=== PATIENT | male | born 1975 | race Caucasian/White ===

== ENCOUNTER → 2018-08-14 07:45 | Outpatient (CLI) | payer BC, SELFPAY ==
[2018-08-07 08:28] VITALS: BMI 28.5
--- NOTE | 2018-08-14 07:47 | CT_ITS ---
STUDY: CT ABDOMEN WITH CONTRAST REASON FOR EXAM: Male, 43 years old. Left abdominal wall mass. Constipation. 2 months. RADIATION DOSAGE (If Supplied By Facility): CTDIvol = ( 19.64 ) mGy, DLP = ( 1308.66 ) mGycm TECHNIQUE: Transaxial images were obtained post I.V. administration of 100 ml of Isovue 300 contrast, and with oral contrast. Sagittal and coronal images were reconstructed. Individualized dose optimization techniques were used for this CT. COMPARISON: None. FINDINGS: The visualized lung bases are unremarkable. The visualized portions of the heart are within normal limits. There is diffuse fatty infiltration liver without focal mass. Minimal focal fatty sparing is seen in the gallbladder fossa. Normal gallbladder and extrahepatic biliary system. Normal spleen. Normal pancreas. Normal bilateral adrenal glands. Normal right kidney. Normal visualized right ureter. There is a triangular 5 mm calcification upper pole calyx of an otherwise normal left kidney. There is no hydronephrosis. Normal visualized left ureter. Normal visualized stomach. Normal visualized small intestine. Feces is seen throughout the nondistended visualized colon. The appendix is visualized and appears normal. Normal abdominal aorta. . Normal inferior vena cava. Normal retroperitoneum. Normal abdominal wall. There is no visualized mass. Normal osseous structures. CT/Abdomen WITH IV Contrast IMPRESSION: 1. No visualized abdominal wall mass. 2. Findings compatible with constipation. 3. Nonobstructing left renal calculus. 4. Fatty infiltration of the liver. 5. Electronically Signed: Campbell Albright DO at 16:58 EST Tel [phone], Service support ,
== END ==
PROVIDERS: Family Provider Family Medicine; PCP Family Medicine; Referring Provider Surgery; Visit Provider Surgery
DX: R19.00 Intra-abdominal and pelvic swelling, mass and lump, unspecified site (principal)
CPT/HCPCS: 74160; Q9967

== ENCOUNTER 2018-08-19 05:23 | Day surgery (SDC) | payer BC, SELFPAY ==
[2018-08-07 08:28] VITALS: BMI 28.5
[2018-08-19] VITALS (11 sets, daily range): BP systolic 109–155; BP diastolic 80–112; PULSE 57–68; RESP 16; TEMP 36.3–36.7; O2SAT 90–100; BMI 28.1
--- NOTE | 2018-08-19 06:30 | EGD_PTH ---
PATIENT: MARISSA ANGUIANO LOC: EN U#:[id number] AGE/SX: 43/M ROOM: RE08/19/[address]: Dr. Alex Anderson MD : 1975 BED: DIS: 08/19/2018 SPEC #: [id number] RECD: 08/19/18 07:50 STATUS: NORAH SUE #: [id number] MARISELA: 08/19/18 06:[address]: Alex Anderson DEPT: SURGICAL PATHOLOGY RECD BY: Terry Cruz ENTERED: 08/19/18 08:46 SP TYPE: EGD BIOPSY OT DR: Dr. Jeffrey Anderson III, MD Tissues: A - Gastric mucous membrane B - Esophageal mucous membrane Procedures: Surgery Specimen Level IV HEADER OPERATION: Colonoscopy, EGD (MOD) PRE-OP DIAGNOSIS: LUQ pain TISSUE SUBMITTED: A - Antral biopsy for histo and H. pylori, B - Distal esophageal biopsy MICROSCOPIC DIAGNOSIS A. Antral biopsy: Mild gastritis. See microscopic description and comment. B. Distal esophageal biopsy: Fragments of squamous epithelium with chronic inflammation and changes consistent with gastroesophageal reflux disease. See comment. SJ:rg 08/20/18 COMMENT A. The results of immunohistochemistry for Helicobacter pylori will be reported separately ([id number]). B. Increased number of eosinophils are also noted (up to 20 per high power field) suggestive of eosinophilic esophagitis. Correlation with clinical, endoscopic findings and appropriate follow up are necessary. MICROSCOPIC DESCRIPTION Slides are reviewed. A. The specimen shows fragments of gastric mucosa with chronic inflammatory cell infiltrates in the lamina propria consisting of lymphocytes and plasma cells, consistent with mild chronic gastritis. GROSS DESCRIPTION A - Received in fixative is one container labeled with the patient's name and designated antral biopsy. The specimen consists of multiple irregular fragments of light fay soft tissue that in aggregate measure 0.6 x 0.2 x 0.1 cm. The specimen is totally submitted in one cassette. B - Received in fixative is one container labeled with the patient's name and designated distal esophageal biopsy. The specimen consists of multiple irregular fragments of light fay soft tissue that in aggregate measure 0.6 x 0.5 x 0.1 cm. The specimen is totally submitted in one cassette. / DEB:romeo 08/19/18 TC:4 CPT: 80937 x2
--- NOTE | 2018-08-19 06:30 | IMM_PTH ---
PATIENT: MARISSA ANGUIANO LOC: EN U#:[id number] AGE/SX: 43/M ROOM: RE08/19/[address]: Dr. Alex Anderson MD : 1975 BED: DIS: 08/19/2018 SPEC #: [id number] RECD: 08/19/18 10:17 STATUS: NORAH SUE #: [id number] MARISELA: 08/19/18 06:[address]: Alex Anderson DEPT: IMMUNOHISTOCHEMISTRY RECD BY: Marbella Abdul ENTERED: 08/19/18 10:17 SP TYPE: IMMUNO OTHR DR: Dr. Jeffrey Anderson III, MD Tissues: A - Stomach, NOS Procedures: H Pylori (initial) PHYSICIAN & INSTITUTION [place] [address] SPECIMEN INFORMATION: Tissue Source: A - Antral biopsy Clinical Info: LUQ pain Specimen Number: [id number] CPT code: 33064 METHODOLOGY: Deparaffinized sections of prefer/formalin-fixed tissue or PAP/DQ stained slides are incubated with monoclonal/polyclonal antibodies/oligonucleotide probes. Localization is made via biotin free immunoperoxidase method. Appropriate controls are performed and reacted as expected. Results on target cell population are indicated in the following table: RESULTS: ANTIBODY / CLONE RESULT Block A H Pylori (polyclonal) negative These tests were developed and their performance characteristics determined by [facility]. They may not have been cleared or approved by the [place].S. Food and Drug Administration. The FDA has determined that such clearance or approval is not necessary. INTERPRETATION: A. Antral biopsy: Negative for Helicobacter pylori organisms. SJ:romeo 08/20/18
--- NOTE | 2018-08-19 07:01 | OP.ENDO_ITS ---
Patient Name: Mathieu Malone Procedure Date: 08/19/2018 6:17 AM Date of : 1975 Age: 43 Procedure: Upper GI endoscopy Indications: Abdominal pain in the left upper quadrant Providers: Alex Anderson MD Referring MD: Jeffrey Anderson Iii Medicines: Midazolam 4 mg IV, Meperidine 100 mg IV Complications: No immediate complications. Procedure: Pre-Anesthesia Assessment: - Prior to the procedure, a History and Physical was performed, and patient medications and allergies were reviewed. The patient's tolerance of previous anesthesia was also reviewed. The risks and benefits of the procedure and the sedation options and risks were discussed with the patient. All questions were answered, and informed consent was obtained. Prior Anticoagulants: The patient has taken no previous anticoagulant or antiplatelet agents. ASA Grade Assessment: II - A patient with mild systemic disease. After reviewing the risks and benefits, the patient was deemed in satisfactory condition to undergo the procedure. After obtaining informed consent, the endoscope was passed under direct vision. Throughout the procedure, the patient's blood pressure, pulse, and oxygen saturations were monitored continuously. The gastroscope was introduced through the mouth, and advanced to the second part of duodenum. The upper GI endoscopy was accomplished without difficulty. The patient tolerated the procedure well. Moderate Sedation: Moderate (conscious) sedation was personally administered by the endoscopist. The following parameters were monitored: oxygen saturation, heart rate, blood pressure, and response to care. Total physician intraservice time was 15 minutes. Scope In: 6:34:30 AM Scope Out: 6:39:02 AM Total Procedure Duration Time 0 hours 4 minutes 32 seconds Findings: A small hiatal hernia was present. Esophagitis with no bleeding was found 41 cm from the incisors. Biopsies were taken with a cold forceps for histology. The Z-line was regular and was found 41 cm from the incisors. Diffuse mildly erythematous mucosa without bleeding was found in the gastric antrum. Biopsies were taken with a cold forceps for histology. The examined duodenum was normal. Impression: - Small hiatal hernia. - Reflux esophagitis. Very minimal changes Biopsied. - Z-line regular, 41 cm from the incisors. - Erythematous mucosa in the antrum. Biopsied. - Normal examined duodenum. Recommendation: - Resume previous diet. - Continue present medications. - Use Prilosec (omeprazole) 20 mg PO daily. - Continue present medications. - Telephone my office for pathology results in 1 week. Findings of small hiatal hernia and minimal esophagitis and minimal antral erythema do not well correlate with patient's symptoms Procedure Code(s): --- Professional --- 52538, Esophagogastroduodenoscopy, flexible, transoral; with biopsy, single or multiple 96457, 59, Moderate sedation services provided by the same physician or other qualified health managed care director performing the diagnostic or therapeutic service that the sedation supports, requiring the presence of an independent trained observer to assist in the monitoring of the patient's level of consciousness and physiological status; initial 15 minutes of intraservice time, patient age 5 years or older Diagnosis Code(s): --- Professional --- K44.9, Diaphragmatic hernia without obstruction or gangrene K21.0, Gastro-esophageal reflux disease with esophagitis K31.89, Other diseases of stomach and duodenum R10.12, Left upper quadrant pain CPT copyright 2017 [employer]. All rights reserved. The codes documented in this report are preliminary and upon radiography technician review may be revised to meet current compliance requirements. Alex Anderson MD 08/19/2018 7:01:04 AM This report has been signed electronically. Number of Addenda: 0 Note Initiated On: 08/19/2018 6:17 AM
--- NOTE | 2018-08-19 07:04 | OP.ENDO_ITS ---
Patient Name: Mathieu Malone Procedure Date: 08/19/2018 6:40 AM Date of : 1975 Age: 43 Procedure: Colonoscopy Indications: Abdominal pain in the left upper quadrant Providers: Alex Anderson MD Referring MD: Jeffrey Anderson Iii Medicines: Midazolam 1 mg IV, Meperidine 50 mg IV Patient Profile: Last Colonoscopy: none. The patient's first colonoscopy is today. Complications: No immediate complications. Procedure: Pre-Anesthesia Assessment: - Prior to the procedure, a History and Physical was performed, and patient medications and allergies were reviewed. The patient's tolerance of previous anesthesia was also reviewed. The risks and benefits of the procedure and the sedation options and risks were discussed with the patient. All questions were answered, and informed consent was obtained. Prior Anticoagulants: The patient has taken no previous anticoagulant or antiplatelet agents. ASA Grade Assessment: II - A patient with mild systemic disease. After reviewing the risks and benefits, the patient was deemed in satisfactory condition to undergo the procedure. After I obtained informed consent, the scope was passed under direct vision. Throughout the procedure, the patient's blood pressure, pulse, and oxygen saturations were monitored continuously. The colonoscope was introduced through the anus and advanced to the cecum, identified by appendiceal orifice and ileocecal valve. The colonoscopy was performed without difficulty. The patient tolerated the procedure well. The quality of the bowel preparation was good. The ileocecal valve and the appendiceal orifice were photographed. Moderate Sedation: Moderate (conscious) sedation was personally administered by the endoscopist. The following parameters were monitored: oxygen saturation, heart rate, blood pressure, and response to care. Total physician intraservice time was 15 minutes. Scope In: 6:42:40 AM Scope Withdrawal Time 0 hours 6 minutes 7 seconds Scope Out: 6:52:26 AM Total Procedure Duration Time 0 hours 9 minutes 46 seconds Findings: The perianal and digital rectal examinations were normal. The colon (entire examined portion) appeared normal. Impression: - The entire examined colon is normal. - No specimens collected. Recommendation: - Discharge patient to home. - Resume previous diet. - Continue present medications. - Repeat colonoscopy in 10 years for screening purposes. Procedure Code(s): --- Professional --- 91298, Colonoscopy, flexible; diagnostic, including collection of specimen(s) by brushing or washing, when performed (separate procedure) 31064, 59, Moderate sedation services provided by the same physician or other qualified health animal care service worker performing the diagnostic or therapeutic service that the sedation supports, requiring the presence of an independent trained observer to assist in the monitoring of the patient's level of consciousness and physiological status; initial 15 minutes of intraservice time, patient age 5 years or older Diagnosis Code(s): --- Professional --- R10.12, Left upper quadrant pain CPT copyright 2017 [employer]. All rights reserved. The codes documented in this report are preliminary and upon jewel hole gauger review may be revised to meet current compliance requirements. Alex Anderson MD 08/19/2018 7:03:51 AM This report has been signed electronically. Number of Addenda: 0 Note Initiated On: 08/19/2018 6:40 AM
--- OUTSIDE RECORDS SUMMARY | 2018-10-05 01:51 | XMS RPT_ITS ---
:1975 Author Organization OH[facility] Care Team Providers Name Role Phone Alex Anderson Attending Unavailable CebuJeffrey johnson III Primary Care Unavailable Cebul Jeffrey KRUEGER Referring Unavailable Alex Anderson Attending Unavailable Alex Anderson Referring Unavailable Alex Anderson Attending Unavailable Jeffrey Anderson III Referring Unavailable Alex Anderson Attending Unavailable Alex Anderson Referring Unavailable Cebul Jeffrey KRUEGER Primary Care Unavailable MIC CANTUILA A Referring Unavailable ARMOGIDA, KELSIE A Referring Unavailable ARMOGIDA, KELSIE A Referring Unavailable ARMOGIDA, KELSIE A Referring Unavailable ARMOGIDA, KELSIE A Referring Unavailable ARMOGIDA, KELSIE A Referring Unavailable ARMOGIDA, KELSIE A Referring Unavailable ARMOGIDA, KELSIE A Referring Unavailable ARMOGIDA, KELSIE A Referring Unavailable ARMOGIDA, KELSIE A Referring Unavailable ARMOGIDA, KELSIE A Referring Unavailable ARMOGIDA, KELSIE A Referring Unavailable ARMOGIDA, KELSIE A Referring Unavailable CEBUL III, JEFFREY A Referring Unavailable CEBUL III, JEFFREY A Referring Unavailable ARMOGIDA, KELSIE A Referring Unavailable ARMOGIDA, KELSIE A Attending Unavailable ARMOGIDA, KELSIE A Referring Unavailable ARMOGIDA, KELSIE A Referring Unavailable ARMOGIDA, KELSIE A Referring Unavailable ARMOGIDA, KELSIE A Referring Unavailable ARMOGIDA, KELSIE A Referring Unavailable ARMOGIDA, KELSIE A Referring Unavailable CEBUL III, JEFFREY A Referring Unavailable ARMOGIDA, KELSIE A Attending Unavailable ARMOGIDA, KELSIE A Referring Unavailable ANABELL ROLDAN ([employer]ING [employer]TAIN) Attending Unavailable CEBUL III, JEFFREY A Attending Unavailable CEBUL III, JEFFREY A Attending Unavailable PROBLEMS PROBLEMS DATE TYPE CONDITION / CODE ATTENDING STATUS SOURCE 09/22/2018 Unknown R10.12 - Left upper Cebul, Alex Active [facility] quadrant pain / Community R10.12(ICD-10) Hospital Repository 09/22/2018 Unknown K21.0 - Cebul, Alex Active [facility] reflux disease with Hospital esophagitis / Repository K21.0(ICD-10) 09/22/2018 Unknown K31.89 - Other Cebul, Alex Active [facility] diseases of stomach Community and duodenum / Hospital K31.89(ICD-10) Repository 09/22/2018 Unknown K44.9 - Cebul, Alex Active [facility] hernia without Hospital obstruction or Repository gangrene / K44.9(ICD-10) 08/14/2018 Unknown R19.00 - Cebul, Alex Active [facility] pelvic swelling, Hospital mass and lump, Repository unspecified site / R19.00(ICD-10) 08/07/2018 Unknown K92.1 - Melena / Cebul, Alex Active [facility] K92.1(ICD-10) [facility] Hospital Repository 10/07/2017 Active Unknown / NA Active [facility] UNK(Unknown) [facility] Repository PROCEDURES PROCEDURES No Procedure Records FoundRESULTS RESULTS PROGRESS Observed: 09/24/2018 Status: COMPLETED Source: [place] 10:20 AM [facility] REPOSITORY HNO ID: [id number] Author: Kelsie Viveros Service: (none) Author Type: Physician Type: Progress Notes Filed: 09/24/2018 12:58 PM Note Text: Marissa Malone is a 42 year old male with a history of allergic rhinoconjunctivitis (cats, dogs, dust mites, trees, grasses, weeds, ragweed) who presents for a follow-up visit after having EGD completed by Dr Alex Anderson. Last visit was 06/04/18. EGD and colonoscopy were completed on August 19, 2018 for a sensation of left upper quadrant fullness. On EGD, a small hiatal hernia and distal esophagitis were noted. Patient also had diffuse mildly erythematous mucosa of the gastric antrum. On biopsy of the distal esophagus, increased number of eosinophils up to 20 per high power field was noted. Biopsies were not completed of the proximal or mid esophagus. Antral biopsy showed mild gastritis. H. pylori negative. Colonoscopy was normal. After having the studies completed, Prilosec 20 mg daily for 2 months was recommended, however, patient has not started this medication yet. Patient denies a history dysphagia, odynophagia and food impaction. Denies significant GERD symptoms prior to having the procedure completed. Since having the procedures completed, patient notes intermittent epigastric discomfort described as sharp pain which improves after drinking water. Bradycardia was incidentally noted at today's visit with a pulse of 45-50. Typically patients pulse runs between 56 and 63. Patient notes intermittent sharp discomfort of the lower sternum/epigastric region which patient attributes to GERD. . Denies chest heaviness/chest pressure, left jaw or left arm pain, diaphoresis and nausea. No history of coronary artery disease. Patient notes intermittent sneezing. Otherwise nasal symptoms have been well-controlled since his last visit. He began subcutaneous allergy immunotherapy on May 06, 2017 and reached the maintenance dose on April 07, 2018. He has noted some improvement in his nasal and ocular symptoms since starting immunotherapy. He has been tolerating immunotherapy without systemic reaction. There are no cats or dogs in the home. (His dog 2017.) Dust mite precautions have not been instituted in the home- new pillows but no encasings. (From initial visit on April 15, 2017: This is a self-referral for an allergy and immunology evaluation. Marissa Malone is a 41 year old male with a history of allergic rhinoconjunctivitis who [facility]. Last visit was in 2008. He complains of nasal congestion, rhinorrhea, sneezing and itchy and watery eyes. Symptoms are perennial with exacerbation in the spring and summer. Cat exposure is a trigger of his symptoms. Currently takes Claritin D with fair relief of symptoms. Previously on Flonase with improvement. He is interested in starting subcutaneous allergy immunotherapy. Approximately 20 years ago, he was on subcutaneous immunotherapy for about 8 months with mild improvement in his symptoms. Denies systemic reactions to immunotherapy. In June,, he was treated with prednisone and an albuterol for bronchitis. Denies any other issues with cough, wheezing, chest tightness or shortness of breath. REVIEW OF SYSTEMS: Negative for fevers, chills, night sweats and unintentional weight loss. Negative for skin rash and skin lesions All other review of systems negative except for those listed above. PAST MEDICAL HISTORY Diagnosis Date - Allergic rhinitis due to other allergen MEDICATIONS: loratadine (CLARITIN) 10 mg tablet Take 10 mg by mouth once daily. EPINEPHrine (AUVI-Q) 0.3 mg/0.3 mL auto-injector Inject 0.3 mL intramuscularly as needed. For allergic reaction.Seek emergent medical care immediately after use.Disp:1 2-packw/job foreman omeprazole (PRILOSEC) 20 mg capsule Take 1 capsule by mouth once daily. sertraline (ZOLOFT) 50 mg tablet Take 1 tablet by mouth once daily. fluticasone (FLONASE) 50 mcg/actuation nasal spray Use 2 Sprays in each nostril once daily. EPINEPHrine (EPIPEN) 0.3 mg/0.3 mL auto-injector Inject 0.3 mL intramuscularly as needed (for allergic reaction.Seek emergent medical care immediately after use.Disp:one 2-pack w/job foreman). olopatadine (PATANOL) 0.1 % ophthalmic solution Use 1 Drop in both eyes twice daily as needed. ALLERGIES: Allergies As of Date: 09/24/2018 Allergen Noted Reaction ENVIRONMENTAL ALLERGIES [OTHER] 03/23/2009 Other: See Comments Fully Assessed 09/24/2018 PAST SURGICAL HISTORY Procedure Laterality Date - COLONOSCOP W/ OR W/[facility] W/BX [facility] PAST SURGICAL HISTORY OF 2017 removed benign lesion on scalp, deepa - REM LESION FACE,EAR,EYE 1.1-2 CM Right 06/05/16 Exc. right lower lip mucocele - REMOVAL ADENOIDS,PRIMARY,<12 Y/O 1981 Adenoidectomy - REMOVAL OF TONSILS,<12 Y/O 1981 Tonsillectomy FAMILY HISTORY: Allergic rhinitis:no. Asthma: yes: son when younger, but grew out of it. Eczema: no. Cystic fibrosis: no. Immunodeficiency: no. SOCIAL HISTORY: Marital status: Children: 2 biological and step son Occupation: [email or web address] Smoking: quit smoking 6 months ago. Smoked a couple cigarettes off and on for 5 years. ENVIRONMENTAL HISTORY: Lives in a house Age of home: 89 years Heating: gas [employer] fireplace in the home: yes but never used Air conditioning: Central air Basement: Dry basement, runs de-humidifier Deon: [id number] carpeting Dust mite controls: Dust mite controls are not in place. Pets in the home: 1 dogs Outdoor animals: There are no outdoor animals Tobacco smoke: No exposure in the home. Physical Exam: GENERAL APPEARANCE:Well appearing, alert, in no acute distress, well-hydrated, well nourished. HEENT: NCAT. EYES: conjunctiva and sclera normal. EARS: External ears normal. Canals clear. TM's normal. NOSE/SINUS:mild edema of the nasal mucosa with scant clear secretions bilaterally THROAT: no erythema NECK:neck supple, no adenopathy HEART:bradycardic, regular rhythmwith normal S1 and S2 ,no murmurs, no gallops, no rubs LUNGS: clear to auscultation bilaterally, no wheezes, rales or rhonchi ABDOMEN:soft, nontender, nondistended, without organomegaly or palpable masses EXTREMITIES:Extremities normal, No deformities, No skin discoloration and No edema SKIN: Skin color, texture, turgor normal. No rashes or lesions. ALLERGY SKIN TESTS on April 15, 2017:Positive to cats, dogs, dust mites, trees, grasses, weeds, ragweed on prick testing. ASSESSMENT/PLAN: 1.) Increased eosinophils noted on biopsy of distal esophagus. Based on patient's clinical history and test results, I suspect the increased eosinophils are secondary to GERD rather than eosinophilic esophagitis. Recommended that he take omeprazole 20 mg once daily for 2 months as previously recommended by Dr. Alex Anderson. Follow- up in allergy in 3 months. Depending on clinical course, allergy skin tests to highly allergenic foods may be considered at a future visit. 2.) Bradycardia. Discussed with patient's primary care physician, Dr. Jeffrey Anderson. Since patient is asymptomatic, Dr. Anderson recommended follow- up as scheduled on October 06. EKG will be completed at that time. Patient instructed to seek emergent medical care if he develops symptoms such as chest pain, nausea, diaphoresis etc. 3.) Allergic Rhinoconjunctivitis Aggressive environmental controls Dust mite precautions should be instituted in the home. Recommend regular use of fluticasone nasal spray 2 sprays each nostril once daily from early November through the first avila in the fall/early winter.. Continue Claritin 10 mg once daily as needed Patient will continue subcutaneous allergy immunotherapy as tolerated. He was reminded that beta blockers and esteban inhibitors are relative contraindications to subcutaneous allergy immunotherapy and was instructed to contact our office immediately if he is prescribed a beta jayy or ESTEBAN inhibitor in the future. 4.) Discussed medication dosage, usage, side effects, and goals of treatment in detail. 5.) Follow-up in 3 months - patient will return sooner should new symptoms or problems arise. Kelsie Cantu MD PROGRESS Observed: 09/24/2018 Status: COMPLETED Source: [place] 10:10 AM [facility] REPOSITORY HNO ID: [id number] Author: Ketty Thomas RN Service: (none) Author Type: (none) Type: Progress Notes Filed: 09/24/2018 12:58 PM Note Text: Pt identified by name and birthdate. Allergy injections given subcutaneously. September 24, 2018 10:10 AM Patient took antihistamine. Patient states took claritin at 7 today Immunotherapy Order written on: 05/06/[address] Kelsie Cantu [phone] Patient did not have a large late local reaction to previous injection. Size of reaction If patient has asthma, symptoms controlled: N/A Patient did not report a recent illness. Patient did not report a new blood pressure medications or asthma medication. Patient has their Epi pen with them, Yes Vial A Content: MOLDS Patient did not have a large late local reaction to previous injection. Size of reaction Concentration: 1:1 Dose: 0.5 ml SQ Arm: left upper arm (proximal) Reaction after 30 minutes: None Vial B Content: TREES, GRASSES, WEEDS, RAGWEED Patient did not have a large late local reaction to previous injection. Size of reaction Concentration: 1:1 Dose: 0.5 ml SQ Arm: right upper arm (proximal) Reaction after 30 minutes: None Vial C Content: DUST MITES, ANIMAL DANDER Patient did not have a large late local reaction to previous injection. Size of reaction Concentration: 1:1 Dose: 0.5 ml SQ Arm: left upper arm (distal) Reaction after 30 minutes: None Previously instructed about signs and symptoms of local and systemic reactions. Appointment line and nurses station number given as well as injection times at administering location. Ketty Thomas RN CNOV Observed: 09/24/2018 Status: COMPLETED Source: [place] 9:00 AM [facility] REPOSITORY Office Visit (ALLMED) MARISSA MALONE ([id number]) 1975 M Date Time Provider Department 09/24/18 9:00 AM KELSIE VIVEROS During your visit today, we recorded the following information about you: Pulse Blood pressure Weight 50/minute 132/89 94.8 kg Ketty Thomas RN 09/24/2018 9:25 AM Signed Patient here for IT shots and to discuss EGD results. No concerns at this time. Kelsie Viveros MD 09/24/2018 9:49 AM Signed Take omeprazole (prilosec) 20 mg once a day for 2 months. Take 30-60 minutes prior to eating breakfast. Ketty Thomas RN 09/24/2018 12:58 PM Signed Pt identified by name and birthdate. Allergy injections given subcutaneously. September 24, 2018 10:10 AM Patient took antihistamine. Patient states took claritin at 7 today Immunotherapy Order written on: 05/06/[address] Kelsie Cantu [phone] Patient did not have a large late local reaction to previous injection. Size of reaction If patient has asthma, symptoms controlled: N/A Patient did not report a recent illness. Patient did not report a new blood pressure medications or asthma medication. Patient has their Epi pen with them, Yes Vial A Content: MOLDS Patient did not have a large late local reaction to previous injection. Size of reaction Concentration: 1:1 Dose: 0.5 ml SQ Arm: left upper arm (proximal) Reaction after 30 minutes: None Vial B Content: TREES, GRASSES, WEEDS, RAGWEED Patient did not have a large late local reaction to previous injection. Size of reaction Concentration: 1:1 Dose: 0.5 ml SQ Arm: right upper arm (proximal) Reaction after 30 minutes: None Vial C Content: DUST MITES, ANIMAL DANDER Patient did not have a large late local reaction to previous injection. Size of reaction Concentration: 1:1 Dose: 0.5 ml SQ Arm: left upper arm (distal) Reaction after 30 minutes: None Previously instructed about signs and symptoms of local and systemic reactions. Appointment line and nurses station number given as well as injection times at administering location. Ktety Viveros MD 09/24/2018 12:58 PM Signed Marissa Malone is a 42 year old male with a history of allergic rhinoconjunctivitis (cats, dogs, dust mites, trees, grasses, weeds, ragweed) who presents for a follow-up visit after having EGD completed by Dr Alex Anderson. Last visit was 06/04/18. EGD and colonoscopy were completed on August 19, 2018 for a sensation of left upper quadrant fullness. On EGD, a small hiatal hernia and distal esophagitis were noted. Patient also had diffuse mildly erythematous mucosa of the gastric antrum. On biopsy of the distal esophagus, increased number of eosinophils up to 20 per high power field was noted. Biopsies were not completed of the proximal or mid esophagus. Antral biopsy showed mild gastritis. H. pylori negative. Colonoscopy was normal. After having the studies completed, Prilosec 20 mg daily for 2 months was recommended, however, patient has not started this medication yet. Patient denies a history dysphagia, odynophagia and food impaction. Denies significant GERD symptoms prior to having the procedure completed. Since having the procedures completed, patient notes intermittent epigastric discomfort described as sharp pain which improves after drinking water. Bradycardia was incidentally noted at today's visit with a pulse of 45-50. Typically patients pulse runs between 56 and 63. Patient notes intermittent sharp discomfort of the lower sternum/epigastric region which patient attributes to GERD. . Denies chest heaviness/chest pressure, left jaw or left arm pain, diaphoresis and nausea. No history of coronary artery disease. Patient notes intermittent sneezing. Otherwise nasal symptoms have been well-controlled since his last visit. He began subcutaneous allergy immunotherapy on May 06, 2017 and reached the maintenance dose on April 07, 2018. He has noted some improvement in his nasal and ocular symptoms since starting immunotherapy. He has been tolerating immunotherapy without systemic reaction. There are no cats or dogs in the home. (His dog 2017.) Dust mite precautions have not been instituted in the home- new pillows but no encasings. (From initial visit on April 15, 2017: This is a self-referral for an allergy and immunology evaluation. Marissa Malone is a 41 year old male with a history of allergic rhinoconjunctivitis who [facility] Last visit was in 2008. He complains of nasal congestion, rhinorrhea, sneezing and itchy and watery eyes. Symptoms are perennial with exacerbation in the spring and summer. Cat exposure is a trigger of his symptoms. Currently takes Claritin D with fair relief of symptoms. Previously on Flonase with improvement. He is interested in starting subcutaneous allergy immunotherapy. Approximately 20 years ago, he was on subcutaneous immunotherapy for about 8 months with mild improvement in his symptoms. Denies systemic reactions to immunotherapy. In June,, he was treated with prednisone and an albuterol for bronchitis. Denies any other issues with cough, wheezing, chest tightness or shortness of breath. REVIEW OF SYSTEMS: Negative for fevers, chills, night sweats and unintentional weight loss. Negative for skin rash and skin lesions All other review of systems negative except for those listed above. PAST MEDICAL HISTORY Diagnosis Date - Allergic rhinitis due to other allergen MEDICATIONS: loratadine (CLARITIN) 10 mg tablet Take 10 mg by mouth once daily. EPINEPHrine (AUVI-Q) 0.3 mg/0.3 mL auto-injector Inject 0.3 mL intramuscularly as needed. For allergic reaction.Seek emergent medical care immediately after use.Disp:1 2-packw/job foreman omeprazole (PRILOSEC) 20 mg capsule Take 1 capsule by mouth once daily. sertraline (ZOLOFT) 50 mg tablet Take 1 tablet by mouth once daily. fluticasone (FLONASE) 50 mcg/actuation nasal spray Use 2 Sprays in each nostril once daily. EPINEPHrine (EPIPEN) 0.3 mg/0.3 mL auto-injector Inject 0.3 mL intramuscularly as needed (for allergic reaction.Seek emergent medical care immediately after use.Disp:one 2-pack w/job foreman). olopatadine (PATANOL) 0.1 % ophthalmic solution Use 1 Drop in both eyes twice daily as needed. ALLERGIES: Allergies As of Date: 09/24/2018 Allergen Noted Reaction ENVIRONMENTAL ALLERGIES [OTHER] 03/23/2009 Other: See Comments Fully Assessed 09/24/2018 PAST SURGICAL HISTORY Procedure Laterality Date - COLONOSCOP W/ OR W/O [facility] SPEC 08/19/2018 [facility] - EGD W/O [facility] SPECIM[facility] W/BX 08/19/2018 [facility] - PAST SURGICAL HISTORY OF 2016 removed benign lesion on scalp, deepa - REM LESION FACE,EAR,EYE 1.1-2 CM Right 06/05/16 Exc. right lower lip mucocele - REMOVAL ADENOIDS,PRIMARY,<12 Y/O 1981 Adenoidectomy - REMOVAL OF TONSILS,<12 Y/O 1981 Tonsillectomy FAMILY HISTORY: Allergic rhinitis:no. Asthma: yes: son when younger, but grew out of it. Eczema: no. Cystic fibrosis: no. Immunodeficiency: no. SOCIAL HISTORY: Marital status: Children: 2 biological and step son Occupation: [email or web address] Smoking: quit smoking 6 months ago. Smoked a couple cigarettes off and on for 5 years. ENVIRONMENTAL HISTORY: Lives in a house Age of home: 89 years Heating: gas Woodburning fireplace in the home: yes but never used Air conditioning: Central air Basement: Dry basement, runs de-humidifier Deon: [id number]-krgo carpeting Dust mite controls: Dust mite controls are not in place. Pets in the home: 1 dogs Outdoor animals: There are no outdoor animals Tobacco smoke: No exposure in the home. Physical Exam: GENERAL APPEARANCE:Well appearing, alert, in no acute distress, well-hydrated, well nourished. HEENT: NCAT. EYES: conjunctiva and sclera normal. EARS: External ears normal. Canals clear. TM's normal. NOSE/SINUS:mild edema of the nasal mucosa with scant clear secretions bilaterally THROAT: no erythema NECK:neck supple, no adenopathy HEART:bradycardic, regular rhythmwith normal S1 and S2 ,no murmurs, no gallops, no rubs LUNGS: clear to auscultation bilaterally, no wheezes, rales or rhonchi ABDOMEN:soft, nontender, nondistended, without organomegaly or palpable masses EXTREMITIES:Extremities normal, No deformities, No skin discoloration and No edema SKIN: Skin color, texture, turgor normal. No rashes or lesions. ALLERGY SKIN TESTS on April 15, 2017:Positive to cats, dogs, dust mites, trees, grasses, weeds, ragweed on prick testing. ASSESSMENT/PLAN: 1.) Increased eosinophils noted on biopsy of distal esophagus. Based on patient's clinical history and test results, I suspect the increased eosinophils are secondary to GERD rather than eosinophilic esophagitis. Recommended that he take omeprazole 20 mg once daily for 2 months as previously recommended by Dr. Alex Anderson. Follow-up in allergy in 3 months. Depending on clinical course, allergy skin tests to highly allergenic foods may be considered at a future visit. 2.) Bradycardia. Discussed with patient's primary care physician, Dr. Jeffrey Anderson. Since patient is asymptomatic, Dr. Anderson recommended follow- up as scheduled on October 06. EKG will be completed at that time. Patient instructed to seek emergent medical care if he develops symptoms such as chest pain, nausea, diaphoresis etc. 3.) Allergic Rhinoconjunctivitis Aggressive environmental controls Dust mite precautions should be instituted in the home. Recommend regular use of fluticasone nasal spray 2 sprays each nostril once daily from early November through the first avila in the fall/early winter.. Continue Claritin 10 mg once daily as needed Patient will continue subcutaneous allergy immunotherapy as tolerated. He was reminded that beta blockers and esteban inhibitors are relative contraindications to subcutaneous allergy immunotherapy and was instructed to contact our office immediately if he is prescribed a beta jayy or ESTEBAN inhibitor in the future. 4.) Discussed medication dosage, usage, side effects, and goals of treatment in detail. 5.) Follow-up in 3 months - patient will return sooner should new symptoms or problems arise. 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 [J30.89] Allergic rhinitis due to animal hair and dander [J30.81] Allergic rhinitis due to dust mite [J30.89] Seasonal allergic rhinitis due to pollen [J30.1] Bradycardia [R00.1] Order(s):omeprazole (PRILOSEC) 20 mg capsuleTake 1 capsule by mouth once daily.Disp: 30 capsuleRfl: 1 Prescriptions as of 09/24/2018 Sig: LORATADINE 10 MG TABLET Take 10 mg by mouth once kristi* EPINEPHRINE 0.3 MG/0.3 ML INJ* Inject 0.3 mL intramuscularly* OMEPRAZOLE 20 MG CAPSULE,TY* Take 1 capsule by mouth once * SERTRALINE 50 MG TABLET Take 1 tablet by mouth once d* Patient not taking: Reported on 09/24/2018 FLUTICASONE 50 MCG/ACTUATION * Use 2 Sprays in each nostril * Patient not taking: Reported on 07/21/2018 EPINEPHRINE 0.3 MG/0.3 ML INJ* Inject 0.3 mL intramuscularly* Patient not taking: Reported on 07/21/2018 OLOPATADINE 0.1 % EYE DROPS Use 1 Drop in both eyes twice* Patient not taking: Reported on 07/21/2018 Problem List As Of Date 09/24/2018 Noted Resolved ALLERGIC RHINITIS NEC [J30.89] 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 Take 30-60 minutes prior to eating breakfast. Visit Notes: >> Ketty Thomas RN Sandrine Sep 24, 2018 9:22 AM Status: Signed Patient here for IT shots and to discuss EGD results. No concerns at this time. Prescriptions ordered this encounter Disp Refills Start End OMEPRAZOLE 20 MG CAPSULE,DELAYED REL* 30 c* 1 09/24/2018 Route: ORAL Sig: Take 1 capsule by mouth once daily. Disposition: Return in about 3 months (around 12/23/2018). Follow-up and Disposition History Recorded Encounter Status:Closed by KELSIE VIVEROS MD on 09/24/18 [facility] Observed: 09/24/2018 Status: COMPLETED Source: [place] 12:00 AM [facility] REPOSITORY Letter Text Marissa Malone Kelsie Viveros MD Allergy and Immunology [facility] Office [facility]/[address], [address] [place] [address] September 24, 2018 Dr. Jeffrey Anderson III [facility] [place] [address] Re: Marissa Malone Date of : [address] Jeffrey Anderson III, I had the pleasure of seeing Marissa Malone for a follow-up visit in Allergy and Immunology on 09/24/2018. A copy of my clinic note summarizing his visit is enclosed. Thank you for allowing my participation in the care of your patient. Please feel free to call if any questions or concerns arise regarding his care. Sincerely, Jenni Blandon RN CNPN Observed: 08/27/2018 Status: COMPLETED Source: [place] 12:00 AM [facility] REPOSITORY Telephone (ALLMED) MARISSA MALONE ([id number]) 1975 M Date Time Provider Department 08/27/18 KELSIE VIVEROS During your visit today, we recorded the following information about you: Kelsie Viveros MD 08/27/2018 6:36 PM Signed Received path results of recent EGD completed by Dr. Anderson. Biopsy of distal esophagus noted up to 20 eos per hpf. Prilosec 20 mg daily for 2 months was recommended. The increased eos may be due to acid reflux or eosinophilic esophagitis. Please ask patient to schedule a follow-up visit to discuss sxs that let up to the completion of the EGD. Keep records on file to review at the office visit. MD Jenni Basilio RN 09/03/2018 11:59 AM Signed Left message to call office. Jenni Blandon RN 09/10/2018 11:00 AM Signed Left detailed message on cell to call and schedule f/u. Jenni Blandon RN 09/10/2018 11:01 AM Signed Results in file. Allergies As of Date: 08/27/2018 Noted Allergy Reaction Environmental allergies [Other] 03/23/2009 14 - Other: See Comments Comments: Cats, dogs, dust mites, trees, grasses, weeds, ragweed as verified by skin testing Date Reviewed: 08/25/2018 Reviewed by: Ketty Thomas RN - Fully Assessed Reason for Visit: EGD f/u [Other] Prescriptions as of 08/27/2018 Sig: SERTRALINE 50 MG TABLET Take 1 tablet by mouth once d* LORATADINE 10 MG TABLET Take 10 mg by mouth once kristi* EPINEPHRINE 0.3 MG/0.3 ML INJ* Inject 0.3 mL intramuscularly* FLUTICASONE 50 MCG/ACTUATION * Use 2 Sprays in each nostril * Patient not taking: Reported on 07/21/2018 EPINEPHRINE 0.3 MG/0.3 ML INJ* Inject 0.3 mL intramuscularly* Patient not taking: Reported on 07/21/2018 OLOPATADINE 0.1 % EYE DROPS Use 1 Drop in both eyes twice* Patient not taking: Reported on 07/21/2018 Problem List As Of Date 08/27/2018 Noted Resolved ALLERGIC RHINITIS NEC [J30.89] Mucocele of lower lip [K13.79] INVALID FOR*08/04/2018 Seasonal allergic rhinitis due to pollen [J30.1]INVALID FOR* Allergic rhinitis due to animal hair and dander*INVALID FOR* Allergic rhinitis due to dust mite [J30.89] INVALID FOR* Chronic allergic rhinitis due to fungal spores *INVALID FOR*04/15/2017 Acute atopic conjunctivitis of both eyes [H10.1*INVALID FOR*08/04/2018 Chronic allergic rhinitis due to fungal spores *INVALID FOR* Elevated blood pressure reading without diagnos*INVALID FOR* Encounter Status:Closed by JENNI BLANDON RN on 09/10/18 [facility] Observed: 08/25/2018 Status: COMPLETED Source: [place] 12:19 PM [facility] REPOSITORY O ID: [id number] Author: Ketty Thomas RN Service: (none) Author Type: (none) Type: Progress Notes Filed: 08/25/2018 12:21 PM Note Text: Pt identified by name and birthdate. Allergy injections given subcutaneously. August 25, 2018 12:19 PM Patient took antihistamine. Patient states took claritin at 7 today.. Immunotherapy Order written on: 05/06/[address] Kelsie Cantu [phone] Patient did not have a large late local reaction to previous injection. Size of reaction If patient has asthma, symptoms controlled: N/A Patient did not report a recent illness. Patient did not report a new blood pressure medications or asthma medication. Patient has their Epi pen with them, Yes Vial A Content: MOLDS Patient did not have a large late local reaction to previous injection. Size of reaction Concentration: 1:1 Dose: 0.5 ml SQ Arm: right upper arm (proximal) Reaction after 30 minutes: None Vial B Content: TREES, GRASSES, WEEDS, RAGWEED Patient did not have a large late local reaction to previous injection. Size of reaction Concentration: 1:1 Dose: 0.5 ml SQ Arm: left upper arm (proximal) Reaction after 30 minutes: pea size induration Vial C Content: DUST MITES, ANIMAL DANDER Patient did not have a large late local reaction to previous injection. Size of reaction Concentration: 1:1 Dose: 0.5 ml SQ Arm: right upper arm (distal) Reaction after 30 minutes: 10 cent size induration Previously instructed about signs and symptoms of local and systemic reactions. Appointment line and nurses station number given as well as injection times at administering location. Ketty Thomas RN CNNURSE Observed: 08/25/2018 Status: COMPLETED Source: [place] 9:00 AM [facility] REPOSITORY Nurse Visit (PILARMED) MARISSA MALONE ([id number]) 1975 M Date Time Provider Department 08/25/18 9:00 AM NURSE [facility] During your visit today, we recorded the following information about you: Ketty Thomas RN 08/25/2018 12:21 PM Signed Pt identified by name and birthdate. Allergy injections given subcutaneously. August 25, 2018 12:19 PM Patient took antihistamine. Patient states took claritin at 7 today.. Immunotherapy Order written on: 05/06/[address] Kelsie Cantu [phone] Patient did not have a large late local reaction to previous injection. Size of reaction If patient has asthma, symptoms controlled: N/A Patient did not report a recent illness. Patient did not report a new blood pressure medications or asthma medication. Patient has their Epi pen with them, Yes Vial A Content: MOLDS Patient did not have a large late local reaction to previous injection. Size of reaction Concentration: 1:1 Dose: 0.5 ml SQ Arm: right upper arm (proximal) Reaction after 30 minutes: None Vial B Content: TREES, GRASSES, WEEDS, RAGWEED Patient did not have a large late local reaction to previous injection. Size of reaction Concentration: 1:1 Dose: 0.5 ml SQ Arm: left upper arm (proximal) Reaction after 30 minutes: pea size induration Vial C Content: DUST MITES, ANIMAL DANDER Patient did not have a large late local reaction to previous injection. Size of reaction Concentration: 1:1 Dose: 0.5 ml SQ Arm: right upper arm (distal) Reaction after 30 minutes: 10 cent size induration Previously instructed about signs and symptoms of local and systemic reactions. Appointment line and nurses station number given as well as injection times at administering location. Ketty Thomas RN Referring Provider: KELSIE CANTU [[id number]] Allergies As of Date: 08/25/2018 Noted Allergy Reaction Environmental allergies [Other] 03/23/2009 14 - Other: See Comments Comments: Cats, dogs, dust mites, trees, grasses, weeds, ragweed as verified by skin testing Date Reviewed: 08/25/2018 Reviewed by: Ketty Thomas RN - Fully Assessed Reason for Visit: Imm/Inj [58] Allergy Injection [7699] Reason For Visit History Recorded Primary Visit Diagnosis:Non-seasonal allergic rhinitis due to pollen [J30.1] Prescriptions as of 08/25/2018 Sig: EPINEPHRINE 0.3 MG/0.3 ML INJ* Inject 0.3 mL intramuscularly* EPINEPHRINE 0.3 MG/0.3 ML INJ* Inject 0.3 mL intramuscularly* Patient not taking: Reported on 07/21/2018 FLUTICASONE 50 MCG/ACTUATION * Use 2 Sprays in each nostril * Patient not taking: Reported on 07/21/2018 LORATADINE 10 MG TABLET Take 10 mg by mouth once kristi* OLOPATADINE 0.1 % EYE DROPS Use 1 Drop in both eyes twice* Patient not taking: Reported on 07/21/2018 SERTRALINE 50 MG TABLET Take 1 tablet by mouth once d* Problem List As Of Date 08/25/2018 Noted Resolved ALLERGIC RHINITIS NEC [J30.89] Mucocele of lower lip [K13.79] INVALID FOR*08/04/2018 Seasonal allergic rhinitis due to pollen [J30.1]INVALID FOR* Allergic rhinitis due to animal hair and dander*INVALID FOR* Allergic rhinitis due to dust mite [J30.89] INVALID FOR* Chronic allergic rhinitis due to fungal spores *INVALID FOR*04/15/2017 Acute atopic conjunctivitis of both eyes [H10.1*INVALID FOR*08/04/2018 Chronic allergic rhinitis due to fungal spores *INVALID FOR* Elevated blood pressure reading without diagnos*INVALID FOR* Encounter Status:Closed by KETTY THOMAS RN on 08/25/18 [facility] Observed: 08/25/2018 Status: COMPLETED Source: [place] 12:00 AM [facility] RE[facility]IT[facility] Letter Text Marissa Malone Kelsie Cantu MD Allergy and Immunology [facility] [id number] [place] [address]/ [address] [address] August 25, 2018 Re: Marissa Malone Date of : 1975 To whom it may concern, Marissa Malone has a significant allergy to cats. Cats should be kept strictly out of the home. Thank you for your attention to this matter. Sincerely, Kelsie Cantu MD PROGRESS Observed: 08/24/2018 Status: COMPLETED Source: [place] 11:13 AM [facility] RE[facility]IT[facility] HNO ID: [id number] Author: Anabell Perla (Mushtaq) Jamar Service: (none) Author Type: Nurse Practitioner Type: Progress Notes Filed: 08/24/2018 1:03 PM Note Text: Chief Complaint Patient presents with: work release: needs forms faxed back to employer stating pt can do his job while taking Zoloft HPI Marissa Malone is a 43 year old male who presents here today for Above Complaints. 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 Patient called to verify with employer if it would be OK to continue taking Zoloft with his job. Patient scheduled to return to work tomorrow after being off for one month, (disciplinary action). Received forms that require a statement from prescribing provider regarding medication, signs and sx and condition for which it is being prescribed, stability and control of the condition and if any work restrictions. Patient does have a follow up apt with PCP 09/16/18. Reports he has been compliant with the medication, taking his dose each morning. Denies any side effects. States he feels significantly better regarding the anxiety, less emotional, denies any panic attacks. Denies any suicidal or homicidal thoughts. He is looking forward to returning to work. He is not doing counseling. Past medical history, appointments, medications, allergies reviewed. Previous Medical History PAST MEDICAL HISTORY Diagnosis Date - Allergic rhinitis due to other allergen Previous Surgical History PAST SURGICAL HISTORY Procedure Laterality Date [facility] COLONOSCOP W/ OR [facility] W/BX [facility] - PAST SURGICAL HISTORY OF 2017 removed benign lesion on scalp, deepa - REM LESION FACE,EAR,EYE 1.1-2 CM Right 06/05/16 Exc. right lower lip mucocele - REMOVAL ADENOIDS,PRIMARY,<12 Y/O 1981 Adenoidectomy - REMOVAL OF TONSILS,<12 Y/O 1981 Tonsillectomy Family History FAMILY HISTORY Problem Relation Age of Onset - Thyroid Mother - Headache Father Migraines - Allergies Father - Headache Sister Migraines - Diabetes Maternal Grandmother - Emphysema Maternal Grandmother - Emphysema Maternal Grandfather - Heart Maternal Grandfather pacemaker; stents - Diabetes Paternal Grandmother - Cancer Paternal Grandmother - Diabetes Paternal Grandfather - Heart Paternal Grandfather [place] - Asthma Son - other (Psoriasis [Other]) Paternal Grandmother - other (polycythemia vera [Other]) Father Patient Allergies ALLERGIES Allergen Reactions - Environmental Aller* Other: See Comments Cats, dogs, dust mites, trees, grasses, weeds, ragweed as verified by skin testing Current Medications Current Outpatient Prescriptions on File Prior to Visit: EPINEPHrine (AUVI-Q) 0.3 mg/0.3 mL auto-injector Inject 0.3 mL intramuscularly as needed. 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 sertraline (ZOLOFT) 50 mg tablet Take 1 tablet by mouth once daily. EPINEPHrine (EPIPEN) 0.3 mg/0.3 mL auto-injector Inject 0.3 mL intramuscularly as needed (for allergic reaction.Seek emergent medical care immediately after use.Disp:one 2-pack w/job foreman). (Patient not taking: Reported on 07/21/2018 ) fluticasone (FLONASE) 50 mcg/actuation nasal spray Use 2 Sprays in each nostril once daily. (Patient not taking: Reported on 07/21/2018 ) olopatadine (PATANOL) 0.1 % ophthalmic solution Use 1 Drop in both eyes twice daily as needed. (Patient not taking: Reported on 07/21/2018 ) No current facility-administered medications on file prior to visit. Social History Social History Marital status: Spouse name: Years of education: Number of children: Social History Main Topics Smoking status: Former Smoker Packs/day: 0.00 Years: 10. Quit date: 01/06/2009 Smokeless tobacco: Never Used Comment: smoked off and on for 10 years, average of 3 cigarettes per day Alcohol use: Yes Comment: occasionally Drug use: No EXAM: BP 112/88 (BP Site: Right Arm, BP Position: Sitting, BP Cuff Size: Large Adult) Pulse (!) 56 Temp 36.5 ?C (97.7 ?F) (Tympanic) Resp 18 Wt 96.2 kg (212 lb) BMI 28.75 kg/m? General Appearance: Well appearing, alert, in no acute distress, well-hydrated, well nourished.. Eyes: Anicteric sclera. Pupils are equally round and reactive to light. Extraocular movements are intact. . Neck: Supple, no adenopathy; thyroid symmetric, normal size, Lungs: lungs clear to auscultation. No wheezing, rhonchi, rales. Heart: RRR without murmur, gallop, or rubs. No ectopy. Neurologic: Gait normal. Sensation grossly intact., Negative findings: speech normal, mental status intact, cranial nerves 2-12 intact, no abnormal movement or tremor. Appearance: well dressed well groomed, relaxed posture, cooperative and pleasant Behavior: good eye contact and relaxed Speech: fluent and coherent Mood: happy Affect: appropriate Perceptions: none Thought process: goal directed Thought Content: normal Intelligence level: normal Insight: good Judgment: good Health Maintenance List DTAP,TDAP,TD(5 - Tdap) due on 04/29/2006 LIPID SCREEN due on 06/08/2019 INFLUENZA Completed ASSESSMENT/PLAN: 1. Anxiety - ICD9: 300.00, ICD10: F41.9 -Improved -Continue with current dose of Zoloft -Follow up as planned, will send letter to [place] [employer] ([phone]) Anabell Roldan MSN MAIL FORWARDING SYSTEM MARKUP CLERK.CODING SPEC CNOV Observed: 08/24/2018 Status: COMPLETED Source: [place] 10:40 AM [facility] REPOSITORY Office Visit (FAMPWS) MARISSA MALONE ([id number]) 1975 M Date Time Provider Department 08/24/18 10:40 AM ANABELL ROLDAN (SHRIMPING BOAT CAPTAIN) FAMPWS During your visit today, we recorded the following information about you: Temperature Pulse Respiration Blood pressure 97.7 degrees 56/minute 18/minute 112/88 Weight 96.2 kg Anabell Roldan MSN MAIL FORWARDING SYSTEM MARKUP CLERK.CODING SPEC 08/24/2018 1:03 PM Signed Chief Complaint Patient presents with: work release: needs forms faxed back to employer stating pt can do his job while taking Zoloft HPI Marissa Malone is a 43 year old male who presents here today for Above Complaints. 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 Patient called to verify with employer if it would be OK to continue taking Zoloft with his job. Patient scheduled to return to work tomorrow after being off for one month, (disciplinary action). Received forms that require a statement from prescribing provider regarding medication, signs and sx and condition for which it is being prescribed, stability and control of the condition and if any work restrictions. Patient does have a follow up apt with PCP 09/16/18. Reports he has been compliant with the medication, taking his dose each morning. Denies any side effects. States he feels significantly better regarding the anxiety, less emotional, denies any panic attacks. Denies any suicidal or homicidal thoughts. He is looking forward to returning to work. He is not doing counseling. Past medical history, appointments, medications, allergies reviewed. Previous Medical History PAST MEDICAL HISTORY Diagnosis Date - Allergic rhinitis due to other allergen Previous Surgical History PAST SURGICAL HISTORY Procedure Laterality Date - [facility] W/BX [facility] - PAST SURGICAL HISTORY OF 2017 removed benign lesion on scalp, deepa - REM LESION FACE,EAR,EYE 1.1-2 CM Right 06/05/16 Exc. right lower lip mucocele - REMOVAL ADENOIDS,PRIMARY,<12 Y/O 1981 Adenoidectomy - REMOVAL OF TONSILS,<12 Y/O 1981 Tonsillectomy Family History FAMILY HISTORY Problem Relation Age of Onset - Thyroid Mother - Headache Father Migraines - Allergies Father - Headache Sister Migraines - Diabetes Maternal Grandmother - Emphysema Maternal Grandmother - Emphysema Maternal Grandfather - Heart Maternal Grandfather pacemaker; stents - Diabetes Paternal Grandmother - Cancer Paternal Grandmother - Diabetes Paternal Grandfather - Heart Paternal Grandfather [place] - Asthma Son - other (Psoriasis [Other]) Paternal Grandmother - other (polycythemia vera [Other]) Father Patient Allergies ALLERGIES Allergen Reactions - Environmental Aller* Other: See Comments Cats, dogs, dust mites, trees, grasses, weeds, ragweed as verified by skin testing Current Medications Current Outpatient Prescriptions on File Prior to Visit: EPINEPHrine (AUVI-Q) 0.3 mg/0.3 mL auto-injector Inject 0.3 mL intramuscularly as needed. 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 sertraline (ZOLOFT) 50 mg tablet Take 1 tablet by mouth once daily. EPINEPHrine (EPIPEN) 0.3 mg/0.3 mL auto-injector Inject 0.3 mL intramuscularly as needed (for allergic reaction.Seek emergent medical care immediately after use.Disp:one 2-pack w/job foreman). (Patient not taking: Reported on 07/21/2018 ) fluticasone (FLONASE) 50 mcg/actuation nasal spray Use 2 Sprays in each nostril once daily. (Patient not taking: Reported on 07/21/2018 ) olopatadine (PATANOL) 0.1 % ophthalmic solution Use 1 Drop in both eyes twice daily as needed. (Patient not taking: Reported on 07/21/2018 ) No current facility-administered medications on file prior to visit. Social History Social History Marital status: Spouse name: Years of education: Number of children: Social History Main Topics Smoking status: Former Smoker Packs/day: 0.00 Years: 10.00 Quit date: 01/06/2009 Smokeless tobacco: Never Used Comment: smoked off and on for 10 years, average of 3 cigarettes per day Alcohol use: Yes Comment: occasionally Drug use: No EXAM: BP 112/88 (BP Site: Right Arm, BP Position: Sitting, BP Cuff Size: Large Adult) Pulse (!) 56 Temp 36.5 ?C (97.7 ?F) (Tympanic) Resp 18 Wt 96.2 kg (212 lb) BMI 28.75 kg/m? General Appearance: Well appearing, alert, in no acute distress, well-hydrated, well nourished.. Eyes: Anicteric sclera. Pupils are equally round and reactive to light. Extraocular movements are intact. . Neck: Supple, no adenopathy; thyroid symmetric, normal size, Lungs: lungs clear to auscultation. No wheezing, rhonchi, rales. Heart: RRR without murmur, gallop, or rubs. No ectopy. Neurologic: Gait normal. Sensation grossly intact., Negative findings: speech normal, mental status intact, cranial nerves 2-12 intact, no abnormal movement or tremor. Appearance: well dressed well groomed, relaxed posture, cooperative and pleasant Behavior: good eye contact and relaxed Speech: fluent and coherent Mood: happy Affect: appropriate Perceptions: none Thought process: goal directed Thought Content: normal Intelligence level: normal Insight: good Judgment: good Health Maintenance List DTAP,TDAP,TD(5 - Tdap) due on 04/29/2006 LIPID SCREEN due on 06/08/2019 INFLUENZA Completed ASSESSMENT/PLAN: 1. Anxiety - ICD9: 300.00, ICD10: F41.9 -Improved -Continue with current dose of Zoloft -Follow up as planned, will send letter to [place] [employer] ([phone]) Anabell Roldan, MSN MAIL FORWARDING SYSTEM MARKUP CLERK.CODING SPEC Referring Provider: SELF [[id number]] Allergies As of Date: 08/24/2018 Noted Allergy Reaction Environmental allergies [Other] 03/23/2009 14 - Other: See Comments Comments: Cats, dogs, dust mites, trees, grasses, weeds, ragweed as verified by skin testing Date Reviewed: 08/04/2018 Reviewed by: Yasmine Sharp - Fully Assessed Reason for Visit: work release [Other] Cmt: needs forms faxed back to employer stating pt can do his job while taking Zoloft Primary Visit Diagnosis:Anxiety [F41.9] Prescriptions as of 08/24/2018 Sig: EPINEPHRINE 0.3 MG/0.3 ML INJ* Inject 0.3 mL intramuscularly* LORATADINE 10 MG TABLET Take 10 mg by mouth once kristi* SERTRALINE 50 MG TABLET Take 1 tablet by mouth once d* EPINEPHRINE 0.3 MG/0.3 ML INJ* Inject 0.3 mL intramuscularly* Patient not taking: Reported on 07/21/2018 FLUTICASONE 50 MCG/ACTUATION * Use 2 Sprays in each nostril * Patient not taking: Reported on 07/21/2018 OLOPATADINE 0.1 % EYE DROPS Use 1 Drop in both eyes twice* Patient not taking: Reported on 07/21/2018 Problem List As Of Date 08/24/2018 Noted Resolved ALLERGIC RHINITIS NEC [J30.89] Mucocele of lower lip [K13.79] INVALID FOR*08/04/2018 Seasonal allergic rhinitis due to pollen [J30.1]INVALID FOR* Allergic rhinitis due to animal hair and dander*INVALID FOR* Allergic rhinitis due to dust mite [J30.89] INVALID FOR* Chronic allergic rhinitis due to fungal spores *INVALID FOR*04/15/2017 Acute atopic conjunctivitis of both eyes [H10.1*INVALID FOR*08/04/2018 Chronic allergic rhinitis due to fungal spores *INVALID FOR* Elevated blood pressure reading without diagnos*INVALID FOR* Letter Text [facility] [address], [place] [address] Marissa Malone [address] [id number] Clinic #: [id number] 08/24/2018 To Whom it may concern, This letter is in regards to Mr. Marissa Malone. He was seen by me earlier today in the absence of his Primary Care Physician. Mr. Malone was seen by his PCP on 08/04/18 and prescribed Zoloft 50 mg for Generalized Anxiety Disorder. He has been compliant with taking his medication daily. He is having no side effects from the medication and reports improvement with his anxiety. His demeanor today in the office revealed a calm, relaxed posture, good eye contact, smiling, fluent and coherent speech and rational and goal directed thought processes. It is my opinion that his anxiety is controlled and stable, without side effects of from the prescribed medication and no work accommodations or restrictions warranted. Sincerely, Anabell Roldan, MSN MAIL FORWARDING SYSTEM MARKUP CLERK.CODING SPEC Encounter Status:Closed by ANABELL ROLDAN CNP on 08/24/18 OPERATIVE REPORT - Observed: 08/19/2018 Status: F Source: [place] [facility] 7:04 AM [facility] [place] [facility] Medical Records Department [address] [place] [address] Operative Report - Endoscopy MR#: [id number] Acct: [id number] Name: MARISSA MALONE Rep #: [id number] : 1975 43 From: Alex Anderson MD PCP: Jeffrey Anderson III, MD Status: REG [place] Patient Name: Marissa Malone Procedure Date: 08/19/2018 6:40 AM Date of : 1975 Age: 43 Procedure: Colonoscopy Indications: Abdominal pain in the left upper quadrant Providers: Alex Anderson MD Referring MD: Jeffrey Anderson Iii Medicines: Midazolam 1 mg IV, Meperidine 50 mg IV Patient Profile: Last Colonoscopy: none. The patient's first colonoscopy is today. Complications: No immediate complications. Procedure: Pre-Anesthesia Assessment: - Prior to the procedure, a History and Physical was performed, and patient medications and allergies were reviewed. The patient's tolerance of previous anesthesia was also reviewed. The risks and benefits of the procedure and the sedation options and risks were discussed with the patient. All questions were answered, and informed consent was obtained. Prior Anticoagulants: The patient has taken no previous anticoagulant or antiplatelet agents. ASA Grade Assessment: II - A patient with mild systemic disease. After reviewing the risks and benefits, the patient was deemed in satisfactory condition to undergo the procedure. After I obtained informed consent, the scope was passed under direct vision. Throughout the procedure, the patient's blood pressure, pulse, and oxygen saturations were monitored continuously. The colonoscope was introduced through the anus and advanced to the cecum, identified by appendiceal orifice and ileocecal valve. The colonoscopy was performed without difficulty. The patient tolerated the procedure well. The quality of the bowel preparation was good. The ileocecal valve and the appendiceal orifice were photographed. Moderate Sedation: Moderate (conscious) sedation was personally administered by the endoscopist. The following parameters were monitored: oxygen saturation, heart rate, blood pressure, and response to care. Total physician intraservice time was 15 minutes. Scope In: 6:42:40 AM Scope Withdrawal Time 0 hours 6 minutes 7 seconds Scope Out: 6:52:26 AM Total Procedure Duration Time 0 hours 9 minutes 46 seconds Findings: The perianal and digital rectal examinations were normal. The colon (entire examined portion) appeared normal. Impression: - The entire examined colon is normal. - No specimens collected. Recommendation: - Discharge patient to home. - Resume previous diet. - Continue present medications. - Repeat colonoscopy in 10 years for screening purposes. Procedure Code(s): --- Professional --- 31354, Colonoscopy, flexible; diagnostic, including collection of specimen(s) by brushing or washing, when performed (separate procedure) 55502, 59, Moderate sedation services provided by the same physician or other qualified health critical care registered nurse performing the diagnostic or therapeutic service that the sedation supports, requiring the presence of an independent trained observer to assist in the monitoring of the patient's level of consciousness and physiological status; initial 15 minutes of intraservice time, patient age 5 years or older Diagnosis Code(s): --- Professional --- R10.12, Left upper quadrant pain CPT copyright 2017 [employer]. All rights reserved. The codes documented in this report are preliminary and upon principal quality engineer review may be revised to meet current compliance requirements. Alex Anderson MD 08/19/2018 7:03:51 AM This report has been signed electronically. Number of Addenda: 0 Note Initiated On: 08/19/2018 6:40 AM 08/19/18 0703 Date Alex Anderson MD Cosign Signature: Date (if indicated) CC: Jeffrey Anderson III, MD; Alex Anderson MD Date Dictated: 08/19/18 0640 Date Transcribed: Director Translational: STAR Signed OPERATIVE REPORT - Observed: 08/19/2018 Status: F Source: [place] [facility] 7:01 AM [facility] [place] [facility] Medical Records Department [address] [place] [address] Operative Report - Endoscopy MR#: [id number] Acct: [id number] Name: MARISSA MALONE Rep #: [id number] : 1975 43 From: Alex Anderson MD PCP: Jeffrey Anderson III, MD Status: REG [place] Patient Name: Marissa Malone Procedure Date: 08/19/2018 6:17 AM Date of : 1975 Age: 43 Procedure: Upper GI endoscopy Indications: Abdominal pain in the left upper quadrant Providers: Alex Anderson MD Referring MD: Jeffrey Anderson Iii Medicines: Midazolam 4 mg IV, Meperidine 100 mg IV Complications: No immediate complications. Procedure: Pre-Anesthesia Assessment: - Prior to the procedure, a History and Physical was performed, and patient medications and allergies were reviewed. The patient's tolerance of previous anesthesia was also reviewed. The risks and benefits of the procedure and the sedation options and risks were discussed with the patient. All questions were answered, and informed consent was obtained. Prior Anticoagulants: The patient has taken no previous anticoagulant or antiplatelet agents. ASA Grade Assessment: II - A patient with mild systemic disease. After reviewing the risks and benefits, the patient was deemed in satisfactory condition to undergo the procedure. After obtaining informed consent, the endoscope was passed under direct vision. Throughout the procedure, the patient's blood pressure, pulse, and oxygen saturations were monitored continuously. The gastroscope was introduced through the mouth, and advanced to the second part of duodenum. The upper GI endoscopy was accomplished without difficulty. The patient tolerated the procedure well. Moderate Sedation: Moderate (conscious) sedation was personally administered by the endoscopist. The following parameters were monitored: oxygen saturation, heart rate, blood pressure, and response to care. Total physician intraservice time was 15 minutes. Scope In: 6:34:30 AM Scope Out: 6:39:02 AM Total Procedure Duration Time 0 hours 4 minutes 32 seconds Findings: A small hiatal hernia was present. Esophagitis with no bleeding was found 41 cm from the incisors. Biopsies were taken with a cold forceps for histology. The Z-line was regular and was found 41 cm from the incisors. Diffuse mildly erythematous mucosa without bleeding was found in the gastric antrum. Biopsies were taken with a cold forceps for histology. The examined duodenum was normal. Impression: - Small hiatal hernia. - Reflux esophagitis. Very minimal changes Biopsied. - Z-line regular, 41 cm from the incisors. - Erythematous mucosa in the antrum. Biopsied. - Normal examined duodenum. Recommendation: - Resume previous diet. - Continue present medications. - Use Prilosec (omeprazole) 20 mg PO daily. - Continue present medications. - Telephone my office for pathology results in 1 week. Findings of small hiatal hernia and minimal esophagitis and minimal antral erythema do not well correlate with patient's symptoms Procedure Code(s): --- Professional --- 99319, Esophagogastroduodenoscopy, flexible, transoral; with biopsy, single or multiple 25939, 59, Moderate sedation services provided by the same physician or other qualified health critical care registered nurse performing the diagnostic or therapeutic service that the sedation supports, requiring the presence of an independent trained observer to assist in the monitoring of the patient's level of consciousness and physiological status; initial 15 minutes of intraservice time, patient age 5 years or older Diagnosis Code(s): --- Professional --- K44.9, Diaphragmatic hernia without obstruction or gangrene K21.0, Gastro-esophageal reflux disease with esophagitis K31.89, Other diseases of stomach and duodenum R10.12, Left upper quadrant pain CPT copyright 2017 [employer]. All rights reserved. The codes documented in this report are preliminary and upon principal quality engineer review may be revised to meet current compliance requirements. Alex Anderson MD 08/19/2018 7:01:04 AM This report has been signed electronically. Number of Addenda: 0 Note Initiated On: 08/19/2018 6:17 AM 08/19/18 0701 Date Alex Anderson MD Cosigner Signature: Date (if indicated) CC: Jeffrey Anderson III, MD; Alex Anderson MD Date Dictated: 08/19/18616 Date Transcribed: Director Translational: STAR Signed EGD (PICK SITE) Observed: 08/19/2018 Status: F Source: [place] 6:30 AM [facility] [place] Patient: MARISSA MALONE : 1975 (43/M) Acct Num: [id number] Phys: Monica ROMEO,Alex Unit Num: [id number] Loc: EN Specimen: [id number] Received: 08/19/18 - 0750 Spec Type: EGD BIOPSY TISSUES 1 TISSUES: A. Gastric mucous membrane B. Esophageal mucous membrane COMMENT A. The results of immunohistochemistry for Helicobacter pylori will be reported separately ([id number]). B. Increased number of eosinophils are also noted (up to 20 per high power field) suggestive of eosinophilic esophagitis. Correlation with clinical, endoscopic findings and appropriate follow up are necessary. GROSS DESCRIPTION A - Received in fixative is one container labeled with the patient's name and designated antral biopsy. The specimen consists of multiple irregular fragments of light fay soft tissue that in aggregate measure 0.6 x 0.2 x 0.1 cm. The specimen is totally submitted in one cassette. B - Received in fixative is one container labeled with the patient's name and designated distal esophageal biopsy. The specimen consists of multiple irregular fragments of light fay soft tissue that in aggregate measure 0.6 x 0.5 x 0.1 cm. The specimen is totally submitted in one cassette. / SJ:romeo 08/19/18 TC:4 CPT: 32886 x2 HEADER OPERATION: Colonoscopy, EGD (MOD) PRE-OP DIAGNOSIS: LUQ pain TISSUE SUBMITTED: A - Antral biopsy for histo and H. pylori, B - Distal esophageal biopsy MICROSCOPIC DESCRIPTION Slides are reviewed. A. The specimen shows fragments of gastric mucosa with chronic inflammatory cell infiltrates in the lamina propria consisting of lymphocytes and plasma cells, consistent with mild chronic gastritis. MICROSCOPIC DIAGNOSIS A. Antral biopsy: Mild gastritis. See microscopic description and comment. B. Distal esophageal biopsy: Fragments of squamous epithelium with chronic inflammation and changes consistent with gastroesophageal reflux disease. See comment. SJ:romeo 08/20/18 Signed Manuel Barr 08/20/18 <signature on file> Performed By: #### PEGD #### [facility] [address] [place] [address]. [place], [place], [id number] IMMUNOHISTOCHEMISTRY Observed: 08/19/2018 Status: F Source: [place] 6:30 AM [facility] [place] [facility] Patient: MARISSA MALONE : 1975 (43/M) Acct Num: [id number] Phys: Monica ROMEO,Alex Unit Num: [id number] Loc: EN Specimen: [id number] Received: 08/19/18 - 1016 Spec Type: IMMUNO TISSUES 1 TISSUES: A. Stomach, NOS SPECIMEN INFORMATION: Tissue Source: A - Antral biopsy Clinical Info: LUQ pain Specimen Number: [id number] CPT code: 42358 METHODOLOGY: Deparaffinized sections of prefer/formalin-fixed tissue or PAP/DQ stained slides are incubated with monoclonal/polyclonal antibodies/oligonucleotide probes. Localization is made via biotin free immunoperoxidase method. Appropriate controls are performed and reacted as expected. Results on target cell population are indicated in the following table: RESULTS: ANTIBODY / CLONE RESULT Block A H Pylori (polyclonal) negative These tests were developed and their performance characteristics determined by [facility]. They may not have been cleared or approved by the U.S. Food and Drug Administration. The FDA has determined that such clearance or approval is not necessary. INTERPRETATION: A. Antral biopsy: Negative for Helicobacter pylori organisms. SJ:romeo 08/20/18 PHYSICIAN AND INSTITUTION [address] [address] Signed Manuel Barr 08/20/18 <signature on file> Performed By: #### PIMM #### [facility] [address] [place], [address] ABDOMEN WITH IV Observed: 08/14/2018 Status: F Source: [place] [facility] 7:47 AM [facility] [place] [facility] Imaging Services [address] [place] [address] Abdomen WITH IV Contrast MR#: [id number] Acct: [id number] Name: MARISSA MALONE Rep #: [id number] : 1975 M 43 From: Campbell Natalee PCP: Jeffrey Anderson III, MD Status: REG CLI Study: Abdomen WITH IV Contrast Date of Exam: 08/14/18 Exam# [id number] Ordering Dr: Alex Anderson MD STUDY: CT ABDOMEN WITH CONTRAST REASON FOR EXAM: Male, 43 years old. Left abdominal wall mass. Constipation. 2 months. RADIATION DOSAGE (If Supplied By Facility): CTDIvol = ( 19.64 ) mGy, DLP = ( 1308.66 ) mGycm TECHNIQUE: Transaxial images were obtained post I.V. administration of 100 ml of Isovue 300 contrast, and with oral contrast. Sagittal and coronal images were reconstructed. Individualized dose optimization techniques were used for this CT. COMPARISON: None. FINDINGS: The visualized lung bases are unremarkable. The visualized portions of the heart are within normal limits. There is diffuse fatty infiltration liver without focal mass. Minimal focal fatty sparing is seen in the gallbladder fossa. Normal gallbladder and extrahepatic biliary system. Normal spleen. Normal pancreas. Normal bilateral adrenal glands. Normal right kidney. Normal visualized right ureter. There is a triangular 5 mm calcification upper pole calyx of an otherwise normal left kidney. There is no hydronephrosis. Normal visualized left ureter. Normal visualized stomach. Normal visualized small intestine. Feces is seen throughout the nondistended visualized colon. The appendix is visualized and appears normal. Normal abdominal aorta. . Normal inferior vena cava. Normal retroperitoneum. Normal abdominal wall. There is no visualized mass. Normal osseous structures. CT/Abdomen WITH IV Contrast IMPRESSION: 1. No visualized abdominal wall mass. 2. Findings compatible with constipation. 3. Nonobstructing left renal calculus. 4. Fatty infiltration of the liver. 5. Electronically Signed: Campbell CidonDO at 16:58 EST Tel [phone], Service support , CC: Jeffrey Anderson III, MD; Alex Anderson MD Director Translational: Signed SURGERY VISIT REPORT Observed: 08/07/2018 Status: F Source: [place] 8:51 AM [facility] [place] [facility] [address] [place] [address] [address] [place] [address] OFFICE VISIT Date of Service: 08/07/18 MR#: [id number] Acct: [id number] Name: MARISSA MALONE Rep #: [id number] : 1975 Provider: Alex Anderson MD Age/Sex: 43/M Location: [facility] Status: Signed Intake Vital Signs08/07/18 Height 6 ft 08/07/18 Weight: 210 lb Intake Visit Reasons: Lipoma Torso (stomach) Care Center Manager Required: No Is patient in pain?: No (tenderness on left side) Allergies No Known Allergies Allergy (Verified 08/07/18 08:29) Medications loratadine 10 mg tablet 10 mg PO DAILY 08/07/18 [History Confirmed 08/07/18] sertraline 50 mg tablet 50 mg PO DAILY 08/07/18 [History Confirmed 08/07/18] PFSH Medical History Black tarry stools (Acute) Abdominal pain (Acute) Anxiety (Acute) Surgical History Hx of tonsillectomy (Acute) History of excision of lesion (Acute) Family History Father Leukemia Cancer skin cancer Mother Thyroid disorder Social History Smoking Status: Never smoker second hand exposure: No alcohol intake: current alcohol intake frequency: a few times a month Alcohol type: beer substance use type: does not use caffeine: Yes frequency: does not exercise seatbelt use: always HPI HPI HPI: MARISSA MALONE, is a 43 M who presents to the office today for surgical consultation regarding left upper quadrant pain with a suspected lipoma. The patient was referred by his primary care physician Dr. Jeffrey Anderson III and a written copy of my surgical consult recommendations will return to him. The patient states that for 2 months he has had a dull achy pain in the left upper abdomen. He can detect a focal area of tenderness but he cannot detect a focal mass. He has not had any incisions in that area. On evaluating his review of systems he suggested that approximately once per month he has evidence of some dark tarry stools. He does not have any history of peptic ulcer disease. He has not previously had an upper and lower endoscopy. There is no family history of colon polyps or colon cancer. He has not had any unexpected weight loss. He does not have any food intolerance. He does not take any anticoagulants. He denies any improvement or deterioration of the pain with eating. He states actually that the discomfort is worse in the morning and then throughout the day improves. He does not correlate the achy pain to increase physical activity. ROS General General: No weight change, appetite, fatigue, colon cancer, breast cancer or weakness HEENT HEENT: No difficulty swallowing, eye injury, eye surgery, swollen glands or hoarseness Endo Endocrine: No thyroid disease, diabetes mellitus, thyroid cancer, Hair loss, heat intolerance or cold intolerance Skin Skin: No rash or changing moles Musc Musculoskeletal: No back problems, arthritis, rheumatoid arthritis, gout or joint pain Cardio Cardiovascular: No murmur, pacemaker, heart disease, atrial fibrillation, high blood pressure, heart attack, heart stent, palpitations, shortness of breat with exertion or chest pain Psych Psychiatric: Yes anxiety; no depression or hearing voices Resp Respiratory: No shortness of breath, No sleep apnea, No cough, No COPD, No asthma, No emphysema, No wheezing Gastro Gastrointestinal: Yes abdominal pain, Yes black,tarry stools, No nausea or vomiting, No diarrhea, No constipation, No blood in stool, No acid reflux, No hemorrhoids, No ulcers, No gallbladder problem Choco Hematologic: No blood thinners, No blood disorders, No bleeding, No anemia, No blood clots Neuro Neurologic: No system reviewed and no additional complaints, except as docu, No as per HPI, No abnormal walking, No abnormal hearing, No abnormal movements, No abnormal speech, No behavioral changes, No burning sensations, No confusion, No seizure-like activity, No unsteadiness, No dizziness, No localized weakness, No frequent falls, No headache(s), No lack of coordination, No loss of vision, No memory loss, No numbness, No other visual disturbances, No radiating pain, No restless legs, No sensory deficit, No fainting, No tingling, No tremor(s), No weakness, No other Exam Const General: cooperative, healthy appearing, comfortable Nutritional Appearance: overweight Orientation: alert, awake, oriented x3 HENMT Head: normal to inspection Eyes General: appearance normal, both eyes and all related structures Resp Effort AND Inspection: normal respiratory effort Auscultation: clear to auscultation bilaterally Cardio Rate: regular rate Rhythm: regular rhythm Heart Sounds: no murmurs GI Palpation: soft, no hepatosplenomegaly Auscultation: normal bowel sounds Other: The patient points midway from the xiphoid to the umbilicus approximately mid rectus. There is a focal area that he can stack tenderness. He suggested slightly deeper. Patient is examined both upright and supine. I cannot detect a focal mass. I cannot detect a ventral defect. There is no rebound or guarding. Extrem General: no clubbing, cyanosis or edema Assessment AND Plan Problems 1. Left upper quadrant pain R10.12 Plan On today's clinical examination I am not detecting a lipoma or focal mass in the left upper abdominal area. He has a focal area of tenderness is mid rectus sheath which would suggest a less likelihood of ventral herniation. It is curious that he offers a history of dark stools. The etiology to his 2-month history of chronic aching pain is not determined I am recommending to him that we obtain an abdominal CT scan. This will help with definition of the abdominal wall. I am recommending stool for Hemoccult based upon his history of dark tarry stool Pending the results of the CT scan if they are completely normal then would consider offering the patient a esophagogastroduodenoscopy pending his symptoms at that time. He has had an opportunity to ask and have questions answered. At this time I do not have an etiology to the patient's 2-month history of pain. I appreciate the opportunity of assisting with his surgical care and will continue to try to pursue a diagnosis. CC: EVANS Ji M.D., F.A.C.S. Orders Orders: Coding Level of Care Code Exp prob focused,strt fwd Diagnoses Left upper quadrant pain R10.12 Abdominal location: left upper quadrant 08/07/18 0851 <Electronically signed by Alex Anderson MD> Date Alex Anderson MD Cosigner Signature: Date (if applicable) CC: Jeffrey Anderson III, MD PROGRESS Observed: 08/04/2018 Status: COMPLETED Source: [place] 8:27 AM [facility] REPOSITORY [facility] ID: [id number] Author: Jeffrey Anderson III Service: (none) Author Type: Physician Type: Progress Notes Filed: 08/04/2018 11:55 AM Note Text: SUBJECTIVE: This is a 43 year old male that is here today for smoldering anxiety for mos that has worsened causing tremors, decreased concentration, racing thoughts that now is affecting work. Relaxing breathing helps to regain control of the anxiety. 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 No depression. is concerned 2. previous high bp readings. Not much exercise PAST MEDICAL HISTORY Diagnosis Date - Allergic rhinitis due to other allergen Current Outpatient Prescriptions on File Prior to Visit: loratadine (CLARITIN) 10 mg tablet Take 10 mg by mouth once daily. EPINEPHrine (AUVI-Q) 0.3 mg/0.3 mL auto-injector Inject 0.3 mL intramuscularly as needed. For allergic reaction.Seek emergent medical care immediately after use.Disp:1 2-packw/job foreman fluticasone (FLONASE) 50 mcg/actuation nasal spray Use 2 Sprays in each nostril once daily. (Patient not taking: Reported on 07/21/2018 ) EPINEPHrine (EPIPEN) 0.3 mg/0.3 mL auto-injector Inject 0.3 mL intramuscularly as needed (for allergic reaction.Seek emergent medical care immediately after use.Disp:one 2-pack w/job foreman). (Patient not taking: Reported on 07/21/2018 ) olopatadine (PATANOL) 0.1 % ophthalmic solution Use 1 Drop in both eyes twice daily as needed. (Patient not taking: Reported on 07/21/2018 ) No current facility-administered medications on file prior to visit. FAMILY HISTORY Problem Relation Age of Onset - Thyroid Mother - Headache Father Migraines - Allergies Father - Headache Sister Migraines - Diabetes Maternal Grandmother - Emphysema Maternal Grandmother - Emphysema Maternal Grandfather - Heart Maternal Grandfather pacemaker; stents - Diabetes Paternal Grandmother - Cancer Paternal Grandmother - Diabetes Paternal Grandfather - Heart Paternal Grandfather [place] - Asthma Son - other (Psoriasis [Other]) Paternal Grandmother - other (polycythemia vera [Other]) Father Social History Substance Use Topics - Smoking status: Former Smoker Years: 10.00 Quit date: 01/06/2009 - Smokeless tobacco: Never Used Comment: smoked off and on for 10 years, average of 3 cigarettes per day - Alcohol use Yes Comment: occasionally BP 125/83 (BP Site: Left Arm, BP Position: Sitting, BP Cuff Size: Regular Adult) Pulse (!) 57 Resp 16 Wt 97.1 kg (214 lb) BMI 29.02 kg/m? . OBJECTIVE: APPEARANCE Well appearing, alert, in no acute distress, well-hydrated, well nourished. and Appearance: well dressed well groomed, cooperative and pleasant Behavior: good eye contact Speech: fluent and coherent Mood: euthymic Affect: appropriate Perceptions: none Thought process: goal directed Thought Content: normal Intelligence level: normal Insight: good Judgment: good ASSESSMENT: anxiety with panic attacks no dx of hypertension PLAN: zoloft 50 mg daily--discussed possible side effects improve self relaxation skills return to office 1 mo. or earlier as needed EVANS Kaye MDOV Observed: 08/04/2018 Status: COMPLETED Source: [place] 8:20 AM [facility] REPOSITORY Office Visit ([facility] MARISSA MALONE ([id number]) 1975 M Date Time Provider Department 08/04/18 8:20 AM JEFFREY ANDERSON III During your visit today, we recorded the following information about you: Pulse Respiration Blood pressure Weight 57/minute 16/minute 125/83 97.1 kg Jeffrey Anderson III MD 08/04/2018 11:55 AM Signed SUBJECTIVE: This is a 43 year old male that is here today for smoldering anxiety for mos that has worsened causing tremors, decreased concentration, racing thoughts that now is affecting work. Relaxing breathing helps to regain control of the anxiety. 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 No depression. is concerned 2. previous high bp readings. Not much exercise PAST MEDICAL HISTORY Diagnosis Date - Allergic rhinitis due to other allergen Current Outpatient Prescriptions on File Prior to Visit: loratadine (CLARITIN) 10 mg tablet Take 10 mg by mouth once daily. EPINEPHrine (AUVI-Q) 0.3 mg/0.3 mL auto-injector Inject 0.3 mL intramuscularly as needed. For allergic reaction.Seek emergent medical care immediately after use.Disp:1 2-packw/job foreman fluticasone (FLONASE) 50 mcg/actuation nasal spray Use 2 Sprays in each nostril once daily. (Patient not taking: Reported on 07/21/2018 ) EPINEPHrine (EPIPEN) 0.3 mg/0.3 mL auto-injector Inject 0.3 mL intramuscularly as needed (for allergic reaction.Seek emergent medical care immediately after use.Disp:one 2-pack w/job foreman). (Patient not taking: Reported on 07/21/2018 ) olopatadine (PATANOL) 0.1 % ophthalmic solution Use 1 Drop in both eyes twice daily as needed. (Patient not taking: Reported on 07/21/2018 ) No current facility-administered medications on file prior to visit. FAMILY HISTORY Problem Relation Age of Onset - Thyroid Mother - Headache Father Migraines - Allergies Father - Headache Sister Migraines - Diabetes Maternal Grandmother - Emphysema Maternal Grandmother - Emphysema Maternal Grandfather - Heart Maternal Grandfather pacemaker; stents - Diabetes Paternal Grandmother - Cancer Paternal Grandmother - Diabetes Paternal Grandfather - Heart Paternal Grandfather [place] - Asthma Son - other (Psoriasis [Other]) Paternal Grandmother - other (polycythemia vera [Other]) Father Social History Substance Use Topics - Smoking status: Former Smoker Years: 10.00 Quit date: 01/06/2009 - Smokeless tobacco: Never Used Comment: smoked off and on for 10 years, average of 3 cigarettes per day - Alcohol use Yes Comment: occasionally BP 125/83 (BP Site: Left Arm, BP Position: Sitting, BP Cuff Size: Regular Adult) Pulse (!) 57 Resp 16 Wt 97.1 kg (214 lb) BMI 29.02 kg/m? . OBJECTIVE: APPEARANCE Well appearing, alert, in no acute distress, well- hydrated, well nourished. and Appearance: well dressed well groomed, cooperative and pleasant Behavior: good eye contact Speech: fluent and coherent Mood: euthymic Affect: appropriate Perceptions: none Thought process: goal directed Thought Content: normal Intelligence level: normal Insight: good Judgment: good ASSESSMENT: anxiety with panic attacks no dx of hypertension PLAN: zoloft 50 mg daily--discussed possible side effects improve self relaxation skills return to office 1 mo. or earlier as needed EVANS Kaye MD, III MD 08/04/2018 8:46 AM Signed PLAN: zoloft 50 mg daily improve self relaxation skills return to office 1 mo. or earlier as needed Jeffrey Anderson III MD Referring Provider: SELF [[id number]] Allergies As of Date: 08/04/2018 Noted Allergy Reaction Environmental allergies [Other] 03/23/2009 14 - Other: See Comments Comments: Cats, dogs, dust mites, trees, grasses, weeds, ragweed as verified by skin testing Date Reviewed: 08/04/2018 Reviewed by: Yasmine Sharp - Fully Assessed Reason for Visit: Anxiety [9] Primary Visit Diagnosis:Generalized anxiety disorder with panic attacks [F41.1, F41.0] Order(s):sertraline (ZOLOFT) 50 mg tabletTake 1 tablet by mouth once daily.Disp: 30 tabletRfl: 11 Prescriptions as of 08/04/2018 Sig: LORATADINE 10 MG TABLET Take 10 mg by mouth once kristi* EPINEPHRINE 0.3 MG/0.3 ML INJ* Inject 0.3 mL intramuscularly* SERTRALINE 50 MG TABLET Take 1 tablet by mouth once d* FLUTICASONE 50 MCG/ACTUATION * Use 2 Sprays in each nostril * Patient not taking: Reported on 07/21/2018 EPINEPHRINE 0.3 MG/0.3 ML INJ* Inject 0.3 mL intramuscularly* Patient not taking: Reported on 07/21/2018 OLOPATADINE 0.1 % EYE DROPS Use 1 Drop in both eyes twice* Patient not taking: Reported on 07/21/2018 Problem List As Of Date 08/04/2018 Noted Resolved ALLERGIC RHINITIS NEC [J30.89] Mucocele of lower lip [K13.79] INVALID FOR*08/04/2018 Seasonal allergic rhinitis due to pollen [J30.1]INVALID FOR* Allergic rhinitis due to animal hair and dander*INVALID FOR* Allergic rhinitis due to dust mite [J30.89] INVALID FOR* Chronic allergic rhinitis due to fungal spores *INVALID FOR*04/15/2017 Acute atopic conjunctivitis of both eyes [H10.1*INVALID FOR*08/04/2018 Chronic allergic rhinitis due to fungal spores *INVALID FOR* Elevated blood pressure reading without diagnos*INVALID FOR* Other instructions from your clinician: PLAN: zoloft 50 mg daily improve self relaxation skills return to office 1 mo. or earlier as needed Jeffrey Anderson III MD Prescriptions ordered this encounter Disp Refills Start End SERTRALINE 50 MG TABLET 30 t* 11 08/04/2018 Route: ORAL Sig: Take 1 tablet by mouth once daily. Encounter Status:Closed by JEFFREY ANDERSON III, MD on 08/04/18 PROGRESS Observed: 07/28/2018 Status: COMPLETED Source: [place] 1:00 PM [facility] REPOSITORY HNO ID: [id number] Author: Ketty Thomas RN Service: (none) Author Type: (none) Type: Progress Notes Filed: 07/28/2018 1:09 PM Note Text: Pt identified by name and birthdate. Allergy injections given subcutaneously. July 28, 2018 1:00 PM Patient took antihistamine. Patient states took claritin at 7 today.. Immunotherapy Order written on: 05/06/[address] Kelsie Cantu [phone] Patient did not have a large late local reaction to previous injection. Size of reaction If patient has asthma, symptoms controlled: N/A Patient did not report a recent illness. Patient did not report a new blood pressure medications or asthma medication. Patient has their Epi pen with them, Yes Vial A Content: MOLDS Patient did not have a large late local reaction to previous injection. Size of reaction Concentration: 1:1 Dose: 0.5 ml SQ Arm: left upper arm (proximal) Reaction after 30 minutes: None Vial B Content: TREES, GRASSES, WEEDS, RAGWEED Patient did not have a large late local reaction to previous injection. Size of reaction Concentration: 1:1 Dose: 0.5 ml SQ Arm: left upper arm (distal) Reaction after 30 minutes: pea size induration Vial C Content: DUST MITES, ANIMAL DANDER Patient did not have a large late local reaction to previous injection. Size of reaction Concentration: 1:1 Dose: 0.5 ml SQ Arm: right upper arm (proximal) Reaction after 30 minutes: pea size induration Previously instructed about signs and symptoms of local and systemic reactions. Appointment line and nurses station number given as well as injection times at administering location. Ketty Thomas RN CNNURSE Observed: 07/28/2018 Status: COMPLETED Source: [place] 1:00 PM [facility] REPOSITORY Nurse Visit ([facility]) MARISSA MALONE ([id number]) 1975 M Date Time Provider Department 07/28/18 1:00 PM NURSE [facility] During your visit today, we recorded the following information about you: Ketty Thomas RN 07/28/2018 1:09 PM Signed Pt identified by name and birthdate. Allergy injections given subcutaneously. July 28, 2018 1:00 PM Patient took antihistamine. Patient states took claritin at 7 today.. Immunotherapy Order written on: 05/06/[address] Kelsie Cantu [phone] Patient did not have a large late local reaction to previous injection. Size of reaction If patient has asthma, symptoms controlled: N/A Patient did not report a recent illness. Patient did not report a new blood pressure medications or asthma medication. Patient has their Epi pen with them, Yes Vial A Content: MOLDS Patient did not have a large late local reaction to previous injection. Size of reaction Concentration: 1:1 Dose: 0.5 ml SQ Arm: left upper arm (proximal) Reaction after 30 minutes: None Vial B Content: TREES, GRASSES, WEEDS, RAGWEED Patient did not have a large late local reaction to previous injection. Size of reaction Concentration: 1:1 Dose: 0.5 ml SQ Arm: left upper arm (distal) Reaction after 30 minutes: pea size induration Vial C Content: DUST MITES, ANIMAL DANDER Patient did not have a large late local reaction to previous injection. Size of reaction Concentration: 1:1 Dose: 0.5 ml SQ Arm: right upper arm (proximal) Reaction after 30 minutes: pea size induration Previously instructed about signs and symptoms of local and systemic reactions. Appointment line and nurses station number given as well as injection times at administering location. Ketty Thomas RN Referring Provider: KELSIE CANTU [[id number]] Allergies As of Date: 07/28/2018 Noted Allergy Reaction Environmental allergies [Other] 03/23/2009 14 - Other: See Comments Comments: Cats, dogs, dust mites, trees, grasses, weeds, ragweed as verified by skin testing Date Reviewed: 07/28/2018 Reviewed by: Ketty Thomas RN - Fully Assessed Reason for Visit: Imm/Inj [58] Allergy Injection [3959] Reason For Visit History Recorded Primary Visit Diagnosis:Seasonal allergic rhinitis due to pollen [J30.1] Prescriptions as of 07/28/2018 Sig: LORATADINE 10 MG TABLET Take 10 mg by mouth once kristi* EPINEPHRINE 0.3 MG/0.3 ML INJ* Inject 0.3 mL intramuscularly* FLUTICASONE 50 MCG/ACTUATION * Use 2 Sprays in each nostril * Patient not taking: Reported on 07/21/2018 EPINEPHRINE 0.3 MG/0.3 ML INJ* Inject 0.3 mL intramuscularly* Patient not taking: Reported on 07/21/2018 OLOPATADINE 0.1 % EYE DROPS Use 1 Drop in both eyes twice* Patient not taking: Reported on 07/21/2018 Problem List As Of Date 07/28/2018 Noted Resolved ALLERGIC RHINITIS NEC [J30.89] Mucocele of lower lip [K13.79] INVALID FOR* Seasonal allergic rhinitis due to pollen [J30.1]INVALID FOR* Allergic rhinitis due to animal hair and dander*INVALID FOR* Allergic rhinitis due to dust mite [J30.89] INVALID FOR* Chronic allergic rhinitis due to fungal spores *INVALID FOR*04/15/2017 Acute atopic conjunctivitis of both eyes [H10.1*INVALID FOR* Chronic allergic rhinitis due to fungal spores *INVALID FOR* Elevated blood pressure reading without diagnos*INVALID FOR* Encounter Status:Closed by KETTY THOMAS RN on 07/28/18 PROGRESS Observed: 07/21/2018 Status: COMPLETED Source: [place] 4:24 PM [facility] REPOSITORY O ID: [id number] Author: Jeffrey Anderson III Service: (none) Author Type: Physician Type: Progress Notes Filed: 07/21/2018 6:47 PM Note Text: SUBJECTIVE: This is a 43 year old male that is here today for 1 mo hx of episodic fleeting L mid abd pains at the site of a mass L mid abd first noted ~1-2 mos ago. . Also has had stabbing pain R mid abd. at times. No trauma. Some irregular BM, but no rectal bleeding. Eats a lot of fast food as he works on the [employer]. No change in urination or hematuria He is very worried about this being cancer. 2. hypertension PAST MEDICAL HISTORY Diagnosis Date - Allergic rhinitis due to other allergen Current Outpatient Prescriptions on File Prior to Visit: loratadine (CLARITIN) 10 mg tablet Take 10 mg by mouth once daily. EPINEPHrine (AUVI-Q) 0.3 mg/0.3 mL auto-injector Inject 0.3 mL intramuscularly as needed. For allergic reaction.Seek emergent medical care immediately after use.Disp:1 2-packw/job foreman fluticasone (FLONASE) 50 mcg/actuation nasal spray Use 2 Sprays in each nostril once daily. (Patient not taking: Reported on 07/21/2018 ) EPINEPHrine (EPIPEN) 0.3 mg/0.3 mL auto-injector Inject 0.3 mL intramuscularly as needed (for allergic reaction.Seek emergent medical care immediately after use.Disp:one 2-pack w/job foreman). (Patient not taking: Reported on 07/21/2018 ) olopatadine (PATANOL) 0.1 % ophthalmic solution Use 1 Drop in both eyes twice daily as needed. (Patient not taking: Reported on 07/21/2018 ) No current facility-administered medications on file prior to visit. FAMILY HISTORY Problem Relation Age of Onset - Thyroid Mother - Headache Father Migraines - Allergies Father - Headache Sister Migraines - Diabetes Maternal Grandmother - Emphysema Maternal Grandmother - Emphysema Maternal Grandfather - Heart Maternal Grandfather pacemaker; stents - Diabetes Paternal Grandmother - Cancer Paternal Grandmother - Diabetes Paternal Grandfather - Heart Paternal Grandfather [place] - Asthma Son - other (Psoriasis [Other]) Paternal Grandmother - other (polycythemia vera [Other]) Father Social History Substance Use Topics - Smoking status: Former Smoker Years: 10.00 Quit date: 01/06/2009 - Smokeless tobacco: Never Used Comment: smoked off and on for 10 years, average of 3 cigarettes per day - Alcohol use Yes Comment: occasionally BP 125/91 Pulse (!) 53 Resp 18 Wt 97.1 kg (214 lb) BMI 29.02 kg/m? . OBJECTIVE: APPEARANCE Well appearing, alert, in no acute distress, well-hydrated, well nourished. and Overweight NECK Supple, no adenopathy; thyroid symmetric, normal size, no bruits HEART RRR with normal S1 and S2, no murmurs, no gallops, no JVD appreciated LUNG clear to auscultation ABDOMEN soft, non-tender, non-distended, without organomegaly , soft, rubbery, movable mass left midabdomen at the site of his concern, no tenderness to palpation ASSESSMENT: lipoma L mid abd. high BP w/o dx of hypertension overweight PLAN: healthy weight losing diet and regular exercise--150 min/wk eat less sugar, bread, potato, pasta, rice, corn, corn syrup, saturated fats refer to surgery for discussion regarding excision of mass left abdomen follow bp EVANS Kaye MD, III MD CNOV Observed: 07/21/2018 Status: COMPLETED Source: [place] 4:00 PM [facility] REPOSIT[facility] Office Visit ([facility]) ANNMARIEMARISSA ([id number]) 1975 M Date Time Provider Department 07/21/18 4:00 PM JEFFREY ANDERSON III During your visit today, we recorded the following information about you: Pulse Respiration Blood pressure Weight 53/minute 18/minute 125/91 97.1 kg Jeffrey Anderson III MD 07/21/2018 6:47 PM Signed SUBJECTIVE: This is a 43 year old male that is here today for 1 mo hx of episodic fleeting L mid abd pains at the site of a mass L mid abd first noted ~1-2 mos ago. . Also has had stabbing pain R mid abd. at times. No trauma. Some irregular BM, but no rectal bleeding. Eats a lot of fast food as he works on the [employer]. No change in urination or hematuria He is very worried about this being cancer. 2. hypertension PAST MEDICAL HISTORY Diagnosis Date - Allergic rhinitis due to other allergen Current Outpatient Prescriptions on File Prior to Visit: loratadine (CLARITIN) 10 mg tablet Take 10 mg by mouth once daily. EPINEPHrine (AUVI-Q) 0.3 mg/0.3 mL auto-injector Inject 0.3 mL intramuscularly as needed. For allergic reaction.Seek emergent medical care immediately after use.Disp:1 2-packw/job foreman fluticasone (FLONASE) 50 mcg/actuation nasal spray Use 2 Sprays in each nostril once daily. (Patient not taking: Reported on 07/21/2018 ) EPINEPHrine (EPIPEN) 0.3 mg/0.3 mL auto-injector Inject 0.3 mL intramuscularly as needed (for allergic reaction.Seek emergent medical care immediately after use.Disp:one 2-pack w/job foreman). (Patient not taking: Reported on 07/21/2018 ) olopatadine (PATANOL) 0.1 % ophthalmic solution Use 1 Drop in both eyes twice daily as needed. (Patient not taking: Reported on 07/21/2018 ) No current facility-administered medications on file prior to visit. FAMILY HISTORY Problem Relation Age of Onset - Thyroid Mother - Headache Father Migraines - Allergies Father - Headache Sister Migraines - Diabetes Maternal Grandmother - Emphysema Maternal Grandmother - Emphysema Maternal Grandfather - Heart Maternal Grandfather pacemaker; stents - Diabetes Paternal Grandmother - Cancer Paternal Grandmother - Diabetes Paternal Grandfather - Heart Paternal Grandfather [place] - Asthma Son - other (Psoriasis [Other]) Paternal Grandmother - other (polycythemia vera [Other]) Father Social History Substance Use Topics - Smoking status: Former Smoker Years: 10.00 Quit date: 01/06/2009 - Smokeless tobacco: Never Used Comment: smoked off and on for 10 years, average of 3 cigarettes per day - Alcohol use Yes Comment: occasionally BP 125/91 Pulse (!) 53 Resp 18 Wt 97.1 kg (214 lb) BMI 29.02 kg/m? . OBJECTIVE: APPEARANCE Well appearing, alert, in no acute distress, well- hydrated, well nourished. and Overweight NECK Supple, no adenopathy; thyroid symmetric, normal size, no bruits HEART RRR with normal S1 and S2, no murmurs, no gallops, no JVD appreciated LUNG clear to auscultation ABDOMEN soft, non-tender, non-distended, without organomegaly , soft, rubbery, movable mass left midabdomen at the site of his concern, no tenderness to palpation ASSESSMENT: lipoma L mid abd. high BP w/o dx of hypertension overweight PLAN: healthy weight losing diet and regular exercise--150 min/wk eat less sugar, bread, potato, pasta, rice, corn, corn syrup, saturated fats refer to surgery for discussion regarding excision of mass left abdomen follow bp EVANS Kaye MD, III MD Frank A Cebul, III MD 07/21/2018 4:39 PM Signed PLAN: healthy weight losing diet and regular exercise--150 min/wk eat less sugar, bread, potato, pasta, rice, corn, corn syrup, saturated fats refer to surgery for discussion regarding excision of mass left abdomen Jeffrey Anderson III MD Referring Provider: SELF [[id number]] Allergies As of Date: 07/21/2018 Noted Allergy Reaction Environmental allergies [Other] 03/23/2009 14 - Other: See Comments Comments: Cats, dogs, dust mites, trees, grasses, weeds, ragweed as verified by skin testing Date Reviewed: 07/21/2018 Reviewed by: Najma ([facility]) MELANIA Rodrigues - Fully Assessed Reason for Visit: LLQ abdominal pain [Other] Cmt: x1 month Primary Visit Diagnosis: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] Other Visit Diagnosis:Elevated blood pressure reading without diagnosis of hypertension [R03.0] Order(s):CONSULT TO GENERAL SURGERY [7311] Order #: [id number]: 1 Prescriptions as of 07/21/2018 Sig: LORATADINE 10 MG TABLET Take 10 mg by mouth once kristi* EPINEPHRINE 0.3 MG/0.3 ML INJ* Inject 0.3 mL intramuscularly* FLUTICASONE 50 MCG/ACTUATION * Use 2 Sprays in each nostril * Patient not taking: Reported on 07/21/2018 EPINEPHRINE 0.3 MG/0.3 ML INJ* Inject 0.3 mL intramuscularly* Patient not taking: Reported on 07/21/2018 OLOPATADINE 0.1 % EYE DROPS Use 1 Drop in both eyes twice* Patient not taking: Reported on 07/21/2018 Problem List As Of Date 07/21/2018 Noted Resolved ALLERGIC RHINITIS NEC [J30.89] Mucocele of lower lip [K13.79] INVALID FOR* Seasonal allergic rhinitis due to pollen [J30.1]INVALID FOR* Allergic rhinitis due to animal hair and dander*INVALID FOR* Allergic rhinitis due to dust mite [J30.89] INVALID FOR* Chronic allergic rhinitis due to fungal spores *INVALID FOR*04/15/2017 Acute atopic conjunctivitis of both eyes [H10.1*INVALID FOR* Chronic allergic rhinitis due to fungal spores *INVALID FOR* Elevated blood pressure reading without diagnos*INVALID FOR* Other instructions from your clinician: PLAN: healthy weight losing diet and regular exercise--150 min/wk eat less sugar, bread, potato, pasta, rice, corn, corn syrup, saturated fats refer to surgery for discussion regarding excision of mass left abdomen Jeffrey Anderson III MD Encounter Status:Closed by JEFFREY ANDERSON III, MD on 07/21/18 PROGRESS Observed: 07/21/2018 Status: COMPLETED Source: [place] 10:45 AM [facility] O ID: [id number] Author: Ketty Thomas RN Service: (none) Author Type: (none) Type: Progress Notes Filed: 07/21/2018 10:50 AM Note Text: Pt identified by name and birthdate. Allergy injections given subcutaneously. July 21, 2018 10:45 AM Patient took antihistamine. Patient states took claritin at 7 today.. Immunotherapy Order written on: 05/06/[address] Kelsie Cantu [phone] Patient did not have a large late local reaction to previous injection. Size of reaction If patient has asthma, symptoms controlled: N/A Patient did not report a recent illness. Patient did not report a new blood pressure medications or asthma medication. Patient has their Epi pen with them, Yes Vial A Content: MOLDS Patient did not have a large late local reaction to previous injection. Size of reaction Concentration: 1:1 Dose: 0.45 ml SQ Arm: left upper arm (proximal) Reaction after 30 minutes: None Vial B Content: TREES, GRASSES, WEEDS, RAGWEED Patient did not have a large late local reaction to previous injection. Size of reaction Concentration: 1:1 Dose: 0.45 ml SQ Arm: right upper arm (proximal) Reaction after 30 minutes: None Vial C Content: DUST MITES, ANIMAL DANDER Patient did not have a large late local reaction to previous injection. Size of reaction Concentration: 1:1 Dose: 0.45 ml SQ Arm: left upper arm (distal) Reaction after 30 minutes: pea size induration Previously instructed about signs and symptoms of local and systemic reactions. Appointment line and nurses station number given as well as injection times at administering location. Ketty Thomas RN CNNURSE Observed: 07/21/2018 Status: COMPLETED Source: [place] 9:00 AM [facility] REPOS[facility] Nurse Visit ([facility]) MARISSA MALONE ([id number]) 1975 M Date Time Provider Department 07/21/18 9:00 AM NURSE [facility] During your visit today, we recorded the following information about you: Ketty Thomas RN 07/21/2018 10:50 AM Signed Pt identified by name and birthdate. Allergy injections given subcutaneously. July 21, 2018 10:45 AM Patient took antihistamine. Patient states took claritin at 7 today.. Immunotherapy Order written on: 05/06/[address] Kelsie Cantu [phone] Patient did not have a large late local reaction to previous injection. Size of reaction If patient has asthma, symptoms controlled: N/A Patient did not report a recent illness. Patient did not report a new blood pressure medications or asthma medication. Patient has their Epi pen with them, Yes Vial A Content: MOLDS Patient did not have a large late local reaction to previous injection. Size of reaction Concentration: 1:1 Dose: 0.45 ml SQ Arm: left upper arm (proximal) Reaction after 30 minutes: None Vial B Content: TREES, GRASSES, WEEDS, RAGWEED Patient did not have a large late local reaction to previous injection. Size of reaction Concentration: 1:1 Dose: 0.45 ml SQ Arm: right upper arm (proximal) Reaction after 30 minutes: None Vial C Content: DUST MITES, ANIMAL DANDER Patient did not have a large late local reaction to previous injection. Size of reaction Concentration: 1:1 Dose: 0.45 ml SQ Arm: left upper arm (distal) Reaction after 30 minutes: pea size induration Previously instructed about signs and symptoms of local and systemic reactions. Appointment line and nurses station number given as well as injection times at administering location. Ketty Thomas RN Referring Provider: SELF [[id number]] Allergies As of Date: 07/21/2018 Noted Allergy Reaction Environmental allergies [Other] 03/23/2009 14 - Other: See Comments Comments: Cats, dogs, dust mites, trees, grasses, weeds, ragweed as verified by skin testing Date Reviewed: 07/21/2018 Reviewed by: Ketty Thomas RN - Fully Assessed Reason for Visit: Imm/Inj [58] Allergy Injection [1369] Reason For Visit History Recorded Primary Visit Diagnosis:Seasonal allergic rhinitis due to pollen [J30.1] Prescriptions as of 07/21/2018 Sig: LORATADINE 10 MG TABLET Take 10 mg by mouth once kristi* EPINEPHRINE 0.3 MG/0.3 ML INJ* Inject 0.3 mL intramuscularly* FLUTICASONE 50 MCG/ACTUATION * Use 2 Sprays in each nostril * EPINEPHRINE 0.3 MG/0.3 ML INJ* Inject 0.3 mL intramuscularly* OLOPATADINE 0.1 % EYE DROPS Use 1 Drop in both eyes twice* Problem List As Of Date 07/21/2018 Noted Resolved ALLERGIC RHINITIS NEC [J30.89] Mucocele of lower lip [K13.79] INVALID FOR* Seasonal allergic rhinitis due to pollen [J30.1]INVALID FOR* Allergic rhinitis due to animal hair and dander*INVALID FOR* Allergic rhinitis due to dust mite [J30.89] INVALID FOR* Chronic allergic rhinitis due to fungal spores *INVALID FOR*04/15/2017 Acute atopic conjunctivitis of both eyes [H10.1*INVALID FOR* Chronic allergic rhinitis due to fungal spores *INVALID FOR* Encounter Status:Closed by KETTY THOMAS RN on 07/21/18 ARCELIAN Observed: 07/15/2018 Status: COMPLETED Source: [place] 12:00 AM [facility] REPOSITORY Telephone ([facility]) MARISSA MALONE ([id number]) 1975 M Date Time Provider Department 07/15/18 JEFFREY ANDERSON III During your visit today, we recorded the following information about you: Anabell Qureshi, RN, RN 07/15/2018 12:16 PM Signed Pt calls in asking for referral to gastro. States he has been having LLQ pain on and off x 1 month. States eating and drinking as usual. Denies N/V/D. States BM has been irregular. Pt prefers to stay within [facility]. Pt unable to come to appt until next week. Please advise. Order pended. Jeffrey Anderson III MD 07/15/2018 12:32 PM Signed He should have appt to see me first regarding this issue. He has not seen me since 2009 EVANS Kaye MD, Cma 07/15/2018 4:08 PM Signed TC to patient. No answer. LM on for return call back to a triage nurse. Please see PCP's note below. Mady Plaza LPN 07/16/2018 11:02 AM Signed Left a detailed message with information listed below asking the patient to call and schedule apt with Dr. Anderson or [employer] to discuss issues going on. Екатерина Qureshi, RN, RN 2018 12:04 PM Signed Pt returns call, scheduled appt with PCP tomorrow Allergies As of Date: 07/15/2018 Noted Allergy Reaction Environmental allergies [Other] 03/23/2009 14 - Other: See Comments Comments: Cats, dogs, dust mites, trees, grasses, weeds, ragweed as verified by skin testing Date Reviewed: 07/14/2018 Reviewed by: Jenni Blandon RN - Fully Assessed Reason for Visit: Referral Request [124] Abdominal Pain [1] Reason For Visit History Recorded Primary Visit Diagnosis:LLQ pain [R10.32] Prescriptions as of 07/15/2018 Sig: LORATADINE 10 MG TABLET Take 10 mg by mouth once kristi* EPINEPHRINE 0.3 MG/0.3 ML INJ* Inject 0.3 mL intramuscularly* FLUTICASONE 50 MCG/ACTUATION * Use 2 Sprays in each nostril * EPINEPHRINE 0.3 MG/0.3 ML INJ* Inject 0.3 mL intramuscularly* OLOPATADINE 0.1 % EYE DROPS Use 1 Drop in both eyes twice* Problem List As Of Date 07/15/2018 Noted Resolved ALLERGIC RHINITIS NEC [J30.89] Mucocele of lower lip [K13.79] INVALID FOR* Seasonal allergic rhinitis due to pollen [J30.1]INVALID FOR* Allergic rhinitis due to animal hair and dander*INVALID FOR* Allergic rhinitis due to dust mite [J30.89] INVALID FOR* Chronic allergic rhinitis due to fungal spores *INVALID FOR*04/15/2017 Acute atopic conjunctivitis of both eyes [H10.1*INVALID FOR* Chronic allergic rhinitis due to fungal spores *INVALID FOR* Encounter Status:Closed by ЕКАТЕРИНА PLAZA LPN on 07/16/18 CNNURSE Observed: 07/14/2018 Status: COMPLETED Source: [place] 1:00 PM [facility] Nurse Visit ([facility]) MARISSA MALONE ([id number]) 1975 M Date Time Provider Department 07/14/18 1:00 PM NURSE STACIA ROMEO [facility]O During your visit today, we recorded the following information about you: Jenni Blandon RN 07/14/2018 12:05 PM Signed Pt identified by name and birthdate. Allergy injections given subcutaneously. July 14, 2018 11:42 AM Patient took antihistamine. Patient states took Claritin at 0700 today.. Immunotherapy Order written on: 05-06-[address] Kelsie Cantu. Patient did not have a large late local reaction to previous injection. Size of reaction n/a If patient has asthma, symptoms controlled: N/A Patient did not report a recent illness. Patient did not report a new blood pressure medications or asthma medication. Patient has their Epi pen with them, Yes Vial A Content: MOLD Patient did not have a large late local reaction to previous injection. Size of reaction n/a Concentration: 1:1 Dose: 0.4 ml SQ Arm: right upper arm (distal) Reaction after 30 minutes: None Vial B Content: TREES, GRASSES, WEEDS, RAGWEED Patient did not have a large late local reaction to previous injection. Size of reaction n/a Concentration: 1:1 Dose: 0.5 ml SQ Arm: right upper arm (distal) Reaction after 30 minutes: 10 cent size induration Vial C Content: DUST MITES, ANIMAL DANDER Patient did not have a large late local reaction to previous injection. Size of reaction n/a Concentration: 1:1 Dose: 0.4 ml SQ Arm: left upper arm (proximal) Reaction after 30 minutes: None Previously instructed about signs and symptoms of local and systemic reactions. Appointment line and nurses station number given as well as injection times at administering location. Jenni Blandon RN Referring Provider: SELF [200] Allergies As of Date: 07/14/2018 Noted Allergy Reaction Environmental allergies [Other] 03/23/2009 14 - Other: See Comments Comments: Cats, dogs, dust mites, trees, grasses, weeds, ragweed as verified by skin testing Date Reviewed: 07/14/2018 Reviewed by: Jenni Blandon RN - Fully Assessed Reason for Visit: Immunotherapy [409] Allergy Injection [1369] Reason For Visit History Recorded Primary Visit Diagnosis:Seasonal allergic rhinitis due to other allergic trigger [J30.89] Prescriptions as of 07/14/2018 Sig: LORATADINE 10 MG TABLET Take 10 mg by mouth once kristi* EPINEPHRINE 0.3 MG/0.3 ML INJ* Inject 0.3 mL intramuscularly* FLUTICASONE 50 MCG/ACTUATION * Use 2 Sprays in each nostril * EPINEPHRINE 0.3 MG/0.3 ML INJ* Inject 0.3 mL intramuscularly* OLOPATADINE 0.1 % EYE DROPS Use 1 Drop in both eyes twice* Problem List As Of Date 07/14/2018 Noted Resolved ALLERGIC RHINITIS NEC [J30.89] Mucocele of lower lip [K13.79] INVALID FOR* Seasonal allergic rhinitis due to pollen [J30.1]INVALID FOR* Allergic rhinitis due to animal hair and dander*INVALID FOR* Allergic rhinitis due to dust mite [J30.89] INVALID FOR* Chronic allergic rhinitis due to fungal spores *INVALID FOR*04/15/2017 Acute atopic conjunctivitis of both eyes [H10.1*INVALID FOR* Chronic allergic rhinitis due to fungal spores *INVALID FOR* Encounter Status:Closed by JENNI BLANDON RN on 07/14/18 PROGRESS Observed: 07/14/2018 Status: COMPLETED Source: [place] 11:42 AM [facility] RE[facility]IT[facility] ID: [id number] Author: Jenni Blandon RN Service: (none) Author Type: (none) Type: Progress Notes Filed: 07/14/2018 12:05 PM Note Text: Pt identified by name and birthdate. Allergy injections given subcutaneously. July 14, 2018 11:42 AM Patient took antihistamine. Patient states took Claritin at 0700 today.. Immunotherapy Order written on: 05-06-[address] Kelsie Cantu. Patient did not have a large late local reaction to previous injection. Size of reaction n/a If patient has asthma, symptoms controlled: N/A Patient did not report a recent illness. Patient did not report a new blood pressure medications or asthma medication. Patient has their Epi pen with them, Yes Vial A Content: MOLD Patient did not have a large late local reaction to previous injection. Size of reaction n/a Concentration: 1:1 Dose: 0.4 ml SQ Arm: right upper arm (distal) Reaction after 30 minutes: None Vial B Content: TREES, GRASSES, WEEDS, RAGWEED Patient did not have a large late local reaction to previous injection. Size of reaction n/a Concentration: 1:1 Dose: 0.5 ml SQ Arm: right upper arm (distal) Reaction after 30 minutes: 10 cent size induration Vial C Content: DUST MITES, ANIMAL DANDER Patient did not have a large late local reaction to previous injection. Size of reaction n/a Concentration: 1:1 Dose: 0.4 ml SQ Arm: left upper arm (proximal) Reaction after 30 minutes: None Previously instructed about signs and symptoms of local and systemic reactions. Appointment line and nurses station number given as well as injection times at administering location. Jenni Blandon RN PROGRESS Observed: 07/07/2018 Status: COMPLETED Source: [place] 11:06 AM [facility] ID: [id number] Author: Ketty Thomas RN Service: (none) Author Type: (none) Type: Progress Notes Filed: 07/07/2018 11:20 AM Note Text: Pt identified by name and birthdate. Allergy injections given subcutaneously. July 07, 2018 11:06 AM Patient took antihistamine. Patient states took claritin at 7 today.. Immunotherapy Order written on: 05/06/[address] Kelsie Cantu [phone] Patient did not have a large late local reaction to previous injection. Size of reaction If patient has asthma, symptoms controlled: N/A Patient did not report a recent illness. Patient did not report a new blood pressure medications or asthma medication. Patient has their Epi pen with them, No- waited in office 45 minutes Vial A Content: MOLDS Patient did not have a large late local reaction to previous injection. Size of reaction Concentration: 1:1 Dose: 0.35 ml SQ Arm: left upper arm (proximal) Reaction after 30 minutes: pea size induration Vial B Content: TREES, GRASSES, WEEDS, RAGWEED Patient did not have a large late local reaction to previous injection. Size of reaction Concentration: 1:1 Dose: 0.35 ml SQ Arm: left upper arm (distal) Reaction after 30 minutes: 10 cent size induration Vial C Content: DUST MITES, ANIMAL DANDER Patient did not have a large late local reaction to previous injection. Size of reaction Concentration: 1:1 Dose: 0.35 ml SQ Arm: right upper arm (proximal) Reaction after 30 minutes: None Previously instructed about signs and symptoms of local and systemic reactions. Appointment line and nurses station number given as well as injection times at administering location. Ketty Thomas RN CNNURSE Observed: 07/07/2018 Status: COMPLETED Source: [place] 9:00 AM [facility] Nurse Visit (ALL[facility]) MARISSA MALONE ([id number]) 1975 M Date Time Provider Department 07/07/18 9:00 AM NURSE STACIA ROMEO ALVARO During your visit today, we recorded the following information about you: Ketty Thomas RN 07/07/2018 11:20 AM Signed Pt identified by name and birthdate. Allergy injections given subcutaneously. July 07, 2018 11:06 AM Patient took antihistamine. Patient states took claritin at 7 today.. Immunotherapy Order written on: 05/06/[address] Kelsie Cantu [phone] Patient did not have a large late local reaction to previous injection. Size of reaction If patient has asthma, symptoms controlled: N/A Patient did not report a recent illness. Patient did not report a new blood pressure medications or asthma medication. Patient has their Epi pen with them, No- waited in office 45 minutes Vial A Content: MOLDS Patient did not have a large late local reaction to previous injection. Size of reaction Concentration: 1:1 Dose: 0.35 ml SQ Arm: left upper arm (proximal) Reaction after 30 minutes: pea size induration Vial B Content: TREES, GRASSES, WEEDS, RAGWEED Patient did not have a large late local reaction to previous injection. Size of reaction Concentration: 1:1 Dose: 0.35 ml SQ Arm: left upper arm (distal) Reaction after 30 minutes: 10 cent size induration Vial C Content: DUST MITES, ANIMAL DANDER Patient did not have a large late local reaction to previous injection. Size of reaction Concentration: 1:1 Dose: 0.35 ml SQ Arm: right upper arm (proximal) Reaction after 30 minutes: None Previously instructed about signs and symptoms of local and systemic reactions. Appointment line and nurses station number given as well as injection times at administering location. Ketty Thomas RN Referring Provider: SELF [200] Allergies As of Date: 07/07/2018 Noted Allergy Reaction Environmental allergies [Other] 03/23/2009 14 - Other: See Comments Comments: Cats, dogs, dust mites, trees, grasses, weeds, ragweed as verified by skin testing Date Reviewed: 07/07/2018 Reviewed by: Ketty Thomas RN - Fully Assessed Reason for Visit: Imm/Inj [58] Allergy Injection [1369] Reason For Visit History Recorded Primary Visit Diagnosis:Seasonal allergic rhinitis due to pollen [J30.1] Prescriptions as of 07/07/2018 Sig: LORATADINE 10 MG TABLET Take 10 mg by mouth once kristi* EPINEPHRINE 0.3 MG/0.3 ML INJ* Inject 0.3 mL intramuscularly* FLUTICASONE 50 MCG/ACTUATION * Use 2 Sprays in each nostril * EPINEPHRINE 0.3 MG/0.3 ML INJ* Inject 0.3 mL intramuscularly* OLOPATADINE 0.1 % EYE DROPS Use 1 Drop in both eyes twice* Problem List As Of Date 07/07/2018 Noted Resolved ALLERGIC RHINITIS NEC [J30.89] Mucocele of lower lip [K13.79] INVALID FOR* Seasonal allergic rhinitis due to pollen [J30.1]INVALID FOR* Allergic rhinitis due to animal hair and dander*INVALID FOR* Allergic rhinitis due to dust mite [J30.89] INVALID FOR* Chronic allergic rhinitis due to fungal spores *INVALID FOR*04/15/2017 Acute atopic conjunctivitis of both eyes [H10.1*INVALID FOR* Chronic allergic rhinitis due to fungal spores *INVALID FOR* Encounter Status:Closed by KETTY THOMAS RN on 07/07/18 CNNURSE Observed: 07/02/2018 Status: COMPLETED Source: [place] 9:40 AM [facility] Nurse Visit (ALLMED) MARISSA MALONE ([id number]) 1975 M Date Time Provider Department 07/02/18 9:40 AM NURSE STACIA ROMEO ALVARO During your visit today, we recorded the following information about you: Jenni Blandon RN 07/02/2018 10:06 AM Signed Pt identified by name and birthdate. Allergy injections given subcutaneously. July 02, 2018 9:22 AM Patient took antihistamine. Patient states took claritin at 7 today.. Immunotherapy Order written on: 05/06/[address] Kelsie Cantu [phone] Patient did not have a large late local reaction to previous injection. Size of reaction If patient has asthma, symptoms controlled: N/A Patient did not report a recent illness. Patient did not report a new blood pressure medications or asthma medication. Patient has their Epi pen with them, No- waited in office 45 minutes post injection Vial A Content: MOLDS Patient did not have a large late local reaction to previous injection. Size of reaction Concentration: 1:1 Dose: 0.3 ml SQ Arm: right upper arm (proximal) Reaction after 30 minutes: None Vial B Content: TREES, GRASSES, WEEDS, RAGWEED Patient did not have a large late local reaction to previous injection. Size of reaction Concentration: 1:1 Dose: 0.3 ml SQ Arm: right upper arm (distal) Reaction after 30 minutes: None Vial C Content: DUST MITES, ANIMAL DANDER Patient did not have a large late local reaction to previous injection. Size of reaction Concentration: 1:1 Dose: 0.3 ml SQ Arm: left upper arm (proximal) Reaction after 30 minutes: None Previously instructed about signs and symptoms of local and systemic reactions. Appointment line and nurses station number given as well as injection times at administering location. Ketty Thomas RN Referring Provider: SELF [200] Allergies As of Date: 07/02/2018 Noted Allergy Reaction Environmental allergies [Other] 03/23/2009 14 - Other: See Comments Comments: Cats, dogs, dust mites, trees, grasses, weeds, ragweed as verified by skin testing Date Reviewed: 07/02/2018 Reviewed by: Ketty Thomas RN - Fully Assessed Reason for Visit: Imm/Inj [58] Allergy Injection [1369] Reason For Visit History Recorded Primary Visit Diagnosis:Seasonal allergic rhinitis due to pollen [J30.1] Prescriptions as of 07/02/2018 Sig: LORATADINE 10 MG TABLET Take 10 mg by mouth once kristi* EPINEPHRINE 0.3 MG/0.3 ML INJ* Inject 0.3 mL intramuscularly* FLUTICASONE 50 MCG/ACTUATION * Use 2 Sprays in each nostril * EPINEPHRINE 0.3 MG/0.3 ML INJ* Inject 0.3 mL intramuscularly* OLOPATADINE 0.1 % EYE DROPS Use 1 Drop in both eyes twice* Problem List As Of Date 07/02/2018 Noted Resolved ALLERGIC RHINITIS NEC [J30.89] Mucocele of lower lip [K13.79] INVALID FOR* Seasonal allergic rhinitis due to pollen [J30.1]INVALID FOR* Allergic rhinitis due to animal hair and dander*INVALID FOR* Allergic rhinitis due to dust mite [J30.89] INVALID FOR* Chronic allergic rhinitis due to fungal spores *INVALID FOR*04/15/2017 Acute atopic conjunctivitis of both eyes [H10.1*INVALID FOR* Chronic allergic rhinitis due to fungal spores *INVALID FOR* Encounter Status:Closed by JENNI BLANDON RN on 07/02/18 PROGRESS Observed: 07/02/2018 Status: COMPLETED Source: [place] 9:22 AM [facility] RE[facility] ID: [id number] Author: Jenni Blandon RN Service: (none) Author Type: (none) Type: Progress Notes Filed: 07/02/2018 10:06 AM Note Text: Pt identified by name and birthdate. Allergy injections given subcutaneously. July 02, 2018 9:22 AM Patient took antihistamine. Patient states took claritin at 7 today.. Immunotherapy Order written on: 05/06/[address] Kelsie Cantu [phone] Patient did not have a large late local reaction to previous injection. Size of reaction If patient has asthma, symptoms controlled: N/A Patient did not report a recent illness. Patient did not report a new blood pressure medications or asthma medication. Patient has their Epi pen with them, No- waited in office 45 minutes post injection Vial A Content: MOLDS Patient did not have a large late local reaction to previous injection. Size of reaction Concentration: 1:1 Dose: 0.3 ml SQ Arm: right upper arm (proximal) Reaction after 30 minutes: None Vial B Content: TREES, GRASSES, WEEDS, RAGWEED Patient did not have a large late local reaction to previous injection. Size of reaction Concentration: 1:1 Dose: 0.3 ml SQ Arm: right upper arm (distal) Reaction after 30 minutes: None Vial C Content: DUST MITES, ANIMAL DANDER Patient did not have a large late local reaction to previous injection. Size of reaction Concentration: 1:1 Dose: 0.3 ml SQ Arm: left upper arm (proximal) Reaction after 30 minutes: None Previously instructed about signs and symptoms of local and systemic reactions. Appointment line and nurses station number given as well as injection times at administering location. Ketty Thomas RN PROGRESS Observed: 06/30/2018 Status: COMPLETED Source: [place] 9:17 AM [facility] O ID: [id number] Author: Ketty Thomas RN Service: (none) Author Type: (none) Type: Progress Notes Filed: 06/30/2018 9:24 AM Note Text: Pt identified by name and birthdate. Allergy injections given subcutaneously. June 30, 2018 9:17 AM Patient took antihistamine. Patient states took claritin at 7 today.. Immunotherapy Order written on: 05/06/[address] Kelsie Cantu [phone] Patient did not have a large late local reaction to previous injection. Size of reaction If patient has asthma, symptoms controlled: N/A Patient did not report a recent illness. Patient did not report a new blood pressure medications or asthma medication. Patient has their Epi pen with them, Yes Vial A Content: MOLDS Patient did not have a large late local reaction to previous injection. Size of reaction Concentration: 1:1 Dose: 0.25 ml SQ Arm: left upper arm (proximal) Reaction after 30 minutes: None Vial B Content: TREES, GRASSES, WEEDS, RAGWEED Patient did not have a large late local reaction to previous injection. Size of reaction Concentration: 1:1 Dose: 0.25 ml SQ Arm: left upper arm (distal) Reaction after 30 minutes: pea size induration Vial C Content: DUST MITES, ANIMAL DANDER Patient did not have a large late local reaction to previous injection. Size of reaction Concentration: 1:1 Dose: 0.25 ml SQ Arm: right upper arm (proximal) Reaction after 30 minutes: None Previously instructed about signs and symptoms of local and systemic reactions. Appointment line and nurses station number given as well as injection times at administering location. Ketty Thomas RN CNNURSE Observed: 06/30/2018 Status: COMPLETED Source: [place] 8:50 AM [facility] Nurse Visit (ALLMED) MARISSA MALONE ([id number]) 1975 M Date Time Provider Department 06/30/18 8:50 AM NURSE STACIA [facility] During your visit today, we recorded the following information about you: Ketty Thomas RN 06/30/2018 9:24 AM Signed Pt identified by name and birthdate. Allergy injections given subcutaneously. June 30, 2018 9:17 AM Patient took antihistamine. Patient states took claritin at 7 today.. Immunotherapy Order written on: 05/06/[address] Kelsie Cantu [phone] Patient did not have a large late local reaction to previous injection. Size of reaction If patient has asthma, symptoms controlled: N/A Patient did not report a recent illness. Patient did not report a new blood pressure medications or asthma medication. Patient has their Epi pen with them, Yes Vial A Content: MOLDS Patient did not have a large late local reaction to previous injection. Size of reaction Concentration: 1:1 Dose: 0.25 ml SQ Arm: left upper arm (proximal) Reaction after 30 minutes: None Vial B Content: TREES, GRASSES, WEEDS, RAGWEED Patient did not have a large late local reaction to previous injection. Size of reaction Concentration: 1:1 Dose: 0.25 ml SQ Arm: left upper arm (distal) Reaction after 30 minutes: pea size induration Vial C Content: DUST MITES, ANIMAL DANDER Patient did not have a large late local reaction to previous injection. Size of reaction Concentration: 1:1 Dose: 0.25 ml SQ Arm: right upper arm (proximal) Reaction after 30 minutes: None Previously instructed about signs and symptoms of local and systemic reactions. Appointment line and nurses station number given as well as injection times at administering location. Ketty Thomas RN Referring Provider: SELF [200] Allergies As of Date: 06/30/2018 Noted Allergy Reaction Environmental allergies [Other] 03/23/2009 14 - Other: See Comments Comments: Cats, dogs, dust mites, trees, grasses, weeds, ragweed as verified by skin testing Date Reviewed: 06/30/2018 Reviewed by: Ketty Thomas RN - Fully Assessed Reason for Visit: Imm/Inj [58] Allergy Injection [1369] Reason For Visit History Recorded Primary Visit Diagnosis:Seasonal allergic rhinitis due to pollen [J30.1] Prescriptions as of 06/30/2018 Sig: LORATADINE 10 MG TABLET Take 10 mg by mouth once kristi* EPINEPHRINE 0.3 MG/0.3 ML INJ* Inject 0.3 mL intramuscularly* FLUTICASONE 50 MCG/ACTUATION * Use 2 Sprays in each nostril * EPINEPHRINE 0.3 MG/0.3 ML INJ* Inject 0.3 mL intramuscularly* OLOPATADINE 0.1 % EYE DROPS Use 1 Drop in both eyes twice* Problem List As Of Date 06/30/2018 Noted Resolved ALLERGIC RHINITIS NEC [J30.89] Mucocele of lower lip [K13.79] INVALID FOR* Seasonal allergic rhinitis due to pollen [J30.1]INVALID FOR* Allergic rhinitis due to animal hair and dander*INVALID FOR* Allergic rhinitis due to dust mite [J30.89] INVALID FOR* Chronic allergic rhinitis due to fungal spores *INVALID FOR*04/15/2017 Acute atopic conjunctivitis of both eyes [H10.1*INVALID FOR* Chronic allergic rhinitis due to fungal spores *INVALID FOR* Encounter Status:Closed by KETTY THOMAS RN on 06/30/18 PROGRESS Observed: 06/04/2018 Status: COMPLETED Source: [place] 6:03 PM [facility] RE[facility]IT[facility] O ID: [id number] Author: Kelsie Cantu Service: (none) Author Type: Physician Type: Progress Notes Filed: 06/05/2018 2:26 PM Note Text: Marissa Malone is a 42 year old male with a history of allergic rhinoconjunctivitis (cats, dogs, dust mites, trees, grasses, weeds, ragweed) who presents for annual follow-up. Last visit was April 15, 2017. He began subcutaneous allergy immunotherapy on May 06, 2017 and reached the maintenance dose on April 07, 2018. He has noted some improvement in his nasal and ocular symptoms since starting immunotherapy. He has been tolerating immunotherapy without systemic reaction. Recently he has noted nasal congestion, sneezing and sinus pressure. Also with postnasal drip. He is not using fluticasone nasal spray or Patanol. He takes Claritin 10 mg. There are no cats or dogs in the home. (His dog last week.) Dust mite precautions have not been instituted in the home. (From initial visit on April 15, 2017: This is a self-referral for an allergy and immunology evaluation. Marissa Malone is a 41 year old male with a history of allergic rhinoconjunctivitis who presents to [facility]. Last visit was in 2008. He complains of nasal congestion, rhinorrhea, sneezing and itchy and watery eyes. Symptoms are perennial with exacerbation in the spring and summer. Cat exposure is a trigger of his symptoms. Currently takes Claritin D with fair relief of symptoms. Previously on Flonase with improvement. He is interested in starting subcutaneous allergy immunotherapy. Approximately 20 years ago, he was on subcutaneous immunotherapy for about 8 months with mild improvement in his symptoms. Denies systemic reactions to immunotherapy. In June,, he was treated with prednisone and an albuterol for bronchitis. Denies any other issues with cough, wheezing, chest tightness or shortness of breath. REVIEW OF SYSTEMS: Negative for fevers, chills, night sweats and unintentional weight loss. Negative for skin rash and skin lesions All other review of systems negative except for those listed above. PAST MEDICAL HISTORY Diagnosis Date - Allergic rhinitis due to other allergen MEDICATIONS: loratadine (CLARITIN) 10 mg tablet Take 10 mg by mouth once daily. fluticasone (FLONASE) 50 mcg/actuation nasal spray Use 2 Sprays in each nostril once daily. olopatadine (PATANOL) 0.1 % ophthalmic solution Use 1 Drop in both eyes twice daily as needed. EPINEPHrine (AUVI-Q) 0.3 mg/0.3 mL auto-injector Inject 0.3 mL intramuscularly as needed. For allergic reaction.Seek emergent medical care immediately after use.Disp:1 2-packw/job foreman EPINEPHrine (EPIPEN) 0.3 mg/0.3 mL auto-injector Inject 0.3 mL intramuscularly as needed (for allergic reaction.Seek emergent medical care immediately after use.Disp:one 2-pack w/job foreman). ALLERGIES: Allergies As of Date: 06/04/2018 Allergen Noted Reaction ENVIRONMENTAL ALLERGIES [OTHER] 03/23/2009 Other: See Comments Fully Assessed 06/04/2018 PAST SURGICAL HISTORY Procedure Laterality Date - PAST SURGICAL HISTORY OF 2017 removed benign lesion on scalp, deepa - REM LESION FACE,EAR,EYE 1.1-2 CM Right 06/05/16 Exc. right lower lip mucocele - REMOVAL ADENOIDS,PRIMARY,<12 Y/O 1981 Adenoidectomy - REMOVAL OF TONSILS,<12 Y/O 1981 Tonsillectomy FAMILY HISTORY: Allergic rhinitis:no. Asthma: yes: son when younger, but grew out of it. Eczema: no. Cystic fibrosis: no. Immunodeficiency: no. SOCIAL HISTORY: Marital status: Children: 2 biological and step son Occupation: [email or web address] Smoking: quit smoking 6 months ago. Smoked a couple cigarettes off and on for 5 years. ENVIRONMENTAL HISTORY: Lives in a house Age of home: 89 years Heating: gas Woodburning fireplace in the home: yes but never used Air conditioning: Central air Basement: Dry basement, runs de-humidifier Deon: [id number]-[id number] carpeting Dust mite controls: Dust mite controls are not in place. Pets in the home: 1 dogs Outdoor animals: There are no outdoor animals Tobacco smoke: No exposure in the home. Physical Exam: GENERAL APPEARANCE:Well appearing, alert, in no acute distress, well-hydrated, well nourished. HEENT: NCAT. EYES: conjunctiva and sclera normal. EARS: External ears normal. Canals clear. TM's normal. NOSE/SINUS:mild edema of the nasal mucosa with scant clear secretions bilaterally THROAT: no erythema NECK:neck supple, no adenopathy HEART:RRR with normal S1 and S2 ,no murmurs, no gallops, no rubs LUNGS: clear to auscultation bilaterally, no wheezes, rales or rhonchi ABDOMEN:soft, nontender, nondistended, without organomegaly or palpable masses EXTREMITIES:Extremities normal, No deformities, No skin discoloration and No edema SKIN: Skin color, texture, turgor normal. No rashes or lesions. ALLERGY SKIN TESTS on April 15, 2017:Positive to cats, dogs, dust mites, trees, grasses, weeds, ragweed on prick testing. ASSESSMENT/PLAN: 1.) Allergic Rhinoconjunctivitis Aggressive environmental controls Dust mite precautions should be instituted in the home. Recommend that he resume regular use of fluticasone nasal spray 2 sprays each nostril once daily until the first avila in the fall/early winter.. Continue Claritin 10 mg once daily as needed Patient will continue subcutaneous allergy immunotherapy as tolerated. He was reminded that beta blockers and esteban inhibitors are relative contraindications to subcutaneous allergy immunotherapy and was instructed to contact our office immediately if he is prescribed a beta jayy or ESTEBAN inhibitor in the future. 2.) Discussed medication dosage, usage, side effects, and goals of treatment in detail. 3.) Follow-up in 1 yr - patient will return sooner should new symptoms or problems arise. Kelsie Cantu MD PROGRESS Observed: 06/04/2018 Status: COMPLETED Source: [place] 1:47 PM [facility] REPOSITORY [facility] ID: [id number] Author: Ketty Thomas RN Service: (none) Author Type: (none) Type: Progress Notes Filed: 06/05/2018 2:26 PM Note Text: Pt identified by name and birthdate. Allergy injections given subcutaneously. June 04, 2018 1:48 PM Patient took antihistamine. Patient states took claritin at 7 today.. Immunotherapy Order written on: 05/06/[address] Kelsie Cantu [phone] Patient did not have a large late local reaction to previous injection. Size of reaction If patient has asthma, symptoms controlled: N/A Patient did not report a recent illness. Patient did not report a new blood pressure medications or asthma medication. Patient has their Epi pen with them, No Vial A Content: MOLDS Patient did not have a large late local reaction to previous injection. Size of reaction Concentration: 1:1 Dose: 0.35 ml SQ Arm: left upper arm (proximal) Reaction after 30 minutes: None Vial B Content: TREES, GRASSES, WEEDS, RAGWEED Patient did not have a large late local reaction to previous injection. Size of reaction Concentration: 1:1 Dose: 0.35 ml SQ Arm: left upper arm (distal) Reaction after 30 minutes: 10 cent size induration Vial C Content: DUST MITES, ANIMAL DANDER Patient did not have a large late local reaction to previous injection. Size of reaction Concentration: 1:1 Dose: 0.35 ml SQ Arm: right upper arm (proximal) Reaction after 30 minutes: None Previously instructed about signs and symptoms of local and systemic reactions. Appointment line and nurses station number given as well as injection times at administering location. Ketty Thomas RN CNOV Observed: 06/04/2018 Status: COMPLETED Source: [place] 1:30 PM [facility] REPOSITORY Office Visit (ALLMED) MARISSA MALONE ([id number]) 1975 M Date Time Provider Department 06/04/18 1:30 PM KELSIE CANTU During your visit today, we recorded the following information about you: Pulse Blood pressure Weight 62/minute 134/85 96.6 kg Ketty Thomas RN 06/04/2018 1:35 PM Signed Pateint here for annual follow up. Reports tolerating immunotherapy. Reports sinus headache over the weekend and increased post nasal drip but not using flonase. Ketty Thomas RN 06/05/2018 2:26 PM Signed Pt identified by name and birthdate. Allergy injections given subcutaneously. June 04, 2018 1:48 PM Patient took antihistamine. Patient states took claritin at 7 today.. Immunotherapy Order written on: 05/06/[address] Kelsie Cantu [phone] Patient did not have a large late local reaction to previous injection. Size of reaction If patient has asthma, symptoms controlled: N/A Patient did not report a recent illness. Patient did not report a new blood pressure medications or asthma medication. Patient has their Epi pen with them, No Vial A Content: MOLDS Patient did not have a large late local reaction to previous injection. Size of reaction Concentration: 1:1 Dose: 0.35 ml SQ Arm: left upper arm (proximal) Reaction after 30 minutes: None Vial B Content: TREES, GRASSES, WEEDS, RAGWEED Patient did not have a large late local reaction to previous injection. Size of reaction Concentration: 1:1 Dose: 0.35 ml SQ Arm: left upper arm (distal) Reaction after 30 minutes: 10 cent size induration Vial C Content: DUST MITES, ANIMAL DANDER Patient did not have a large late local reaction to previous injection. Size of reaction Concentration: 1:1 Dose: 0.35 ml SQ Arm: right upper arm (proximal) Reaction after 30 minutes: None Previously instructed about signs and symptoms of local and systemic reactions. Appointment line and nurses station number given as well as injection times at administering location. Ketty Cantu MD 06/05/2018 2:26 PM Signed Marissa Malone is a 42 year old male with a history of allergic rhinoconjunctivitis (cats, dogs, dust mites, trees, grasses, weeds, ragweed) who presents for annual follow-up. Last visit was April 15, 2017. He began subcutaneous allergy immunotherapy on May 06, 2017 and reached the maintenance dose on April 07, 2018. He has noted some improvement in his nasal and ocular symptoms since starting immunotherapy. He has been tolerating immunotherapy without systemic reaction. Recently he has noted nasal congestion, sneezing and sinus pressure. Also with postnasal drip. He is not using fluticasone nasal spray or Patanol. He takes Claritin 10 mg. There are no cats or dogs in the home. (His dog last week.) Dust mite precautions have not been instituted in the home. (From initial visit on April 15, 2017: This is a self-referral for an allergy and immunology evaluation. Marissa Malone is a 41 year old male with a history of allergic rhinoconjunctivitis who presents to reestablish care. Last visit was in 2008. He complains of nasal congestion, rhinorrhea, sneezing and itchy and watery eyes. Symptoms are perennial with exacerbation in the spring and summer. Cat exposure is a trigger of his symptoms. Currently takes Claritin D with fair relief of symptoms. Previously on Flonase with improvement. He is interested in starting subcutaneous allergy immunotherapy. Approximately 20 years ago, he was on subcutaneous immunotherapy for about 8 months with mild improvement in his symptoms. Denies systemic reactions to immunotherapy. In June,, he was treated with prednisone and an albuterol for bronchitis. Denies any other issues with cough, wheezing, chest tightness or shortness of breath. REVIEW OF SYSTEMS: Negative for fevers, chills, night sweats and unintentional weight loss. Negative for skin rash and skin lesions All other review of systems negative except for those listed above. PAST MEDICAL HISTORY Diagnosis Date - Allergic rhinitis due to other allergen MEDICATIONS: loratadine (CLARITIN) 10 mg tablet Take 10 mg by mouth once daily. fluticasone (FLONASE) 50 mcg/actuation nasal spray Use 2 Sprays in each nostril once daily. olopatadine (PATANOL) 0.1 % ophthalmic solution Use 1 Drop in both eyes twice daily as needed. EPINEPHrine (AUVI-Q) 0.3 mg/0.3 mL auto-injector Inject 0.3 mL intramuscularly as needed. For allergic reaction.Seek emergent medical care immediately after use.Disp:1 2-packw/job foreman EPINEPHrine (EPIPEN) 0.3 mg/0.3 mL auto-injector Inject 0.3 mL intramuscularly as needed (for allergic reaction.Seek emergent medical care immediately after use.Disp:one 2-pack w/job foreman). ALLERGIES: Allergies As of Date: 06/04/2018 Allergen Noted Reaction ENVIRONMENTAL ALLERGIES [OTHER] 03/23/2009 Other: See Comments Fully Assessed 06/04/2018 PAST SURGICAL HISTORY Procedure Laterality Date - PAST SURGICAL HISTORY OF 2017 removed benign lesion on scalp, deepa - REM LESION FACE,EAR,EYE 1.1-2 CM Right 06/05/16 Exc. right lower lip mucocele - REMOVAL ADENOIDS,PRIMARY,<12 Y/O 1981 Adenoidectomy - REMOVAL OF TONSILS,<12 Y/O 1981 Tonsillectomy FAMILY HISTORY: Allergic rhinitis:no. Asthma: yes: son when younger, but grew out of it. Eczema: no. Cystic fibrosis: no. Immunodeficiency: no. SOCIAL HISTORY: Marital status: Children: 2 biological and step son Occupation: [email or web address] Smoking: quit smoking 6 months ago. Smoked a couple cigarettes off and on for 5 years. ENVIRONMENTAL HISTORY: Lives in a house Age of home: 89 years Heating: gas Woodburning fireplace in the home: yes but never used Air conditioning: Central air Basement: Dry basement, runs de-humidifier Deon: [id number] carpeting Dust mite controls: Dust mite controls are not in place. Pets in the home: 1 dogs Outdoor animals: There are no outdoor animals Tobacco smoke: No exposure in the home. Physical Exam: GENERAL APPEARANCE:Well appearing, alert, in no acute distress, well-hydrated, well nourished. HEENT: NCAT. EYES: conjunctiva and sclera normal. EARS: External ears normal. Canals clear. TM's normal. NOSE/SINUS:mild edema of the nasal mucosa with scant clear secretions bilaterally THROAT: no erythema NECK:neck supple, no adenopathy HEART:RRR with normal S1 and S2 ,no murmurs, no gallops, no rubs LUNGS: clear to auscultation bilaterally, no wheezes, rales or rhonchi ABDOMEN:soft, nontender, nondistended, without organomegaly or palpable masses EXTREMITIES:Extremities normal, No deformities, No skin discoloration and No edema SKIN: Skin color, texture, turgor normal. No rashes or lesions. ALLERGY SKIN TESTS on April 15, 2017:Positive to cats, dogs, dust mites, trees, grasses, weeds, ragweed on prick testing. ASSESSMENT/PLAN: 1.) Allergic Rhinoconjunctivitis Aggressive environmental controls Dust mite precautions should be instituted in the home. Recommend that he resume regular use of fluticasone nasal spray 2 sprays each nostril once daily until the first avila in the fall/early winter.. Continue Claritin 10 mg once daily as needed Patient will continue subcutaneous allergy immunotherapy as tolerated. He was reminded that beta blockers and esteban inhibitors are relative contraindications to subcutaneous allergy immunotherapy and was instructed to contact our office immediately if he is prescribed a beta jayy or ESTEBAN inhibitor in the future. 2.) Discussed medication dosage, usage, side effects, and goals of treatment in detail. 3.) Follow-up in 1 yr - patient will return sooner should new symptoms or problems arise. Kelsie Cantu MD Referring Provider: SELF [[id number]] Allergies As of Date: 06/04/2018 Noted Allergy Reaction Environmental allergies [Other] 03/23/2009 14 - Other: See Comments Comments: Cats, dogs, dust mites, trees, grasses, weeds, ragweed as verified by skin testing Date Reviewed: 06/04/2018 Reviewed by: Kelsie Cantu - Fully Assessed Reason for Visit: Imm/Inj [58] Allergy Injection [1369] Reason For Visit History Recorded Primary Visit Diagnosis:Seasonal allergic rhinitis due to pollen [J30.1] Other Visit Diagnoses:Allergic rhinitis due to animal hair and dander [J30.81] Allergic rhinitis due to dust mite [J30.89] Order(s):EPINEPHrine (AUVI-Q) 0.3 mg/0.3 mL auto-injectorInject 0.3 mL intramuscularly as needed. For allergic reaction.Seek emergent medical care immediately after use.Disp:1 2-packw/trainerDisp: 1 EachRfl: 1 fluticasone (FLONASE) 50 mcg/actuation nasal sprayUse 2 Sprays in each nostril once daily.Disp: 1 BottleRfl: 11 Prescriptions as of 06/04/2018 Sig: LORATADINE 10 MG TABLET Take 10 mg by mouth once kristi* FLUTICASONE 50 MCG/ACTUATION * Use 2 Sprays in each nostril * OLOPATADINE 0.1 % EYE DROPS Use 1 Drop in both eyes twice* EPINEPHRINE 0.3 MG/0.3 ML INJ* Inject 0.3 mL intramuscularly* EPINEPHRINE 0.3 MG/0.3 ML INJ* Inject 0.3 mL intramuscularly* Problem List As Of Date 06/04/2018 Noted Resolved ALLERGIC RHINITIS NEC [J30.89] Mucocele of lower lip [K13.79] INVALID FOR* Seasonal allergic rhinitis due to pollen [J30.1]INVALID FOR* Allergic rhinitis due to animal hair and dander*INVALID FOR* Allergic rhinitis due to dust mite [J30.89] INVALID FOR* Chronic allergic rhinitis due to fungal spores *INVALID FOR*04/15/2017 Acute atopic conjunctivitis of both eyes [H10.1*INVALID FOR* Chronic allergic rhinitis due to fungal spores *INVALID FOR* Visit Notes: >> Ketty Deluca Jun 04, 2018 1:28 PM Status: Signed Pateint here for annual follow up. Reports tolerating immunotherapy. Reports sinus headache over the weekend and increased post nasal drip but not using flonase. Prescriptions ordered this encounter Disp Refills Start End EPINEPHRINE 0.3 MG/0.3 ML INJECTION,* 1 Ea* 1 06/04/2018 Route: INTRAMUSCULA Sig: Inject 0.3 mL intramuscularly as needed. For allergic reaction.Seek emergent medical care immediately after use.Disp:1 2-packw/job foreman FLUTICASONE 50 MCG/ACTUATION NASAL S* 1 Rey* 11 06/04/2018 Route: EACH NOSTRIL Sig: Use 2 Sprays in each nostril once daily. Medications Discontinued During This Encounter LORATADINE/PSEUDOEPHEDRINE (CLARITIN* 06/04/2018 Class: Historical Med Route: ORAL Sig: Take by mouth as needed. Disc: Discontinued by Patient fluticasone (FLONASE) 50 mcg/actuati* 1 Rey* 11 04/15/2017 06/04/2018 Route: EACH NOSTRIL Sig: Use 2 Sprays in each nostril once daily. Disc: Reason for discontinue is not on file. Disposition: Return in about 1 year (around 06/04/2019). Follow-up and Disposition History Recorded Encounter Status:Closed by KELSIE CANTU MD on 06/05/18 PROGRESS Observed: 05/07/2018 Status: COMPLETED Source: [place] 8:57 AM [facility] REPOSITORY [facility] ID: [id number] Author: Jenni Blandon RN Service: (none) Author Type: (none) Type: Progress Notes Filed: 05/07/2018 8:58 AM Note Text: Charged for 36 doses, 3 maintenance vials. CNNURSE Observed: 05/07/2018 Status: COMPLETED Source: [place] 8:55 AM [facility] REPOSITORY Nurse Visit (ALLMED) MARISSA MALONE ([id number]) 1975 M Date Time Provider Department 05/07/18 8:55 AM NURSE STACIA OUSMANE ARREDONDO During your visit today, we recorded the following information about you: Jenni Blandon RN 05/07/2018 8:58 AM Signed Charged for 36 doses, 3 maintenance vials. Allergies As of Date: 05/07/2018 Noted Allergy Reaction Environmental allergies [Other] 03/23/2009 14 - Other: See Comments Comments: Cats, dogs, dust mites, trees, grasses, weeds, ragweed as verified by skin testing Date Reviewed: 05/05/2018 Reviewed by: Jenni Blandon RN - Fully Assessed Reason for Visit: Allergy vial charge [Other] Primary Visit Diagnosis:Seasonal allergic rhinitis due to other allergic trigger [J30.89] Other Visit Diagnoses:Allergic rhinitis due to animal hair and dander [J30.81] Seasonal allergic rhinitis due to pollen [J30.1] Prescriptions as of 05/07/2018 Sig: EPINEPHRINE 0.3 MG/0.3 ML INJ* Inject 0.3 mL intramuscularly* CLARITIN-D 24 HOUR ORAL Take by mouth as needed. OLOPATADINE 0.1 % EYE DROPS Use 1 Drop in both eyes twice* FLUTICASONE 50 MCG/ACTUATION * Use 2 Sprays in each nostril * Problem List As Of Date 05/07/2018 Noted Resolved ALLERGIC RHINITIS NEC [J30.89] Mucocele of lower lip [K13.79] INVALID FOR* Chronic seasonal allergic rhinitis due to polle*INVALID FOR* Chronic allergic rhinitis due to animal hair an*INVALID FOR* Allergic rhinitis due to dust mite [J30.89] INVALID FOR* Chronic allergic rhinitis due to fungal spores *INVALID FOR*04/15/2017 Acute atopic conjunctivitis of both eyes [H10.1*INVALID FOR* Chronic allergic rhinitis due to fungal spores *INVALID FOR* Encounter Status:Closed by JENNI BLANDON RN on 05/07/18 CNCO Observed: 05/06/2018 Status: COMPLETED Source: [place] 12:00 AM [facility] REPOSITORY Letter Text NAME: Marissa Malone (home) : 1975 May 06, 2018 Kelsie Cantu MD Attending: Kelsie Cantu MD This order sheet is for allergen immunotherapy extract in 1:1 concentration at the maintenance dose 3 vials labeled as Vial C: DUST MITES, ANIMAL DANDER comprised of 0.7 ml Dust mite D.p. (10,000 AU/ml) 2.1 ml Dust mite D.f. (10,000 AU/ml) 2.4 ml cat (10,000 BAU/ml) to be diluted with 1.8 ml of Saline + HSA(Human Serum Albumin) ? The vial (s) contains extract in 1:1 concentration. Begin with 0.35ml. subcutaneously, then increase to 0.4, 0.45, and 0.5 ml. Injections can be given every 1-2 weeks. When 0.5 is achieved, please maintain this dose of 0.5 mL once every 2-4 weeks. When the vial is complete, return this sheet by fax or mail and discard the vial(s). A new extract and immunotherapy record will be sent. Send to [facility] [address] [place] [address], [address] [place] [address] Cantu or fax to . Additional instructions are included for method of administration and management of local and systemic reactions. Please call the physician or the allergy nurse if you have any questions at or toll-free at , [phone]. Observe patient for reaction for at least 30 minutes after injection. Local or generalized reactions to the allergy shot may occur at any time in the course of immunotherapy. The shots are to be given at a facility capable of treating anaphylaxis. Adjustments for Local Reactions For local swelling less than 1 cm. (pea size induration), continue schedule. For local swelling 1-2 cm (dime to nickel size induration), continue schedule. For local swelling 2.5 cm (quarter size induration), repeat previous dose. For local swelling greater than 2.5 cm (silver dollar size induration ), drop down to previous dose. May apply Hydrocortisone 2.5% cream or cold compress to any size local reaction after 30 minutes. Dose Adjustments for Missed Injections During Weekly Build- Up Phase Days after last administered injection Dose to give Up to 14 days Continue as Scheduled 15 to 21 days Repeat Previous Dose 22 to 28 days Reduce dose by 25% 29 to 35 days Reduce dose by 50% If reduced dose is tolerated, resume dosing schedule from lower dose. For delay in immunotherapy of greater than 35 days, dose adjustment must be made by ordering physician. For patients in maintenance phase and receiving injections at 2 week intervals or longer, see orders below for ?Dose Adjustments During Maintenance Phase?. Dose Adjustments During Maintenance Phase Reduce by one dose for each dosing interval missed then resume dosing schedule from lower reduced dose. For delay of maintenance injections greater than one missed dosing interval, the dose adjustment must be made by the ordering physician. CNCO Observed: 05/06/2018 Status: COMPLETED Source: [place] 12:00 AM [facility] REPOSITORY Letter Text NAME: Marissa Malone (home) : 1975 May 06, 2018 Kelsie Cantu MD Attending: Kelsie Cantu MD This order sheet is for allergen immunotherapy extract in 1:1 concentration at the maintenance dose 3 vials labeled as Vial A: MOLDS comprised of 0.7 ml alternaria (1:20) 0.3 ml aspergillus fum. (1:10) 0.3 ml helminthosporium (1:20) to be diluted with 5.7 ml of Saline + HSA(Human Serum Albumin) The vial (s) contains extract in 1:1 concentration. Begin with 0.35ml. subcutaneously, then increase to 0.4, 0.45, and 0.5 ml. Injections can be given every 1-2 weeks. When 0.5 is achieved, please maintain this dose of 0.5 mL once every 2-4 weeks. When the vial is complete, return this sheet by fax or mail and discard the vial(s). A new extract and immunotherapy record will be sent. Send to [facility] [address] [place] [address], [address] [place] [address] Cantu or fax to . Additional instructions are included for method of administration and management of local and systemic reactions. Please call the physician or the allergy nurse if you have any questions at or toll-free at , [phone]. Observe patient for reaction for at least 30 minutes after injection. Local or generalized reactions to the allergy shot may occur at any time in the course of immunotherapy. The shots are to be given at a facility capable of treating anaphylaxis. Adjustments for Local Reactions For local swelling less than 1 cm. (pea size induration), continue schedule. For local swelling 1-2 cm (dime to nickel size induration), continue schedule. For local swelling 2.5 cm (quarter size induration), repeat previous dose. For local swelling greater than 2.5 cm (silver dollar size induration ), drop down to previous dose. May apply Hydrocortisone 2.5% cream or cold compress to any size local reaction after 30 minutes. Dose Adjustments for Missed Injections During Weekly Build- Up Phase Days after last administered injection Dose to give Up to 14 days Continue as Scheduled 15 to 21 days Repeat Previous Dose 22 to 28 days Reduce dose by 25% 29 to 35 days Reduce dose by 50% If reduced dose is tolerated, resume dosing schedule from lower dose. For delay in immunotherapy of greater than 35 days, dose adjustment must be made by ordering physician. For patients in maintenance phase and receiving injections at 2 week intervals or longer, see orders below for ?Dose Adjustments During Maintenance Phase?. Dose Adjustments During Maintenance Phase Reduce by one dose for each dosing interval missed then resume dosing schedule from lower reduced dose. For delay of maintenance injections greater than one missed dosing interval, the dose adjustment must be made by the ordering physician. CNCO Observed: 05/06/2018 Status: COMPLETED Source: [place] 12:00 AM [facility] REPOSITORY Letter Text NAME: Marissa Malone (home) : 1975 May 06, 2018 Kelsie Cantu MD Attending: Kelsie Cantu MD This order sheet is for allergen immunotherapy extract in 1:1 concentration at the maintenance dose 3 vials labeled as Vial B: TREES, GRASSES, WEEDS, RAGWEED comprised of 0.3 ml Birch (1:20) 0.3 ml Smoot (1:20) 0.6 ml Grass mix (100,000 BAU/ml) (oral, orchard,[place]) 0.5 ml Special grass mix (100,000 BAU/ml) (rye grass, meadow fescue) 0.2 ml Bermuda (10,000 BAU/ml) 0.2 ml Tl (1:20) 1.7 ml Special weed mix #2 (1:20)(plantain,marshelder,sorrel,cocklebur,lambs quarters,pigweed) 0.7 ml Ragweed mix (giant and short) (1:20) to be diluted with 2.5 ml of Saline + HSA(Human Serum Albumin) The vial (s) contains extract in 1:1 concentration. Begin with 0.35ml. subcutaneously, then increase to 0.4, 0.45, and 0.5 ml. Injections can be given every 1-2 weeks. When 0.5 is achieved, please maintain this dose of 0.5 mL once every 2-4 weeks. When the vial is complete, return this sheet by fax or mail and discard the vial(s). A new extract and immunotherapy record will be sent. Send to [facility] [address] [place] [address], [address] [place] [address] Cantu or fax to . Additional instructions are included for method of administration and management of local and systemic reactions. Please call the physician or the allergy nurse if you have any questions at or toll-free at , [phone]. Observe patient for reaction for at least 30 minutes after injection. Local or generalized reactions to the allergy shot may occur at any time in the course of immunotherapy. The shots are to be given at a facility capable of treating anaphylaxis. Adjustments for Local Reactions For local swelling less than 1 cm. (pea size induration), continue schedule. For local swelling 1-2 cm (dime to nickel size induration), continue schedule. For local swelling 2.5 cm (quarter size induration), repeat previous dose. For local swelling greater than 2.5 cm (silver dollar size induration ), drop down to previous dose. May apply Hydrocortisone 2.5% cream or cold compress to any size local reaction after 30 minutes. Dose Adjustments for Missed Injections During Weekly Build- Up Phase Days after last administered injection Dose to give Up to 14 days Continue as Scheduled 15 to 21 days Repeat Previous Dose 22 to 28 days Reduce dose by 25% 29 to 35 days Reduce dose by 50% If reduced dose is tolerated, resume dosing schedule from lower dose. For delay in immunotherapy of greater than 35 days, dose adjustment must be made by ordering physician. For patients in maintenance phase and receiving injections at 2 week intervals or longer, see orders below for ?Dose Adjustments During Maintenance Phase?. Dose Adjustments During Maintenance Phase Reduce by one dose for each dosing interval missed then resume dosing schedule from lower reduced dose. For delay of maintenance injections greater than one missed dosing interval, the dose adjustment must be made by the ordering physician. CNNURSE Observed: 05/05/2018 Status: COMPLETED Source: [place] 10:00 AM [facility] REPOSITORY Nurse Visit (ALLMED) MARISSA MALONE ([id number]) 1975 M Date Time Provider Department 05/05/18 10:00 AM NURSE STACIA ARREDONDO During your visit today, we recorded the following information about you: Jenni Blandon RN 05/05/2018 9:38 AM Signed Pt identified by name and birthdate. Allergy injections given subcutaneously. May 05, 2018 9:10 AM Patient took antihistamine. Patient states took Claritin at 0800 today.. Immunotherapy Order written on: 01-06-[address] Kelsie Cantu. Patient did not have a large late local reaction to previous injection. Size of reaction n/a If patient has asthma, symptoms controlled: N/A Patient did not report a recent illness. Patient did not report a new blood pressure medications or asthma medication. Patient has their Epi pen with them, Yes Vial A Content: MOLDS Patient did not have a large late local reaction to previous injection. Size of reaction n/a Concentration: 1:1 Dose: 0.5 ml SQ Arm: right upper arm (proximal) Reaction after 30 minutes: None Vial B Content: TREES, GRASSES, WEEDS, RAGWEED Patient did not have a large late local reaction to previous injection. Size of reaction n/a Concentration: 1:1 Dose: 0.5 ml SQ Arm: right upper arm (distal) Reaction after 30 minutes: pea size induration Vial C Content: DUST MITES, ANIMAL DANDER Patient did not have a large late local reaction to previous injection. Size of reaction n/a Concentration: 1:1 Dose: 0.5 ml SQ Arm: left upper arm (proximal) Reaction after 30 minutes: pea size induration Previously instructed about signs and symptoms of local and systemic reactions. Appointment line and nurses station number given as well as injection times at administering location. Jenni Blandon RN Referring Provider: SELF [[id number]] Allergies As of Date: 05/05/2018 Noted Allergy Reaction Environmental allergies [Other] 03/23/2009 14 - Other: See Comments Comments: Cats, dogs, dust mites, trees, grasses, weeds, ragweed as verified by skin testing Date Reviewed: 05/05/2018 Reviewed by: Jenni Blandon RN - Fully Assessed Reason for Visit: Immunotherapy [409] Allergy Injection [1369] Reason For Visit History Recorded Primary Visit Diagnosis:Seasonal allergic rhinitis due to other allergic trigger [J30.89] Prescriptions as of 05/05/2018 Sig: EPINEPHRINE 0.3 MG/0.3 ML INJ* Inject 0.3 mL intramuscularly* CLARITIN-D 24 HOUR ORAL Take by mouth as needed. 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 Allergy injections given subcutaneously. May 05, 2018 9:10 AM Patient took antihistamine. Patient states took Claritin at 0800 today.. Immunotherapy Order written on: 01-06-[address] Kelsie Cantu. Patient did not have a large late local reaction to previous injection. Size of reaction n/a If patient has asthma, symptoms controlled: N/A Patient did not report a recent illness. Patient did not report a new blood pressure medications or asthma medication. Patient has their Epi pen with them, Yes Vial A Content: MOLDS Patient did not have a large late local reaction to previous injection. Size of reaction n/a Concentration: 1:1 Dose: 0.5 ml SQ Arm: right upper arm (proximal) Reaction after 30 minutes: None Vial B Content: TREES, GRASSES, WEEDS, RAGWEED Patient did not have a large late local reaction to previous injection. Size of reaction n/a Concentration: 1:1 Dose: 0.5 ml SQ Arm: right upper arm (distal) Reaction after 30 minutes: pea size induration Vial C Content: DUST MITES, ANIMAL DANDER Patient did not have a large late local reaction to previous injection. Size of reaction n/a Concentration: 1:1 Dose: 0.5 ml SQ Arm: left upper arm (proximal) Reaction after 30 minutes: pea size induration Previously instructed about signs and symptoms of local and systemic reactions. Appointment line and nurses station number given as well as injection times at administering location. Jenni Blandon RN [facility] Observed: 04/07/2018 Status: COMPLETED Source: [place] 10:20 AM [facility] REPOSIT[facility] Nurse Visit (ALVARO) MARISSA MALONE ([id number]) 1975 M Date Time Provider Department 04/07/18 10:20 AM NURSE STACIA ARREDONDO During your visit today, we recorded the following information about you: Ketty Thomas RN 04/07/2018 10:20 AM Signed If patient has asthma, symptoms controlled: N/A Patient did not report a recent illness. Patient did not report a new blood pressure medications or asthma medication. Patient has their Epi pen with them, Yes Vial Content: DUST MITES, ANIMAL DANDER Immunotherapy Order written on: 01/20/[address] Kelsie Cantu [phone] Concentration: 1:1 Dose: 0.5 ml SQ Arm: right upper arm (proximal) Reaction after 30 minutes: pea size induration Patient instructed regarding immunotherapy. Also discussed signs and symptoms of local and systemic reactions. Patient instructed to wait 30 minutes after all allergy injections. Patient to make follow up appointment with ordering physician at 3 months, 6 months and yearly thereafter. Appointment line and nurses station number given as well as shot times at administrating location Ketty Thomas RN Referring Provider: KELSIE CANTU [[id number]] Allergies As of Date: 04/07/2018 Noted Allergy Reaction Environmental allergies [Other] 03/23/2009 14 - Other: See Comments Comments: Cats, dogs, dust mites, trees, grasses, weeds, ragweed as verified by skin testing Date Reviewed: 04/07/2018 Reviewed by: Ketty Thomas RN - Fully Assessed Reason for Visit: Imm/Inj [58] Allergy Injection [2109] Reason For Visit History Recorded Primary Visit Diagnosis:Allergic rhinitis due to animal hair and dander [J30.81] Prescriptions as of 04/07/2018 Sig: CLARITIN-D 24 HOUR ORAL Take by mouth as needed. 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 Patient did not report a new blood pressure medications or asthma medication. Patient has their Epi pen with them, Yes Vial Content: DUST MITES, ANIMAL DANDER Immunotherapy Order written on: 01/20/[address] Kelsie Cantu [id number] Concentration: 1:1 Dose: 0.5 ml SQ Arm: right upper arm (proximal) Reaction after 30 minutes: pea size induration Patient instructed regarding immunotherapy. Also discussed signs and symptoms of local and systemic reactions. Patient instructed to wait 30 minutes after all allergy injections. Patient to make follow up appointment with ordering physician at 3 months, 6 months and yearly thereafter. Appointment line and nurses station number given as well as shot times at administrating location Ketty Thomas RN CNNURSE Observed: 04/02/2018 Status: COMPLETED Source: [place] 10:00 AM [facility] REPOSITORY Nurse Visit (ALLMED) MARISSA MALONE ([id number]) 1975 M Date Time Provider Department 04/02/18 10:00 AM NURSE STACIA ROMEO [facility] During your visit today, we recorded the following information about you: Jenni Blandon RN 04/02/2018 9:30 AM Signed If patient has asthma, symptoms controlled: N/A Patient did not report a recent illness. Patient did not report a new blood pressure medications or asthma medication. Patient has their Epi pen with them, Yes Vial Content: DUST MITES, ANIMAL DANDER (Vial C) Immunotherapy Order written on: 01-20-[address] Kelsie Cantu. Concentration: 1:11 Dose: 0.45 ml SQ Arm: left upper arm (proximal) Reaction after 30 minutes: pea size induration Patient instructed regarding immunotherapy. Also discussed signs and symptoms of local and systemic reactions. Patient instructed to wait 30 minutes after all allergy injections. Patient to make follow up appointment with ordering physician at 3 months, 6 months and yearly thereafter. Appointment line and nurses station number given as well as shot times at administrating location Jenni Blandon RN Referring Provider: KELSIE CANTU [[id number]] Allergies As of Date: 04/02/2018 Noted Allergy Reaction Environmental allergies [Other] 03/23/2009 14 - Other: See Comments Comments: Cats, dogs, dust mites, trees, grasses, weeds, ragweed as verified by skin testing Date Reviewed: 04/02/2018 Reviewed by: Jenni Blandon RN - Fully Assessed Reason for Visit: Immunotherapy [409] Allergy Injection [1369] Reason For Visit History Recorded Primary Visit Diagnosis:Seasonal allergic rhinitis due to other allergic trigger [J30.89] Prescriptions as of 04/02/2018 Sig: CLARITIN-D 24 HOUR ORAL Take by mouth as needed. 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 Patient did not report a new blood pressure medications or asthma medication. Patient has their Epi pen with them, Yes Vial Content: DUST MITES, ANIMAL DANDER (Vial C) Immunotherapy Order written on: 01-20-[address] Kelsie Cantu. Concentration: 1:11 Dose: 0.45 ml SQ Arm: left upper arm (proximal) Reaction after 30 minutes: pea size induration Patient instructed regarding immunotherapy. Also discussed signs and symptoms of local and systemic reactions. Patient instructed to wait 30 minutes after all allergy injections. Patient to make follow up appointment with ordering physician at 3 months, 6 months and yearly thereafter. Appointment line and nurses station number given as well as shot times at administrating location Jenni Blandon RN PROGRESS Observed: 03/31/2018 Status: COMPLETED Source: [place] 10:13 AM [facility] REPOSITORY O ID: [id number] Author: Jenni Blandon RN Service: (none) Author Type: (none) Type: Progress Notes Filed: 03/31/2018 10:43 AM Note Text: Pt identified by name and birthdate. Allergy injections given subcutaneously. March 31, 2018 10:13 AM Patient took antihistamine. Patient states took claritin at 8 today.. Immunotherapy Order written on: 01/06/[address] Kelsie Cantu [phone] Patient did not have a large late local reaction to previous injection. Size of reaction If patient has asthma, symptoms controlled: N/A Patient did not report a recent illness. Patient did not report a new blood pressure medications or asthma medication. Patient has their Epi pen with them, Yes Vial A Content: MOLDS Patient did not have a large late local reaction to previous injection. Size of reaction Concentration: 1:1 Dose: 0.5 ml SQ Arm: left upper arm (proximal) Reaction after 30 minutes: None Vial B Content: TREES, GRASSES, WEEDS, RAGWEED Patient did not have a large late local reaction to previous injection. Size of reaction Concentration: 1:1 Dose: 0.5 ml SQ Arm: left upper arm (distal) Reaction after 30 minutes: None Vial C Content: DUST MITES, ANIMAL DANDER Patient did not have a large late local reaction to previous injection. Size of reaction Concentration: 1:1 Dose: 0.4 ml SQ Arm: right upper arm (proximal) Reaction after 30 minutes: None Previously instructed about signs and symptoms of local and systemic reactions. Appointment line and nurses station number given as well as injection times at administering location. Ketty Thomas RN CNNURSE Observed: 03/31/2018 Status: COMPLETED Source: [place] 10:00 AM [facility] REPOSITORY Nurse Visit (ALLMED) MARISSA MALONE ([id number]) 1975 M Date Time Provider Department 03/31/18 10:00 AM NURSE STACIA ARREDONDO During your visit today, we recorded the following information about you: Jenni Blandon RN 03/31/2018 10:43 AM Signed Pt identified by name and birthdate. Allergy injections given subcutaneously. March 31, 2018 10:13 AM Patient took antihistamine. Patient states took claritin at 8 today.. Immunotherapy Order written on: 01/06/[address] Kelsie Cantu [phone] Patient did not have a large late local reaction to previous injection. Size of reaction If patient has asthma, symptoms controlled: N/A Patient did not report a recent illness. Patient did not report a new blood pressure medications or asthma medication. Patient has their Epi pen with them, Yes Vial A Content: MOLDS Patient did not have a large late local reaction to previous injection. Size of reaction Concentration: 1:1 Dose: 0.5 ml SQ Arm: left upper arm (proximal) Reaction after 30 minutes: None Vial B Content: TREES, GRASSES, WEEDS, RAGWEED Patient did not have a large late local reaction to previous injection. Size of reaction Concentration: 1:1 Dose: 0.5 ml SQ Arm: left upper arm (distal) Reaction after 30 minutes: None Vial C Content: DUST MITES, ANIMAL DANDER Patient did not have a large late local reaction to previous injection. Size of reaction Concentration: 1:1 Dose: 0.4 ml SQ Arm: right upper arm (proximal) Reaction after 30 minutes: None Previously instructed about signs and symptoms of local and systemic reactions. Appointment line and nurses station number given as well as injection times at administering location. Ketty Thoams RN Referring Provider: KELSIE CANTU [[id number]] Allergies As of Date: 03/31/2018 Noted Allergy Reaction Environmental allergies [Other] 03/23/2009 14 - Other: See Comments Comments: Cats, dogs, dust mites, trees, grasses, weeds, ragweed as verified by skin testing Date Reviewed: 03/31/2018 Reviewed by: Ketty Thomas RN - Fully Assessed Reason for Visit: Imm/Inj [58] Allergy Injection [1369] Reason For Visit History Recorded Primary Visit Diagnosis:Seasonal allergic rhinitis due to pollen [J30.1] Prescriptions as of 03/31/2018 Sig: CLARITIN-D 24 HOUR ORAL Take by mouth as needed. 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 Allergy injections given subcutaneously. March 26, 2018 2:05 PM Patient took antihistamine. Patient states took claritin at 8 today.. Immunotherapy Order written on: 01/06/[address] Kelsie Cantu [phone] Patient did not have a large late local reaction to previous injection. Size of reaction If patient has asthma, symptoms controlled: N/A Patient did not report a recent illness. Patient did not report a new blood pressure medications or asthma medication. Patient has their Epi pen with them, Yes Vial A Content: MOLDS Patient did not have a large late local reaction to previous injection. Size of reaction Concentration: 1:1 Dose: 0.45 ml SQ Arm: right upper arm (proximal) Reaction after 30 minutes: pea size induration Vial B Content: TREES, GRASSES, WEEDS, RAGWEED Patient did not have a large late local reaction to previous injection. Size of reaction Concentration: 1:1 Dose: 0.45 ml SQ Arm: right upper arm (distal) Reaction after 30 minutes: pea size induration Vial C Content: DUST MITES, ANIMAL DANDER Patient did not have a large late local reaction to previous injection. Size of reaction Concentration: 1:1 Dose: 0.35 ml SQ Arm: left upper arm (proximal) Reaction after 30 minutes: pea size induration Previously instructed about signs and symptoms of local and systemic reactions. Appointment line and nurses station number given as well as injection times at administering location. Ketty Thomas RN CNNURSE Observed: 03/26/2018 Status: COMPLETED Source: [place] 10:10 AM [facility] REPOS[facility] Nurse Visit (PILARMED) MARISSA MALONE ([id number]) 1975 M Date Time Provider Department 03/26/18 10:10 AM NURSE STACIA [facility] During your visit today, we recorded the following information about you: Ketty Thomas RN 03/26/2018 3:07 PM Signed Pt identified by name and birthdate. Allergy injections given subcutaneously. March 26, 2018 2:05 PM Patient took antihistamine. Patient states took claritin at 8 today.. Immunotherapy Order written on: 01/06/[address] Kelsie Cantu [phone] Patient did not have a large late local reaction to previous injection. Size of reaction If patient has asthma, symptoms controlled: N/A Patient did not report a recent illness. Patient did not report a new blood pressure medications or asthma medication. Patient has their Epi pen with them, Yes Vial A Content: MOLDS Patient did not have a large late local reaction to previous injection. Size of reaction Concentration: 1:1 Dose: 0.45 ml SQ Arm: right upper arm (proximal) Reaction after 30 minutes: pea size induration Vial B Content: TREES, GRASSES, WEEDS, RAGWEED Patient did not have a large late local reaction to previous injection. Size of reaction Concentration: 1:1 Dose: 0.45 ml SQ Arm: right upper arm (distal) Reaction after 30 minutes: pea size induration Vial C Content: DUST MITES, ANIMAL DANDER Patient did not have a large late local reaction to previous injection. Size of reaction Concentration: 1:1 Dose: 0.35 ml SQ Arm: left upper arm (proximal) Reaction after 30 minutes: pea size induration Previously instructed about signs and symptoms of local and systemic reactions. Appointment line and nurses station number given as well as injection times at administering location. Ketty Thomas RN Referring Provider: KELSIE CANTU [[id number]] Allergies As of Date: 03/26/2018 Noted Allergy Reaction Environmental allergies [Other] 03/23/2009 14 - Other: See Comments Comments: Cats, dogs, dust mites, trees, grasses, weeds, ragweed as verified by skin testing Date Reviewed: 03/26/2018 Reviewed by: Ketty Thomas RN - Fully Assessed Reason for Visit: Imm/Inj [58] Allergy Injection [1369] Reason For Visit History Recorded Primary Visit Diagnosis:Seasonal allergic rhinitis due to pollen [J30.1] Prescriptions as of 03/26/2018 Sig: CLARITIN-D 24 HOUR ORAL Take by mouth as needed. 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 Allergy injections given subcutaneously. March 24, 2018 10:11 AM Patient took antihistamine. Patient states took claritin at 8 today.. Immunotherapy Order written on: 01/06/[address] Kelsie Cantu [phone] Patient did not have a large late local reaction to previous injection. Size of reaction If patient has asthma, symptoms controlled: N/A Patient did not report a recent illness. Patient did not report a new blood pressure medications or asthma medication. Patient has their Epi pen with them, Yes Vial A Content: MOLDS Patient did not have a large late local reaction to previous injection. Size of reaction Concentration: 1:1 Dose: 0.4 ml SQ Arm: left upper arm (proximal) Reaction after 30 minutes: None Vial B Content: TREES, GRASSES, WEEDS, RAGWEED Patient did not have a large late local reaction to previous injection. Size of reaction Concentration: 1:1 Dose: 0.4 ml SQ Arm: left upper arm (distal) Reaction after 30 minutes: None Vial C Content: DUST MITES, ANIMAL DANDER Patient did not have a large late local reaction to previous injection. Size of reaction Concentration: 1:1 Dose: 0.3 ml SQ Arm: right upper arm (proximal) Reaction after 30 minutes: None Previously instructed about signs and symptoms of local and systemic reactions. Appointment line and nurses station number given as well as injection times at administering location. Ketty Thomas RN CNNURSE Observed: 03/24/2018 Status: COMPLETED Source: [place] 10:10 AM [facility] Nurse Visit (ALLMED) MARISSA MALONE ([id number]) 1975 M Date Time Provider Department 03/24/18 10:10 AM NURSE STACIA ARREDONDO During your visit today, we recorded the following information about you: Jenni Blandon RN 03/24/2018 10:28 AM Signed Pt identified by name and birthdate. Allergy injections given subcutaneously. March 24, 2018 10:11 AM Patient took antihistamine. Patient states took claritin at 8 today.. Immunotherapy Order written on: 01/06/[address] Kelsie Cantu [phone] Patient did not have a large late local reaction to previous injection. Size of reaction If patient has asthma, symptoms controlled: N/A Patient did not report a recent illness. Patient did not report a new blood pressure medications or asthma medication. Patient has their Epi pen with them, Yes Vial A Content: MOLDS Patient did not have a large late local reaction to previous injection. Size of reaction Concentration: 1:1 Dose: 0.4 ml SQ Arm: left upper arm (proximal) Reaction after 30 minutes: None Vial B Content: TREES, GRASSES, WEEDS, RAGWEED Patient did not have a large late local reaction to previous injection. Size of reaction Concentration: 1:1 Dose: 0.4 ml SQ Arm: left upper arm (distal) Reaction after 30 minutes: None Vial C Content: DUST MITES, ANIMAL DANDER Patient did not have a large late local reaction to previous injection. Size of reaction Concentration: 1:1 Dose: 0.3 ml SQ Arm: right upper arm (proximal) Reaction after 30 minutes: None Previously instructed about signs and symptoms of local and systemic reactions. Appointment line and nurses station number given as well as injection times at administering location. Ketty Thomas RN Referring Provider: KELSIE CANTU [[id number]] Allergies As of Date: 03/24/2018 Noted Allergy Reaction Environmental allergies [Other] 03/23/2009 14 - Other: See Comments Comments: Cats, dogs, dust mites, trees, grasses, weeds, ragweed as verified by skin testing Date Reviewed: 03/24/2018 Reviewed by: Ketty Thomas RN - Fully Assessed Reason for Visit: Imm/Inj [58] Allergy Injection [1369] Reason For Visit History Recorded Primary Visit Diagnosis:Seasonal allergic rhinitis due to pollen [J30.1] Prescriptions as of 03/24/2018 Sig: CLARITIN-D 24 HOUR ORAL Take by mouth as needed. 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 Allergy injections given subcutaneously. March 19, 2018 10:30 AM Patient took antihistamine. Patient states took claritin at 8 today.. Immunotherapy Order written on: 01/06/[address] Kelsie Cantu [phone] Patient did not have a large late local reaction to previous injection. Size of reaction If patient has asthma, symptoms controlled: N/A Patient did not report a recent illness. Patient did not report a new blood pressure medications or asthma medication. Patient has their Epi pen with them, Yes Vial A Content: MOLDS Patient did not have a large late local reaction to previous injection. Size of reaction Concentration: 1:1 Dose: 0.35 ml SQ Arm: right upper arm (proximal) Reaction after 30 minutes: None Vial B Content: TREES, GRASSES, WEEDS, RAGWEED Patient did not have a large late local reaction to previous injection. Size of reaction Concentration: 1:1 Dose: 0.35 ml SQ Arm: right upper arm (distal) Reaction after 30 minutes: None Vial C Content: DUST MITES, ANIMAL DANDER Patient did not have a large late local reaction to previous injection. Size of reaction Concentration: 1:1 Dose: 0.25 ml SQ Arm: left upper arm (proximal) Reaction after 30 minutes: None Previously instructed about signs and symptoms of local and systemic reactions. Appointment line and nurses station number given as well as injection times at administering location. Ketty Thomas RN CNNURSE Observed: 03/19/2018 Status: COMPLETED Source: [place] 10:00 AM [facility] Nurse Visit (ALLMED) MARISSA MALONE ([id number]) 1975 M Date Time Provider Department 03/19/18 10:00 AM NURSE STACIA [facility] During your visit today, we recorded the following information about you: Ketty Thomas RN 03/19/2018 10:32 AM Signed Pt identified by name and birthdate. Allergy injections given subcutaneously. March 19, 2018 10:30 AM Patient took antihistamine. Patient states took claritin at 8 today.. Immunotherapy Order written on: 01/06/[address] Kelsie Cantu [phone] Patient did not have a large late local reaction to previous injection. Size of reaction If patient has asthma, symptoms controlled: N/A Patient did not report a recent illness. Patient did not report a new blood pressure medications or asthma medication. Patient has their Epi pen with them, Yes Vial A Content: MOLDS Patient did not have a large late local reaction to previous injection. Size of reaction Concentration: 1:1 Dose: 0.35 ml SQ Arm: right upper arm (proximal) Reaction after 30 minutes: None Vial B Content: TREES, GRASSES, WEEDS, RAGWEED Patient did not have a large late local reaction to previous injection. Size of reaction Concentration: 1:1 Dose: 0.35 ml SQ Arm: right upper arm (distal) Reaction after 30 minutes: None Vial C Content: DUST MITES, ANIMAL DANDER Patient did not have a large late local reaction to previous injection. Size of reaction Concentration: 1:1 Dose: 0.25 ml SQ Arm: left upper arm (proximal) Reaction after 30 minutes: None Previously instructed about signs and symptoms of local and systemic reactions. Appointment line and nurses station number given as well as injection times at administering location. Ketty Thomas RN Referring Provider: KELSIE CANTU [[id number]] Allergies As of Date: 03/19/2018 Noted Allergy Reaction Environmental allergies [Other] 03/23/2009 14 - Other: See Comments Comments: Cats, dogs, dust mites, trees, grasses, weeds, ragweed as verified by skin testing Date Reviewed: 03/19/2018 Reviewed by: Ketty Thomas RN - Fully Assessed Reason for Visit: Imm/Inj [58] Allergy Injection [1369] Reason For Visit History Recorded Primary Visit Diagnosis:Seasonal allergic rhinitis due to pollen [J30.1] Prescriptions as of 03/19/2018 Sig: CLARITIN-D 24 HOUR ORAL Take by mouth as needed. 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 Allergy injections given subcutaneously. March 17, 2018 10:58 AM Patient took antihistamine. Patient states took Claritin at 0800 today.. Immunotherapy Order written on: 01-20-[address] Kelsie Cantu. Patient did not have a large late local reaction to previous injection. Size of reaction n/a If patient has asthma, symptoms controlled: N/A Patient did not report a recent illness. Patient did not report a new blood pressure medications or asthma medication. Patient has their Epi pen with them, No-45 minute in office wait. Vial A Content: MOLDS Patient did not have a large late local reaction to previous injection. Size of reaction n/a Concentration: 1:1 Dose: 0.3 ml SQ Arm: left upper arm (proximal) Reaction after 30 minutes: None Vial B Content: TREES, GRASSES, WEEDS, RAGWEED Patient did not have a large late local reaction to previous injection. Size of reaction n/a Concentration: 1:1 Dose: 0.3 ml SQ Arm: left upper arm (distal) Reaction after 30 minutes: 10 cent size induration Vial C Content: DUST MITES, ANIMAL DANDER Patient did not have a large late local reaction to previous injection. Size of reaction n/a Concentration: 1:1 Dose: 0.2 ml SQ Arm: right upper arm (proximal) Reaction after 30 minutes: 10 cent size induration Previously instructed about signs and symptoms of local and systemic reactions. Appointment line and nurses station number given as well as injection times at administering location. Jenni Blandon RN CNNURSE Observed: 03/17/2018 Status: COMPLETED Source: [place] 10:00 AM [facility] Nurse Visit (ALLMED) MARISSA MALONE ([id number]) 1975 M Date Time Provider Department 03/17/18 10:00 AM NURSE STACIA ARREDONDO During your visit today, we recorded the following information about you: Jenni Blandon RN 03/17/2018 11:50 AM Signed Pt identified by name and birthdate. Allergy injections given subcutaneously. March 17, 2018 10:58 AM Patient took antihistamine. Patient states took Claritin at 0800 today.. Immunotherapy Order written on: 01-20-[address] Kelsie Cantu. Patient did not have a large late local reaction to previous injection. Size of reaction n/a If patient has asthma, symptoms controlled: N/A Patient did not report a recent illness. Patient did not report a new blood pressure medications or asthma medication. Patient has their Epi pen with them, No-45 minute in office wait. Vial A Content: MOLDS Patient did not have a large late local reaction to previous injection. Size of reaction n/a Concentration: 1:1 Dose: 0.3 ml SQ Arm: left upper arm (proximal) Reaction after 30 minutes: None Vial B Content: TREES, GRASSES, WEEDS, RAGWEED Patient did not have a large late local reaction to previous injection. Size of reaction n/a Concentration: 1:1 Dose: 0.3 ml SQ Arm: left upper arm (distal) Reaction after 30 minutes: 10 cent size induration Vial C Content: DUST MITES, ANIMAL DANDER Patient did not have a large late local reaction to previous injection. Size of reaction n/a Concentration: 1:1 Dose: 0.2 ml SQ Arm: right upper arm (proximal) Reaction after 30 minutes: 10 cent size induration Previously instructed about signs and symptoms of local and systemic reactions. Appointment line and nurses station number given as well as injection times at administering location. Jenni Blandon RN Referring Provider: KELSIE CANTU [[id number]] Allergies As of Date: 03/17/2018 Noted Allergy Reaction Environmental allergies [Other] 03/23/2009 14 - Other: See Comments Comments: Cats, dogs, dust mites, trees, grasses, weeds, ragweed as verified by skin testing Date Reviewed: 03/17/2018 Reviewed by: Jenni Blandon RN - Fully Assessed Reason for Visit: Immunotherapy [409] Allergy Injection [1369] Reason For Visit History Recorded Primary Visit Diagnosis:Seasonal allergic rhinitis due to other allergic trigger [J30.89] Prescriptions as of 03/17/2018 Sig: CLARITIN-D 24 HOUR ORAL Take by mouth as needed. 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 Allergy injections given subcutaneously. March 12, 2018 3:27 PM Patient took antihistamine. Patient states took Claritin at 0800 today.. Immunotherapy Order written on: 01-06-[address] Kelsie Cantu. Patient did not have a large late local reaction to previous injection. Size of reaction n/a If patient has asthma, symptoms controlled: N/A Patient did not report a recent illness. Patient did not report a new blood pressure medications or asthma medication. Patient has their Epi pen with them, Yes Vial A Content: MOLDS Patient did not have a large late local reaction to previous injection. Size of reaction n/a Concentration: 1:1 Dose: 0.25 ml SQ Arm: right upper arm (proximal) Reaction after 30 minutes: None Vial B Content: TREES, GRASSES, WEEDS, RAGWEED Patient did not have a large late local reaction to previous injection. Size of reaction n/a Concentration: 1:1 Dose: 0.25 ml SQ Arm: right upper arm (distal) Reaction after 30 minutes: 10 cent size induration Vial C Content: DUST MITES, ANIMAL DANDER Patient did not have a large late local reaction to previous injection. Size of reaction n/a Concentration: 1:1 Dose: 0.15 ml SQ Arm: left upper arm (proximal) Reaction after 30 minutes: pea size induration Previously instructed about signs and symptoms of local and systemic reactions. Appointment line and nurses station number given as well as injection times at administering location. Jenni Blandon RN CNNURSE Observed: 03/12/2018 Status: COMPLETED Source: [place] 10:00 AM [facility] Nurse Visit ([facility]) MARISSA MALONE ([id number]) 1975 M Date Time Provider Department 03/12/18 10:00 AM NURSE STACIA [facility] During your visit today, we recorded the following information about you: Jenni Blandon RN 03/12/2018 3:47 PM Signed Pt identified by name and birthdate. Allergy injections given subcutaneously. March 12, 2018 3:27 PM Patient took antihistamine. Patient states took Claritin at 0800 today.. Immunotherapy Order written on: 01-06-[address] Kelsie Cantu. Patient did not have a large late local reaction to previous injection. Size of reaction n/a If patient has asthma, symptoms controlled: N/A Patient did not report a recent illness. Patient did not report a new blood pressure medications or asthma medication. Patient has their Epi pen with them, Yes Vial A Content: MOLDS Patient did not have a large late local reaction to previous injection. Size of reaction n/a Concentration: 1:1 Dose: 0.25 ml SQ Arm: right upper arm (proximal) Reaction after 30 minutes: None Vial B Content: TREES, GRASSES, WEEDS, RAGWEED Patient did not have a large late local reaction to previous injection. Size of reaction n/a Concentration: 1:1 Dose: 0.25 ml SQ Arm: right upper arm (distal) Reaction after 30 minutes: 10 cent size induration Vial C Content: DUST MITES, ANIMAL DANDER Patient did not have a large late local reaction to previous injection. Size of reaction n/a Concentration: 1:1 Dose: 0.15 ml SQ Arm: left upper arm (proximal) Reaction after 30 minutes: pea size induration Previously instructed about signs and symptoms of local and systemic reactions. Appointment line and nurses station number given as well as injection times at administering location. Jenni Blandon RN Referring Provider: KELSIE CANTU [[id number]] Allergies As of Date: 03/12/2018 Noted Allergy Reaction Environmental allergies [Other] 03/23/2009 14 - Other: See Comments Comments: Cats, dogs, dust mites, trees, grasses, weeds, ragweed as verified by skin testing Date Reviewed: 03/10/2018 Reviewed by: Jenni Blandon RN - Fully Assessed Reason for Visit: Immunotherapy [409] Allergy Injection [1369] Reason For Visit History Recorded Primary Visit Diagnosis:Seasonal allergic rhinitis due to other allergic trigger [J30.89] Prescriptions as of 03/12/2018 Sig: CLARITIN-D 24 HOUR ORAL Take by mouth as needed. OLOPATADINE 0.1 % EYE DROPS Use 1 Drop in both eyes twice* FLUTICASONE 50 MCG/ACTUATION * Use 2 Sprays in each nostril * EPINEPHRINE 0.3 MG/0.3 ML INJ* Inject 0.3 mL intramuscularly* Problem List As Of Date 03/12/2018 Noted Resolved ALLERGIC RHINITIS NEC [J30.89] Mucocele of lower lip [K13.79] INVALID FOR* Chronic seasonal allergic rhinitis due to polle*INVALID FOR* Chronic allergic rhinitis due to animal hair an*INVALID FOR* Allergic rhinitis due to dust mite [J30.89] INVALID FOR* Chronic allergic rhinitis due to fungal spores *INVALID FOR*04/15/2017 Acute atopic conjunctivitis of both eyes [H10.1*INVALID FOR* Chronic allergic rhinitis due to fungal spores *INVALID FOR* Encounter Status:Closed by JENNI BLANDON RN on 03/12/18 PROGRESS Observed: 03/10/2018 Status: COMPLETED Source: [place] 11:51 AM [facility] ID: [id number] Author: Jenni Blandon RN Service: (none) Author Type: (none) Type: Progress Notes Filed: 03/10/2018 11:53 AM Note Text: Pt identified by name and birthdate. Allergy injections given subcutaneously. March 10, 2018 11:51 AM Patient took antihistamine. Patient states took Claritin at 1055 today.. Immunotherapy Order written on: 01-20-[address] Kelsie Cantu. Patient did not have a large late local reaction to previous injection. Size of reaction n/a If patient has asthma, symptoms controlled: N/A Patient did not report a recent illness. Patient did not report a new blood pressure medications or asthma medication. Patient has their Epi pen with them, Yes Vial A Content: MOLDS Patient did not have a large late local reaction to previous injection. Size of reaction n/a Concentration: 1:1 Dose: 0.2 ml SQ Arm: left upper arm (proximal) Reaction after 30 minutes: None Vial B Content: TREES, GRASSES, WEEDS, RAGWEED Patient did not have a large late local reaction to previous injection. Size of reaction n/a Concentration: 1:1 Dose: 0.2 ml SQ Arm: left upper arm (distal) Reaction after 30 minutes: None Vial C Content: DUST MITES, ANIMAL DANDER Patient did not have a large late local reaction to previous injection. Size of reaction n/a Concentration: 1:1 Dose: 0.1 ml SQ Arm: right upper arm (proximal) Reaction after 30 minutes: None Previously instructed about signs and symptoms of local and systemic reactions. Appointment line and nurses station number given as well as injection times at administering location. Jenni Blandon RN CNNURSE Observed: 03/10/2018 Status: COMPLETED Source: [place] 10:10 AM [facility] Nurse Visit (ALLMED) EUGA,MARISSA D ([id number]) 1975 M Date Time Provider Department 03/10/18 10:10 AM NURSE STACIA ARREDONDO During your visit today, we recorded the following information about you: Jenni Blandon RN 03/10/2018 11:53 AM Signed Pt identified by name and birthdate. Allergy injections given subcutaneously. March 10, 2018 11:51 AM Patient took antihistamine. Patient states took Claritin at 1055 today.. Immunotherapy Order written on: 01-20-[address] Kelsie Cantu. Patient did not have a large late local reaction to previous injection. Size of reaction n/a If patient has asthma, symptoms controlled: N/A Patient did not report a recent illness. Patient did not report a new blood pressure medications or asthma medication. Patient has their Epi pen with them, Yes Vial A Content: MOLDS Patient did not have a large late local reaction to previous injection. Size of reaction n/a Concentration: 1:1 Dose: 0.2 ml SQ Arm: left upper arm (proximal) Reaction after 30 minutes: None Vial B Content: TREES, GRASSES, WEEDS, RAGWEED Patient did not have a large late local reaction to previous injection. Size of reaction n/a Concentration: 1:1 Dose: 0.2 ml SQ Arm: left upper arm (distal) Reaction after 30 minutes: None Vial C Content: DUST MITES, ANIMAL DANDER Patient did not have a large late local reaction to previous injection. Size of reaction n/a Concentration: 1:1 Dose: 0.1 ml SQ Arm: right upper arm (proximal) Reaction after 30 minutes: None Previously instructed about signs and symptoms of local and systemic reactions. Appointment line and nurses station number given as well as injection times at administering location. Jenni Blandon RN Referring Provider: KELSIE CANTU [[id number]] Allergies As of Date: 03/10/2018 Noted Allergy Reaction Environmental allergies [Other] 03/23/2009 14 - Other: See Comments Comments: Cats, dogs, dust mites, trees, grasses, weeds, ragweed as verified by skin testing Date Reviewed: 03/10/2018 Reviewed by: Jenni Blandon RN - Fully Assessed Reason for Visit: Immunotherapy [409] Allergy Injection [1369] Reason For Visit History Recorded Primary Visit Diagnosis:Seasonal allergic rhinitis due to other allergic trigger [J30.89] Prescriptions as of 03/10/2018 Sig: CLARITIN-D 24 HOUR ORAL Take by mouth as needed. OLOPATADINE 0.1 % EYE DROPS Use 1 Drop in both eyes twice* FLUTICASONE 50 MCG/ACTUATION * Use 2 Sprays in each nostril * EPINEPHRINE 0.3 MG/0.3 ML INJ* Inject 0.3 mL intramuscularly* Problem List As Of Date 03/10/2018 Noted Resolved ALLERGIC RHINITIS NEC [J30.89] Mucocele of lower lip [K13.79] INVALID FOR* Chronic seasonal allergic rhinitis due to polle*INVALID FOR* Chronic allergic rhinitis due to animal hair an*INVALID FOR* Allergic rhinitis due to dust mite [J30.89] INVALID FOR* Chronic allergic rhinitis due to fungal spores *INVALID FOR*04/15/2017 Acute atopic conjunctivitis of both eyes [H10.1*INVALID FOR* Chronic allergic rhinitis due to fungal spores *INVALID FOR* Encounter Status:Closed by JENNI BLANDON RN on 03/10/18 PROGRESS Observed: 03/03/2018 Status: COMPLETED Source: [place] 2:39 PM [facility] ID: [id number] Author: Jenni Blandon RN Service: (none) Author Type: (none) Type: Progress Notes Filed: 03/03/2018 3:07 PM Note Text: Pt identified by name and birthdate. Allergy injections given subcutaneously. March 03, 2018 2:39 PM Patient took antihistamine. Patient states took Claritin at 1430 today.. Immunotherapy Order written on: 01-06-[address] Kelsie Cantu. Patient did not have a large late local reaction to previous injection. Size of reaction n/a If patient has asthma, symptoms controlled: N/A Patient did not report a recent illness. Patient did not report a new blood pressure medications or asthma medication. Patient has their Epi pen with them, Yes Vial A Content: MOLDS Patient did not have a large late local reaction to previous injection. Size of reaction n/a Concentration: 1:1 Dose: 0.15 ml SQ Arm: right upper arm (proximal) Reaction after 30 minutes: pea size induration Vial B Content: TREES, GRASSES, WEEDS, RAGWEED Patient did not have a large late local reaction to previous injection. Size of reaction n/a Concentration: 1:1 Dose: 0.15 ml SQ Arm: right upper arm (distal) Reaction after 30 minutes: pea size induration Vial C Content: DUST MITES, ANIMAL DANDER Patient did not have a large late local reaction to previous injection. Size of reaction n/a Concentration: 1:1 Dose: 0.07 ml SQ Arm: left upper arm (proximal) Reaction after 30 minutes: None Previously instructed about signs and symptoms of local and systemic reactions. Appointment line and nurses station number given as well as injection times at administering location. Jenni Blandon RN CNNURSE Observed: 03/03/2018 Status: COMPLETED Source: [place] 2:00 PM [facility] REPOSITORY Nurse Visit ([facility]) MARISSA MALONE ([id number]) 1975 M Date Time Provider Department 03/03/18 2:00 PM NURSE STACIA [facility] During your visit today, we recorded the following information about you: Jenni Blandon RN 03/03/2018 3:07 PM Signed Pt identified by name and birthdate. Allergy injections given subcutaneously. March 03, 2018 2:39 PM Patient took antihistamine. Patient states took Claritin at 1430 today.. Immunotherapy Order written on: 01-06-[address] Kelsie Cantu. Patient did not have a large late local reaction to previous injection. Size of reaction n/a If patient has asthma, symptoms controlled: N/A Patient did not report a recent illness. Patient did not report a new blood pressure medications or asthma medication. Patient has their Epi pen with them, Yes Vial A Content: MOLDS Patient did not have a large late local reaction to previous injection. Size of reaction n/a Concentration: 1:1 Dose: 0.15 ml SQ Arm: right upper arm (proximal) Reaction after 30 minutes: pea size induration Vial B Content: TREES, GRASSES, WEEDS, RAGWEED Patient did not have a large late local reaction to previous injection. Size of reaction n/a Concentration: 1:1 Dose: 0.15 ml SQ Arm: right upper arm (distal) Reaction after 30 minutes: pea size induration Vial C Content: DUST MITES, ANIMAL DANDER Patient did not have a large late local reaction to previous injection. Size of reaction n/a Concentration: 1:1 Dose: 0.07 ml SQ Arm: left upper arm (proximal) Reaction after 30 minutes: None Previously instructed about signs and symptoms of local and systemic reactions. Appointment line and nurses station number given as well as injection times at administering location. Jenni Blandon RN Referring Provider: KELSIE CANTU [[id number]] Allergies As of Date: 03/03/2018 Noted Allergy Reaction Environmental allergies [Other] 03/23/2009 14 - Other: See Comments Comments: Cats, dogs, dust mites, trees, grasses, weeds, ragweed as verified by skin testing Date Reviewed: 03/03/2018 Reviewed by: Jenni Blandon RN - Fully Assessed Reason for Visit: Immunotherapy [409] Allergy Injection [1369] Reason For Visit History Recorded Primary Visit Diagnosis:Seasonal allergic rhinitis due to other allergic trigger [J30.89] Prescriptions as of 03/03/2018 Sig: CLARITIN-D 24 HOUR ORAL Take by mouth as needed. 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 Allergy injections given subcutaneously. February 03, 2018 10:52 AM Patient took antihistamine. Patient states took Claritin at 0800 today.. Immunotherapy Order written on: 01-06-18/01-20-[address] Kelsie Cantu. Patient did not have a large late local reaction to previous injection. Size of reaction n/a If patient has asthma, symptoms controlled: N/A Patient did not report a recent illness. Patient did not report a new blood pressure medications or asthma medication. Patient has their Epi pen with them, Yes Vial A Content: MOLDS Patient did not have a large late local reaction to previous injection. Size of reaction n/a Concentration: 1:1 Dose: 0.15 ml SQ Arm: left upper arm (proximal) Reaction after 30 minutes: None Vial B Content: TREES, GRASSES, WEEDS, RAGWEED Patient did not have a large late local reaction to previous injection. Size of reaction n/a Concentration: 1:1 Dose: 0.15 ml SQ Arm: left upper arm (distal) Reaction after 30 minutes: None Vial C Content: DUST MITES, ANIMAL DANDER Patient did not have a large late local reaction to previous injection. Size of reaction n/a Concentration: 1:1 Dose: 0.07 ml SQ Arm: right upper arm (proximal) Reaction after 30 minutes: pea size induration Previously instructed about signs and symptoms of local and systemic reactions. Appointment line and nurses station number given as well as injection times at administering location. Jenni Blandon RN CNNURSE Observed: 02/03/2018 Status: COMPLETED Source: [place] 10:00 AM [facility] REPOS[facility] Nurse Visit ([facility]) MARISSA MALONE ([id number]) 1975 M Date Time Provider Department 02/03/18 10:00 AM NURSE STACIA [facility] During your visit today, we recorded the following information about you: Jenni Blandon RN 02/03/2018 11:16 AM Signed Pt identified by name and birthdate. Allergy injections given subcutaneously. February 03, 2018 10:52 AM Patient took antihistamine. Patient states took Claritin at 0800 today.. Immunotherapy Order written on: 01-06-18/01-20-[address] Kelsie Cantu. Patient did not have a large late local reaction to previous injection. Size of reaction n/a If patient has asthma, symptoms controlled: N/A Patient did not report a recent illness. Patient did not report a new blood pressure medications or asthma medication. Patient has their Epi pen with them, Yes Vial A Content: MOLDS Patient did not have a large late local reaction to previous injection. Size of reaction n/a Concentration: 1:1 Dose: 0.15 ml SQ Arm: left upper arm (proximal) Reaction after 30 minutes: None Vial B Content: TREES, GRASSES, WEEDS, RAGWEED Patient did not have a large late local reaction to previous injection. Size of reaction n/a Concentration: 1:1 Dose: 0.15 ml SQ Arm: left upper arm (distal) Reaction after 30 minutes: None Vial C Content: DUST MITES, ANIMAL DANDER Patient did not have a large late local reaction to previous injection. Size of reaction n/a Concentration: 1:1 Dose: 0.07 ml SQ Arm: right upper arm (proximal) Reaction after 30 minutes: pea size induration Previously instructed about signs and symptoms of local and systemic reactions. Appointment line and nurses station number given as well as injection times at administering location. Jenni Blandon RN Referring Provider: JEFFREY ANDERSON III [[id number]] Allergies As of Date: 02/03/2018 Noted Allergy Reaction Environmental allergies [Other] 03/23/2009 14 - Other: See Comments Comments: Cats, dogs, dust mites, trees, grasses, weeds, ragweed as verified by skin testing Date Reviewed: 02/03/2018 Reviewed by: Jenni Blandon RN - Fully Assessed Reason for Visit: Immunotherapy [409] Allergy Injection [1369] Reason For Visit History Recorded Primary Visit Diagnosis:Seasonal allergic rhinitis due to other allergic trigger [J30.89] Prescriptions as of 02/03/2018 Sig: CLARITIN-D 24 HOUR ORAL Take by mouth as needed. 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 Allergy injections given subcutaneously. January 29, 2018 2:34 PM Patient took antihistamine. Patient states took Claritin at 0800 today.. Immunotherapy Order written on: 01-20-[address] Kelsie Cantu. Patient did not have a large late local reaction to previous injection. Size of reaction n/a If patient has asthma, symptoms controlled: N/A Patient did not report a recent illness. Patient did not report a new blood pressure medications or asthma medication. Patient has their Epi pen with them, Yes Vial A Content: MOLDS Patient did not have a large late local reaction to previous injection. Size of reaction n/a Concentration: 1:1 Dose: 0.1 ml SQ Arm: right upper arm (proximal) Reaction after 30 minutes: None Vial B Content: TREES, GRASSES, WEEDS, RAGWEED Patient did not have a large late local reaction to previous injection. Size of reaction n/a Concentration: 1:1 Dose: 0.1 ml SQ Arm: right upper arm (distal) Reaction after 30 minutes: None Vial C Content: DUST MITES, ANIMAL DANDER Patient did not have a large late local reaction to previous injection. Size of reaction n/a Concentration: 1:1 Dose: 0.05 ml SQ Arm: left upper arm (proximal) Reaction after 30 minutes: None Previously instructed about signs and symptoms of local and systemic reactions. Appointment line and nurses station number given as well as injection times at administering location. Jenni Blandon RN CNNURSE Observed: 01/29/2018 Status: COMPLETED Source: [place] 10:00 AM [facility] RE[facility] Nurse Visit ([facility]) MARISSA MALONE ([id number]) 1975 M Date Time Provider Department 01/29/18 10:00 AM NURSE STACIA [facility] During your visit today, we recorded the following information about you: Ketty Thomas RN 01/29/2018 2:52 PM Signed Pt identified by name and birthdate. Allergy injections given subcutaneously. January 29, 2018 2:34 PM Patient took antihistamine. Patient states took Claritin at 0800 today.. Immunotherapy Order written on: 01-20-[address] Kelsie Cantu. Patient did not have a large late local reaction to previous injection. Size of reaction n/a If patient has asthma, symptoms controlled: N/A Patient did not report a recent illness. Patient did not report a new blood pressure medications or asthma medication. Patient has their Epi pen with them, Yes Vial A Content: MOLDS Patient did not have a large late local reaction to previous injection. Size of reaction n/a Concentration: 1:1 Dose: 0.1 ml SQ Arm: right upper arm (proximal) Reaction after 30 minutes: None Vial B Content: TREES, GRASSES, WEEDS, RAGWEED Patient did not have a large late local reaction to previous injection. Size of reaction n/a Concentration: 1:1 Dose: 0.1 ml SQ Arm: right upper arm (distal) Reaction after 30 minutes: None Vial C Content: DUST MITES, ANIMAL DANDER Patient did not have a large late local reaction to previous injection. Size of reaction n/a Concentration: 1:1 Dose: 0.05 ml SQ Arm: left upper arm (proximal) Reaction after 30 minutes: None Previously instructed about signs and symptoms of local and systemic reactions. Appointment line and nurses station number given as well as injection times at administering location. Jenni Blandon RN Referring Provider: JEFFREY ANDERSON III [[id number]] Allergies As of Date: 01/29/2018 Noted Allergy Reaction Environmental allergies [Other] 03/23/2009 14 - Other: See Comments Comments: Cats, dogs, dust mites, trees, grasses, weeds, ragweed as verified by skin testing Date Reviewed: 01/29/2018 Reviewed by: Jenni Blandon RN - Fully Assessed Reason for Visit: Immunotherapy [409] Allergy Injection [1369] Reason For Visit History Recorded Primary Visit Diagnosis:Seasonal allergic rhinitis due to other allergic trigger [J30.89] Prescriptions as of 01/29/2018 Sig: CLARITIN-D 24 HOUR ORAL Take by mouth as needed. 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 Allergy injections given subcutaneously. January 20, 2018 10:14 AM Patient took antihistamine. Patient states took claritin at 8 today.. Immunotherapy Order written on: 01/06/[address] Kelsie Cantu [phone] Patient did not have a large late local reaction to previous injection. Size of reaction If patient has asthma, symptoms controlled: N/A Patient did not report a recent illness. Patient did not report a new blood pressure medications or asthma medication. Patient has their Epi pen with them, Yes Vial A Content: MOLDS Patient did not have a large late local reaction to previous injection. Size of reaction Concentration: 1:1 Dose: 0.07 ml SQ Arm: left upper arm (proximal) Reaction after 30 minutes: None Vial B Content: TREES, GRASSES, WEEDS, RAGWEED Patient did not have a large late local reaction to previous injection. Size of reaction Concentration: 1:1 Dose: 0.07 ml SQ Arm: left upper arm (distal) Reaction after 30 minutes: None Vial C Content: DUST MITES, ANIMAL DANDER Patient did not have a large late local reaction to previous injection. Size of reaction Concentration: 1:10 Dose: 0.5 ml SQ Arm: right upper arm (proximal) Reaction after 30 minutes: None Previously instructed about signs and symptoms of local and systemic reactions. Appointment line and nurses station number given as well as injection times at administering location. Ketty Thomas RN CNNURSE Observed: 01/20/2018 Status: COMPLETED Source: [place] 9:50 AM [facility] REPOS[facility] Nurse Visit ([facility]) MARISSA MALONE ([id number]) 1975 M Date Time Provider Department 01/20/18 9:50 AM NURSE STACIA [facility] During your visit today, we recorded the following information about you: Ketty Thomas RN 01/20/2018 10:42 AM Signed Pt identified by name and birthdate. Allergy injections given subcutaneously. January 20, 2018 10:14 AM Patient took antihistamine. Patient states took claritin at 8 today.. Immunotherapy Order written on: 01/06/[address] Kelsie Cantu [phone] Patient did not have a large late local reaction to previous injection. Size of reaction If patient has asthma, symptoms controlled: N/A Patient did not report a recent illness. Patient did not report a new blood pressure medications or asthma medication. Patient has their Epi pen with them, Yes Vial A Content: MOLDS Patient did not have a large late local reaction to previous injection. Size of reaction Concentration: 1:1 Dose: 0.07 ml SQ Arm: left upper arm (proximal) Reaction after 30 minutes: None Vial B Content: TREES, GRASSES, WEEDS, RAGWEED Patient did not have a large late local reaction to previous injection. Size of reaction Concentration: 1:1 Dose: 0.07 ml SQ Arm: left upper arm (distal) Reaction after 30 minutes: None Vial C Content: DUST MITES, ANIMAL DANDER Patient did not have a large late local reaction to previous injection. Size of reaction Concentration: 1:10 Dose: 0.5 ml SQ Arm: right upper arm (proximal) Reaction after 30 minutes: None Previously instructed about signs and symptoms of local and systemic reactions. Appointment line and nurses station number given as well as injection times at administering location. Ketty Thomas RN Referring Provider: JEFFREY ANDERSON III [[id number]] Allergies As of Date: 01/20/2018 Noted Allergy Reaction Environmental allergies [Other] 03/23/2009 14 - Other: See Comments Comments: Cats, dogs, dust mites, trees, grasses, weeds, ragweed as verified by skin testing Date Reviewed: 01/20/2018 Reviewed by: Ketty Thomas RN - Fully Assessed Reason for Visit: Imm/Inj [58] Allergy Injection [1209] Reason For Visit History Recorded Primary Visit Diagnosis:Seasonal allergic rhinitis due to pollen [J30.1] Prescriptions as of 01/20/2018 Sig: CLARITIN-D 24 HOUR ORAL Take by mouth as needed. OLOPATADINE 0.1 % EYE DROPS Use 1 Drop in both eyes twice* FLUTICASONE 50 MCG/ACTUATION * Use 2 Sprays in each nostril * EPINEPHRINE 0.3 MG/0.3 ML INJ* Inject 0.3 mL intramuscularly* Problem List As Of Date 01/20/2018 Noted Resolved ALLERGIC RHINITIS NEC [J30.89] Mucocele of lower lip [K13.79] INVALID FOR* Chronic seasonal allergic rhinitis due to polle*INVALID FOR* Chronic allergic rhinitis due to animal hair an*INVALID FOR* Allergic rhinitis due to dust mite [J30.89] INVALID FOR* Chronic allergic rhinitis due to fungal spores *INVALID FOR*04/15/2017 Acute atopic conjunctivitis of both eyes [H10.1*INVALID FOR* Chronic allergic rhinitis due to fungal spores *INVALID FOR* Encounter Status:Closed by KETTY THOMAS RN on 01/20/18 CNCO Observed: 01/20/2018 Status: COMPLETED Source: [place] 12:00 AM [facility] Letter Text NAME: Marissa Malone (home) : 1975 January 20, 2018 Kelsie Cantu MD Attending: Kelsie Cantu M.D. This order sheet is for allergen immunotherapy extract at the 1:1 concentration in the build-up phase. 3 vials labeled as Vial C: DUST MITES, ANIMAL DANDER comprised of 0.7 ml Dust mite D.p. (10,000 AU/ml) 2.1 ml Dust mite D.f. (10,000 AU/ml) 2.4 ml cat (10,000 BAU/ml) to be diluted with 1.8 ml of Saline + HSA(Human Serum Albumin) The vial(s) contain(s) extract in the 1:1 concentration. Begin with 0.05ml. subcutaneously, then increase to 0.07, 0.1, 0.15, 0.2, 0.25, 0.3, 0.35, 0.4, 0.45, and 0.5 ml. Injections can be given once or twice a week. When 0.5 mL is achieved, continue to administer 0.5 mL every 1-4 weeks. When the vial is low, depleted, or please return this sheet by fax or mail and discard the vial(s). A new extract and immunotherapy record will be sent. Send to [facility] Office [address] [address] Attention Kelsie Cantu M.D. or fax to [phone]. Additional instructions are included for method of administration and management of local and systemic reactions. Please call the physician or the allergy nurse if you have any questions at or toll-free at , [phone]. Observe patient for reaction for at least 30 minutes after injection. Local or generalized reactions to the allergy shot may occur at any time in the course of immunotherapy. The shots are to be given at a facility capable of treating anaphylaxis. Adjustments for Local Reactions For local swelling less than 1 cm. (pea size induration), continue schedule. For local swelling 1-2 cm (dime to nickel size induration), continue schedule. For local swelling 2.5 cm (quarter size induration), repeat previous dose. For local swelling greater than 2.5 cm (silver dollar size induration ), drop down to previous dose. May apply Hydrocortisone 2.5% cream or cold compress to any size local reaction after 30 minutes. Dose Adjustments for Missed Injections During Weekly Build- Up Phase Days after last administered injection Dose to give Up to 14 days Continue as Scheduled 15 to 21 days Repeat Previous Dose 22 to 28 days Reduce dose by 25% 29 to 35 days Reduce dose by 50% If reduced dose is tolerated, resume dosing schedule from lower dose. For delay in immunotherapy of greater than 35 days, dose adjustment must be made by ordering physician. For patients in maintenance phase and receiving injections at 2 week intervals or longer, see orders below for ?Dose Adjustments During Maintenance Phase?. Dose Adjustments During Maintenance Phase Reduce by one dose for each dosing interval missed then resume dosing schedule from lower reduced dose. For delay of maintenance injections greater than one missed dosing interval, the dose adjustment must be made by the ordering physician. CNNURSE Observed: 01/15/2018 Status: COMPLETED Source: [place] 9:50 AM [facility] RE[facility] Nurse Visit ([facility]) EUGA,MARISSA D ([id number]) 1975 M Date Time Provider Department 01/15/18 9:50 AM NURSE STACIA ARREDONDO During your visit today, we recorded the following information about you: Jenni Blandon RN 01/15/2018 10:11 AM Signed Pt identified by name and birthdate. Allergy injections given subcutaneously. January 15, 2018 9:39 AM Patient took antihistamine. Patient states took Claritin at 0800 today.. Immunotherapy Order written on: Vial A and B- 10-07-17; Vial C-01-06-[address] Kelsie Cantu. Patient did not have a large late local reaction to previous injection. Size of reaction n/a If patient has asthma, symptoms controlled: N/A Patient did not report a recent illness. Patient did not report a new blood pressure medications or asthma medication. Patient has their Epi pen with them, Yes Vial A Content: MOLDS Patient did not have a large late local reaction to previous injection. Size of reaction n/a Concentration: 1:1 Dose: 0.05 ml SQ Arm: right upper arm (proximal) Reaction after 30 minutes: None Vial B Content: TREES, GRASSES, WEEDS, RAGWEED Patient did not have a large late local reaction to previous injection. Size of reaction n/a Concentration: 1:1 Dose: 0.05 ml SQ Arm: right upper arm (distal) Reaction after 30 minutes: None Vial C Content: DUST MITES, ANIMAL DANDER Patient did not have a large late local reaction to previous injection. Size of reaction n/a Concentration: 1:10 Dose: 0.45 ml SQ Arm: left upper arm (proximal) Reaction after 30 minutes: pea size induration Previously instructed about signs and symptoms of local and systemic reactions. Appointment line and nurses station number given as well as injection times at administering location. Jenni Blandon RN Referring Provider: SELF [[id number]] Allergies As of Date: 01/15/2018 Noted Allergy Reaction Environmental allergies [Other] 03/23/2009 14 - Other: See Comments Comments: Cats, dogs, dust mites, trees, grasses, weeds, ragweed as verified by skin testing Date Reviewed: 01/15/2018 Reviewed by: Jenni Blandon RN - Fully Assessed Reason for Visit: Immunotherapy [409] Allergy Injection [1369] Reason For Visit History Recorded Primary Visit Diagnosis:Seasonal allergic rhinitis due to other allergic trigger [J30.89] Prescriptions as of 01/15/2018 Sig: CLARITIN-D 24 HOUR ORAL Take by mouth as needed. OLOPATADINE 0.1 % EYE DROPS Use 1 Drop in both eyes twice* FLUTICASONE 50 MCG/ACTUATION * Use 2 Sprays in each nostril * EPINEPHRINE 0.3 MG/0.3 ML INJ* Inject 0.3 mL intramuscularly* Problem List As Of Date 01/15/2018 Noted Resolved ALLERGIC RHINITIS NEC [J30.89] Mucocele of lower lip [K13.79] INVALID FOR* Chronic seasonal allergic rhinitis due to polle*INVALID FOR* Chronic allergic rhinitis due to animal hair an*INVALID FOR* Allergic rhinitis due to dust mite [J30.89] INVALID FOR* Chronic allergic rhinitis due to fungal spores *INVALID FOR*04/15/2017 Acute atopic conjunctivitis of both eyes [H10.1*INVALID FOR* Chronic allergic rhinitis due to fungal spores *INVALID FOR* Encounter Status:Closed by JENNI BLANDON RN on 01/15/18 PROGRESS Observed: 01/15/2018 Status: COMPLETED Source: [place] 9:39 AM [facility] REPOSITORY [facility] ID: [id number] Author: Jenni Blandon RN Service: (none) Author Type: (none) Type: Progress Notes Filed: 01/15/2018 10:11 AM Note Text: Pt identified by name and birthdate. Allergy injections given subcutaneously. January 15, 2018 9:39 AM Patient took antihistamine. Patient states took Claritin at 0800 today.. Immunotherapy Order written on: Vial A and B- 10-07-17; Vial C-01-06-[address] Kelsie Cantu. Patient did not have a large late local reaction to previous injection. Size of reaction n/a If patient has asthma, symptoms controlled: N/A Patient did not report a recent illness. Patient did not report a new blood pressure medications or asthma medication. Patient has their Epi pen with them, Yes Vial A Content: MOLDS Patient did not have a large late local reaction to previous injection. Size of reaction n/a Concentration: 1:1 Dose: 0.05 ml SQ Arm: right upper arm (proximal) Reaction after 30 minutes: None Vial B Content: TREES, GRASSES, WEEDS, RAGWEED Patient did not have a large late local reaction to previous injection. Size of reaction n/a Concentration: 1:1 Dose: 0.05 ml SQ Arm: right upper arm (distal) Reaction after 30 minutes: None Vial C Content: DUST MITES, ANIMAL DANDER Patient did not have a large late local reaction to previous injection. Size of reaction n/a Concentration: 1:10 Dose: 0.45 ml SQ Arm: left upper arm (proximal) Reaction after 30 minutes: pea size induration Previously instructed about signs and symptoms of local and systemic reactions. Appointment line and nurses station number given as well as injection times at administering location. Jenni Blandon RN CNNURSE Observed: 01/06/2018 Status: COMPLETED Source: [place] 10:00 AM [facility] Nurse Visit ([facility]VAR[facility]) MARISSA MALONE ([id number]) 1975 M Date Time Provider Department 01/06/18 10:00 AM NURSE STACIA ROMEO [place] During your visit today, we recorded the following information about you: Jenni Blandon RN 01/06/2018 10:02 AM Signed Pt identified by name and birthdate. Allergy injections given subcutaneously. January 06, 2018 9:50 AM Patient took antihistamine. Patient states took Claritin at 0800 today.. Immunotherapy Order written on: 10-07-[address] Kelsie Cantu. Patient did not have a large late local reaction to previous injection. Size of reaction n/a If patient has asthma, symptoms controlled: N/A Patient did not report a recent illness. Patient did not report a new blood pressure medications or asthma medication. Patient has their Epi pen with them, Yes Vial A Content: MOLDS Patient did not have a large late local reaction to previous injection. Size of reaction n/a Concentration: 1:10 Dose: 0.5 ml SQ Arm: left upper arm (proximal) Reaction after 30 minutes: None Vial B Content: TREES, GRASSES, WEEDS, RAGWEED Patient did not have a large late local reaction to previous injection. Size of reaction n/a Concentration: 1:10 Dose: 0.5 ml SQ Arm: left upper arm (distal) Reaction after 30 minutes: pea size induration Vial C Content: DUST MITES, ANIMAL DANDER Patient did not have a large late local reaction to previous injection. Size of reaction n/a Concentration: 1:10 Dose: 0.4 ml SQ Arm: right upper arm (proximal) Reaction after 30 minutes: pea size induration Previously instructed about signs and symptoms of local and systemic reactions. Appointment line and nurses station number given as well as injection times at administering location. Jenni Blandon RN Referring Provider: SELF [[id number]] Allergies As of Date: 01/06/2018 Noted Allergy Reaction Environmental allergies [Other] 03/23/2009 14 - Other: See Comments Comments: Cats, dogs, dust mites, trees, grasses, weeds, ragweed as verified by skin testing Date Reviewed: 01/06/2018 Reviewed by: Jenni Blandon RN - Fully Assessed Reason for Visit: Immunotherapy [409] Allergy Injection [1369] Reason For Visit History Recorded Primary Visit Diagnosis:Seasonal allergic rhinitis due to other allergic trigger [J30.89] Prescriptions as of 01/06/2018 Sig: CLARITIN-D 24 HOUR ORAL Take by mouth as needed. 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 Allergy injections given subcutaneously. January 06, 2018 9:50 AM Patient took antihistamine. Patient states took Claritin at 0800 today.. Immunotherapy Order written on: 10-07-[address] Kelsie Cantu. Patient did not have a large late local reaction to previous injection. Size of reaction n/a If patient has asthma, symptoms controlled: N/A Patient did not report a recent illness. Patient did not report a new blood pressure medications or asthma medication. Patient has their Epi pen with them, Yes Vial A Content: MOLDS Patient did not have a large late local reaction to previous injection. Size of reaction n/a Concentration: 1:10 Dose: 0.5 ml SQ Arm: left upper arm (proximal) Reaction after 30 minutes: None Vial B Content: TREES, GRASSES, WEEDS, RAGWEED Patient did not have a large late local reaction to previous injection. Size of reaction n/a Concentration: 1:10 Dose: 0.5 ml SQ Arm: left upper arm (distal) Reaction after 30 minutes: pea size induration Vial C Content: DUST MITES, ANIMAL DANDER Patient did not have a large late local reaction to previous injection. Size of reaction n/a Concentration: 1:10 Dose: 0.4 ml SQ Arm: right upper arm (proximal) Reaction after 30 minutes: pea size induration Previously instructed about signs and symptoms of local and systemic reactions. Appointment line and nurses station number given as well as injection times at administering location. Jenni Blandon RN CNCO Observed: 01/06/2018 Status: COMPLETED Source: [place] 12:00 AM [facility] REPOSITORY Letter Text NAME: Marissa Malone (home) : 1975 January 06, 2018 Kelsie Cantu MD Attending: Kelsie Cantu M.D. This order sheet is for allergen immunotherapy extract at the 1:1 concentration in the build-up phase. 3 vials labeled as Vial B: TREES, GRASSES, WEEDS, RAGWEED comprised of 0.3 ml Birch (1:20) 0.3 ml Smoot (1:20) 0.6 ml Grass mix (100,000 BAU/ml) (oral, orchard,[place]) 0.5 ml Special grass mix (100,000 BAU/ml) (rye grass, meadow fescue) 0.2 ml Bermuda (10,000 BAU/ml) 0.2 ml Tl (1:20) 1.7 ml Special weed mix #2 (1:20)(plantain,marshelder,sorrel,cocklebur,lambs quarters,pigweed) 0.7 ml Ragweed mix (giant and short) (1:20) to be diluted with 2.5 ml of Saline + HSA(Human Serum Albumin) The vial(s) contain(s) extract in the 1:1 concentration. Begin with 0.05ml. subcutaneously, then increase to 0.07, 0.1, 0.15, 0.2, 0.25, 0.3, 0.35, 0.4, 0.45, and 0.5 ml. Injections can be given once or twice a week. When 0.5 mL is achieved, continue to administer 0.5 mL every 2-4 weeks. When the vial is low, depleted, or please return this sheet by fax or mail and discard the vial(s). A new extract and immunotherapy record will be sent. Send to [facility] [place] [address] Attention Kelsie Cantu M.D. or fax to [phone]. Additional instructions are included for method of administration and management of local and systemic reactions. Please call the physician or the allergy nurse if you have any questions at or toll-free at , [phone]. Observe patient for reaction for at least 30 minutes after injection. Local or generalized reactions to the allergy shot may occur at any time in the course of immunotherapy. The shots are to be given at a facility capable of treating anaphylaxis. Adjustments for Local Reactions For local swelling less than 1 cm. (pea size induration), continue schedule. For local swelling 1-2 cm (dime to nickel size induration), continue schedule. For local swelling 2.5 cm (quarter size induration), repeat previous dose. For local swelling greater than 2.5 cm (silver dollar size induration ), drop down to previous dose. May apply Hydrocortisone 2.5% cream or cold compress to any size local reaction after 30 minutes. Dose Adjustments for Missed Injections During Weekly Build- Up Phase Days after last administered injection Dose to give Up to 14 days Continue as Scheduled 15 to 21 days Repeat Previous Dose 22 to 28 days Reduce dose by 25% 29 to 35 days Reduce dose by 50% If reduced dose is tolerated, resume dosing schedule from lower dose. For delay in immunotherapy of greater than 35 days, dose adjustment must be made by ordering physician. For patients in maintenance phase and receiving injections at 2 week intervals or longer, see orders below for ?Dose Adjustments During Maintenance Phase?. Dose Adjustments During Maintenance Phase Reduce by one dose for each dosing interval missed then resume dosing schedule from lower reduced dose. For delay of maintenance injections greater than one missed dosing interval, the dose adjustment must be made by the ordering physician. CNCO Observed: 01/06/2018 Status: COMPLETED Source: [place] 12:00 AM [facility] REPOSIT[facility] Letter Text NAME: Marissa Malone (home) : 1975 January 06, 2018 Kelsie Cantu MD Attending: Kelsie Cantu M.D. This order sheet is for allergen immunotherapy extract at the 1:1 concentration in the build-up phase. 3 vials labeled as Vial A: MOLDS comprised of 0.7 ml alternaria (1:20) 0.3 ml aspergillus fum. (1:10) 0.3 ml helminthosporium (1:20) to be diluted with 5.7 ml of Saline + HSA(Human Serum Albumin) The vial(s) contain(s) extract in the 1:1 concentration. Begin with 0.05ml. subcutaneously, then increase to 0.07, 0.1, 0.15, 0.2, 0.25, 0.3, 0.35, 0.4, 0.45, and 0.5 ml. Injections can be given once or twice a week. When 0.5 mL is achieved, continue to administer 0.5 mL every 2-4 weeks. When the vial is low, depleted, or please return this sheet by fax or mail and discard the vial(s). A new extract and immunotherapy record will be sent. Send to [facility] [address] [place] [address] Attention Kelsie Cantu M.D. or fax to [phone]. Additional instructions are included for method of administration and management of local and systemic reactions. Please call the physician or the allergy nurse if you have any questions at or toll-free at , [phone]. Observe patient for reaction for at least 30 minutes after injection. Local or generalized reactions to the allergy shot may occur at any time in the course of immunotherapy. The shots are to be given at a facility capable of treating anaphylaxis. Adjustments for Local Reactions For local swelling less than 1 cm. (pea size induration), continue schedule. For local swelling 1-2 cm (dime to nickel size induration), continue schedule. For local swelling 2.5 cm (quarter size induration), repeat previous dose. For local swelling greater than 2.5 cm (silver dollar size induration ), drop down to previous dose. May apply Hydrocortisone 2.5% cream or cold compress to any size local reaction after 30 minutes. Dose Adjustments for Missed Injections During Weekly Build- Up Phase Days after last administered injection Dose to give Up to 14 days Continue as Scheduled 15 to 21 days Repeat Previous Dose 22 to 28 days Reduce dose by 25% 29 to 35 days Reduce dose by 50% If reduced dose is tolerated, resume dosing schedule from lower dose. For delay in immunotherapy of greater than 35 days, dose adjustment must be made by ordering physician. For patients in maintenance phase and receiving injections at 2 week intervals or longer, see orders below for ?Dose Adjustments During Maintenance Phase?. Dose Adjustments During Maintenance Phase Reduce by one dose for each dosing interval missed then resume dosing schedule from lower reduced dose. For delay of maintenance injections greater than one missed dosing interval, the dose adjustment must be made by the ordering physician. PROGRESS Observed: 12/25/2017 Status: COMPLETED Source: [place] 10:17 AM [facility] REPOSIT[facility] O ID: [id number] Author: Jenni Blandon RN Service: (none) Author Type: (none) Type: Progress Notes Filed: 12/25/2017 10:22 AM Note Text: Pt identified by name and birthdate. Allergy injections given subcutaneously. December 25, 2017 10:14 AM Patient took antihistamine. Patient states took Claritin at 0800 today.. Immunotherapy Order written on: 10-07-[address] Kelsie Cantu. Patient did not have a large late local reaction to previous injection. Size of reaction n/a If patient has asthma, symptoms controlled: N/A Patient did not report a recent illness. Patient did not report a new blood pressure medications or asthma medication. Patient has their Epi pen with them, Yes Vial A Content: MOLDS Patient did not have a large late local reaction to previous injection. Size of reaction n/a Concentration: 1:10 Dose: 0.45 ml SQ Arm: right upper arm (proximal) Reaction after 30 minutes: None Vial B Content: TREES, GRASSES, WEEDS, RAGWEED Patient did not have a large late local reaction to previous injection. Size of reaction n/a Concentration: 1:10 Dose: 0.45 ml SQ Arm: right upper arm (distal) Reaction after 30 minutes: None Vial C Content: DUST MITES, ANIMAL DANDER Patient did not have a large late local reaction to previous injection. Size of reaction n/a Concentration: 1:10 Dose: 0.35 ml SQ Arm: left upper arm (proximal) Reaction after 30 minutes: None Previously instructed about signs and symptoms of local and systemic reactions. Appointment line and nurses station number given as well as injection times at administering location. Jenni Blandon RN CNNURSE Observed: 12/25/2017 Status: COMPLETED Source: [place] 10:00 AM [facility] REPOSITORY Nurse Visit (PILARMED) MARISSA MALONE ([id number]) 1975 M Date Time Provider Department 12/25/17 10:00 AM NURSE STACIA [facility] During your visit today, we recorded the following information about you: Jenni Blandon RN 12/25/2017 10:22 AM Signed Pt identified by name and birthdate. Allergy injections given subcutaneously. December 25, 2017 10:14 AM Patient took antihistamine. Patient states took Claritin at 0800 today.. Immunotherapy Order written on: 10-07-[address] Kelsie Cantu. Patient did not have a large late local reaction to previous injection. Size of reaction n/a If patient has asthma, symptoms controlled: N/A Patient did not report a recent illness. Patient did not report a new blood pressure medications or asthma medication. Patient has their Epi pen with them, Yes Vial A Content: MOLDS Patient did not have a large late local reaction to previous injection. Size of reaction n/a Concentration: 1:10 Dose: 0.45 ml SQ Arm: right upper arm (proximal) Reaction after 30 minutes: None Vial B Content: TREES, GRASSES, WEEDS, RAGWEED Patient did not have a large late local reaction to previous injection. Size of reaction n/a Concentration: 1:10 Dose: 0.45 ml SQ Arm: right upper arm (distal) Reaction after 30 minutes: None Vial C Content: DUST MITES, ANIMAL DANDER Patient did not have a large late local reaction to previous injection. Size of reaction n/a Concentration: 1:10 Dose: 0.35 ml SQ Arm: left upper arm (proximal) Reaction after 30 minutes: None Previously instructed about signs and symptoms of local and systemic reactions. Appointment line and nurses station number given as well as injection times at administering location. Jenni Blandon RN Referring Provider: KELSIE CANTU [[id number]] Allergies As of Date: 12/25/2017 Noted Allergy Reaction Environmental allergies [Other] 03/23/2009 14 - Other: See Comments Comments: Cats, dogs, dust mites, trees, grasses, weeds, ragweed as verified by skin testing Date Reviewed: 12/25/2017 Reviewed by: Jenni Blandon RN - Fully Assessed Reason for Visit: Immunotherapy [409] Allergy Injection [1369] Reason For Visit History Recorded Primary Visit Diagnosis:Seasonal allergic rhinitis due to pollen [J30.1] Other Visit Diagnosis:Seasonal allergic rhinitis due to other allergic trigger [J30.89] Prescriptions as of 12/25/2017 Sig: CLARITIN-D 24 HOUR ORAL Take by mouth as needed. OLOPATADINE 0.1 % EYE DROPS Use 1 Drop in both eyes twice* FLUTICASONE 50 MCG/ACTUATION * Use 2 Sprays in each nostril * EPINEPHRINE 0.3 MG/0.3 ML INJ* Inject 0.3 mL intramuscularly* Problem List As Of Date 12/25/2017 Noted Resolved ALLERGIC RHINITIS NEC [J30.89] Mucocele of lower lip [K13.79] INVALID FOR* Chronic seasonal allergic rhinitis due to polle*INVALID FOR* Chronic allergic rhinitis due to animal hair an*INVALID FOR* Allergic rhinitis due to dust mite [J30.89] INVALID FOR* Chronic allergic rhinitis due to fungal spores *INVALID FOR*04/15/2017 Acute atopic conjunctivitis of both eyes [H10.1*INVALID FOR* 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 Allergy injections given subcutaneously. December 16, 2017 10:07 AM Patient took antihistamine. Patient states took Claritin at 0800 today.. Immunotherapy Order written on: 10-07-[address] Kelsie Cantu. Patient did not have a large late local reaction to previous injection. Size of reaction n/a If patient has asthma, symptoms controlled: N/A Patient did not report a recent illness. Patient did not report a new blood pressure medications or asthma medication. Patient has their Epi pen with them, Yes Vial A Content: MOLDS Patient did not have a large late local reaction to previous injection. Size of reaction n/a Concentration: 1:10 Dose: 0.4 ml SQ Arm: left upper arm (proximal) Reaction after 30 minutes: None Vial B Content: TREES, GRASSES, WEEDS, RAGWEED Patient did not have a large late local reaction to previous injection. Size of reaction n/a Concentration: 1:10 Dose: 0.4 ml SQ Arm: left upper arm (distal) Reaction after 30 minutes: pea size induration Vial C Content: DUST MITES, ANIMAL DANDER Patient did not have a large late local reaction to previous injection. Size of reaction n/a Concentration: 1:10 Dose: 0.25 ml SQ Arm: right upper arm (proximal) Reaction after 30 minutes: None Previously instructed about signs and symptoms of local and systemic reactions. Appointment line and nurses station number given as well as injection times at administering location. Jenni Blandon RN Referring Provider: KELSIE CANTU [[id number]] Allergies As of Date: 12/16/2017 Noted Allergy Reaction Environmental allergies [Other] 03/23/2009 14 - Other: See Comments Comments: Cats, dogs, dust mites, trees, grasses, weeds, ragweed as verified by skin testing Date Reviewed: 12/16/2017 Reviewed by: Jenni Blandon RN - Fully Assessed Reason for Visit: Immunotherapy [409] Allergy Injection [1369] Reason For Visit History Recorded Primary Visit Diagnosis:Seasonal allergic rhinitis due to other allergic trigger [J30.89] Prescriptions as of 12/16/2017 Sig: CLARITIN-D 24 HOUR ORAL Take by mouth as needed. 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 Allergy injections given subcutaneously. December 16, 2017 10:07 AM Patient took antihistamine. Patient states took Claritin at 0800 today.. Immunotherapy Order written on: 10-07-[address] Kelsie Cantu. Patient did not have a large late local reaction to previous injection. Size of reaction n/a If patient has asthma, symptoms controlled: N/A Patient did not report a recent illness. Patient did not report a new blood pressure medications or asthma medication. Patient has their Epi pen with them, Yes Vial A Content: MOLDS Patient did not have a large late local reaction to previous injection. Size of reaction n/a Concentration: 1:10 Dose: 0.4 ml SQ Arm: left upper arm (proximal) Reaction after 30 minutes: None Vial B Content: TREES, GRASSES, WEEDS, RAGWEED Patient did not have a large late local reaction to previous injection. Size of reaction n/a Concentration: 1:10 Dose: 0.4 ml SQ Arm: left upper arm (distal) Reaction after 30 minutes: pea size induration Vial C Content: DUST MITES, ANIMAL DANDER Patient did not have a large late local reaction to previous injection. Size of reaction n/a Concentration: 1:10 Dose: 0.25 ml SQ Arm: right upper arm (proximal) Reaction after 30 minutes: None Previously instructed about signs and symptoms of local and systemic reactions. Appointment line and nurses station number given as well as injection times at administering location. Jenni Blandon RN PROGRESS Observed: 12/09/2017 Status: COMPLETED Source: [place] 10:07 AM [facility] REPOSITORY HNO ID: [id number] Author: Ketty Thomas RN Service: (none) Author Type: (none) Type: Progress Notes Filed: 12/09/2017 10:30 AM Note Text: Pt identified by name and birthdate. Allergy injections given subcutaneously. December 09, 2017 10:07 AM Patient took antihistamine. Patient states took claritin at 9 today.. Immunotherapy Order written on: 10/07/[address] Kelsie Cantu [phone] Patient did not have a large late local reaction to previous injection. Size of reaction If patient has asthma, symptoms controlled: N/A Patient did not report a recent illness. Patient did not report a new blood pressure medications or asthma medication. Patient has their Epi pen with them, Yes Vial A Content: MOLDS Patient did not have a large late local reaction to previous injection. Size of reaction Concentration: 1:10 Dose: 0.35 ml SQ Arm: right upper arm (proximal) Reaction after 30 minutes: None Vial B Content: TREES, GRASSES, WEEDS, RAGWEED Patient did not have a large late local reaction to previous injection. Size of reaction Concentration: 1:10 Dose: 0.35 ml SQ Arm: right upper arm (distal) Reaction after 30 minutes: pea size induration Vial C Content: DUST MITES, ANIMAL DANDER Patient did not have a large late local reaction to previous injection. Size of reaction Concentration: 1:10 Dose: 0.35 ml SQ Arm: left upper arm (proximal) Reaction after 30 minutes: 50 cent induration Previously instructed about signs and symptoms of local and systemic reactions. Appointment line and nurses station number given as well as injection times at administering location. Ketty Thomas RN CNNURSE Observed: 12/09/2017 Status: COMPLETED Source: [place] 10:00 AM [facility] REPOSITORY Nurse Visit ([facility]) MARISSA MALONE ([id number]) 1975 M Date Time Provider Department 12/09/17 10:00 AM NURSE [facility] During your visit today, we recorded the following information about you: Ketty Thomas RN 12/09/2017 10:30 AM Signed Pt identified by name and birthdate. Allergy injections given subcutaneously. December 09, 2017 10:07 AM Patient took antihistamine. Patient states took claritin at 9 today.. Immunotherapy Order written on: 10/07/[address] Kelsie Cantu [phone] Patient did not have a large late local reaction to previous injection. Size of reaction If patient has asthma, symptoms controlled: N/A Patient did not report a recent illness. Patient did not report a new blood pressure medications or asthma medication. Patient has their Epi pen with them, Yes Vial A Content: MOLDS Patient did not have a large late local reaction to previous injection. Size of reaction Concentration: 1:10 Dose: 0.35 ml SQ Arm: right upper arm (proximal) Reaction after 30 minutes: None Vial B Content: TREES, GRASSES, WEEDS, RAGWEED Patient did not have a large late local reaction to previous injection. Size of reaction Concentration: 1:10 Dose: 0.35 ml SQ Arm: right upper arm (distal) Reaction after 30 minutes: pea size induration Vial C Content: DUST MITES, ANIMAL DANDER Patient did not have a large late local reaction to previous injection. Size of reaction Concentration: 1:10 Dose: 0.35 ml SQ Arm: left upper arm (proximal) Reaction after 30 minutes: 50 cent induration Previously instructed about signs and symptoms of local and systemic reactions. Appointment line and nurses station number given as well as injection times at administering location. Ketty Thomas RN Referring Provider: KELSIE CANTU [[id number]] Allergies As of Date: 12/09/2017 Noted Allergy Reaction Environmental allergies [Other] 03/23/2009 14 - Other: See Comments Comments: Cats, dogs, dust mites, trees, grasses, weeds, ragweed as verified by skin testing Date Reviewed: 12/09/2017 Reviewed by: Ketty Thomas RN - Fully Assessed Reason for Visit: Immunotherapy [409] Allergy Injection [3369] Reason For Visit History Recorded Primary Visit Diagnosis:Seasonal allergic rhinitis due to pollen [J30.1] Prescriptions as of 12/09/2017 Sig: CLARITIN-D 24 HOUR ORAL Take by mouth as needed. 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 Allergy injections given subcutaneously. December 02, 2017 10:41 AM Patient took antihistamine. Patient states took CLARITIN at 9 today.. Immunotherapy Order written on: * by for Dr. Kelsie Cantu [phone] Patient did not have a large late local reaction to previous injection. Size of reaction If patient has asthma, symptoms controlled: N/A Patient did not report a recent illness. Patient did not report a new blood pressure medications or asthma medication. Patient has their Epi pen with them, Yes Vial A Content: MOLDS Patient did not have a large late local reaction to previous injection. Size of reaction Concentration: 1:10 Dose: 0.25 ml SQ Arm: left upper arm (proximal) Reaction after 30 minutes: None Vial B Content: TREES, GRASSES, WEEDS, RAGWEED Patient did not have a large late local reaction to previous injection. Size of reaction Concentration: 1:10 Dose: 0.25 ml SQ Arm: left upper arm (distal) Reaction after 30 minutes: pea size induration Vial C Content: DUST MITES, ANIMAL DANDER Patient did not have a large late local reaction to previous injection. Size of reaction Concentration: 1:10 Dose: 0.25 ml SQ Arm: right upper arm (proximal) Reaction after 30 minutes: pea size induration Previously instructed about signs and symptoms of local and systemic reactions. Appointment line and nurses station number given as well as injection times at administering location. Ketty Thomas RN CNNURSE Observed: 12/02/2017 Status: COMPLETED Source: [place] 9:50 AM [facility] REPOSIT[facility] Nurse Visit (ALLMED) MARISSA MALONE ([id number]) 1975 M Date Time Provider Department 12/02/17 9:50 AM NURSE [facility] During your visit today, we recorded the following information about you: Ketty Thomas RN 12/02/2017 10:44 AM Signed Pt identified by name and birthdate. Allergy injections given subcutaneously. December 02, 2017 10:41 AM Patient took antihistamine. Patient states took CLARITIN at 9 today.. Immunotherapy Order written on: 01* by for Dr. Kelsie Cantu [phone] Patient did not have a large late local reaction to previous injection. Size of reaction If patient has asthma, symptoms controlled: N/A Patient did not report a recent illness. Patient did not report a new blood pressure medications or asthma medication. Patient has their Epi pen with them, Yes Vial A Content: MOLDS Patient did not have a large late local reaction to previous injection. Size of reaction Concentration: 1:10 Dose: 0.25 ml SQ Arm: left upper arm (proximal) Reaction after 30 minutes: None Vial B Content: TREES, GRASSES, WEEDS, RAGWEED Patient did not have a large late local reaction to previous injection. Size of reaction Concentration: 1:10 Dose: 0.25 ml SQ Arm: left upper arm (distal) Reaction after 30 minutes: pea size induration Vial C Content: DUST MITES, ANIMAL DANDER Patient did not have a large late local reaction to previous injection. Size of reaction Concentration: 1:10 Dose: 0.25 ml SQ Arm: right upper arm (proximal) Reaction after 30 minutes: pea size induration Previously instructed about signs and symptoms of local and systemic reactions. Appointment line and nurses station number given as well as injection times at administering location. Ketty Thomas RN Referring Provider: KELSIE CANTU [[id number]] Allergies As of Date: 12/02/2017 Noted Allergy Reaction Environmental allergies [Other] 03/23/2009 14 - Other: See Comments Comments: Cats, dogs, dust mites, trees, grasses, weeds, ragweed as verified by skin testing Date Reviewed: 12/02/2017 Reviewed by: Ketty Thomas RN - Fully Assessed Reason for Visit: Immunotherapy [409] Allergy Injection [1369] Reason For Visit History Recorded Primary Visit Diagnosis:Seasonal allergic rhinitis due to pollen [J30.1] Prescriptions as of 12/02/2017 Sig: CLARITIN-D 24 HOUR ORAL Take by mouth as needed. 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 Allergy injections given subcutaneously. November 25, 2017 10:24 AM Patient states they took antihistamine Patient states took Claritin at 9am today.. Immunotherapy Order written on: 10/07/[address] Kelsie Cantu [phone] If patient has asthma, patient states symptoms controlled: N/A Patient did not report a recent illness. Patient on Beta jayy:No Patient has their Epi pen with them, No Vial A Content: MOLDS Patient did not have a large late local reaction to previous injection. Size of reaction -none Concentration: 1:10 Dose: 0.15 ml SQ Arm: right upper arm (proximal) Reaction after 45 minutes: None Vial B Content: TREES, GRASSES, WEEDS, RAGWEED Patient did not have a large late local reaction to previous injection. Size of reaction -pea Concentration: 1:10 Dose: 0.15 ml SQ Arm: right upper arm (distal) Reaction after 45 minutes: None Vial C Content: DUST MITES, ANIMAL DANDER Patient did not have a large late local reaction to previous injection. Size of reaction- pea Concentration: 1:10 Dose: 0.15 ml SQ Arm: left upper arm (proximal) Reaction after 45 minutes: None Previously instructed about signs and symptoms of local and systemic reactions. Appointment line and nurses station number given as well as injection times at administering location. Kimberly Sanon LPN CNNURSE Observed: 11/25/2017 Status: COMPLETED Source: [place] 10:10 AM [facility] REPOSIT[facility] Nurse Visit ([facility]) MARISSA MALONE ([id number]) 1975 M Date Time Provider Department 11/25/17 10:10 AM NURSE [facility] During your visit today, we recorded the following information about you: Kimberly Sanon LPN 11/25/2017 11:02 AM Signed Pt identified by name and birthdate. Allergy injections given subcutaneously. November 25, 2017 10:24 AM Patient states they took antihistamine Patient states took Claritin at 9am today.. Immunotherapy Order written on: 10/07/[address] Kelsie Cantu [phone] If patient has asthma, patient states symptoms controlled: N/A Patient did not report a recent illness. Patient on Beta jayy:No Patient has their Epi pen with them, No Vial A Content: MOLDS Patient did not have a large late local reaction to previous injection. Size of reaction -none Concentration: 1:10 Dose: 0.15 ml SQ Arm: right upper arm (proximal) Reaction after 45 minutes: None Vial B Content: TREES, GRASSES, WEEDS, RAGWEED Patient did not have a large late local reaction to previous injection. Size of reaction -pea Concentration: 1:10 Dose: 0.15 ml SQ Arm: right upper arm (distal) Reaction after 45 minutes: None Vial C Content: DUST MITES, ANIMAL DANDER Patient did not have a large late local reaction to previous injection. Size of reaction- pea Concentration: 1:10 Dose: 0.15 ml SQ Arm: left upper arm (proximal) Reaction after 45 minutes: None Previously instructed about signs and symptoms of local and systemic reactions. Appointment line and nurses station number given as well as injection times at administering location. Kimberly Sanon LPN Referring Provider: KELSIE CANTU [[id number]] Allergies As of Date: 11/25/2017 Noted Allergy Reaction Environmental allergies [Other] 03/23/2009 14 - Other: See Comments Comments: Cats, dogs, dust mites, trees, grasses, weeds, ragweed as verified by skin testing Date Reviewed: 11/25/2017 Reviewed by: Kimberly Sanon LPN - Fully Assessed Reason for Visit: Allergy Injection [1369] Primary Visit Diagnosis:Seasonal allergic rhinitis due to pollen [J30.1] Prescriptions as of 11/25/2017 Sig: CLARITIN-D 24 HOUR ORAL Take by mouth as needed. 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 Allergy injections given subcutaneously. November 20, 2017 1:10 PM Patient took antihistamine. Patient states took Claritin at 0800 today.. Immunotherapy Order written on: 10-07-[address] Kelsie Cantu. Patient did not have a large late local reaction to previous injection. Size of reaction n/a If patient has asthma, symptoms controlled: N/A Patient did not report a recent illness. Patient did not report a new blood pressure medications or asthma medication. Patient has their Epi pen with them, Yes Vial A Content: MOLDS Patient did not have a large late local reaction to previous injection. Size of reaction n/a Concentration: 1:10 Dose: 0.1 ml SQ Arm: left upper arm (proximal) Reaction after 30 minutes: None Vial B Content: TREES, GRASSES, WEEDS, RAGWEED Patient did not have a large late local reaction to previous injection. Size of reaction n/a Concentration: 1:10 Dose: 0.1 ml SQ Arm: left upper arm (distal) Reaction after 30 minutes: pea size induration Vial C Content: DUST MITES, ANIMAL DANDER Patient did not have a large late local reaction to previous injection. Size of reaction n/a Concentration: 1:10 Dose: 0.1 ml SQ Arm: right upper arm (proximal) Reaction after 30 minutes: pea size induration Previously instructed about signs and symptoms of local and systemic reactions. Appointment line and nurses station number given as well as injection times at administering location. Jenni Blandon RN CNNURSE Observed: 11/20/2017 Status: COMPLETED Source: [place] 9:10 AM [facility] RE[facility] Nurse Visit (ALLMED) MARISSA MALONE ([id number]) 1975 M Date Time Provider Department 11/20/17 9:10 AM NURSE STACIA [facility] During your visit today, we recorded the following information about you: Jenni Blandon RN 11/20/2017 1:38 PM Signed Pt identified by name and birthdate. Allergy injections given subcutaneously. November 20, 2017 1:10 PM Patient took antihistamine. Patient states took Claritin at 0800 today.. Immunotherapy Order written on: 10-07-[address] Kelsie Cantu. Patient did not have a large late local reaction to previous injection. Size of reaction n/a If patient has asthma, symptoms controlled: N/A Patient did not report a recent illness. Patient did not report a new blood pressure medications or asthma medication. Patient has their Epi pen with them, Yes Vial A Content: MOLDS Patient did not have a large late local reaction to previous injection. Size of reaction n/a Concentration: 1:10 Dose: 0.1 ml SQ Arm: left upper arm (proximal) Reaction after 30 minutes: None Vial B Content: TREES, GRASSES, WEEDS, RAGWEED Patient did not have a large late local reaction to previous injection. Size of reaction n/a Concentration: 1:10 Dose: 0.1 ml SQ Arm: left upper arm (distal) Reaction after 30 minutes: pea size induration Vial C Content: DUST MITES, ANIMAL DANDER Patient did not have a large late local reaction to previous injection. Size of reaction n/a Concentration: 1:10 Dose: 0.1 ml SQ Arm: right upper arm (proximal) Reaction after 30 minutes: pea size induration Previously instructed about signs and symptoms of local and systemic reactions. Appointment line and nurses station number given as well as injection times at administering location. Jenni Blandon RN Referring Provider: KELSIE CANTU [[id number]] Allergies As of Date: 11/20/2017 Noted Allergy Reaction Environmental allergies [Other] 03/23/2009 14 - Other: See Comments Comments: Cats, dogs, dust mites, trees, grasses, weeds, ragweed as verified by skin testing Date Reviewed: 11/20/2017 Reviewed by: Jenni Blandon RN - Fully Assessed Reason for Visit: Immunotherapy [409] Allergy Injection [1369] Reason For Visit History Recorded Primary Visit Diagnosis:Seasonal allergic rhinitis due to other allergic trigger [J30.89] Prescriptions as of 11/20/2017 Sig: CLARITIN-D 24 HOUR ORAL Take by mouth as needed. 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 Allergy injections given subcutaneously. November 11, 2017 10:11 AM Patient took antihistamine. Patient states took claritin at 8 today.. Immunotherapy Order written on: 10/07/[address] Kelsie Cantu [phone] Patient did not have a large late local reaction to previous injection. Size of reaction If patient has asthma, symptoms controlled: N/A Patient did not report a recent illness. Patient did not report a new blood pressure medications or asthma medication. Patient has their Epi pen with them, Yes Vial A Content: MOLDS Patient did not have a large late local reaction to previous injection. Size of reaction Concentration: 1:10 Dose: 0.07 ml SQ Arm: right upper arm (proximal) Reaction after 30 minutes: None Vial B Content: TREES, GRASSES, WEEDS, RAGWEED Patient did not have a large late local reaction to previous injection. Size of reaction Concentration: 1:10 Dose: 0.07 ml SQ Arm: right upper arm (distal) Reaction after 30 minutes: pea size induration Vial C Content: DUST MITES, ANIMAL DANDER Patient did not have a large late local reaction to previous injection. Size of reaction Concentration: 1:10 Dose: 0.07 ml SQ Arm: left upper arm (proximal) Reaction after 30 minutes: None Previously instructed about signs and symptoms of local and systemic reactions. Appointment line and nurses station number given as well as injection times at administering location. Ketty Thomas RN CNNURSE Observed: 11/11/2017 Status: COMPLETED Source: [place] 9:00 AM [facility] RE[facility] Nurse Visit (ALLMED) MARISSA MALONE ([id number]) 1975 M Date Time Provider Department 11/11/17 9:00 AM NURSE [facility]AC[facility] During your visit today, we recorded the following information about you: Ketty Thomas RN 11/11/2017 4:47 PM Signed Pt identified by name and birthdate. Allergy injections given subcutaneously. November 11, 2017 10:11 AM Patient took antihistamine. Patient states took claritin at 8 today.. Immunotherapy Order written on: 10/07/[address] Kelsie Cantu [phone] Patient did not have a large late local reaction to previous injection. Size of reaction If patient has asthma, symptoms controlled: N/A Patient did not report a recent illness. Patient did not report a new blood pressure medications or asthma medication. Patient has their Epi pen with them, Yes Vial A Content: MOLDS Patient did not have a large late local reaction to previous injection. Size of reaction Concentration: 1:10 Dose: 0.07 ml SQ Arm: right upper arm (proximal) Reaction after 30 minutes: None Vial B Content: TREES, GRASSES, WEEDS, RAGWEED Patient did not have a large late local reaction to previous injection. Size of reaction Concentration: 1:10 Dose: 0.07 ml SQ Arm: right upper arm (distal) Reaction after 30 minutes: pea size induration Vial C Content: DUST MITES, ANIMAL DANDER Patient did not have a large late local reaction to previous injection. Size of reaction Concentration: 1:10 Dose: 0.07 ml SQ Arm: left upper arm (proximal) Reaction after 30 minutes: None Previously instructed about signs and symptoms of local and systemic reactions. Appointment line and nurses station number given as well as injection times at administering location. Ketty Thomas RN Referring Provider: KELSIE CANTU [[id number]] Allergies As of Date: 11/11/2017 Noted Allergy Reaction Environmental allergies [Other] 03/23/2009 14 - Other: See Comments Comments: Cats, dogs, dust mites, trees, grasses, weeds, ragweed as verified by skin testing Date Reviewed: 11/11/2017 Reviewed by: Ketty Thomas RN - Fully Assessed Reason for Visit: Immunotherapy [409] Allergy Injection [1369] Reason For Visit History Recorded Primary Visit Diagnosis:Seasonal allergic rhinitis due to pollen [J30.1] Prescriptions as of 11/11/2017 Sig: CLARITIN-D 24 HOUR ORAL Take by mouth as needed. 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 Allergy injections given subcutaneously. November 06, 2017 10:13 AM Patient took antihistamine. Patient states took claritin at 8 today.. Immunotherapy Order written on: 10/07/[address] Kelsie Cantu [phone] Patient did not have a large late local reaction to previous injection. Size of reaction If patient has asthma, symptoms controlled: N/A Patient did not report a recent illness. Patient did not report a new blood pressure medications or asthma medication. Patient has their Epi pen with them, Yes Vial A Content: MOLDS Patient did not have a large late local reaction to previous injection. Size of reaction Concentration: 1:10 Dose: 0.05 ml SQ Arm: left upper arm (proximal) Reaction after 30 minutes: None Vial B Content: TREES, GRASSES, WEEDS, RAGWEED Patient did not have a large late local reaction to previous injection. Size of reaction Concentration: 1:10 Dose: 0.05 ml SQ Arm: left upper arm (distal) Reaction after 30 minutes: pea size induration Vial C Content: DUST MITES, ANIMAL DANDER Patient did not have a large late local reaction to previous injection. Size of reaction Concentration: 1:10 Dose: 0.05 ml SQ Arm: right upper arm (proximal) Reaction after 30 minutes: None Previously instructed about signs and symptoms of local and systemic reactions. Appointment line and nurses station number given as well as injection times at administering location. Ketty Thomas RN CNNURSE Observed: 11/06/2017 Status: COMPLETED Source: [place] 9:20 AM [facility] REPOSITORY Nurse Visit (ALLMED) MARISSA MALONE ([id number]) 1975 M Date Time Provider Department 11/06/17 9:20 AM NURSE STACIA ARREDONDO During your visit today, we recorded the following information about you: Ketty Thomas RN 11/06/2017 10:15 AM Signed Pt identified by name and birthdate. Allergy injections given subcutaneously. November 06, 2017 10:13 AM Patient took antihistamine. Patient states took claritin at 8 today.. Immunotherapy Order written on: 10/07/[address] Kelsie Cantu [phone] Patient did not have a large late local reaction to previous injection. Size of reaction If patient has asthma, symptoms controlled: N/A Patient did not report a recent illness. Patient did not report a new blood pressure medications or asthma medication. Patient has their Epi pen with them, Yes Vial A Content: MOLDS Patient did not have a large late local reaction to previous injection. Size of reaction Concentration: 1:10 Dose: 0.05 ml SQ Arm: left upper arm (proximal) Reaction after 30 minutes: None Vial B Content: TREES, GRASSES, WEEDS, RAGWEED Patient did not have a large late local reaction to previous injection. Size of reaction Concentration: 1:10 Dose: 0.05 ml SQ Arm: left upper arm (distal) Reaction after 30 minutes: pea size induration Vial C Content: DUST MITES, ANIMAL DANDER Patient did not have a large late local reaction to previous injection. Size of reaction Concentration: 1:10 Dose: 0.05 ml SQ Arm: right upper arm (proximal) Reaction after 30 minutes: None Previously instructed about signs and symptoms of local and systemic reactions. Appointment line and nurses station number given as well as injection times at administering location. Ketty Thomas RN Referring Provider: SELF [200] Allergies As of Date: 11/06/2017 Noted Allergy Reaction Environmental allergies [Other] 03/23/2009 14 - Other: See Comments Comments: Cats, dogs, dust mites, trees, grasses, weeds, ragweed as verified by skin testing Date Reviewed: 11/06/2017 Reviewed by: Ketty Thomas RN - Fully Assessed Reason for Visit: Imm/Inj [58] Allergy Injection [1369] Reason For Visit History Recorded Primary Visit Diagnosis:Seasonal allergic rhinitis due to pollen [J30.1] Prescriptions as of 11/06/2017 Sig: CLARITIN-D 24 HOUR ORAL Take by mouth as needed. 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 Allergy injections given subcutaneously. October 14, 2017 1:33 PM Patient took antihistamine. Patient states took Claritin at 0800 today.. Immunotherapy Order written on: 10-07-[address] Kelsie Cantu. Patient did not have a large late local reaction to previous injection. Size of reaction n/a If patient has asthma, symptoms controlled: N/A Patient did not report a recent illness. Patient did not report a new blood pressure medications or asthma medication. Patient has their Epi pen with them, Yes Vial A Content: MOLDS Patient did not have a large late local reaction to previous injection. Size of reaction n/a Concentration: 1:10 Dose: 0.05 ml SQ Arm: right upper arm (proximal) Reaction after 30 minutes: None Vial B Content: TREES, GRASSES, WEEDS, RAGWEED Patient did not have a large late local reaction to previous injection. Size of reaction n/a Concentration: 1:10 Dose: 0.05 ml SQ Arm: right upper arm (distal) Reaction after 30 minutes: None Vial C Content: DUST MITES, ANIMAL DANDER Patient did not have a large late local reaction to previous injection. Size of reaction n/a Concentration: 1:10 Dose: 0.05 ml SQ Arm: left upper arm (proximal) Reaction after 30 minutes: None Previously instructed about signs and symptoms of local and systemic reactions. Appointment line and nurses station number given as well as injection times at administering location. Jenni Blandon RN PROGRESS Observed: 10/07/2017 Status: COMPLETED Source: [place] 1:57 PM [facility] REPOSITORY [facility]NO ID: [id number] Author: Ketty Thomas RN Service: (none) Author Type: (none) Type: Progress Notes Filed: 10/07/2017 2:25 PM Note Text: Pt identified by name and birthdate. Allergy injections given subcutaneously. October 07, 2017 1:57 PM Patient took antihistamine. Patient states took claritin at 1400 today.. Immunotherapy Order written on: 06/19/[address] Kelsie Cantu [phone] Patient did not have a large late local reaction to previous injection. Size of reaction If patient has asthma, symptoms controlled: N/A Patient did not report a recent illness. Patient did not report a new blood pressure medications or asthma medication. Patient has their Epi pen with them, Yes Vial A Content: MOLDS Patient did not have a large late local reaction to previous injection. Size of reaction Concentration: 1:100 Dose: 0.5 ml SQ Arm: right upper arm (proximal) Reaction after 30 minutes: None Vial B Content: TREES, GRASSES, WEEDS, RAGWEED Patient did not have a large late local reaction to previous injection. Size of reaction Concentration: 1:100 Dose: 0.5 ml SQ Arm: right upper arm (proximal) Reaction after 30 minutes: None Vial C Content: DUST MITES, ANIMAL DANDER Patient did not have a large late local reaction to previous injection. Size of reaction Concentration: 1:100 Dose: 0.5 ml SQ Arm: right upper arm (distal) Reaction after 30 minutes: pea size induration Previously instructed about signs and symptoms of local and systemic reactions. Appointment line and nurses station number given as well as injection times at administering location. Ketty Thomas RN CNNURSE Observed: 10/07/2017 Status: COMPLETED Source: [place] 10:00 AM [facility] REPOSITORY Nurse Visit (ALLMED) MARISSA MALONE ([id number]) 1975 M Date Time Provider Department 10/07/17 10:00 AM NURSE STACIA ARREDONDO During your visit today, we recorded the following information about you: Ketty Thomas RN 10/07/2017 2:25 PM Signed Pt identified by name and birthdate. Allergy injections given subcutaneously. October 07, 2017 1:57 PM Patient took antihistamine. Patient states took claritin at 1400 today.. Immunotherapy Order written on: 06/19/[address] Kelsie Cantu [phone] Patient did not have a large late local reaction to previous injection. Size of reaction If patient has asthma, symptoms controlled: N/A Patient did not report a recent illness. Patient did not report a new blood pressure medications or asthma medication. Patient has their Epi pen with them, Yes Vial A Content: MOLDS Patient did not have a large late local reaction to previous injection. Size of reaction Concentration: 1:100 Dose: 0.5 ml SQ Arm: right upper arm (proximal) Reaction after 30 minutes: None Vial B Content: TREES, GRASSES, WEEDS, RAGWEED Patient did not have a large late local reaction to previous injection. Size of reaction Concentration: 1:100 Dose: 0.5 ml SQ Arm: right upper arm (proximal) Reaction after 30 minutes: None Vial C Content: DUST MITES, ANIMAL DANDER Patient did not have a large late local reaction to previous injection. Size of reaction Concentration: 1:100 Dose: 0.5 ml SQ Arm: right upper arm (distal) Reaction after 30 minutes: pea size induration Previously instructed about signs and symptoms of local and systemic reactions. Appointment line and nurses station number given as well as injection times at administering location. Ketty Thomas RN Referring Provider: KELSIE CANTU [[id number]] Allergies As of Date: 10/07/2017 Noted Allergy Reaction Environmental allergies [Other] 03/23/2009 14 - Other: See Comments Comments: Cats, dogs, dust mites, trees, grasses, weeds, ragweed as verified by skin testing Date Reviewed: 10/07/2017 Reviewed by: Ketty Thomas RN - Fully Assessed Reason for Visit: Immunotherapy [409] Allergy Injection [1369] Reason For Visit History Recorded Primary Visit Diagnosis:Allergic rhinitis due to pollen, unspecified seasonality [J30.1] Prescriptions as of 10/07/2017 Sig: CLARITIN-D 24 HOUR ORAL Take by mouth as needed. 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 This order sheet is for allergen immunotherapy extract in 1:10 concentration. 3 vials labeled as Vial C: DUST MITES, ANIMAL DANDER comprised of 0.7 ml Dust mite D.p. (10,000 AU/ml) 2.1 ml Dust mite D.f. (10,000 AU/ml) 2.4 ml cat (10,000 BAU/ml) to be diluted with 1.8 ml of Saline + HSA(Human Serum Albumin) ? Prescription above for FS vial. Dilute FS vial with Saline + HSA(Human Serum Albumin) to 1:10, 1:100, and 1:1000 concentrations. This vial(s) contains extract in 1:10 concentration. Begin with 0.05ml. subcutaneously, then increase to 0.07, 0.1, 0.15, 0.25, 0.35, 0.4, 0.45, and 0.5 ml. Injections can be given once or twice a week. When 0.5 is achieved, please return this sheet by fax or mail and discard the vial(s). A new extract and immunotherapy record will be sent. Send to [facility] [address] [address] Attention Kelsie Cantu M.D. or fax to [phone]. Additional instructions are included for method of administration and management of local and systemic reactions. Please call the physician or the allergy nurse if you have any questions at or toll-free at , [phone]. Observe patient for reaction for at least 30 minutes after injection. Local or generalized reactions to the allergy shot may occur at any time in the course of immunotherapy. The shots are to be given at a facility capable of treating anaphylaxis. Adjustments for Local Reactions For local swelling less than 1 cm. (pea size induration), continue schedule. For local swelling 1-2 cm (dime to nickel size induration), continue schedule. For local swelling 2.5 cm (quarter size induration), repeat previous dose. For local swelling greater than 2.5 cm (silver dollar size induration ), drop down to previous dose. May apply Hydrocortisone 2.5% cream or cold compress to any size local reaction after 30 minutes. Dose Adjustments for Missed Injections During Weekly Build- Up Phase Days after last administered injection Dose to give Up to 14 days Continue as Scheduled 15 to 20 days Repeat Previous Dose 21 to 27 days Reduce dose by 25% 28 to 35 days Reduce dose by 50% If reduced dose is tolerated, resume dosing schedule from lower dose. For delay in immunotherapy of greater than 35 days, dose adjustment must be made by ordering physician. For patients in maintenance phase and receiving injections at 2 week intervals or longer, see orders below for ?Dose Adjustments During Maintenance Phase?. Dose Adjustments During Maintenance Phase Reduce by one dose for each dosing interval missed then resume dosing schedule from lower reduced dose. For delay of maintenance injections greater than one missed dosing interval, the dose adjustment must be made by the ordering physician. CNCO Observed: 10/07/2017 Status: COMPLETED Source: [place] 12:00 AM [facility] REPOSITORY Letter Text NAME: Marissa Malone (home) : 1975 October 07, 2017 Kelsie Cantu MD Attending: Kelsie Cantu M.D. This order sheet is for allergen immunotherapy extract in 1:10 concentration. 3 vials labeled as Vial B: TREES, GRASSES, WEEDS, RAGWEED comprised of 0.3 ml Birch (1:20) 0.3 ml Smoot (1:20) 0.6 ml Grass mix (100,000 BAU/ml) (oral, orchard,[place]) 0.5 ml Special grass mix (100,000 BAU/ml) (rye grass, meadow fescue) 0.2 ml Bermuda (10,000 BAU/ml) 0.2 ml Tl (1:20) 1.7 ml Special weed mix #2 (1:20)(plantain,marshelder,sorrel,cocklebur,lambs quarters,pigweed) 0.7 ml Ragweed mix (giant and short) (1:20) to be diluted with 2.5 ml of Saline + HSA(Human Serum Albumin) Prescription above for FS vial. Dilute FS vial with Saline + HSA(Human Serum Albumin) to 1:10, 1:100, and 1:1000 concentrations. This vial(s) contains extract in 1:10 concentration. Begin with 0.05ml. subcutaneously, then increase to 0.07, 0.1, 0.15, 0.25, 0.35, 0.4, 0.45, and 0.5 ml. Injections can be given once or twice a week. When 0.5 is achieved, please return this sheet by fax or mail and discard the vial(s). A new extract and immunotherapy record will be sent. Send to [facility] [address] [address] Attention Kelsie Cantu M.D. or fax to [phone]. Additional instructions are included for method of administration and management of local and systemic reactions. Please call the physician or the allergy nurse if you have any questions at or toll-free at , [phone]. Observe patient for reaction for at least 30 minutes after injection. Local or generalized reactions to the allergy shot may occur at any time in the course of immunotherapy. The shots are to be given at a facility capable of treating anaphylaxis. Adjustments for Local Reactions For local swelling less than 1 cm. (pea size induration), continue schedule. For local swelling 1-2 cm (dime to nickel size induration), continue schedule. For local swelling 2.5 cm (quarter size induration), repeat previous dose. For local swelling greater than 2.5 cm (silver dollar size induration ), drop down to previous dose. May apply Hydrocortisone 2.5% cream or cold compress to any size local reaction after 30 minutes. Dose Adjustments for Missed Injections During Weekly Build- Up Phase Days after last administered injection Dose to give Up to 14 days Continue as Scheduled 15 to 20 days Repeat Previous Dose 21 to 27 days Reduce dose by 25% 28 to 35 days Reduce dose by 50% If reduced dose is tolerated, resume dosing schedule from lower dose. For delay in immunotherapy of greater than 35 days, dose adjustment must be made by ordering physician. For patients in maintenance phase and receiving injections at 2 week intervals or longer, see orders below for ?Dose Adjustments During Maintenance Phase?. Dose Adjustments During Maintenance Phase Reduce by one dose for each dosing interval missed then resume dosing schedule from lower reduced dose. For delay of maintenance injections greater than one missed dosing interval, the dose adjustment must be made by the ordering physician. CNCO Observed: 10/07/2017 Status: COMPLETED Source: [place] 12:00 AM [facility] REPOSITORY Letter Text NAME: Marissa Malone (home) : 1975 October 07, 2017 Kelsie Cantu MD Attending: Kelsie Cantu M.D. This order sheet is for allergen immunotherapy extract in 1:10 concentration. 3 vials labeled as Vial A: MOLDS comprised of 0.7 ml alternaria (1:20) 0.3 ml aspergillus fum. (1:10) 0.3 ml helminthosporium (1:20) to be diluted with 5.7 ml of Saline + HSA(Human Serum Albumin) ? Prescription above for FS vial. Dilute FS vial with Saline + HSA(Human Serum Albumin) to 1:10, 1:100, and 1:1000 concentrations. ? This vial(s) contains extract in 1:10 concentration. Begin with 0.05ml. subcutaneously, then increase to 0.07, 0.1, 0.15, 0.25, 0.35, 0.4, 0.45, and 0.5 ml. Injections can be given once or twice a week. When 0.5 is achieved, please return this sheet by fax or mail and discard the vial(s). A new extract and immunotherapy record will be sent. Send to [facility] [address] [address] Attention Kelsie Cantu M.D. or fax to [phone]. Additional instructions are included for method of administration and management of local and systemic reactions. Please call the physician or the allergy nurse if you have any questions at or toll-free at , [phone]. Observe patient for reaction for at least 30 minutes after injection. Local or generalized reactions to the allergy shot may occur at any time in the course of immunotherapy. The shots are to be given at a facility capable of treating anaphylaxis. Adjustments for Local Reactions For local swelling less than 1 cm. (pea size induration), continue schedule. For local swelling 1-2 cm (dime to nickel size induration), continue schedule. For local swelling 2.5 cm (quarter size induration), repeat previous dose. For local swelling greater than 2.5 cm (silver dollar size induration ), drop down to previous dose. May apply Hydrocortisone 2.5% cream or cold compress to any size local reaction after 30 minutes. Dose Adjustments for Missed Injections During Weekly Build- Up Phase Days after last administered injection Dose to give Up to 14 days Continue as Scheduled 15 to 20 days Repeat Previous Dose 21 to 27 days Reduce dose by 25% 28 to 35 days Reduce dose by 50% If reduced dose is tolerated, resume dosing schedule from lower dose. For delay in immunotherapy of greater than 35 days, dose adjustment must be made by ordering physician. For patients in maintenance phase and receiving injections at 2 week intervals or longer, see orders below for ?Dose Adjustments During Maintenance Phase?. Dose Adjustments During Maintenance Phase Reduce by one dose for each dosing interval missed then resume dosing schedule from lower reduced dose. For delay of maintenance injections greater than one missed dosing interval, the dose adjustment must be made by the ordering physician. ALLERGIES ALLERGIES DATE TYPE / CODE NAME / CODE REACTION SEVERITY SOURCE Drug No Known Unknown [place] 8 Allergy/[id number]( Allergies/F0019 [facility] SNOMED [facility]) 38048(RXNORM) Hospital Repository Drug BETA-BLOCKERS CONTRAINDICA [facility] 7 Class/[id number]( (BETA-ADRENERGI [facility] CT) C [facility] [place] AGTS) Repository Drug ESTEBAN INHIBITORS CONTRAINDICA [place] 7 Class/[id number](SN [facility] OMED CT) [place] Repository Miscellaneous OTHER OTHER: SEE [facility] 9 Allergy/[id number]( [facility] SNOMED CT) [place] Repository ENCOUNTERS ENCOUNTERS ADMIT/DISCHARGE ACCOUNT ADMITTING ENCOUNTER LOCATION SOURCE NUMBER CLASS 09/24/2018/09/24/19 [id number] Ambulatory [address] Main [place] Repository 08/25/2018/08/25/20 [id number] Ambulatory [address] Repository 08/24/2018/08/25/20 [id number] Ambulatory [address] Repository 08/19/2018/08/19/20 [id number] Ambulatory [address] ing:ENRoom: Repository AC10 08/19/2018/08/19/20 [id number] Ambulatory BMSBuilding:B [place] [facility] [place] Repository 08/14/2018 [id number] Ambulatory [facility] ing:CT Repository 08/07/2018/08/07/20 [id number] Ambulatory BMSBuilding:B [place] [facility] Repository 08/04/2018/08/05/20 [id number] Ambulatory [address] Repository 07/28/2018/07/28/20 [id number] Ambulatory [address] Repository 07/21/2018/07/22/20 [id number] Ambulatory [facility] [place] Repository 07/21/2018/07/21/20 [id number] Ambulatory [facility] [place] Repository 07/14/2018/07/14/20 [id number] Ambulatory [facility] [place] Repository 07/07/2018/07/07/20 [id number] Ambulatory [facility] [place] Repository 07/02/2018/07/02/20 [id number] Ambulatory [facility] [place] Repository 06/30/2018/06/30/20 [id number] Ambulatory [facility] [place] Repository 06/04/2018/06/08/20 [id number] Ambulatory [facility] [place] Repository 05/07/2018/05/07/20 [id number] Ambulatory [facility] [place] Repository 05/05/2018/05/05/20 [id number] Ambulatory [facility] [place] Repository 04/07/2018/04/07/20 [id number] Ambulatory [facility] [place] Repository 04/02/2018/04/02/20 [id number] Ambulatory [facility] [place] Repository 03/31/2018/03/31/20 [id number] Ambulatory [facility] [place] Repository 03/26/2018/03/26/20 [id number] Ambulatory [facility] [place] Repository 03/24/2018/03/24/20 [id number] [facility] [place] Repository 03/19/2018/03/19/20 [id number] [facility] [place] Repository 03/17/2018/03/17/20 [id number] [facility] [place] Repository 03/12/2018/03/12/20 [id number] [facility] [place] Repository 03/10/2018/03/10/20 [id number] [facility] [place] Repository 03/03/2018/03/03/20 [id number] [facility] [place] Repository 02/03/2018/02/04/20 [id number] [facility] [place] Repository 01/29/2018/01/30/20 [id number] [facility] [place] Repository 01/20/2018/01/21/20 [id number] [facility] [place] Repository 01/15/2018/01/16/20 [id number] [facility] [place] Repository 01/06/2018/01/07/20 [id number] Ambulatory [address] [place] Repository 12/25/2017/12/26/19 [id number] Ambulatory [address] [place] Repository 12/16/2017/12/17/19 [id number] Ambulatory [address] [place] Repository 12/09/2017/12/10/19 [id number] Ambulatory [address] [place] Repository 12/02/2017/12/03/19 [id number] Ambulatory [address] [place] Repository 11/25/2017/11/26/19 [id number] Ambulatory [address] [place] Repository 11/20/2017/11/21/19 [id number] Ambulatory [address] [place] Repository 11/11/2017/11/12/19 [id number] Ambulatory [address] [place] Repository 11/06/2017/11/07/19 [id number] Ambulatory [address] [place] Repository 10/14/2017/10/14/19 [id number] Ambulatory [address] [place] Repository 10/07/2017/10/07/19 [id number] Ambulatory [address] [place] Repository PAYERS PAYERS ENCOUNTER GUARANTOR PAYER SUBSCRIBER SOURCE 08/19/2018 MARISSA ARMENDARIZA361 Primary MARISSA Montalvo EUGADOB: [address] Insurance[id number] Number: [facility] [id number]: (330) [id number] Repository [phone] () esvin Date:[id number] [address] [place] [address] [id number]: 08/19/2018 Secondary NOT GIVENUNK [place] Insurance:SELF PAY [facility] Effective Repository Date:2018-08-17 08/19/2018 MARISSA ARMENDARIZA361 Primary MARISSA Montalvo EUGADOB: [place] Insurance:[place]HE[place]olic [id number] Number: [facility] [id number]: (330) [id number] Repository [phone] () esvin Date:[id number] [place] [address] [id number]: 08/19/2018 Secondary NOT GIVENUNK [place] Insurance:SELF PAY [facility] Hospital Number: Effective Repository Date:2018-08-19 08/14/2018 MARISSA Montalvo [id number] Primary MARISSA Montalvo EUGADOB: [place] [address] Insurance:ANTHEMPolic [id number] [place] [facility] [id number]: (330 [id number] Repository [phone] () esvin Date:[id number] [place] [address] [id number]: 08/14/2018 Secondary NOT GIVENUNK [place] Insurance:SELF PAY [facility] Number: Effective Repository Date:2018-08-07 08/07/2018 MARISSA [id number] W Primary MARISSA ARMENDARIZADOB: [place] [address] Insurance:ANTHE[employer]olic [id number] [place] Number[facility] Hospital [id number]: (330 [id number] Repository [phone] () esvin Date:7506-27-98[address] [place] [address] [id number]: 08/07/2018 Secondary NOT GIVENUNK [place] Insurance:SELF PAY [facility] Number: Effective Repository Date:2018-08-06
== END 2018-08-19 08:05 | disposition home or self-care (01) ==
LOC: EN 05:24 → AC 05:26
PROVIDERS: Family Provider Family Medicine; PCP Family Medicine; Referring Provider Family Medicine; Visit Provider Surgery
PROC: 0DJD8ZZ Inspection of Lower Intestinal Tract, Via Natural or Artificial Opening Endoscopic (ICD-10-PCS; CPT 45378; principal; 2018-08-19 06:25)
DX: K29.70 Gastritis, unspecified, without bleeding (principal); K21.0 Gastro-esophageal reflux disease with esophagitis; K44.9 Diaphragmatic hernia without obstruction or gangrene; Z79.899 Other long term (current) drug therapy
CPT/HCPCS: 43239; 45378; 88305; 88342; 99152; 99153; J7120

== ENCOUNTER → 2024-12-16 | Outpatient (CLI) | payer BC, SELFPAY ==
[2024-12-16 12:46] LABS: Absolute Lymphocyte Count 1.96 X10^3/uL (0.83-4.51); Absolute Neutrophil Count 3.1 X10^3/uL (2.0-7.7); Basophil# 0.06 X10^3/uL; Basophil% 1.1 % (0-1); Eosinophil# 0.14 X10^3/uL; Eosinophils% 2.5 % (0-5); Hematocrit 48.4 % (40-54); Hemoglobin 16.4 g/dL (13.0-16.5); Lymphocyte # 1.96 X10^3/ul (0.83-4.51); Lymphocyte % 34.6 % (19-41); Mean Corp Hgb Conc 33.9 g/dL (32-36); Mean Corpuscular Hgb 33.1 pg (27.0-32.0); Mean Corpuscular Volume 97.8 fL (80-94); Mean Platelet Vol. 11.2 fl (6.2-12.0); Monocyte# 0.44 X10^3/uL; Monocyte% 7.8 % (0-10); NRBC Flagged by Analyzer 0 % (0-5); Neutrophil # 3.05 X10^3/uL (2.7-7.7); Neutrophil % 53.6 % (47-70); Platelet Count 258 K/mm3 (150-450); RBC Distribution Width CV 11.6 % (11.6-14.6); RBC Distribution Width SD 41.5 fl (35.1-43.9); Red Blood Count 4.95 M/mm3 (4.6-6.2); White Blood Count 5.7 K/mm3 (4.4-11.0)
[2024-12-16 14:05] LABS: ALB/GLOB Ratio 1.9 RATIO (0.9-2.4); AST(SGOT) 56 U/L (<=37); Alanine Aminotransfer ALT/SGPT 152 U/L (<=46); Albumin, Serum 4.7 g/dL (3.5-5.0); Alkaline Phosphatase 103 U/L (40-129); Anion Gap 14 (5-15); BUN 16 mg/dL (4-19); BUN/Creat Ratio 14.9 RATIO (10-20); Calcium,Total 9.5 mg/dL (7.6-11.0); Carbon Dioxide 23.3 mmol/L (21.0-32.0); Chloride 103 mmol/L (98-108); Cholesterol 228 mg/dL (<=200); Creatinine, Serum 1.07 mg/dL (0.70-1.20); EST Glomerular Filtration Rate 86 (>60); Globulin 2.5 g/dL (2.2-4.2); Glucose 99 mg/dL (70-99); High Density Lipoprotein 40 mg/dL; Low Density Lipoprotein Calc. 160 mg/dL; Potassium 4.2 mmol/L (3.3-5.1); Protein, Total 7.2 g/dL (5.9-8.4); Sodium Level 140 mmol/L (133-145); Total Bilirubin 0.47 mg/dL (0.00-1.30); Triglycerides 136 mg/dL; Very Low Density Lipoprotein 27 mg/dL (5-40); cholesterol:hdl ratio screen 5.64
== END | disposition home or self-care (01) ==
LOC: BIMLAB 09:44
PROVIDERS: PCP Internal Medicine; Referring Provider Internal Medicine; Visit Provider Internal Medicine
DX: Z13.6 Encounter for screening for cardiovascular disorders (principal); E03.9 Hypothyroidism, unspecified; K76.0 Fatty (change of) liver, not elsewhere classified; F41.9 Anxiety disorder, unspecified
CPT/HCPCS: 36415; 80053; 80061; 84443; 85025

== ENCOUNTER → 2024-12-29 | Outpatient (CLI) | payer BC, SELFPAY ==
--- NOTE | 2024-12-29 09:28 | US_ITS ---
PROCEDURE: ABD LIMITED W/ ELASTOGRAPHY REASON FOR EXAM: FATTY LIVER COMPARISON: None. TECHNIQUE: Right upper quadrant abdominal ultrasound. Imaging shear wave elastography for non-invasive assessment of liver tissue stiffness. FINDINGS: Study is limited by bowel gas. Visualized portions of the pancreas appear within limits without evidence of pancreatic ductal dilation seen. The liver measures 16 cm in length and appears diffusely increased in echogenicity which can be seen with hepatic steatosis or other hepatocellular disease. No evidence of intrahepatic biliary ductal dilation seen. Hepatic color flow is present with flow in the portal vein appearing hepatopetal as expected. Gallbladder appears within limits without stones, wall thickening or pericholecystic free fluid. Wall measures 2 mm. Report of a negative sonographic Alan's sign. CBD 3 mm. The right kidney measures 9.5 x 5.4 x 5.2 cm with a cortical thickness of 1.2 cm. The right kidney appears within limits for echogenicity without hydronephrosis, stone or perinephric edema identified. No free fluid seen. Elastography: 10.2 kPa, 1.84 m/sec US/ABD Limited w/ Elastography IMPRESSION: The liver measures 16 cm in length and appears diffusely increased in echogenic ity which can be seen with hepatic steatosis or other hepatocellular disease. Elastography 10.2 kPa, 1.84 m/sec corresponding to a Metavir staging F2-F3. Reading Location: [id number]
== END | disposition home or self-care (01) ==
LOC: US 09:25
PROVIDERS: PCP Internal Medicine; Referring Provider Internal Medicine; Visit Provider Internal Medicine
DX: K76.0 Fatty (change of) liver, not elsewhere classified (principal)
CPT/HCPCS: 76705; 76981

== ENCOUNTER → 2025-01-14 | Outpatient (CLI) | payer BC, SELFPAY ==
[2025-01-14 12:15] LABS: AST(SGOT) 51 U/L (<=37); Alanine Aminotransfer ALT/SGPT 146 U/L (<=46); Albumin, Serum 4.6 g/dL (3.5-5.0); Alkaline Phosphatase 106 U/L (40-129); Bilirubin, Direct 0.17 mg/dL (0.00-0.30); Ferritin 366 ng/mL (37-417); Globulin 2.5 g/dL (2.2-4.2); Iron 102 ug/dL (65-175); Iron Binding Capacity,Total 314 ug/dL (250-450); Iron Binding Capacity,Unsat 212 ug/dL (228-428); Protein, Total 7.1 g/dL (5.9-8.4); Total Bilirubin 0.39 mg/dL (0.00-1.30)
[2025-01-14 12:23] LABS: Hepatitis B Surface Antibody Nonreactive
[2025-01-16 09:08] LABS: Hepatitis A AB, Total Negative (Negative)
[2025-01-17 14:08] LABS: ANTINUCLEAR ANTIBODIES DIRECT Negative (Negative)
== END | disposition home or self-care (01) ==
PROVIDERS: PCP Internal Medicine; Referring Provider Nurse Practitioner Acute Care; Visit Provider Nurse Practitioner Acute Care
DX: K76.0 Fatty (change of) liver, not elsewhere classified (principal); R74.8 Abnormal levels of other serum enzymes
CPT/HCPCS: 80076; 82728; 83540; 83550; 86038; 86225; 86706; 86708

== ENCOUNTER → 2025-01-21 | Outpatient (CLI) | payer BC, SELFPAY | END | disposition home or self-care (01) | LOC: BIMLAB 08:59 | PROVIDERS: PCP Internal Medicine; Referring Provider Nurse Practitioner Acute Care; Visit Provider Nurse Practitioner Acute Care | DX: K75.81 Nonalcoholic steatohepatitis (NASH) (principal); R74.8 Abnormal levels of other serum enzymes | CPT/HCPCS: 36415; 84439; 84443; 85610 ==

== ENCOUNTER → 2025-08-12 | Outpatient (CLI) | payer BC, SELFPAY ==
--- NOTE | 2025-08-12 07:07 | CT_ITS ---
PROCEDURE: CT ABD/PELVIS W/WO CONTRAST 08/12/2025 REASON FOR EXAM: LLQ PAIN TECHNIQUE: Procedure Code: [id number] Modality: CT Procedure: CT ABD/PELVIS W/WO CONTRAST Coronal and Sagittal reconstruction series were provided. CONTRAST: OMNIPAQUE 350 VOLUME: 100 mL One or more dose reduction techniques were used (e.g., Automated exposure control, adjustment of the mA and/or kV according to patient size, use of iterative reconstruction technique. RADIATION DOSE SUMMARY: CTDlvol: 28.16 mGy DLP: 4296 mGycm COMPARISON: CT scan on 08/14/2018. FINDINGS: Diffuse colonic diverticulosis. Mild diffuse thickening of the sigmoid colon, probably mild colitis/diverticulitis. No evidence of perforation or abscess formation. Mild prostatomegaly. Scattered prostatic calcifications. Diffuse thickening of the bladder. Chronic bladder outlet obstruction versus cystitis. Left renal nonobstructing stone measuring 8 mm, unchanged. Unchanged hepatomegaly with hepatic steatosis. Bilateral fat containing inguinal hernias without incarceration. The visualized lung bases are unremarkable. Normal gallbladder and extrahepatic biliary system. Normal spleen. Normal pancreas. Normal bilateral adrenal glands. Normal size of the right kidney. There is no right renal mass. There are no right renal calculi. There is no right hydronephrosis. Normal visualized right ureter. Normal size of the left kidney. There is no left renal mass. There is no left hydronephrosis. Normal visualized left ureter. Normal visualized stomach. Normal small intestine. The appendix is visualized and appears normal. There is no demonstrated peritoneal fluid. Normal abdominal aorta. Normal inferior vena cava. Normal retroperitoneum. There is no pelvic mass lesion or lymphadenopathy. There is no pelvic fluid. Normal osseous structures. CT/CT Abd/Pelvis W/WO Contrast IMPRESSION: Diffuse colonic diverticulosis. Mild diffuse thickening of the sigmoid colon, probably mild colitis/diverticuli tis. No evidence of perforation or abscess formation. Mild prostatomegaly. Scattered prostatic calcifications. Diffuse thickening of the bladder. Chronic bladder outlet obstruction versus cy stitis. Left renal nonobstructing stone measuring 8 mm, unchanged. Unchanged hepatomegaly with hepatic steatosis. Bilateral fat containing inguinal hernias without incarceration. Reading Location: [facility]
--- OUTSIDE RECORDS SUMMARY | 2025-08-12 07:08 | XMS RPT_ITS | CCD ---
Author Organization [facility] Care Team Providers Care International Sourcing Manager Name Role Phone Janey Gutierrez PA-C Primary Care Provider [phone] Unavailable Primary Care Provider Unavailabl e Janey Gutierrez PA-C Primary Care Provider [phone] Haagen TECHNICAL DOCUMENT WRITER.CATHODE RAY TUBE ASSEMBLER, Diana Unavailable Suppan TECHNICAL DOCUMENT WRITER.CATHODE RAY TUBE ASSEMBLER, Holley A Unavailable [phone] Jony ROMEO, Carlita Allen Primary Care Provider [phone] TREMAINE GUTIERREZ Referring Unavailable TREMAINE GUTIERREZ Primary Care Unavailable Jony ROMEO, Dr. Zazueta Attending Provider Dr. Carlita Boregs MD Primary Care Provider [phone] Dr. Carlita Borges MD Referring Provider Robby CRAYON SAWYER-CArabella Attending Provider Robby CRAYON SAWYER-CArabella Referring Provider Dr. Carlita Borges MD Primary Care Physician [phone] Dr. Carlita Borges MD Referring Provider Robby CRAYON SAWYER-CArabella Attending Physician [phone] Dr. Carlita Borges MD Attending Physician [phone] Carlita Borges Primary Care Unavailable Zaynab Bustamantenifer Referring Unavailable Dorothy Bustamantefer Attending Unavailable Carlita Borges Primary Care Unavailable Robby, Arabella Referring Unavailable Robby, Arabella Attending Unavailable Carlita Borges Referring Unavailable Robby, Arabella Attending Unavailable Carlita Borges Primary Care Unavailable Sparta, Carlita Primary Care Unavailable Jony, Carlita Referring Unavailable Arabella Bustamante Attending Unavailable Jony, Carlita Attending Unavailable [place]a, Carlita Referring Unavailable [place]a, Carlita Attending Unavailable Jony, Carlita Primary Care Unavailable [place], Carlita Attending Unavailable [place]a, Carlita Primary Care Unavailable Sparta, Carlita Referring Unavailable [place]a, Carlita Attending Unavailable Jony, Carlita Primary Care Unavailable Jony, Carlita Referring Unavailable Allergies Allergy Classification Reported Allergen(s) Allergy Type Date of Onset Reaction(s) Facility (4 sources) Angiotensin-conve rting enzyme inhibitor agent; Translations: [PB INHIBITORS] Propensity to adverse reactions to drug 7 Contraindicati on-[facility] Work Phone: (4 sources) beta-Blocking agent; Translations: [BETA-BLOCKERS (BETA-ADRENERGIC BLOCKING AGTS)] Propensity to adverse reactions to drug 7 Contraindicati on-[facility] Work Phone: (15 sources) Environmental allergies [Other] Propensity to adverse reactions 9 Other: See Comments [facility] (15 sources) Angiotensin-conve rting enzyme inhibitor agent Propensity to adverse reactions to drug 7 Contraindicati on-[facility] Work Phone: (15 sources) beta-Blocking agent Propensity to adverse reactions to drug 7 Contraindicati on-[facility] Work Phone: (4 sources) Grass pollen; Translations: [GRASS POLLEN] Drug Allergy [address] [facility] Work Phone: (4 sources) Cat Dander; Translations: [CAT DANDER] Drug Allergy [address] [facility] Work Phone: (4 sources) Dog Dander; Translations: [DOG DANDER] Drug Intolerance [address] [facility] Work Phone: Medications Current Medications Medication Drug Class(es) Dates Sig (Normalized) Sig (Original) levothyroxine sodium 0.1 mg oral tablet (20 sources) l-Thyroxine Start: 12-16-2024 End: 06-16-2025 take 1 tablet by mouth once daily Levothyroxine 100 mcg tablet Active 100 ug PO daily 90 June 16, 2025 9:50am Complies with drug therapy Start: 12-16-2024 End: 12-16-2024 Levothyroxine 100 mcg tablet Discontinued ug PO December 16, 2024 12:00am December 16, 2024 4:12pm Start: 05-04-2024 End: 11-25-2024 take 1 tablet by mouth once daily for thyroid dysfunction levothyroxine (LEVOXYL) 100 mcg tablet Indications: Hypothyroidism, acquired Take 1 tablet by mouth once daily. Take on empty stomach. For Thyroid. 30 tablet 11/25/2024 Active Start: 04-29-2023 End: 11-06-2023 take 1 tablet by mouth once daily for thyroid dysfunction levothyroxine (LEVOXYL) 100 mcg tablet Indications: Hypothyroidism, acquired Take 1 tablet by mouth once daily. Take on empty stomach. For Thyroid. 90 tablet 2 11/06/2023 Active Start: 11-05-2022 End: 04-27-2023 take 1 tablet by mouth once daily for thyroid dysfunction levothyroxine (LEVOXYL) 100 mcg tablet Indications: Hypothyroidism, acquired Take 1 tablet by mouth once daily. Take on empty stomach. For Thyroid. 30 tablet 2 12/26/2022 04/27/2023 Discontinued Start: 10-31-2021 End: 05-03-2023 take 1 tablet by mouth once daily for thyroid dysfunction levothyroxine (SYNTHROID) 75 mcg tablet Indications: Hypothyroidism, acquired Take 1 tablet by mouth once daily. Take on empty stomach. For Thyroid. 90 tablet 1 11/04/2022 11/05/2022 Discontinued Comment on above: Take 1 tablet by sam once daily. Take on empty stomach. For Thyroid. predniSONE 10 mg oral tablet (2 sources) Start: 03-06-20 End: 03-15-20 predniSONE (DELTASONE) 10 mg tablet Take 4 tabs daily for 3 days, then 2 tabs daily for 3 days, then 1 tab daily for 3 days with food. 21 tablet 0 03/06/2023 03/15/2023 Active Comment on above: Take 4 tabs daily fo r 3 days, then 2 tabs daily for 3 days, then 1 tab daily for 3 days with food. sertraline 50 mg oral tablet (20 sources) Serotonin Reuptake Inhibitor Start: 08-07-20 End: 06-16-20 take 1 tablet by mouth once daily Sertraline (Zoloft) 50 mg tablet Active 50 mg PO DAILY 90 June 16, 2025 9:50am Complies with drug therapy Comment on above: Take 1 tablet by sam once daily. triamcinolone acetonide 1 mg/ml topical cream (2 sources) Corticosteroid Start: 03-24-20 End: 03-31-20 triamcinolone acetonide (KENALOG) 0.1 % cream Apply 1 application to affected area three times daily for 7 days. Apply sparingly to area for rash/itching. 80 g 0 03/24/2023 03/31/2023 Active Start: 03-06-2023 End: 03-13-2023 triamcinolone acetonide (ABRAHAM ALOG) 0.1 % cream Apply 1 application to affected area three times daily for 7 days. Apply sparingly to area for rash/itching. 80 g 0 03/06/2023 03/13/2023 Active Comment on above: Apply 1 application to affected area three times daily for 7 days. Apply sparingly to area for rash/itching. Completed/Discontinued Medications Medication Drug Class(es) Dates Sig (Normalized) Sig (Original) benzonatate 200 mg oral capsule (5 sources) Non-narcotic Antitussive Start: 09-23-19 End: 12-17-19 take 1 capsule by mouth three times daily as needed for cough Benzonatate 200 mg capsule Discontinued 200 mg PO THREE TIMES A DAY as needed for cough 14 September 23, 2023 1:00am December 16, 2024 8:59am cetirizine hydrochloride 10 mg oral tablet (4 sources) Histamine-1 Receptor Antagonist take 1 tablet by mouth once daily cetirizine (ZYRTEC) 10 mg tablet Take 10 mg by mouth once daily. 0 Active Comment on above: Take 10 mg by mouth once daily. [id number] 0.3 ml EPINEPHrine 1 mg/ml auto-injector (16 sources) alpha-Adrenergic Agonist, beta-Adrenergic Agonist, Catecholamine Start: 01-11-20 End: 11-06-19 EPINEPHrine (AUVI-Q) 0.3 mg/0.3 mL auto-injector Inject 0.3 mL intramuscularly as needed. For allergic reaction.Seek emergent medical care immediately after use.Disp:1 2-packw/assistive technology trainer 1 Each 1 01/10/2021 11/06/2023 Discontinued Comment on above: Inject 0.3 mL intram uscularly as needed. For allergic reaction.Seek emergent medical care immediately after use.Disp:1 2-packw/assistive technology trainer loratadine 10 mg oral tablet (5 sources) Start: 08-07-20 End: 12-17-19 take 1 tablet by mouth once daily Loratadine (Claritin) 10 mg tablet Discontinued 10 mg PO DAILY August 07, 2018 1:00am December 16, 2024 8:59am methylPREDNISolone 4 mg oral tablet (5 sources) Corticosteroid Start: 09-23-19 End: 12-17-19 take 1 tablet by mouth once Methylprednisolone (Medrol (Gael)) 4 mg tablets,dose pack Discontinued 0 PO per package directions September 23, 2023 1:00am December 16, 2024 8:59am PO PER PKG DIR Problems Active Problems Problem Classification Problem Date Documented Da te Episodic/Chronic Abdominal pain (7 sources) Abdominal pain; Translations: [Unspecified abdominal pain] Onset: 06-16-2025 12-16-2024 Episodic Administrative/social admission (4 sources) First encounter by subject; Translations: [Persons encountering health services in other specified circumstances] 12-16-2024 Episodic Allergic reactions (1 source) Allergic contact dermatitis caused by plant material; Translations: [Allergic contact dermatitis due to plants, except food] Episodic Anxiety disorders (20 sources) Generalized anxiety disorder; Translations: [Generalized anxiety disorder] Onset: 10-06-2018 10-06-2018 Chronic Fluid and electrolyte disorders (4 sources) Hyperkalemia; Translations: [Hyperkalemia] 12-16-2024 Episodic Gastrointestinal hemorrhage (5 sources) Finding of appearance of stool; Translations: [Melena] 12-16-2024 Episodic Hepatitis (9 sources) Nonalcoholic steatohepatitis; Translations: [Nonalcoholic steatohepatitis (LEVINE)] Onset: 01-26-2025 01-17-2025 Chronic Nonspecific chest pain (5 sources) Chest pain; Translations: [Chest pain, unspecified] 05-30-2014 Episodic Other bone disease and musculoskeletal deformities (1 source) Cervical somatic dysfunction; Translations: [Segmental and somatic dysfunction of cervical region] 05-05-2023 Episodic Other liver diseases (20 sources) Steatosis of liver; Translations: [Fatty (change of) liver, not elsewhere classified] Onset: 04-26-2022 Chronic Other liver diseases (1 source) Hepatic fibrosis; Translations: [Liver fibrosis] 05-05-2023 Chronic Other liver diseases (4 sources) Fatty (change of) liver, not elsewhere classified; Translations: [Fatty (change of) liver, not elsewhere classified] Onset: 05-03-2022 Chronic Other liver diseases (20 sources) Elevated liver enzymes level; Translations: [Abnormal levels of other serum enzymes] Onset: 04-26-2022 Episodic Other nervous system disorders (20 sources) Circadian rhythm sleep disorder of shift work type; Translations: [Circadian rhythm sleep disorder, shift work type] Onset: 02-18-2019 02-18-2019 Chronic Other nutritional; endocrine; and metabolic disorders (5 sources) Obese class I; Translations: [Obesity (BMI 30.0-34.9)] 12-16-2024 Chronic Other upper respiratory disease (19 sources) Allergic rhinitis due to pollen; Translations: [Allergic rhinitis due to pollen] Onset: 04-15-2017 06-04-2018 Chronic Other upper respiratory disease (20 sources) Allergic rhinitis; Translations: [Allergic rhinitis, unspecified] Onset: 04-15-2017 Resolved: 04-15-2017 05-18-2021 Chronic Residual codes; unclassified (5 sources) Past history of procedure; Translations: [Other specified postprocedural states] 12-15-2024 Episodic Comment on above: lip lesion Residual codes; unclassified (1 source) Influenza vaccination declined; Translations: [Immunization not carried out because of patient refusal] 06-16-2025 Episodic Thyroid disorders (20 sources) Acquired hypothyroidism; Translations: [Hypothyroidism, unspecified] Onset: 04-26-2022 Chronic Past or Other Problems Problem Classification Problem Date Documented Date Episodic/Chronic Diseases of mouth; excluding dental (1 source) Mucocele of lower lip; Translations: [Diseases of lips] Onset: 05-20-2016 Resolved: 08-04-2018 08-04-2018 Episodic Inflammation; infection of eye (except that caused by tuberculosis or sexually transmitteddisease) (1 source) Acute atopic conjunctivitis of bilateral eyes; Translations: [Acute atopic conjunctivitis, bilateral] Onset: 04-15-2017 Resolved: 08-04-2018 08-04-2018 Episodic Other circulatory disease (20 sources) Elevated blood-pressure reading without diagnosis of hypertension; Translations: [Elevated blood-pressure reading, without diagnosis of hypertension] Onset: 07-21-2018 07-21-2018 Episodic Other liver diseases (2 sources) Abnormal levels of other serum enzymes; Translations: [Elevated liver enzymes] Onset: 04-26-2022 Episodic Other screening for suspected conditions (not mental disorders or infectious disease) (7 sources) Other specified abnormal findings of blood chemistry; Translations: [Other abnormal blood chemistry] Onset: 12-21-2024 Episodic Results Test Name Value Interpretation Reference Range Facility Internal Medicine Office Vis evan 06-15-2025 Internal Medicine Office Visit [facility] Internal Medicine [address] [place] [address] [place] [address] OFFICE VISIT Date of Service: 06/16/25 MR#: [id number] Acct: [id number] Name: MARISSA MALONE Rep #: [id number] : 1975 Provider: Dr. Carlita weber MD Age/Sex: 49/M Location[place] [facility] [place] Status: Signed Intake Vital Signs 12/16/24 09:15 02/24/25 10:30 06/16/25 09:41 Height 6 ft 6 ft 6 ft Weight: 221 lb BMI 29.9 BP 128/84 H Blood Pressure Location Lt brachial Position Sitting Respiration 16 Pulse 54 L Pulse Source Monitor Temp 97 F L Temp Source Temporal Pulse Oximetry (%) 99 Oxygen Delivery Method room air Intake Visit Reasons: 6 M FU Theatre Professor Required: No Is patient in pain?: No Allergies No Known Allergies Allergy (Verified 06/16/25 09:25) Medications ???Medication ???Instructions ???Recorded ???Confirmed ???Type levothyroxine 100 mcg tablet 100 mcg PO QDAY #90 tabs 06/16/25 06/16/25 Rx sertraline 50 mg tablet (Zoloft) 50 mg PO DAILY #90 tabs 06/16/25 1 Rx Nurse's Note: Pt states he has L kidney pain that is intermittent and seems to come on for no reason. He Pt describes the pain as sharp and localized which subsides fast. Pt states this pain is rated a 5/10. He states he has been working more and wonders if it is due to being dehydrated. 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 He denies swelling, change in urinary frequency, color, odor, hesitancy. Pt denies any pain radiating. He has not tried treating w/ anything. Pt has no refills left on meds and needs [facility] days [facility]. Pt declines flu shot PFSH Medical History Hay fever Hypothyroid Fatty liver Anxiety Surgical History Hx of tonsillectomy History of excision of lesion Family History (Updated 06/16/25 @ 09:25 by Vicenta Saunders MA) Father Age: 74 Leukemia Polycythemia Mother Age: 71 Thyroid disorder Grandmother Cancer Grandfather Heart disease Myocardial infarction Social History adopted: No household members: spouse and children number of children: 3 current occupational status: employed current occupation: [employer] pets and animals: Yes (2) pets and animals: dog(s) sexually active: Yes Smoking Status: Current every day smoker tobacco type: cigarettes Tobacco: How many years used: 20 second hand exposure: No quit status: considering quitting alcohol intake: current alcohol intake frequency: a few times a month Alcohol type: beer substance use type: does not use caffeine: Yes (3-4) Type: coffee what type of physical activity do you participate in: walking frequency: daily seatbelt use: always do you feel safe at home: Yes Questionnaire PQH-9 BMS Over the last 2 weeks, how often have you been bothered by any of the following problems? 1. Little interest or pleasure in doing things: not at all 2. Feeling down, depressed, or hopeless: not at all 3. Trouble falling or staying asleep, or sleeping too much: several days 4. Feeling tired or having little energy: several days (only when working too much) 5. Poor appetite or overeating: not at all 6. Feeling bad about yourself - or that you are a failure or have let yourself and your family down: not at all 7. Trouble concentrating on things, such as reading the newspaper or watching television: several days 8. Moving or speaking so slowly that other people could have noticed? - Or the opposite - being so fidgety or restless that you have been moving around a lot more than usual: not at all 9. Thoughts that you would be better off or of hurting yourself in some way: not at all Total score: 3 If you checked off any problems, how difficult have these problems made it for you to do your work, take care of things at home, or get along with other people?: not difficult at all Source: Developed by Drs. Alex Soto, Violetta Duran, Sha Verdin and colleagues, with an educational radha from [employer]. PAUL-7 BMS PAUL-7 Feeling nervous, anxious, or on edge: 0 = Not at all Not being able to stop or control worryin = Not at all Worrying too much about different things: 0 = Not at all Trouble relaxin = Not at all Being so restless that it is hard to sit still: 0 = Not at all Becoming easily annoyed or irritable: 1 = Several days Feeling afraid as if something awful might happen: 0 = Not at all Total PAUL-7 score (0-4 normal; 5-9 mild; 10-14 moderate; 15-21 severe): 1 Source: Developed by Drs. Alex Soto, Sha Shipman and colleagues, with an ed (more content not included)... Normal [facility] Gastroenterology Visit Repor ton 02-24-2025 Gastroenterology Visit Report [facility] Gastroenterology [address] [place] [address] OFFICE VISIT Date of Service: 02/24/25 MR#: [id number] Acct: [id number] Name: MARISSA MALONE Rep #: [id number] : 1975 Provider: EDILBERTO vital Age/Sex: 49/M Location[place] [facility] Status: Signed Intake Vital Signs 12/16/24 09:15 02/24/25 10:30 Height 6 ft 6 ft Weight: 222 lb 2 oz BMI 30.1 Respiration 18 Pulse 61 Temp 96.1 F L Temp Source Temporal Pulse Oximetry (%) 95 Oxygen Delivery Method room air Intake Visit Reasons: 1 M FU Chief Complaint: Fatty Liver Theatre Professor Required: No Accompanied by: Self Is patient in pain?: No Allergies No Known Allergies Allergy (Verified 02/24/25 10:28) Medications ???Medication ???Instructions ???Recorded ???Confirmed ???Type levothyroxine 100 mcg tablet 100 mcg PO QDAY #90 tabs 01/21/25 02/24/25 Rx sertraline 50 mg tablet (Zoloft) 50 mg PO DAILY #90 tabs 01/21/25 0 02/24/25 Rx PFSH Medical History Hay fever Hypothyroid Fatty liver Anxiety Surgical History Hx of tonsillectomy History of excision of lesion Family History Father Leukemia Polycythemia Mother Thyroid disorder Grandmother Cancer Grandfather Heart disease Myocardial infarction Social History adopted: No household members: spouse and children number of children: 3 current occupational status: employed current occupation: [employer] pets and animals: Yes (2) pets and animals: dog(s) sexually active: Yes Smoking Status: Current every day smoker tobacco type: cigarettes Tobacco: How many years used: 20 second hand exposure: No quit status: considering quitting alcohol intake: current alcohol intake frequency: a few times a month Alcohol type: beer substance use type: does not use caffeine: Yes (3-4) Type: coffee what type of physical activity do you participate in: walking frequency: daily seatbelt use: always do you feel safe at home: Yes HPI HPI Chief Complaint: Fatty Liver Details: MARISSA MALONE, is a 49 M who presents to the office today for OV 01/17/2025 49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 ABD US confirms steatosis, and elastography reveals a kPa of 10.2, corresponding to a fibrosis stage of F2-F3. He reports a weight gain of 20- 25lbs in recent years, which likely contributes to progression of disease. Liver enzymes are elevated with AST 56, ALT 152, consistent with ongoing hepatic inflammation. He denies any significant alcohol use, with only occasional beer consumption, and has no history of diabetes, HTN, HLD, and has no history of viral hepatitis, autoimmune liver disease, or other secondary causes of steatosis. He is a current smoker, which is a known risk factor for liver disease progression. His family history is significant for mother with HFE, raising suspicion for possible hereditary Fe overload. A mildly elevated TSH of 5.480 is noted, which may suggest subclinical hypothyroidism and warrants further evaluation. He denies any risk factors for viral hepatitis including tattoos, IVDU, or blood transfusion. He has not been vaccinated for hepatitis A or B to his knowledge. Work-up for Fe overload and autoimmune markers is underway, though no signs of cirrhosis have been identified. He will follow-up in one month for treatment of MASH with stage F2-F3 fibrosis, per current guidelines, supposed by transient elastography (kPa 10.2) and elevated AST/ALT. He has received counseling on weight loss, lifestyle modifications, and smoking cessation. Given the diagnosis of MASH with confirmed moderate to advanced fibrosis and elevated transaminases, I plan to initiate resmetiron (rezdiffra) in accordance with FDA approved indications. The patient will be monitored closely for therapeutic response and tolerability. Note: [employer] speech recognition operations manager/coordinator software was used to create portions of this document. Sound-alike and misspelled words, as well as other operations manager/coordinator errors may be contained in the documentation. Patient Instructions: Complete labs today Recommend vaccination for Hepatitis A and B if Ab are nul Follow-up in the office in 1 month Rezdiffra prescription prior authorization process will be initiated today Smoking cessation recommended - https://www.cdc.gov/ tobacco/about/how-to -quit.html HAV Total Ab: 01/14/2025 negative HBVsAg: HBVsAb: 01/14/2025 negative HBV Core Ab Total: HCV Ab: CYN: 01/14/2025 negative Fe: 01/15/20 (more content not included)... Normal [facility] International normalized rat io (INR) calculationOrdered By: Arabella Bustamante on 01-21-2025 INR Coag (Bld) [Relative time] 1.0 {INR} [facility] Prothrombin Time w/INRon INR Coag (PPP) [Relative time] 1.0 {INR} Normal [facility] Comment on above: Performed By: #### L 300.3900, L506.0400, L501.9520 #### [facility] [address] [place], [address] PT Coag (PPP) [Time] 13.0 s Normal 11.7-14.9 [facility] Comment on above: Performed By: #### L 300.3900, L506.0400, L501.9520 #### [facility] [address] [place], [place], [id number] Prothrombin timeOrdered By: Arabella Bustamante on 01-21-2025 PT Coag (PPP) [Time] 13.0 s 11.7-14.9 [facility] T4 Free Directon 01-21-2025 T4 FREE DIRECT 1.40 ng/dL Normal 0.76-1.46 [facility] Comment on above: Performed By: #### L 300.3900, L506.0400, L501.9520 ####[facility] [address] [place], [place], [id number] T4 freeOrdered By: Arabella Bustamante on 01-21-2025 Free T4 [Mass/Vol] 1.40 ng/dL 0.76-1.46 [facility] TSH DL <= 0.005 mIU/L QnOrde red By: Arabella Bustamante on 05-16-2025 TSH Qn 2.680 uIU/mL 0.300-4.200 [facility] Thyroid Stim Hormone (TSH)on 01-21-2025 TSH 2.680 uIU/mL Normal 0.300-4.200 [facility] Comment on above: Performed By: #### L 300.3900, L506.0400, L501.9520 #### [facility] [address] [place], [place], [id number] [id number] 01-19-2025 [facility] Misc. COMMENT Normal . [facility] Comment on above: Order Comment: SST/R [id number] Result Comment: Test Ordered: [id number] Enhanced Liver Fibrosis (ELF) ELF(TM) Score 9.40 BN Reference Range: <9.80 ELF(TM) Score Interpretation: Risk cut-offs to assess the likelihood of progression to cirrhosis and liver-related clinical events within 3.9 years following baseline ELF score (IQR: 14.0-22.4 months)*: Lower risk < 9.80 Mid risk 9.80 - 11.29 Higher risk >11.29 Note: The ELF(TM) Score is a unitless numerical value. *Amol SA, Gerson VW, Okjon T, et al. Selonsertib for patients with bridging fibrosis or compensated cirrhosis due to LEVINE: Results from randomized phase III STELLAR trials. J Hepatol. 2020 Mar;73(1):26-39. Performed at: - [facility] [id number] Commercial Real Estate Lender: John Franco MD, Phone: [phone] Performed at: - [facility] [id number] Commercial Real Estate Lender: Madan New PhD, Phone: [phone] Performed By: #### L 3100.5450, L3410.9992, L500.3400, L3890.6202, L503.6030, L503.6550, L3100.0300 ####[facility] [address] [place], [place], [id number] CYN w/ Reflex Mult Confirmon 01-18-2025 ANTI-DNA (DS)AB TNP Normal [facility] Comment on above: Performed By: #### L 3100.5450, L3410.9992, L500.3400, L3890.6202, L503.6030, L503.6550, L3100.0300 ####[facility] [address] [place], [place], [address] ANTI-SS-A TNP Normal [facility] Comment on above: Performed By: #### L 3100.5450, L3410.9992, L500.3400, L3890.6202, L503.6030, L503.6550, L3100.0300 ####[facility] [address] [place], [address] ANTI-SS-B TNP Normal [facility] Comment on above: Performed By: #### L 3100.5450, L3410.9992, L500.3400, L3890.6202, L503.6030, L503.6550, L3100.0300 ####[facility] [address] [place], [place], [id number] Hepatitis A AB, Totalon 01-06 HEPATITIS A,TOT Negative Normal Negative [facility] Comment on above: Result Comment: Comm ent: The HAV total antibody assay detects both IgG and IgM but does not differentiate between them. A negative result suggests susceptibility to infection. A positive result could be due to vaccination, previously resolved infection or active infection. Testing for HAV IgM should be performed if active HAV infection is suspected. [facility] offers profiles that will automatically reflex positive HAV total antibody results to IgM (e.g., panel #[id number] HAV Antibody w/ Rfx). Performed at: [address] [id number] [employer] Lender: Madan New PhD, Phone: [phone] Performed By: #### L 3100.5450, L3410.9992, L500.3400, L3890.6202, L503.6030, L503.6550, L3100.0300 ####[facility] [address] [place], [address] Bilirubin directOrdered By: Arabella Bustamante on 01-14-2025 Bilirubin.direct [Mass/Vol] 0.17 mg/dL 0.00-0.30 [facility] Bilirubin, totalOrdered By: Arabella Bustamante on 01-14-2025 Bilirubin [Mass/Vol] 0.39 mg/dL 0.00-1.30 [facility] Ferritinon 01-14-2025 Ferritin [Mass/Vol] 366 ng/mL Normal 37-417 [facility] Comment on above: Performed By: #### L 3100.5450, L3410.9992, L500.3400, L3890.6202, L503.6030, L503.6550, L3100.0300 ####[facility] [address] [place], [address] Gastroenterology Visit Repor ton 01-14-2025 Gastroenterology Visit Report [facility] G[facility]enter[facility] [address] [place] [address] OFFICE VISIT Date of Service: 01/14/25 MR#: [id number] Acct: [id number] Name: MARISSA MALONE Rep #: [id number] : 1975 Provider: EDILBERTO vital Age/Sex: 49/M Location: [facility] Status: Signed Intake Vital Signs 12/16/24 09:15 01/14/25 09:42 Height 6 ft Weight: 222 lb 220 lb 2 oz BMI 30.1 BP 112/74 134/92 H Blood Pressure Location Lt brachial Rt brachial Position Sitting Sitting Respiration 16 17 Pulse 65 50 L Pulse Source Monitor Monitor Temp 97.4 F L Temp Source Temporal Pulse Oximetry (%) 98 96 Oxygen Delivery Method room air room air Intake Visit Reasons: Fatty liver Chief Complaint: Fatty Liver Is patient in pain?: No Allergies No Known Allergies Allergy (Verified 01/14/25 09:42) Medications ???Medication ???Instructions ???Recorded ???Confirmed ???Type levothyroxine 100 mcg tablet 100 mcg PO QDAY #30 tabs 12/16/24 01/14/25 Rx sertraline 50 mg tablet (Zoloft) 50 mg PO DAILY #30 tabs 12/16/24 0 01/14/25 Rx Nurse's Note: Had a ultrasound a couple weeks ago, got referred here due to fatty liver. Was previously at [facility] had some fibro scans and was diagnosed by them originally. Patient reports no pain. Pt stated he has had a little bit of a weight gain since being diagnosed. [facility] Medical History Hay fever Hypothyroid Fatty liver Anxiety Surgical History Hx of tonsillectomy History of excision of lesion Family History Father Leukemia Polycythemia Mother Thyroid disorder Grandmother Cancer Grandfather Heart disease Myocardial infarction Social History adopted: No household members: spouse and children number of children: 3 current occupational status: employed current occupation: [employer] pets and animals: Yes (2) pets and animals: dog(s) sexually active: Yes Smoking Status: Current every day smoker tobacco type: cigarettes Tobacco: How many years used: 20 second hand exposure: No quit status: considering quitting alcohol intake: current alcohol intake frequency: a few times a month Alcohol type: beer substance use type: does not use caffeine: Yes (3-4) Type: coffee what type of physical activity do you participate in: walking frequency: daily seatbelt use: always do you feel safe at home: Yes HPI HPI Chief Complaint: Fatty Liver Details: MARISSA MALONE, is a 49 M who presents to the office today for Hepatitis A Ab: HBVsAb: HBVsAg: HBV Core Total Ab: HCV Ab: CBC: 12/16/2024 WNL CMP: 12/16/2024 AST 56, ALT 152, ALP normal TSH: 12/16/2024 5.480 (H) ELF: ABD US: 12/29/2024 liver steatosis Elastography: kPa 10.2 corresponding to a Metavir staging F2-F3 - reports he was initially diagnosed with MASLD about 5-10 years ago at [facility] - reports his weight is up about 20-25lbs in the past few years - beer a few times a month - rare NSAID use - denies any h/o DM, HTN or HLD - denies any tattoos - denies any h/o blood transfusion - Mom has HFE - he is a smoker ROS Const Constitutional: Positive for weight change (weight gain); No body ache, chills, excessive sweating, fatigue, fever(s), frequent falls, headache(s), snoring, weakness, sleep problems or change in appetite Eyes Eyes: No blurry vision, change in vision, eye pain or Light sensitivity ENT ENT: No abnormal hearing, ear or mastoid pain, tinnitus, nasal congestion, headache(s), neck pain or sore throat Resp Respiratory: No cough, shortness of breath, snoring or wheezing Cardio Cardiology: No chest pain at rest, chest pain with exertion, excessive sweating, shortness of breath, dyspnea on exertion, lightheadedness, orthopnea, palpitations or other (no leg swelling) Gastro GI: No abdominal pain, change in bowel habits, constipation, cramping, diarrhea, nausea/dyspepsia or vomiting Genitourinary Male: No difficulty urinating, burning urination, painful urination, urinary incontinence or urinary frequency Musc Musculoskeletal: No abnormal gait, joint pain, back pain, limited range of motion, neck pain, numbness or tingling Skin Skin: No dry skin, redness, lesions, itchy eyes, rash or wounds Neuro Neurology: No abnormal gait, abnormal hearing, dizziness, weakness, frequent falls, headache(s), memory loss, numbness, tingling or fainting Psych Psychiatric: No anxiety, No change in appetite, No depression, No memory loss and No Thoughts of harming yourself/Others Endo Endocrine: Positive for weight change (weight gai (more content not included)... Normal [facility] Hepatitis B Surface Antibody on 01-14-2025 HEP B Surf Ab Non-Reactive Normal [facility] Comment on above: Result Comment: <8.5 mIU/mL: Non-Reactive 8.5<= x <11.5 mIU/mL: Indeterminate >=11.5 mIU/mL: Reactive Non Reactive: Inconsistent with immunity less than <10 mIU/mL Reactive: Consistent with immunity greater than or equal to 10 mIU/mL Performed By: #### L 3100.5450, L3410.9992, L500.3400, L3890.6202, L503.6030, L503.6550, L3100.0300 ####[facility] [address] [place], [address] Iron measurement (mass/mass) Ordered By: Arabella Bustamante on 01-14-2025 Iron (Unsp spec) [Mass/Mass] 102 ug/dL 65-175 [facility] Iron+Iron Binding Capacityon 01-14-2025 Iron [Mass/Vol] 102 ug/dL Normal 65-175 [facility] Comment on above: Performed By: #### L 3100.5450, L3410.9992, L500.3400, L3890.6202, L503.6030, L503.6550, L3100.0300 ####[facility] [address] [place], [address] IRON SATURATION 32.0 Normal 9-55 [facility] Comment on above: Performed By: #### L 3100.5450, L3410.9992, L500.3400, L3890.6202, L503.6030, L503.6550, L3100.0300 ####[facility] [address] [place], [address] TIBC 314 ug/dL Normal 250-450 [facility] Comment on above: Performed By: #### L 3100.5450, L3410.9992, L500.3400, L3890.6202, L503.6030, L503.6550, L3100.0300 ####[facility] [address] [place], [address] UIBC 212 ug/dL Low 228-428 [facility] Comment on above: Performed By: #### L 3100.5450, L3410.9992, L500.3400, L3890.6202, L503.6030, L503.6550, L3100.0300 ####[facility] [address] [place], [place], [id number] Laboratory - Chemistry and C hemistry - challengeOrdered By: Arabella Bustamante on 01-14-2025 AST [Catalytic activity/Vol] 51 U/L High <38 [facility] Liver Profileon 01-14-2025 Albumin [Mass/Vol] 4.6 g/dL Normal 3.5-5.0 [facility] Comment on above: Performed By: #### L 3100.5450, L3410.9992, L500.3400, L3890.6202, L503.6030, L503.6550, L3100.0300 ####[facility] [address] [place], [place], [id number] ALK PHOS 106 U/L Normal 40-129 [facility] Comment on above: Performed By: #### L 3100.5450, L3410.9992, L500.3400, L3890.6202, L503.6030, L503.6550, L3100.0300 ####[facility] [address] [place], [place], [id number] ALT [Catalytic activity/Vol] 146 U/L High <=46 [facility] Comment on above: Performed By: #### L 3100.5450, L3410.9992, L500.3400, L3890.6202, L503.6030, L503.6550, L3100.0300 ####[facility] [address] [place], [place], [id number] AST [Catalytic activity/Vol] 51 U/L High <=37 [facility] Comment on above: Performed By: #### L 3100.5450, L3410.9992, L500.3400, L3890.6202, L503.6030, L503.6550, L3100.0300 ####[facility] [address] [place], [address] Bilirubin [Mass/Vol] 0.39 mg/dL Normal 0.00-1.30 [facility] Comment on above: Performed By: #### L 3100.5450, L3410.9992, L500.3400, L3890.6202, L503.6030, L503.6550, L3100.0300 ####[facility] [address] [place], [address] Bilirubin.direct [Mass/Vol] 0.17 mg/dL Normal 0.00-0.30 [facility] Comment on above: Performed By: #### L 3100.5450, L3410.9992, L500.3400, L3890.6202, L503.6030, L503.6550, L3100.0300 ####[facility] [address] [place], [address] Globulin (S) [Mass/Vol] 2.5 g/dL Normal 2.2-4.2 [facility] Comment on above: Performed By: #### L 3100.5450, L3410.9992, L500.3400, L3890.6202, L503.6030, L503.6550, L3100.0300 ####[facility] [address] [place], [address] T PROT 7.1 g/dL Normal 5.9-8.4 [facility] Comment on above: Performed By: #### L 3100.5450, L3410.9992, L500.3400, L3890.6202, L503.6030, L503.6550, L3100.0300 ####[facility] [address] [place], [address] No Panel InformationOrdered By: Arabella Bustamante on 01-14-2025 Unsaturated Iron Binding Capacity 212 ug/dL Low 228-428 [facility] Serum DNA double strand anti body assay (units/volume)Ordered By: Arabella Bustamante on 01-14-2025 DNA double strand Ab Qn (S) [facility] Comment on above: Test not performed Serum Scl-70 antibody assay (units/volume)Ordered By: Arabella Bustamante on 01-14-2025 SCL-70 extractable nuclear Ab Qn (S) [facility] Comment on above: Test not performed Serum globulin measurementOr dered By: Arabella Bustamante on 01-14-2025 Globulin (S) [Mass/Vol] 2.5 g/dL 2.2-4.2 [facility] Serum hepatitis B virus surf pb antibody detectionOrdered By: Arabella Bustamante on 01-14-2025 HBV surface Ab Ql (S) Non-Reactive [facility] Comment on above: <8.5 mIU/mL: Non-Claudia ctive8.5<= x <11.5 mIU/mL: Indeterminate>=11.5 mIU/mL: Reactive Non Reactive: Inconsistent with immunity less than <10 mIU/mL Reactive: Consistent with immunity greater than or equal to 10 mIU/mL Serum or plasma alanine chu otransferase (ALT) measurementOrdered By: Arabella Bustamante on 01-14-2025 ALT [Catalytic activity/Vol] 146 U/L High <47 [facility] Serum or plasma albumin kristian urement (mass/volume)Ordered By: Arabella Bustamante on 01-14-2025 Albumin [Mass/Vol] 4.6 g/dL 3.5-5.0 [facility] Serum or plasma alkaline marck sphatase measurementOrdered By: Arabella Bustamante on 01-14-2025 ALP [Catalytic activity/Vol] 106 U/L 40-129 [facility] Serum or plasma ferritin ana rosa surement (mass/volume)Ordered By: Arabella Bustamante on 01-14-2025 Ferritin [Mass/Vol] 366 ng/mL 37-417 [facility] Serum or plasma iron saturat ion measurement (mass fraction)Ordered By: Arabella Bustamante on 01-14-2025 Iron saturation [Mass fraction] 32.0 % 9-55 [facility] Total proteinOrdered By: Zaynab bridgetcasey Bustamante on 01-14-2025 Protein [Mass/Vol] 7.1 g/dL 5.9-8.4 [facility] ABD Limited w/ Elastographyo n 12-29-2024 ABD Limited w/ Elastography [facility] Imaging Services [address] [place], [place] [address] ABD Limited w/ Elastography MR#: [id number] Acct: [id number] Name: MARISSA MALONE Rep #: [id number] : 1975 M 49 From: Alex Jarrett MD PCP: Dr. Carlita Borges MD Status: REG CLI Study: ABD Limited w/ Elastography Date of Exam: 12/08 11/30 Exam# [id number] Ordering Dr: Carlita Borges MD PROCEDURE: ABD LIMITED W/ ELASTOGRAPHY REASON FOR EXAM: FATTY LIVER COMPARISON: None. TECHNIQUE: Right upper quadrant abdominal ultrasound. Imaging shear wave elastography for non-invasive assessment of liver tissue stiffness. FINDINGS: Study is limited by bowel gas. Visualized portions of the pancreas appear within limits without evidence of pancreatic ductal dilation seen. The liver measures 16 cm in length and appears diffusely increased in echogenicity which can be seen with hepatic steatosis or other hepatocellular disease. No evidence of intrahepatic biliary ductal dilation seen. Hepatic color flow is present with flow in the portal vein appearing hepatopetal as expected. Gallbladder appears within limits without stones, wall thickening or pericholecystic free fluid. Wall measures 2 mm. Report of a negative sonographic Alan's sign. CBD 3 mm. The right kidney measures 9.5 x 5.4 x 5.2 cm with a cortical thickness of 1.2 cm. The right kidney appears within limits for echogenicity without hydronephrosis, stone or perinephric edema identified. No free fluid seen. Elastography: 10.2 kPa, 1.84 m/sec US/ABD Limited w/ Elastography IMPRESSION: The liver measures 16 cm in length and appears diffusely increased in echogenicity which can be seen with hepatic steatosis or other hepatocellular disease. Elastography 10.2 kPa, 1.84 m/sec corresponding to a Metavir staging F2-F3. Reading Location: [facility] CC: Dr. Carlita Borges MD Vice President Quality: Signed Normal [facility] Absolute lymphocyte countOrd ered By: Carlita Borges on 12-16-2024 Lymphocytes Auto (Unsp spec) [#/Vol] 1.96 10*3/uL 0.83-4.51 [facility] Absolute neutrophil countOrd ered By: Carlita Borges on 12-16-2024 Neutrophils (Bld) [#/Vol] 3.1 10*3/uL 2.0-7.7 [facility] Anion gap in Serum or Plasma Ordered By: Carlita Borges on 12-16-2024 Anion gap [Moles/Vol] 14 mmol/L 5-15 [facility] Automated lymphocyte count a s percentage of total leukocytesOrdered By: Carlita Borges on 12-16-2024 Lymphocytes/100 WBC Auto (Unsp spec) 34.6 % 19- [facility] BUN/creatinine ratioOrdered By: Carlita Borges on 12-16-2024 Urea nitrogen/Creatinine [Mass ratio] 14.9 mg/mg 10- [facility] Basophil percentageOrdered B y: Carlita Borges on 12-16-2024 Basophils/100 WBC (Bld) 1.1 % High 0-1 [facility] Bilirubin, totalOrdered By: Carlita Borges on 12-16-2024 Bilirubin [Mass/Vol] 0.47 mg/dL 0.00-1.30 [facility] CBC W/Diff, Automatedon 12-07 Absolute Lymph 1.96 X10 3/uL Normal 0.83-4.51 [facility] Comment on above: Performed By: #### L 100.0100, L500.4100, L501.6320, L500.4050 #### [facility] [address] [place] [address]. [place], [place], [id number] Absolute Neut 3.1 X10 3/uL Normal 2.0-7.7 [facility] Comment on above: Performed By: #### L 100.0100, L500.4100, L501.9520, L500.4050 #### [facility] [address] [place], [address] Basophils/100 WBC (Bld) 1.1 % High 0-1 [facility] Comment on above: Performed By: #### L 100.0100, L500.4100, L501.9520, L500.4050 #### [facility] [address] [place], [address] Eosinophils/100 WBC (Bld) 2.5 % Normal 0-5 [facility] Comment on above: Performed By: #### L 100.0100, L500.4100, L501.9520, L500.4050 #### [facility] [address] [place], [address] Erythrocyte distribution width (RBC) [Ratio] 11.6 % Normal 11.6-14.6 [facility] Comment on above: Performed By: #### L 100.0100, L500.4100, L501.9520, L500.4050 #### [facility] [address] [place], [address] Hematocrit (Bld) [Volume fraction] 48.4 % Normal 40-54 [facility] Comment on above: Performed By: #### L 100.0100, L500.4100, L501.9520, L500.4050 #### [facility] [address] [place], [address] Hemoglobin (Bld) [Mass/Vol] 16.4 g/dL Normal 13.0-16.5 [facility] Comment on above: Performed By: #### L 100.0100, L500.4100, L501.9520, L500.4050 #### [facility] [address] [place], [address] IG% 0.400 Normal 0.0-0.9 [facility] Comment on above: Result Comment: IG% - Immature Granulocytes (promyelocytes, myelocytes and metamyelocytes) > 1% indicates that a LEFT SHIFT is Present. Performed By: #### L 100.0100, L500.4100, L501.9520, L500.4050 #### [facility] [address] [place], [address] Lymphocytes/100 WBC (Bld) 34.6 % Normal 19-41 [facility] Comment on above: Performed By: #### L 100.0100, L500.4100, L501.9520, L500.4050 #### [facility] [address] [place], [address] MCH (RBC) [Entitic mass] 33.1 pg High 27.0-32.0 [facility] Comment on above: Performed By: #### L 100.0100, L500.4100, L501.9520, L500.4050 #### [facility] [address] [place], [address] MCHC (RBC) [Mass/Vol] 33.9 g/dL Normal 32-36 [facility] Comment on above: Performed By: #### L 100.0100, L500.4100, L501.9520, L500.4050 #### [facility] [address] [place], [address] MCV (RBC) [Entitic vol] 97.8 fL High 80-94 [facility] Comment on above: Performed By: #### L 100.0100, L500.4100, L501.9520, L500.4050 #### [facility] [address] [place], [address] Monocytes/100 WBC (Bld) 7.8 % Normal 0-10 [facility] Comment on above: Performed By: #### L 100.0100, L500.4100, L501.9520, L500.4050 #### [facility] [address] [place], [address] Neutrophils/100 WBC (Bld) 53.6 % Normal 47-70 [facility] Comment on above: Performed By: #### L 100.0100, L500.4100, L501.9520, L500.4050 #### [facility] [address] [place], [address] Nucleated RBC (Bld) [#/Vol] 0 10*3/uL Normal 0-5 [facility] Comment on above: Performed By: #### L 100.0100, L500.4100, L501.9520, L500.4050 #### [facility] [address] [place], [address] Platelet mean volume (Bld) [Entitic vol] 11.2 fL Normal 6.2-12.0 [facility] Comment on above: Performed By: #### L 100.0100, L500.4100, L501.9520, L500.4050 #### [facility] [address] [place], [address] Platelets (Bld) [#/Vol] 258 10*3/uL Normal 150-450 [facility] Comment on above: Performed By: #### L 100.0100, L500.4100, L501.9520, L500.4050 #### [facility] [address] [place], [address] RBC (Bld) [#/Vol] 4.95 10*6/uL Normal 4.6-6.2 [facility] Comment on above: Performed By: #### L 100.0100, L500.4100, L501.9520, L500.4050 #### [facility] [address] [place], [address] RDW SD 41.5 fl Normal 35.1-43.9 [facility] Comment on above: Performed By: #### L 100.0100, L500.4100, L501.9520, L500.4050 #### [facility] [address] [place], [address] WBC (Bld) [#/Vol] 5.7 10*3/uL Normal 4.4-11.0 [facility] Comment on above: Performed By: #### L 100.0100, L500.4100, L501.9520, L500.4050 #### [facility] [address], [address] Calculated very low density lipoprotein (VLDL) cholesterol measurementOrdered By: Carlita Borges on 12-16-2024 Calculated very low density lipoprotein (VLDL) cholesterol measurement 27 mg/dL [facility] VLDL Cholesterol 27 mg/dL [facility] Carbon dioxide, total [Moles /volume] in Central venous bloodOrdered By: Carlita Borges on 12-16-2024 CO2 [Moles/Vol] 23.3 mmol/L 21.0-32.0 [facility] Chloride assayOrdered By: Alverto ycsally Borges on 12-16-2024 Chloride [Moles/Vol] 103 mmol/L 98-108 [facility] Comprehensive Metabolic Prof ilon 12-16-2024 Albumin [Mass/Vol] 4.7 g/dL Normal 3.5-5.0 [facility] Comment on above: Performed By: #### L 100.0100, L500.4100, L501.9520, L500.4050 #### [facility] [address] [place], [address] Albumin/Globulin [Mass ratio] 1.9 {ratio} Normal 0.9-2.4 [facility] Comment on above: Performed By: #### L 100.0100, L500.4100, L501.9520, L500.4050 #### [facility] [address] [place], [address] ALK PHOS 103 U/L Normal 40-129 [facility] Comment on above: Performed By: #### L 100.0100, L500.4100, L501.9520, L500.4050 #### [facility] [address] [place], [address] ALT [Catalytic activity/Vol] 152 U/L High <=46 [facility] Comment on above: Performed By: #### L 100.0100, L500.4100, L501.9520, L500.4050 #### [facility] [address] [place], [address] AST [Catalytic activity/Vol] 56 U/L High <=37 [facility] Comment on above: Performed By: #### L 100.0100, L500.4100, L501.9520, L500.4050 #### [facility] [address] [place], [address] Bilirubin [Mass/Vol] 0.47 mg/dL Normal 0.00-1.30 [facility] Comment on above: Performed By: #### L 100.0100, L500.4100, L501.9520, L500.4050 #### [facility] [address] [place], [address] BUN/CRE 14.9 RATIO Normal 10-20 [facility] Comment on above: Performed By: #### L 100.0100, L500.4100, L501.9520, L500.4050 #### [facility] [address] [place], [address] Calcium [Mass/Vol] 9.5 mg/dL Normal 7.6-11.0 [facility] Comment on above: Performed By: #### L 100.0100, L500.4100, L501.9520, L500.4050 #### [facility] [address] [place], [address] Chloride [Moles/Vol] 103 mmol/L Normal 98-108 [facility] Comment on above: Performed By: #### L 100.0100, L500.4100, L501.9520, L500.4050 #### [facility] [address] [place], [address] CO2 [Moles/Vol] 23.3 mmol/L Normal 21.0-32.0 [facility] Comment on above: Performed By: #### L 100.0100, L500.4100, L501.9520, L500.4050 #### [facility] [address] [place], [address] Creatinine [Mass/Vol] 1.07 mg/dL Normal 0.70-1.20 [facility] Comment on above: Performed By: #### L 100.0100, L500.4100, L501.9520, L500.4050 #### [facility] [address] [place], [address] GAP 14 Normal 5-15 [facility] Comment on above: Performed By: #### L 100.0100, L500.4100, L501.9520, L500.4050 #### [facility] [address] [place], [address] GFR/1.73 sq M.predicted among non-blacks MDRD (S/P/Bld) [Vol rate/Area] 86 mL/min/{1.73_m2} Normal >60 [facility] Comment on above: Result Comment: mL/m in/1.73m2 CKD-EPI Creatinine Equation (2020) Performed By: #### L 100.0100, L500.4100, L501.9520, L500.4050 #### [facility] [address] [place], [address] Globulin (S) [Mass/Vol] 2.5 g/dL Normal 2.2-4.2 [facility] Comment on above: Performed By: #### L 100.0100, L500.4100, L501.9520, L500.4050 #### [facility] [address] [place], [address] Glucose [Mass/Vol] 99 mg/dL Normal 70-99 [facility] Comment on above: Performed By: #### L 100.0100, L500.4100, L501.9520, L500.4050 #### [facility] [address] [place], [address] Potassium [Moles/Vol] 4.2 mmol/L Normal 3.3-5.1 [facility] Comment on above: Performed By: #### L 100.0100, L500.4100, L501.9520, L500.4050 #### [facility] [address] [place], [address] Sodium [Moles/Vol] 140 mmol/L Normal 133-145 [facility] Comment on above: Performed By: #### L 100.0100, L500.4100, L501.9520, L500.4050 #### [facility] [address] [place], [address] T PROT 7.2 g/dL Normal 5.9-8.4 [facility] Comment on above: Performed By: #### L 100.0100, L500.4100, L501.9520, L500.4050 #### [facility] [address] [place], [address] Urea nitrogen [Mass/Vol] 16 mg/dL Normal 4-19 [facility] Comment on above: Performed By: #### L 100.0100, L500.4100, L501.9520, L500.4050 #### [facility] [place], [address] Eosinophil percentageOrdered By: Carlita Borges on 12-16-2024 Eosinophils/100 WBC (Bld) 2.5 % 0-5 [facility] Erythrocyte distribution wid th (RBC) [Ratio]Ordered By: Carlita Borges on 12-16-2024 Erythrocyte distribution width (RBC) [Entitic vol] 41.5 fL 35.1-43.9 [facility] Erythrocyte distribution wid th ratioOrdered By: Carlita Borges on 12-16-2024 Erythrocyte distribution width (RBC) [Ratio] 11.6 % 11.6-14.6 [facility] Erythrocyte distribution wid th standard deviationOrdered By: Carlita Borges on 12-16-2024 Erythrocyte distribution width (RBC) [Ratio] 41.5 fl 35.1-43.9 [facility] GFR/1.73 sq M.predicted marianna g non-blacks MDRD (S/P/Bld) [Vol rate/Area]Ordered By: Carlita Borges on 12-16-2024 Estimated GFR (MDRD) Non-Af Amer 86 >60 [facility] Comment on above: mL/min/1.73m2 CKD-EP I Creatinine Equation (2020) Glomerular filtration rate ( GFR) estimation/1.73 sq m using serum, plasma, or whole bOrdered By: Carlita Borges on 12-16-2024 GFR/1.73 sq M.predicted among non-blacks MDRD (S/P/Bld) [Vol rate/Area] 86 mL/min/{1.73_m2} >60 [facility] Comment on above: mL/min/1.73m2 CKD-EP I Creatinine Equation (2020) Hematocrit Auto (Bld) [Volum e fraction]Ordered By: Carlita Borges on 12-16-2024 Hematocrit (Bld) [Volume fraction] 48.4 % 40-54 [facility] Hemoglobin measurementOrdere d By: Carlita Borges on 12-16-2024 Hemoglobin (Bld) [Mass/Vol] 16.4 g/dL 13.0-16.5 [facility] Immature granulocytes/100 WB C Auto (Bld)Ordered By: Carlita Borges on 12-16-2024 Immature granulocytes/100 WBC (Bld) 0.400 % 0.0-0.9 [facility] Comment on above: IG% - Immature Granu locytes (promyelocytes, myelocytes and metamyelocytes) > 1% indicates that a LEFT SHIFT is Present. LDL calc ser/plasOrdered By: Carlita Borges on 12-16-2024 Cholesterol in LDL [Mass/Vol] 160 mg/dL [facility] Comment on above: Niplnmumth=930-350 m g/dL & Higher Argr=220 mg/dL or greater LDL Cholesterol, Calculated 160 mg/dL [facility] Comment on above: Yolbhlrend=622-047 m g/dL & Higher Bdpw=465 mg/dL or greater Laboratory - Chemistry and C hemistry - challengeOrdered By: Carlita Borges on 12-16-2024 AST [Catalytic activity/Vol] 56 U/L High <38 [facility] Lipid Profileon 12-16-2024 CHOL:HDL 5.64 Normal [facility] Comment on above: Performed By: #### L 100.0100, L500.4100, L501.9520, L500.4050 #### [facility] [address] [place], [place], [address] Cholesterol [Mass/Vol] 228 mg/dL High <=200 [facility] Comment on above: Result Comment: Chol esterol level, Desirable <200 mg/dL Borderline high cholesterol 200-239 mg/dL High cholesterol >=240 mg/dL Recommendations of the NCEP Adult Treatment Panel for the following risk-cutoff thresholds for the [place] population. Performed By: #### L 100.0100, L500.4100, L501.9520, L500.4050 #### [facility] [address] [place], [place], [address] Cholesterol in HDL [Mass/Vol] 40 mg/dL Normal [facility] Comment on above: Result Comment: Katrina onal Cholesterol Education Program (NCEP) guidelines: <40 mg/dL: Low HDL-cholesterol (major risk factor for CHD) >= 60 mg/dL: High HDL-cholesterol (negative risk factor for CHD) HDL-cholesterol is affected by a number of factors, e.g. smoking, exercise, hormones, sex and age. Performed By: #### L 100.0100, L500.4100, L501.9520, L500.4050 #### [facility] [address] [place], [address] Cholesterol in LDL [Mass/Vol] 160 mg/dL Normal [facility] Comment on above: Result Comment: Bord gkxgii=411-530 mg/dL Higher Xpkq=029 mg/dL or greater Performed By: #### L 100.0100, L500.4100, L501.9520, L500.4050 #### [facility] [address] [place], [address] Cholesterol in VLDL [Mass/Vol] 27 mg/dL Normal 5-40 [facility] Comment on above: Performed By: #### L 100.0100, L500.4100, L501.9520, L500.4050 #### [facility] [address] [place], [address] Triglyceride [Mass/Vol] 136 mg/dL Normal [facility] Comment on above: Result Comment: The drugs N-Acetylcysteine and Metamizole may falsely depress this assay. Normal range: <150 mg/dL Borderline High: 150-199 mg/dL High: 200-499 mg/dL Very High: >500 mg/dL Performed By: #### L 100.0100, L500.4100, L501.9520, L500.4050 #### [facility] [address] [place], [address] Lymphocytes Auto (Unsp spec) [#/Vol]Ordered By: Carlita Borges on 12-16-2024 Lymphocytes (Bld) [#/Vol] 1.96 10*3/uL 0.83-4.51 [facility] Lymphocytes/100 WBC Auto (Un sp spec)Ordered By: Carlita Borges on 12-16-2024 Lymphocytes/100 WBC (Bld) 34.6 % 19-41 [facility] MCV (mean corpuscular volume ) determinationOrdered By: Carlita Borges on 12-16-2024 MCV (RBC) [Entitic vol] 97.8 fL High 80-94 [facility] Mean corpuscular hemoglobin (MCH) determinationOrdered By: Carlita Borges on 12-16-2024 MCH (RBC) [Entitic mass] 33.1 pg High 27.0-32.0 [facility] Mean corpuscular hemoglobin concentration (MCHC) determinationOrdered By: Carlita Borges on 12-16-2024 MCHC (RBC) [Mass/Vol] 33.9 g/dL 32-36 [facility] Mean platelet volume determi nationOrdered By: Carlita Borges on 12-16-2024 Platelet mean volume (Bld) [Entitic vol] 11.2 fL 6.2-12.0 [facility] Monocyte percentageOrdered B y: Carlita Borges on 12-16-2024 Monocytes/100 WBC (Bld) 7.8 % 0-10 [facility] Neutrophil percentageOrdered By: Carlita Borges on 12-16-2024 Neutrophils/100 WBC (Bld) 53.6 % 47-70 [facility] Nucleated red blood cell per centageOrdered By: Carlita Borges on 12-16-2024 Nucleated RBC/100 WBC (Bld) [Ratio] 0 % 0-5 [facility] Platelet countOrdered By: Alverto Borges on 12-16-2024 Platelets (Bld) [#/Vol] 258 10*3/uL 150-450 [facility] Potassium (Unsp spec) [Mass/ Vol]Ordered By: Carlita Borges on 12-16-2024 Potassium [Moles/Vol] 4.2 mmol/L 3.3-5.1 [facility] Potassium measurement (mass/ volume)Ordered By: Carlita Borges on 12-16-2024 Potassium (Unsp spec) [Mass/Vol] 4.2 mmol/L 3.3-5.1 [facility] RBC Auto (Bld) [#/Vol]Ordere d By: Carlita Borges on 12-16-2024 RBC (Bld) [#/Vol] 4.95 10*6/uL 4.6-6.2 [facility] Screening total cholesterol/ high density lipoprotein (HDL) cholesterol ratioOrdered By: Carlita Borges on 12-16-2024 Cholesterol.total/Choles terol in HDL [Mass ratio] 5.64 {ratio} [facility] Serum creatinine measurement (mass/volume)Ordered By: Carlita Borges on 12-16-2024 Creatinine [Mass/Vol] 1.07 mg/dL 0.70-1.20 [facility] Serum globulin measurementOr dered By: Carlita Borges on 12-16-2024 Globulin (S) [Mass/Vol] 2.5 g/dL 2.2-4.2 [facility] Serum glucose measurement (m ass/volume)Ordered By: Carlita Borges on 12-16-2024 Glucose [Mass/Vol] 99 mg/dL 70-99 [facility] Serum or plasma alanine chu otransferase (ALT) measurementOrdered By: Carlita Borges on 12-16-2024 ALT [Catalytic activity/Vol] 152 U/L High <47 [facility] Serum or plasma albumin kristian urement (mass/volume)Ordered By: Carlita Borges on 12-16-2024 Albumin [Mass/Vol] 4.7 g/dL 3.5-5.0 [facility] Serum or plasma albumin/glob ulin mass ratioOrdered By: Carlita Borges on 12-16-2024 Albumin/Globulin [Mass ratio] 1.9 {ratio} 0.9-2.4 [facility] Serum or plasma alkaline marck sphatase measurementOrdered By: Carlita Borges on 12-16-2024 ALP [Catalytic activity/Vol] 103 U/L 40-129 [facility] Serum or plasma calcium kristian urement (mass/volume)Ordered By: Carlita Borges on 12-16-2024 Calcium [Mass/Vol] 9.5 mg/dL 7.6-11.0 [facility] Serum or plasma cholesterol in HDL measurement (mass/volume)Ordered By: Carlita Borges on 12-16-2024 Cholesterol in HDL [Mass/Vol] 40 mg/dL >40 [facility] Comment on above: National Cholesterol Education Program (NCEP) guidelines:<40 mg/dL: Low HDL-cholesterol (major risk factor for CHD)>= 60 mg/dL: High HDL-cholesterol (negative risk factor for CHD)HDL-cholesterol is affected by a number of factors, e.g. smoking, exercise, hormones, sex and age. Serum or plasma cholesterol measurement (mass/volume)Ordered By: Carlita Borges on 12-16-2024 Cholesterol [Mass/Vol] 228 mg/dL High <201 [facility] Comment on above: Cholesterol level, D esirable <200 mg/dLBorderline high cholesterol 200-239 mg/dLHigh cholesterol >=240 mg/dLRecommendations of the NCEP Adult Treatment Panel for the following risk-cutoff thresholds for the [place] population. Serum or plasma urea nitroge n measurement (mass/volume)Ordered By: Carlita Borges on 12-16-2024 Urea nitrogen [Mass/Vol] 16 mg/dL 4-19 [facility] Sodium levelOrdered By: Gary Borges on 12-16-2024 Sodium [Moles/Vol] 140 mmol/L 133-145 [facility] TSH DL <= 0.005 mIU/L QnOrde red By: Carlita Borges on 12-16-2024 Thyroid Stimulating Hormone (TSH) 5.480 uIU/mL High 0.300-4.200 [facility] TSH Qn 5.480 uIU/mL High 0.300-4.200 [facility] Thyroid Stim Hormone (TSH)on 12-16-2024 TSH 5.480 uIU/mL High 0.300-4.200 [facility] Comment on above: Performed By: #### L 100.0100, L500.4100, L501.9520, L500.4050 #### [facility], [address] Total proteinOrdered By: Bret Borges on 12-16-2024 Protein [Mass/Vol] 7.2 g/dL 5.9-8.4 [facility] Triglycerides measurementOrd ered By: Carlita Borges on 12-16-2024 Triglyceride [Mass/Vol] 136 mg/dL <199 [facility] Comment on above: The drugs N-Acetylcy steine and Metamizole may falsely depress this assay. Normal range: <150 mg/dLBorderline High: 150-199 mg/dLHigh: 200-499 mg/dLVery High: >500 mg/dL White blood cell (WBC) count Ordered By: Carlita Borges on 12-16-2024 WBC (Bld) [#/Vol] 5.7 10*3/uL 4.4-11.0 [facility] Internal Medicine Office Vis itoconnie 12-15-2024 Internal Medicine Office Visit [facility] [place] [address] [place] [address] OFFICE VISIT Date of Service: 12/16/24 MR#: [id number] Acct: [id number] Name: MARISSA MALONE Rep #: [id number] : 1975 Provider: Dr. Carlita weber MD Age/Sex: 49/M Location: [facility] Status: Signed Intake Vital Signs 09/23/23 12:24 12/16/24 09:15 Height 6 ft 6 ft Weight: 222 lb BMI 30.1 BP 112/74 Blood Pressure Location Lt brachial Position Sitting Respiration 16 Pulse 65 Pulse Source Monitor Temp 97.4 F L Temp Source Temporal Pulse Oximetry (%) 98 Oxygen Delivery Method room air Intake Visit Reasons: CRAYON SAWYER. 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 Does not see a counselor. Did see a DrChirag through [facility] for Fatty liver. Is fasting for labs. [facility] Medical History (Updated 12/16/24 @ 10:[address] Carlita Borges MD) Hay fever Hypothyroid Fatty liver Anxiety Surgical History (Updated 12/15/24 @ 16:[address] Carlita Borges MD) Hx of tonsillectomy History of excision of lesion Family History (Updated 12/16/24 @ 09:[address] Carlita Borges MD) Father Leukemia Polycythemia Mother Thyroid disorder Grandmother Cancer Grandfather Heart disease Myocardial infarction Social History (Updated 12/16/24 @ 09:[address] Carlita Borges MD) adopted: No household members: spouse and children number of children: 3 current occupational status: employed current occupation: [employer] pets and animals: Yes (2) pets and animals: dog(s) sexually active: Yes Smoking Status: Current every day smoker tobacco type: cigarettes Tobacco: How many years used: 20 second hand exposure: No quit status: considering quitting alcohol intake: current alcohol intake frequency: a few times a month Alcohol type: beer substance use type: does not use caffeine: Yes (3-4) Type: coffee what type of physical activity do you participate in: walking frequency: daily seatbelt use: always do you feel safe at home: Yes Questionnaire [facility]-9 BMS Over the last 2 weeks, how often have you been bothered by any of the following problems? 1. Little interest or pleasure in doing things: not at all 2. Feeling down, depressed, or hopeless: not at all 3. Trouble falling or staying asleep, or sleeping too much: several days 4. Feeling tired or having little energy: not at all 5. Poor appetite or overeating: not at all 6. Feeling bad about yourself - or that you are a failure or have let yourself and your family down: not at all 7. Trouble concentrating on things, such as reading the newspaper or watching television: not at all 8. Moving or speaking so slowly that other people could have noticed? - Or the opposite - being so fidgety or restless that you have been moving around a lot more than usual: not at all 9. Thoughts that you would be better off or of hurting yourself in some way: not at all Total score: 1 If you checked off any problems, how difficult have these problems made it for you to do your work, take care of things at home, or get along with other people?: somewhat difficult Source: Developed by Drs. Alex Soto, Violetta Duran, Sha Verdin and colleagues, with an educational radha from [employer]. PAUL-7 BMS PAUL-7 Feeling nervous, anxious, or on edge: 0 = Not at all Not being able to stop or control worryin = Not at all Worrying too much about different things: 0 = Not at all Trouble relaxin = Not at all Being so restless that it is hard to sit still: 0 = Not at all Becoming easily annoyed or irritable: 1 = Several days Feeling afraid as if something awful might happen: 0 = Not at all Total PAUL-7 score (0-4 normal; 5-9 mild; 10-14 moderate; 15-21 severe): 1 Source: Developed by Drs. Alex Soto, Violetta Duran, Sha Verdin and colleagues, with an educational radha from [employer]. HPI HPI Details: MARISSA MALONE, is a 49 M who presents to the office today for to establish care. He was seeing Dr. Gutierrez and last saw them about 4 months ago. He is due for some routine blood work and is up to date on his screening. He doesn't want any further COVID vaccines. He doesn't smoke and does need refills. He reports he is eating healthy and staying active. The patient has been on thyroid medications for about 5 years. He takes his synthroid first thing in the morning. His last TSH in April was in normal range. The patient has been on zoloft for a couple of years. He w (more content not included)... Normal [facility] 11-25-2024 [facility] Telephone (FAMPWS) FAISALMARISSA ([id number]) 1975 M Date Time Provider Department 11/25/24 HOLLEY HUSSEIN During your visit today, we recorded the following information about you: Joanna Luz LPN 11/25/2024 8:20 AM Signed Patient Lois calling her is transferring care to [place] mid December, was a Mejia Gutierrez patient and only has few Levothyroxine pills left. She is asking if he could have rx [facility] for 30 tablets if possible? Pending rx if wanted. Please advise The patient has been identified by name and date of : Yes Caregiver verified no other encounters exist for this prescription request: Yes Caregiver confirmed with patient/requestor that no other refills are due, in the near future, with this provider at this time: Yes The last office visit in the department: 11/06/2023 Matt Does the patient have a future office visit with this provider/department: No plans to transfer to [place] Requested Prescriptions Pending Prescriptions Disp Refills levothyroxine (LEVOXYL) 100 mcg tablet 30 tablet 0 Sig: Take 1 tablet by mouth once daily. Take on empty stomach. For Thyroid. Joanna Luz LPN November 25, 2024 8:18 AM Holley Hussein APRN.[employer] 11/25/2024 8:42 AM Signed Will fill for 30 days only. Outside 1 year window for appt. But has had TSH. Beto Redding LPN 11/25/2024 11:17 AM Signed Notified and PCP updated on chart. Allergies As of Date: 11/25/2024 Noted Allergy Reaction BETA BLOCKERS (BETA-BLOCKERS (BET*05/01/2017 15 - Contraindication-Med ical Sanchez* Comments: Avoid use of beta blockers while patient is on subcutaneous allergy immunotherapy CAT DANDER 11/06/2023 5 - Intolerance DOG DANDER 11/06/2023 5 - Intolerance GRASS POLLEN 11/06/2023 5 - Intolerance Comments: Sneezing, watery eye, nose PB INHIBITORS 05/01/2017 15 - Contraindication-Med ical Sanchez* Comments: Avoid use of PB inhibitors while patient is on subcutaneous allergy immunotherapy Date Reviewed: 11/06/2023 Reviewed by: Holley Bucio LPN - Fully Assessed Reason for Visit: enough levothyroxine rx until his appt [Other] Visit Diagnosis:Hypothyroi dism, acquired [E03.9] Order(s):levothyroxi ne (LEVOXYL) 100 mcg tabletTake 1 tablet by mouth once daily. Take on empty stomach. For Thyroid.Disp: 30 tabletRfl: 0 Prescriptions as of 11/25/2024 - levothyroxine (LEVOXYL) 100 mcg tablet Take 1 tablet by mouth once daily. Take on empty stomach. For Thyroid. - sertraline (ZOLOFT) 50 mg tablet Take 1 tablet by mouth once daily. Problem List As Of Date 11/25/2024 Noted Resolved Mucocele of lower lip [K13.0] 05/20/2016 08/04/2018 Seasonal allergic rhinitis due to pollen [J30.1]04/15/2017 Chronic allergic rhinitis due to fungal spores *04/15/2017 04/15/2017 Acute atopic conjunctivitis of both eyes [H10.1*04/15/2017 08/04/2018 Elevated blood pressure reading without diagnos*07/21/2018 Generalized anxiety disorder with panic attacks*10/06/2018 Shift work sleep disorder [G47.26] 02/18/2019 Chronic allergic rhinitis [J30.9] 05/18/2021 Fatty liver [K76.0] 04/26/2022 Elevated liver enzymes [R74.8] 04/26/2022 Hypothyroidism, acquired [E03.9] 04/26/2022 Prescriptions ordered this encounter Disp Refills Start End LEVOTHYROXINE 100 MCG TABLET 30 t* 0 11/25/2024 Route: ORAL Sig: Take 1 tablet by mouth once daily. Take on empty stomach. For Thyroid. Medications Discontinued During This Encounter Prescriptions - levothyroxine (LEVOXYL) 100 mcg tablet (Discontinued) Take 1 tablet by mouth once daily. Take on empty stomach. For Thyroid. Encounter Status:Closed by BETO REDDING on 11/25/24 Normal [facility] Comprehensive metabolic 2000 panelon 05-03-2024 Albumin [Mass/Vol] 5.0 g/dL High 3.9-4.9 [facility] Comment on above: Order Comment: Speci men Type: BLOOD SPECIMEN Ordering Facility: [facility] Address: [address] [id number] Performed By: #### 2 4323-8, 3016-3 #### [facility] CLIA [id number] [address] [place], [place] [id number] [place] ALP [Catalytic activity/Vol] 107 U/L Normal 38-113 [facility] Comment on above: Order Comment: Speci men Type: BLOOD SPECIMEN Ordering Facility: [facility] Address: [address] [id number] Performed By: #### 2 4323-8, 6-3 #### [facility] CLIA [id number] [address] [place] [address] [place] ALT [Catalytic activity/Vol] 131 U/L High 10-54 [facility] Comment on above: Order Comment: Speci men Type: BLOOD SPECIMEN Ordering Facility: [facility] Address: [address] [id number] Performed By: #### 2 4323-8, 6-3 #### [facility] CLIA [id number] [address] [place] [address] [place] Anion gap [Moles/Vol] 9 mmol/L Normal 8-15 [facility] Comment on above: Order Comment: Speci men Type: BLOOD SPECIMEN Ordering Facility: [facility] Address: [address] [id number] Performed By: #### 2 4323-8, 3016-3 #### [facility] CLIA [id number] [address] [place], [place] [id number] [place] AST [Catalytic activity/Vol] 55 U/L High 14-40 [facility] Comment on above: Order Comment: Speci men Type: BLOOD SPECIMEN Ordering Facility: [facility] Address: [address] [id number] Performed By: #### 2 4323-8, 3016-3 #### [facility] CLIA [id number] [address] [place], [place] [id number] [place] Bilirubin [Mass/Vol] 0.8 mg/dL Normal 0.2-1.3 [facility] Comment on above: Order Comment: Speci men Type: BLOOD SPECIMEN Ordering Facility: [facility] Address: [address] [place] [address] Performed By: #### 2 4323-8, 3 #### [facility] CLIA [id number] [address] [place], [place] [id number] [place] Calcium [Mass/Vol] 10.0 mg/dL Normal 8.5-10.2 [facility] Comment on above: Order Comment: Speci men Type: BLOOD SPECIMEN Ordering Facility: [facility] Address: [address] [place] [address] Performed By: #### 2 4323-8, 3 #### [facility] CLIA [id number] [address] [place], [place] [phone] [place] Chloride [Moles/Vol] 103 mmol/L Normal 98-107 [facility] Comment on above: Order Comment: Speci men Type: BLOOD SPECIMEN Ordering Facility: [facility] Address: [address] [place] [address] Performed By: #### 2 4323-8, 3 #### [facility] CLIA [id number] [address] [place], [place] [id number] [place] CO2 [Moles/Vol] 27 mmol/L Normal 22-30 [facility] Comment on above: Order Comment: Speci men Type: BLOOD SPECIMEN Ordering Facility: [facility] Address: [address] [address] [place] [address] Performed By: #### 2 4323-8, 3015-3 #### [facility] CLIA [id number] [address] [place], [place] [id number] [place] Creatinine [Mass/Vol] 1.19 mg/dL Normal 0.73-1.22 [facility] Comment on above: Order Comment: Levy royal Type: BLOOD SPECIMEN Ordering Facility: [facility] Address: [address] [place] [address] Performed By: #### 2 4323-8, 3016-3 #### [facility] CLIA [id number] [address] [place] [address] [place] Creatinine and Glomerular filtration rate.predicted panel (S/P/Bld) 76 mL/min/1.73m??? Normal >=60 [facility] Comment on above: Order Comment: Levy royal Type: BLOOD SPECIMEN Ordering Facility: [facility] Address: [address] [place] [address] Result Comment: Liz mated Glomerular Filtration Rate (eGFR) is calculated using the 2020 CKD-EPI creatinine equation. This equation utilizes serum creatinine, sex, and age as parameters. The creatinine assay has traceable calibration to isotope dilution-mass spectrometry. Refer to KDIGO guidelines for clinical interpretation. In patients with unstable renal function, e.g. those with acute kidney injury, the eGFR may not accurately reflect actual GFR. Performed By: #### 2 4323-8, 3016-3 #### [facility] CLIA [id number] [address] [place] [address] [place] Glucose [Mass/Vol] 112 mg/dL High 74-99 [facility] Comment on above: Order Comment: Levy royal Type: BLOOD SPECIMEN Ordering Facility: [facility] Address: [address] [place] [address] Result Comment: The [place] [employer] (ADA) provides guidance for cutoff values for fasting glucose and random glucose. The ADA defines fasting as no caloric intake for at least 8 hours. Fasting plasma glucose results between 100 to 125 mg/dL indicate increased risk for diabetes (prediabetes). Fasting plasma glucose results greater than or equal to 126 mg/dL meet the criteria for diagnosis of diabetes. In the absence of unequivocal hyperglycemia, results should be confirmed by repeat testing. In a patient with classic symptoms of hyperglycemia or hyperglycemic crisis, random plasma glucose results greater than or equal to 200 mg/dL meet the criteria for diagnosis of diabetes. Reference: Standards of Medical Care in Diabetes 2016, [place] [employer]. Diabetes Care. 2016.39(Suppl 1). Performed By: #### 2 4323-8, 6-3 #### [facility] CLIA [id number] [address] [place] [id number] [place] Potassium [Moles/Vol] 5.7 mmol/L High 3.7-5.1 [facility] Comment on above: Order Comment: Speci men Type: BLOOD SPECIMEN Ordering Facility: [facility] Address: [address] [place] [address] Performed By: #### 2 4323-8, 3 #### [facility] CLIA [id number] [address] [place] [address] [place] Protein [Mass/Vol] 7.0 g/dL Normal 6.3-8.0 [facility] Comment on above: Order Comment: Speci men Type: BLOOD SPECIMEN Ordering Facility: [facility] Address: [address] [place] [address] Performed By: #### 2 4323-8, 3 #### [facility] CLIA [id number] [address] [place] [address] [place] Sodium [Moles/Vol] 139 mmol/L Normal 136-144 [facility] Comment on above: Order Comment: Speci men Type: BLOOD SPECIMEN Ordering Facility: [facility] Address: [address] [place], [place] [id number] Performed By: #### 2 4323-8, 3015-3 #### [facility] CLIA [id number] [address] [place] [address] [place] Urea nitrogen [Mass/Vol] 15 mg/dL Normal 9-24 [facility] Comment on above: Order Comment: Speci men Type: BLOOD SPECIMEN Ordering Facility: [facility] Address: [address] [place] [address] Performed By: #### 2 4323-8, 3016-3 #### [facility] IA [id number] [address] [place] [address] [place] TSH SerPl-aCncon 05-03-2024 TSH Qn 1.570 m[IU]/L Normal 0.270-4.200 [facility] Comment on above: Order Comment: Speci men Type: BLOOD SPECIMEN Ordering Facility: [facility] Address: [address] [place] [address] Performed By: #### 2 4323-8, 3016-3 #### [facility] [place] [id number] [address] [place] [address] [place] CNPNon 12-18-2023 CNPN Telephone (GSTNOR) MARISSA MALONE ([id number]) 1975 M Date Time Provider Department 12/18/23 LUCIANA MCKEE GSTNOR During your visit today, we recorded the following information about you: Nolvia Fletcher 12/18/2023 3:10 PM Signed Please review 12/15 fibroscan results on your patient. Luciana Barrios PA-C 12/18/2023 3:17 PM Signed Please let patient know that his Fibroscan is showing S3 ( severe fatty liver) and F1 ( mild fibrosis ). Recommend healthy diet, exercise, weight loss to help with fatty liver changes Christin Aguilar MA 12/18/2023 3:23 PM Signed Pt notified MELANIA Lopez Susan 05/04/2024 10:35 AM Signed Called patient to schedule a office visit. LVM for pt to come in for cancellation today (05/04) at 3:30. Waiting for return call. Allergies As of Date: 12/18/2023 Noted Allergy Reaction BETA BLOCKERS (BETA-BLOCKERS (BET*05/01/2017 15 - Contraindication-Med ical Sanchez* Comments: Avoid use of beta blockers while patient is on subcutaneous allergy immunotherapy CAT DANDER 11/06/2023 5 - Intolerance DOG DANDER 11/06/2023 5 - Intolerance GRASS POLLEN 11/06/2023 5 - Intolerance Comments: Sneezing, watery eye, nose PB INHIBITORS 05/01/2017 15 - Contraindication-Med ical Sanchez* Comments: Avoid use of PB inhibitors while patient is on subcutaneous allergy immunotherapy Date Reviewed: 11/06/2023 Reviewed by: Holley Bucio LPN - Fully Assessed Reason for Visit: Results [95] Prescriptions as of 05/04/2024 - levothyroxine (LEVOXYL) 100 mcg tablet Take 1 tablet by mouth once daily. Take on empty stomach. For Thyroid. - sertraline (ZOLOFT) 50 mg tablet Take 1 tablet by mouth once daily. Problem List As Of Date 12/18/2023 Noted Resolved Mucocele of lower lip [K13.0] 05/20/2016 08/04/2018 Seasonal allergic rhinitis due to pollen [J30.1]04/15/2017 Chronic allergic rhinitis due to fungal spores *04/15/2017 04/15/2017 Acute atopic conjunctivitis of both eyes [H10.1*04/15/2017 08/04/2018 Elevated blood pressure reading without diagnos*07/21/2018 Generalized anxiety disorder with panic attacks*10/06/2018 Shift work sleep disorder [G47.26] 02/18/2019 Chronic allergic rhinitis [J30.9] 05/18/2021 Fatty liver [K76.0] 04/26/2022 Elevated liver enzymes [R74.8] 04/26/2022 Hypothyroidism, acquired [E03.9] 04/26/2022 Encounter Status:Closed by LUCIANA MCKEE on 12/18/23 Normal [facility] Progress Noteon 12-16-2023 Progress Note [facility] Patient: Faisal Murdock : 1975 Height: Ht Readings from Last 1 Encounters: 12/16/23 6' (1.829 m) Weight: Wt Readings from Last 1 Encounters: 12/16/23 210 lb (95.3 kg) BMI: BMI Readings from Last 1 Encounters: 12/16/23 28.48 kg/m? Procedure: Patient referred by Luciana Mckee PA-C for open-access FibroScan study for diagnosis of Fatty Liver Patient identified x 2 and verified the following: age 18 or older-yes Fasting >3 hours-yes FibroScan study completed using Medium probe and 12 consecutive valid measurements obtained. Patient tolerated procedure well. Results: Median=7.0 kPa IQR/med=13 % EMA=719 dB/m Arabella Tenorio LPN, 12/16/2023 1:26 PM Diagnosis/Problems: Diagnosis Plan 1. Fatty liver Fibroscan Provider Impression: Normal [address] 10-02-2023 36 Marissa is scheduled for 12/13/23 [facility] 36 Name of Caller: Marissa Contact Reason for Appointment: Marissa returned call to schedule Added insurance to chart, no answer Teams - please return call to schedule. Office Name: ID Medication Refills need, if any: N/A Medication Name: N/A [address] 09-30-2023 36 Left msg on machine 2nd attempt to contact pt to schedule fibroscan. [address] 09-11-2023 36 Tried to call Marissa to schedule a fibroscan left a msg on his voicemail to call our office back to schedule. Normal [facility] CBC W Auto Differential pane l (Bld)on 05-05-2023 Basophils (Bld) [#/Vol] 0.05 10*3/uL <0.11 k/uL [facility] Basophils/100 WBC (Bld) 0.9 % [facility] Differential cell count method Nom (Bld) Auto [facility] Eosinophils (Bld) [#/Vol] 0.14 10*3/uL <0.46 k/uL [facility] Eosinophils/100 WBC (Bld) 2.6 % [facility] Erythrocyte distribution width (RBC) [Ratio] 11.9 % 11.5 - 15.0 % [facility] Hematocrit (Bld) [Volume fraction] 48.6 % 39.0 - 51.0 % [facility] Hemoglobin (Bld) [Mass/Vol] 15.9 g/dL 13.0 - 17.0 g/dL [facility] Immature granulocytes (Bld) [#/Vol] <0.10 k/uL [facility] Immature granulocytes/100 WBC (Bld) 0.4 % [facility] Lymphocytes (Bld) [#/Vol] 1.83 10*3/uL 1.00 - 4.00 k/uL [facility] Lymphocytes/100 WBC (Bld) 33.6 % [facility] MCH (RBC) [Entitic mass] 33.0 pg 26. 0 - 34.[address] [facility] MCHC (RBC) [Mass/Vol] 32.7 g/dL 30.5 - 36.0 g/dL [facility] MCV (RBC) [Entitic vol] 100.8 fL High 80.0 - 100.[address] [facility] Monocytes (Bld) [#/Vol] 0.53 10*3/uL <0.87 k/uL [facility] Monocytes/100 WBC (Bld) 9.7 % [facility] Neutrophils (Bld) [#/Vol] 2.87 10*3/uL 1.45 - 7.50 k/uL [facility] Neutrophils/100 WBC (Bld) 52.8 % [facility] Nucleated RBC (Bld) [#/Vol] <0.01 k/uL [facility] Nucleated RBC/100 WBC (Bld) [Ratio] 0.0 /[address] [facility] Platelet mean volume (Bld) [Entitic vol] 11.4 fL 9.0 - 12.[address] [facility] Platelets (Bld) [#/Vol] 249 10*3/uL 150 - 400 k/uL [facility] RBC (Bld) [#/Vol] 4.82 10*6/uL 4.20 - 6.0 0 m/uL [facility] WBC (Bld) [#/Vol] 5.44 10*3/uL 3.70 - 11. 00 k/uL [facility] Comprehensive metabolic 2000 panelon 05-05-2023 Albumin [Mass/Vol] 5.0 g/dL High 3.9 - 4.9 g/dL [facility] ALP [Catalytic activity/Vol] 103 U/L 38 - 113 U/L [facility] ALT [Catalytic activity/Vol] 65 U/L High 10 - 54 U/L [facility] Anion gap [Moles/Vol] 13 mmol/L 9 - 18 mmol/L [facility] AST [Catalytic activity/Vol] 32 U/L 14 - 40 U/L [facility] Bilirubin [Mass/Vol] 0.3 mg/dL 0.2 - 1 .3 mg/dL [facility] Calcium [Mass/Vol] 9.7 mg/dL 8.5 - 10. 2 mg/dL [facility] Chloride [Moles/Vol] 107 mmol/L High 97 - 10 5 mmol/L [facility] CO2 [Moles/Vol] 23 mmol/L 22 - 30 mmol/L [facility] Creatinine [Mass/Vol] 0.98 mg/dL 0.73 - 1.22 mg/dL [facility] Estimated Glomerular Filtration Rate 97 mL/min/1.73m >=60 mL/min/1.73m [facility] Glucose [Mass/Vol] 100 mg/dL High 74 - 99 mg/dL [facility] Potassium [Moles/Vol] 4.2 mmol/L 3.7 - 5.1 mmol/L [facility] Protein [Mass/Vol] 7.2 g/dL 6.3 - 8.0 g/dL [facility] Sodium [Moles/Vol] 143 mmol/L 136 - 144 mmol/L [facility] Urea nitrogen [Mass/Vol] 15 mg/dL 9 - 24 mg/d L [facility] TSH BLDon 05-05-2023 TSH Qn 1.590 m[IU]/L 0.270 - 4.200 mIU/L [facility] CBC panel Auto (Bld)on 11-04 Erythrocyte distribution width (RBC) [Ratio] 11.7 % 11.5 - 15.0 % [facility] Hematocrit (Bld) [Volume fraction] 45.3 % 39.0 - 51.0 % [facility] Hemoglobin (Bld) [Mass/Vol] 15.1 g/dL 13.0 - 17.0 g/dL [facility] MCH (RBC) [Entitic mass] 33.1 pg 26. 0 - 34.[address] [facility] MCHC (RBC) [Mass/Vol] 33.3 g/dL 30.5 - 36.0 g/dL [facility] MCV (RBC) [Entitic vol] 99.3 fL 80.0 - 100.[address] [facility] Nucleated RBC (Bld) [#/Vol] <0.01 k/uL [facility] Platelet mean volume (Bld) [Entitic vol] 11.3 fL 9.0 - 12.[address] [facility] Platelets (Bld) [#/Vol] 272 10*3/uL 150 - 400 k/uL [facility] RBC (Bld) [#/Vol] 4.56 10*6/uL 4.20 - 6.0 0 m/uL [facility] WBC (Bld) [#/Vol] 6.99 10*3/uL 3.70 - 11. 00 k/uL [facility] DDI VIBRATION CONTROLLED TRA NSIENT ELASTOGRAPHY (VCTE) [facility] Vital Signs Date Time Vital Sign Value Performing Clinician Faci lity 06-16-2025 09:41-0400 Body height 182.[address] Carlita Borges MD Work Phone: [facility] 06-16-2025 09:41-0400 Body mass index (BMI) [Ratio] 29.9 kg/m2 Dr. Carlita Borges MD Work Phone: [facility] 06-16-2025 09:41-0400 Body temperature 97 [degF] Dr. Carlita Borges MD Work Phone: [facility] 06-16-2025 09:41-0400 Body weight 100.[address] Carlita Borges MD Work Phone: [facility] 06-16-2025 09:41-0400 Diastolic blood pressure 84 mm[Hg] Dr. Carlita Borges MD Work Phone: [facility] 06-16-2025 09:41-0400 Heart rate 54 /min Dr. Carlita Borges MD Work Phone: [facility] 06-16-2025 09:41-0400 Respiratory rate 16 /min Dr. Carlita Borges MD Work Phone: [facility] 06-16-2025 09:41-0400 SaO2% (BldA) [Mass fraction] 99 % Dr. Carlita Borges MD Work Phone: [facility] 06-16-2025 09:41-0400 Systolic blood pressure 128 mm[Hg] Dr. Carlita Borges MD Work Phone: [facility] 02-24-2025 10:30-0400 Body height 182.[address] Carlita Borges MD Work Phone: [facility] 02-24-2025 10:30-0400 Body mass index (BMI) [Ratio] 30.1 kg/m2 Dr. Carlita Borges MD Work Phone: [facility] 02-24-2025 10:30-0400 Body temperature 96.1 [degF] Dr. Carlita Borges MD Work Phone: [facility] 02-24-2025 10:30-0400 Body weight 100.[address] Carlita Borges MD Work Phone: [facility] 02-24-2025 10:30-0400 Heart rate 61 /min Dr. Carlita Borges MD Work Phone: [facility] 02-24-2025 10:30-0400 Respiratory rate 18 /min Dr. Carlita Borges MD Work Phone: [facility] 02-24-2025 10:30-0400 SaO2% (BldA) [Mass fraction] 95 % Dr. Carlita Borges MD Work Phone: [facility] 01-14-2025 09:42-0400 Body weight 99.[address] Carlita Borges MD Work Phone: [facility] 01-14-2025 09:42-0400 Diastolic blood pressure 92 mm[Hg] Dr. Carlita Borges MD Work Phone: [facility] 01-14-2025 09:42-0400 Heart rate 50 /min Dr. Carlita Borges MD Work Phone: [facility] 01-14-2025 09:42-0400 Respiratory rate 17 /min Dr. Carlita Borges MD Work Phone: [facility] 01-14-2025 09:42-0400 SaO2% (BldA) [Mass fraction] 96 % Dr. Carlita Borges MD Work Phone: [facility] 01-14-2025 09:42-0400 Systolic blood pressure 134 mm[Hg] Dr. Carlita Borges MD Work Phone: [facility] 12-16-2024 09:15-0400 Body height 182.[address] Carlita Borges MD Work Phone: [facility] 12-16-2024 09:15-0400 Body mass index (BMI) [Ratio] 30.1 kg/m2 Dr. Carlita Borges MD Work Phone: [facility] 12-16-2024 09:15-0400 Body temperature 97.4 [degF] Dr. Carlita Borges MD Work Phone: [facility] 12-16-2024 09:15-0400 Body weight 100.[address] Carlita Borges MD Work Phone: [facility] 12-16-2024 09:15-0400 Diastolic blood pressure 74 mm[Hg] Dr. Carlita Borges MD Work Phone: [facility] 12-16-2024 09:15-0400 Heart rate 65 /min Dr. Carlita Borges MD Work Phone: [facility] 12-16-2024 09:15-0400 Respiratory rate 16 /min Dr. Carlita Borges MD Work Phone: [facility] 12-16-2024 09:15-0400 SaO2% (BldA) [Mass fraction] 98 % Dr. Carlita Borges MD Work Phone: [facility] 12-16-2024 09:15-0400 Systolic blood pressure 112 mm[Hg] Dr. Carlita Borges MD Work Phone: [facility] 11-06-2023 09:13-0500 Body weight 97.98 kg NA Gutierrez PA-C Work Phone: [facility] 11-06-2023 09:13-0500 Diastolic blood pressure 84 mm[Hg] NA Gutierrez PA-C Work Phone: [facility] 11-06-2023 09:13-0500 Heart rate 55 /min NA Gutierrez PA-C Work Phone: [facility] 11-06-2023 09:13-0500 Respiratory rate 16 /min NA Gutierrez PA-C Work Phone: [facility] 11-06-2023 09:13-0500 SaO2% (BldA) [Mass fraction] 98 % NA Gutierrez PA-C Work Phone: [facility] 11-06-2023 09:13-0500 Systolic blood pressure 110 mm[Hg] NA Gutierrez PA-C Work Phone: [facility] 05-05-2023 09:26-0400 Body weight 96.62 kg NA Gutierrez PA-C Work Phone: [facility] 05-05-2023 09:26-0400 Diastolic blood pressure 84 mm[Hg] NA Gutierrez PA-C Work Phone: [facility] 05-05-2023 09:26-0400 Heart rate 60 /min NA Gutierrez PA-C Work Phone: [facility] 05-05-2023 09:26-0400 Respiratory rate 16 /min NA Gutierrez PA-C Work Phone: [facility] 05-05-2023 09:26-0400 Systolic blood pressure 118 mm[Hg] NA Gutierrez PA-C Work Phone: [facility] 03-06-2023 14:21-0400 Body temperature 97.3 [degF] Katy Athy PA-C Work Phone: [facility] 03-06-2023 14:21-0400 Body weight 97.07 kg Katy Athy PA-C Work Phone: [facility] 03-06-2023 14:21-0400 Diastolic blood pressure 80 mm[Hg] Katy Athy PA-C Work Phone: [facility] 03-06-2023 14:21-0400 Heart rate 59 /min Katy Athy PA-C Work Phone: [facility] 03-06-2023 14:21-0400 Respiratory rate 18 /min Katy Athy PA-C Work Phone: [facility] 03-06-2023 14:21-0400 SaO2% (BldA) [Mass fraction] 98 % Katy Athy PA-C Work Phone: [facility] 03-06-2023 14:21-0400 Systolic blood pressure 122 mm[Hg] Katy Athy PA-C Work Phone: [facility] 11-04-2022 09:29-0500 Body weight 97.52 kg NA Gutierrez PA-C Work Phone: [facility] 11-04-2022 09:29-0500 Diastolic blood pressure 60 mm[Hg] NA Gutierrez PA-C Work Phone: [facility] 11-04-2022 09:29-0500 Heart rate 70 /min NA Gutierrez PA-C Work Phone: [facility] 11-04-2022 09:29-0500 SaO2% (BldA) [Mass fraction] 98 % NA Gutierrez PA-C Work Phone: [facility] 11-04-2022 09:29-0500 Systolic blood pressure 110 mm[Hg] NA Gutierrez PA-C Work Phone: [facility] Encounters Encounter Date Encounter Type Care Provider Facility Start: 06-16-2025 End: 06-16-[address] Carlita Borges MD -[facility] Work Phone: Start: 06-16-2025 End: 06-16-[address] Carlita Borges MD Work Phone: -[facility] Start: 02-24-2025 End: 02-24-2025 Patient encounter procedure Arabella CASANOVA -[facility] Work Phone: Start: 02-24-2025 End: 02-24-[address] Carlita Borges MD Work Phone: [facility] Work Phone: Start: 01-21-2025 End: 01-21-[address] Carlita Borges MD Work Phone: [facility] Work Phone: Start: 01-21-2025 End: 01-21-2025 Patient encounter procedure Arabella CASANOVA -[facility] [place] Start: 01-21-2025 End: 01-21-2025 ambulatory Carlita Borges Facility:[facility] Start: 01-14-2025 End: 01-14-[address] Carlita Borges MD Work Phone: [facility] Work Phone: Start: 01-14-2025 End: 01-14-2025 Patient encounter procedure Arabella CASANOVA -Radiology [facility] Work Phone: Start: 01-14-2025 End: 01-14-2025 Patient encounter procedure Arabella CASANOVA -[facility] Work Phone: Start: 01-14-2025 End: 01-14-2025 ambulatory Carlita Borges [facility] Start: 01-14-2025 End: 01-14-2025 ambulatory Carlita Borges Facility:[facility] Start: 12-29-2024 End: 12-29-[address] Carlita Borges MD -Ultrasound [facility] Work Phone: Start: 12-29-2024 End: 12-29-2024 ambulatory Carlita Greenelay Facility:[facility] Start: 12-16-2024 End: 12-16-[address] Carlita Borges MD -[facility] Work Phone: Start: 12-16-2024 End: 12-16-[address] Carlita Borges MD Work Phone: [facility] Work Phone: Start: 12-16-2024 End: [facility] Start: 11-25-2024 End: 11-25-2024 Telephone encounter Holley Hussein APRN.CNP Work Phone: [facility] Comment on above: enough levothyroxine rx until his appt Start: 05-03-2024 End: 05-03-2024 ambulatory TREMAINE GUTIERREZ Facility:[facility] Start: 12-18-2023 Telephone encounter Luciana Mckee PA-C Work Phone: [facility] [place] Comment on above: Results Start: 12-16-2023 End: 12-16-2023 ambulatory [facility] Start: 11-06-2023 End: 11-06-2023 Patient encounter procedure Janey CARLSON-C Work Phone: [facility] Comment on above: Hypothyroidism, acqu ired (Primary Dx); Fatty liver; Elevated liver enzymes; Generalized anxiety disorder with panic attacks Start: 10-31-2023 Refill Janey White on PA-C Work Phone: [facility] Comment on above: Refill Request Start: 09-11-2023 Telephone encounter Lois Sorto [facility] Comment on above: Appointment Start: 08-01-2023 Refill Janey White on PA-C Work Phone: [facility] Comment on above: Refill Request Start: 05-05-2023 End: 05-05-2023 Patient encounter procedure Janey Gutierrez PA-C Work Phone: [facility] Comment on above: Elevated blood press ure reading without diagnosis of hypertension (Primary Dx); Hypothyroidism, acquired; Elevated liver enzymes; Fatty liver; Shift work sleep disorder; Generalized anxiety disorder with panic attacks; Seasonal allergic rhinitis due to pollen; Liver fibrosis; Somatic dysfunction of spine, cervical Start: 04-27-2023 Refill Janey White on PA-C Work Phone: [facility] Comment on above: Refill Request Start: 03-24-2023 Refill Janey White on PA-C Work Phone: [facility] Comment on above: Refill Request Start: 03-12-2023 Telephone encounter Janey Gutierrez PA-C Work Phone: [facility] Comment on above: posion shon persistin g, itchy Start: 03-06-2023 End: 03-06-2023 Patient encounter procedure Katy Gallegos PA-C Work Phone: [facility] Comment on above: Allergic contact amanda matitis due to plants, except food (Primary Dx) Start: 12-26-2022 Refill Janey White on PA-C Work Phone: [facility] Comment on above: Refill Request Start: 11-05-2022 Telephone encounter Janey Gutierrez PA-C Work Phone: [facility] Comment on above: Results Start: 11-04-2022 End: 11-04-2022 Patient encounter procedure Janey Gutierrez PA-C Work Phone: [facility] Comment on above: Chronic allergic rhi nitis (Primary Dx); Elevated blood pressure reading without diagnosis of hypertension; Hypothyroidism, acquired; Fatty liver; Elevated liver enzymes; Shift work sleep disorder; Generalized anxiety disorder with panic attacks Refill Request Start: 04-02-2022 Refill Alexy Browning MD Work Phone: [facility] Comment on above: Refill Request Start: 01-09-2022 Refill Janey White on PA-C Work Phone: [facility] Comment on above: Refill Request Start: 12-27-2021 End: 12-27-2021 [facility] Pedro Gutierrez PA-C Work Phone: [facility] Comment on above: Elevated liver enzym es (Primary Dx); Hypothyroidism, acquired; Generalized anxiety disorder with panic attacks; Elevated TSH Start: 12-03-2021 End: 12-03-2021 ambulatory Hepatology A5 Work Phone: Gastroenterology Start: 12-03-2021 End: 12-03-2021 Patient encounter procedure Hepatology Procedures [facility] Work Phone: [facility] Procedures Date Procedure Procedure Detail Performing Clinician Start: 01-14-[address] Bret Borges MD Work Phone: Comment on above: Performed at: [place] [id number] Director: Madan New PhD, Phone: [phone] Start: 01-14-2025 Antibody to centrome re measurement Dr. Carlita Borges MD Work Phone: Comment on above: Test not performed Start: 01-14-2025 Antibody to extracta ble nuclear antigen measurement Dr. Carlita Borges MD Work Phone: Comment on above: Test not performed Start: 01-14-2025 Antibody to VLADIMIR-[address] Carlita Borges MD Work Phone: Comment on above: Test not performed Start: 01-14-2025 Antibody to lupus La protein measurement Dr. Carlita Borges MD Work Phone: Comment on above: Test not performed Start: 01-14-2025 Antibody to SS-A measurement Dr. Carlita Borges MD Work Phone: Comment on above: Test not performed Start: 01-14-[address] Carlita Borges MD Work Phone: Comment on above: Test not performed Start: 01-14-2025 Hepatitis A virus an tibody, total measurement Dr. Carlita Borges MD Work Phone: Comment on above: Comment: The HAV tot al antibody assay detects both IgG andIgM but does not differentiate between them. A negativeresult suggests susceptibility to infection. A positiveresult could be due to vaccination, previously resolvedinfection or active infection. Testing for HAV IgM shouldbe performed if active HAV infection is suspected. [facility] profiles that will automatically reflex positive HAVtotal antibody results to IgM (e.g., panel #[id number] HAVAntibody w/ Rfx).Performed at: [facility] [id number] Director: Madan New PhD, Phone: [phone] Start: 01-14-[address] Carlita Borges MD Work Phone: Comment on above: Test Ordered: [id number] Enhanced Liver Fibrosis (ELF)ELF(TM) Score 9.40 BN Reference Range: <9.80ELF(TM) Score Interpretation:Risk cut-offs to assess the likelihood of progressionto cirrhosis and liver-related clinical events within3.9 years following baseline ELF score (IQR: 14.0-22.4months)*: Lower risk < 9.80 Mid risk 9.80 - 11.29 Higher risk >11.29Note: The ELF(TM) Score is a unitless numerical value.*Amol SA, Gerson VW, Mike T, et al. Selonsertibfor patients with bridging fibrosis or compensatedcirrhosis due to LEVINE: Results from randomized phaseIII STELLAR trials. J Hepatol. 2020 Mar;73(1):26-39.Performed at: [facility] [id number] [place], [place] [id number] Director: John Franco MD, Phone: [phone] at: [address] [id number] Director: Madan New PhD, Phone: [phone] Start: 01-14-2025 WATER CONTROL SUPERVISOR antibody measurement Dr. Carlita Borges MD Work Phone: Comment on above: Test not performed Start: 01-14-2025 Total iron binding c apacity measurement Dr. Carlita Borges MD Work Phone: Start: 12-29-2024 Ultrasound elastogra phy of liver Dr. Carlita Borges MD Work Phone: Start: 12-27-2021 Adult depression scr eening assessment NA Gutierrez PA-C Work Phone: Start: 12-03-2021 Liver elastography w /o imag w/i&r Luciana CARLSON-C Work Phone: Start: 10-20-2020 Adult depression scr eening assessment [facility] Work Phone: Start: 02-19-2019 Lipid 1996 panel - S jacque or Plasma NA Gutierrez PA-C Work Phone: Start: 08-19-2018 Colonoscopy NA Gutierrez PA-C Work Phone: History of tonsillectomy Hx of tonsillect mac Dr. Carlita Borges MD Work Phone: Plan of Treatment Date Care Activity Detail Author Start: 2037 RSV Immunization age d 60 or older (1 - 1-dose 60+ series) RSV Immunization aged 60 or older (1 - 1-dose 60+ series) [facility] Start: 08-19-[address] [facility] Start: 08-19-2028 COLORECTAL CANCER SCREENING COLORECTAL CANCER SCREENING [facility] Start: 08-19-2028 Screening for malign ant neoplasm of colon [facility] Start: 2027 Zoster Vaccines (1 of 2) Zoste r Vaccines (1 of 2) [facility] Start: 05-03-2027 Diabetes Screening [facility] Start: 05-05-2026 DIABETES SCREEN DIABETES SCREEN [facility] Start: 05-05-2026 Diabetes Screening [facility] Start: 11-04-2025 DIABETES SCREEN DIABETES SCREEN [facility] Start: 11-05-2024 Annual PCP Team Internist kierra Disease Visit Annual PCP Team Chronic Disease Visit [facility] Start: 11-05-2024 Covid-19 Vaccine ( season) Covid-19 Vaccine ( season) [facility] Comment on above: Postponed from 05/09 (Declined at this time) Start: 10-25-2024 DIABETES SCREEN DIABETES SCREEN [facility] Start: 05-09-2024 Covid-19 Vaccine ( season) Covid-19 Vaccine ( season) [facility] Start: 05-09-2024 Influenza vaccination [facility] Start: 05-06-2024 End: 08-05-2024 Comprehensive metabolic 2000 panel - Serum or Plasma COMP METABOLIC PANEL Lab Routine Fatty liver Elevated liver enzymes Generalized anxiety disorder with panic attacks Expected: 05/06/2024, Expires: 08/05/2024 [facility] Work Phone: Comment on above: Expected: 05/06/2024 , Expires: 08/05/2024 Start: 05-06-2024 End: 08-05-2024 Thyrotropin [Units/volume] in Serum or Plasma TSH BLD Lab Routine Hypothyroidism, acquired Expected: 05/06/2024, Expires: 08/05/2024 [facility] Work Phone: Comment on above: Expected: 05/06/2024 , Expires: 08/05/2024 Start: 05-05-2024 ANNUAL PCP TEAM ADVISOR CONSULTANT KIERRA DISEASE VISIT ANNUAL PCP TEAM CHRONIC DISEASE VISIT [facility] Start: 05-05-[address] [facility] Comment on above: Postponed from 12/24 (Declined at this time) Start: 03-07-2024 Influenza vaccination Influenza Vacc ine (#1) [facility] Comment on above: Postponed from 05/09 (Declined at this time) Start: 02-20-2024 Lipid 1996 panel - S jacque or Plasma Lipid Screening [facility] Start: 02-20-2024 Lipid panel Lipid Screening [facility] Start: 02-20-[address]ID SCREEN [facility] Start: 12-16-2023 End: 12-16-2023 Clinical Support 12/16/2023 1:30 PM EDT Clinical Support [facility] Infectious Disease [address] [address] [facility] Start: 11-06-2023 End: 02-05-2024 CBC W Auto Differential panel - Blood CBC + DIFF Lab Routine Generalized anxiety disorder with panic attacks Expected: 11/06/2023, Expires: 02/05/2024 [facility] Work Phone: Comment on above: Expected: 11/06/2023 , Expires: 02/05/2024 Start: 11-04-2023 ANNUAL PCP TEAM ADVISOR CONSULTANT KIERRA DISEASE VISIT ANNUAL PCP TEAM CHRONIC DISEASE VISIT [facility] Start: 11-04-2023 COVID-19 VACCINE (4 - Booster for Pfizer series) COVID-19 VACCINE (4 - Booster for Pfizer series) [facility] Comment on above: Postponed from 11/08 (Declined at this time) Start: 11-04-2023 COVID-19 VACCINE (4 - Pfizer series) COVID-19 VACCINE (4 - Pfizer series) [facility] Comment on above: Postponed from 11/08 (Declined at this time) Start: 11-04-2023 HEPATITIS B (1 of 3 - 3-dose series) HEPATITIS B (1 of 3 - 3-dose series) [facility] Comment on above: Postponed from 07/20 (Declined at this time) Start: 11-04-2023 Hepatitis B Vaccine (1 of 3 - 3-dose series) Hepatitis B Vaccine (1 of 3 - 3-dose series) [facility] Comment on above: Postponed from 07/20 (Declined at this time) Start: 11-04-2023 HIV SCREENING HIV SCREENING [facility] Comment on above: Postponed from 07/20 (Declined at this time) Start: 11-04-2023 HIV screening HIV Screening [facility] Comment on above: Postponed from 07/20 (Declined at this time) Start: 11-04-2023 PNEUMOCOCCAL (1 - PCV) PNEUMOCOCCAL (1 - PCV) [facility] Comment on above: Postponed from 07/20 (Declined at this time) Start: 11-04-[address] [facility] Comment on above: Postponed from 07/20 (Declined at this time) Start: 09-11-2023 End: 09-11-2024 Liver elastography w/o imag w/i&r Fibroscan Procedures Routine Fatty liver Expected: 09/11/2023 (Approximate), Expires: 09/11/2024 [facility] Work Phone: Comment on above: Expected: 09/11/2023 (Approximate), Expires: 09/11/2024 Start: 09-08-2023 Behavioral Health Screening Behavioral Health Screening [facility] Start: 09-08-2023 Depression Assessment Depression Ass essment [facility] Start: 05-09-2023 COVID-19 Vaccine () COVID-19 Vaccine () [facility] Start: 05-09-2023 Covid-19 Vaccine () Covid-19 Vaccine () [facility] Start: 05-09-2023 Influenza vaccination [facility] Start: 03-07-2023 Influenza vaccination INFLUENZA (#1) [facility] Comment on above: Postponed from 05/09 (Declined at this time) Start: 01-03-2023 End: 03-05-2023 Thyrotropin [Units/volume] in Serum or Plasma TSH BLD Lab Routine Hypothyroidism, acquired Expected: 01/03/2023, Expires: 03/05/2023 [facility] Work Phone: Comment on above: Expected: 01/03/2023 , Expires: 03/05/2023 Start: 01-03-2023 End: 03-05-2023 Thyroxine (T4) free [Mass/volume] in Serum or Plasma T4 FREE/FREE THYROX Lab Routine Hypothyroidism, acquired Expected: 01/03/2023, Expires: 03/05/2023 [facility] Work Phone: Comment on above: Expected: 01/03/2023 , Expires: 03/05/2023 Start: 12-27-2022 Adult depression screening assessment DEPRESSION SCREENING [facility] Start: 12-24-2022 DTaP/Tdap/Td Vaccine s (2 - Td or Tdap) DTaP/Tdap/Td Vaccines (2 - Td or Tdap) [facility] Start: 12-24-[address] [facility] Start: 11-01-2022 End: 01-01-2023 Comprehensive metabolic 2000 panel - Serum or Plasma COMP METABOLIC PANEL Lab Routine Fatty liver Elevated liver enzymes Hypothyroidism, acquired Generalized anxiety disorder with panic attacks Expected: 11/01/2022, Expires: 01/01/2023 [facility] Work Phone: Comment on above: Expected: 11/01/2022 , Expires: 01/01/2023 Start: 11-01-2022 End: 01-01-2023 Thyrotropin [Units/volume] in Serum or Plasma TSH BLD Lab Routine Hypothyroidism, acquired Generalized anxiety disorder with panic attacks Expected: 11/01/2022, Expires: 01/01/2023 [facility] Work Phone: Comment on above: Expected: 11/01/2022 , Expires: 01/01/2023 Start: 2022 COLOGUARD (FIT-DNA) COLOGUARD (FIT-D NA) [facility] Start: [address] COLONOGRAPHY [facility] Start: 2022 FECAL OCCULT BLOOD FECAL OCCULT BLOO D [facility] Start: 2022 Screening for malign ant neoplasm of colon [facility] Start: 2022 SIGMOIDOSCOPY SIGMOIDOSCOPY [facility] Start: 06-29-2022 HIV SCREENING HIV SCREENING [facility] Comment on above: Postponed from 07/20 (Declined at this time) Start: 06-29-2022 ONE PNEUMOVAX PRIOR TO AGE 65 ONE PNEUMOVAX PRIOR TO AGE 67 [facility] Comment on above: Postponed from 07/20 (Declined at this time) Start: 06-29-2022 PNEUMOCOCCAL (1 - PCV) PNEUMOCOCCAL (1 - PCV) [facility] Comment on above: Postponed from 07/20 (Declined at this time) Start: 05-09-2022 Influenza vaccination INFLUENZA (#1) [facility] Start: 12-27-2021 End: 02-26-2022 HEPATIC FUNCTION PNL [facility] Work Phone: Comment on above: Expected: 12/27/2021 , Expires: 02/26/2022 Start: 10-20-2021 Adult depression screening assessment DEPRESSION SCREENING [facility] Start: 1996 DTaP/Tdap/Td Vaccine s (1 - Tdap) DTaP/Tdap/Td Vaccines (1 - Tdap) [facility] Start: 1996 Hepatitis A Vaccines (1 of 2 - Risk 2-dose series) Hepatitis A Vaccines (1 of 2 - Risk 2-dose series) [facility] Start: 1996 Hepatitis B Vaccine (1 of 3 - 19+ 3-dose series) Hepatitis B Vaccine (1 of 3 - 19+ 3-dose series) [facility] Start: 1996 Pneumococcal vaccination Pneum ococcal Vaccine (1 of 2 - PCV) [facility] Start: 1995 Depression Screening Depression Scre ening [facility] Start: 1995 Hepatitis C screening Hepatitis C Sc reening [facility] Start: 1995 HIV screening HIV Screening [facility] Start: 1989 Depression Screening Depression Scre ening [facility] Start: 1983 Pneumococcal vaccination Pneum ococcal Vaccine (1 of 2 - PCV) [facility] Start: 1978 MMR Vaccines (1 of 1 - Standard series) MMR Vaccines (1 of 1 - Standard series) [facility] Start: 01-17-1978 COVID-19 Vaccine (#1) COVID-19 Vacci ne (#1) [facility] Start: 1977 Hepatitis B Vaccine (1 of 3 - 3-dose series) Hepatitis B Vaccine (1 of 3 - 3-dose series) [facility] Start: 1977 Hepatitis B Vaccines (1 of 3 - 3-dose series) Hepatitis B Vaccines (1 of 3 - 3-dose series) [facility] Start: 1977 HIV screening [facility] Scre[facility] Start: 1977 Lipid panel Lipid Panel [facility] Start: 1977 Screening for malign ant neoplasm of colon [facility] Comprehensive metabo lic 2000 panel - Serum or Plasma COMP METABOLIC PANEL Lab Routine Fatty liver Elevated liver enzymes Hypothyroidism, acquired Generalized anxiety disorder with panic attacks 11/04/2022 10:25 AM EST [facility] Work Phone: CT Abdomen and Pelvi s WO and W contrast IV [facility] Prothrombin time [facility] T4 free measurement [facility] Thyroid stimulating hormone measurement [facility] Thyrotropin [Units/volume] in Serum or Plasma TSH BLD Lab Routine Hypothyroidism, acquired Generalized anxiety disorder with panic attacks 11/04/2022 10:25 AM EST [facility] Work Phone: [facility] Immunizations Immunization Date Immunization Notes Care Provider Fa kamilla 09-13-2021 Covid (Pfizer) Dr. Carlita esparza MD Work Phone: [facility] 09-13-2021 COVID-19 vaccine, ag e 12+ yr (PFIZER-BIOiFollo - [facility]) [facility] Work Phone: [facility] Work Phone: 06-29-2021 influenza, injectabl e, quadrivalent, contains preservative [facility] Work Phone: [facility] 06-29-2021 influenza, injectabl e, quadrivalent, preservative free Dr. Carlita Borges MD Work Phone: [facility] 06-29-2021 influenza virus vaccine, unspecified formulation CINTIA Gutierrez PA-C Work Phone: [facility] 03-20-2021 Covid (Pfizer) Dr. Carlita esparza MD Work Phone: [facility] 02-26-2021 Covid (Pfizer) Dr. Carlita esparza MD Work Phone: [facility] 05-16-2020 influenza, injectabl e, quadrivalent, contains preservative [facility] Work Phone: [facility] 05-16-2020 influenza, injectabl e, quadrivalent, preservative free Dr. Carlita Borges MD Work Phone: [facility] 06-15-2019 influenza, injectabl e, quadrivalent, contains preservative [facility] Work Phone: [facility] 06-15-2019 influenza, injectabl e, quadrivalent, preservative free Dr. Carlita Borges MD Work Phone: [facility] 07-13-2015 influenza, injectabl e, quadrivalent, contains preservative [facility] Work Phone: [facility] 07-13-2015 influenza, seasonal, injectable, preservative free [facility] Work Phone: [facility] 07-13-2015 Seasonal, quadrivalent, recombinant, injectable influenza vaccine, preservative free Dr. Carlita Borges MD Work Phone: [facility] 06-08-2014 influenza, injectabl e, quadrivalent, preservative free Dr. Carlita Borges MD Work Phone: [facility] 06-08-2014 influenza, seasonal, injectable [facility] Work Phone: [facility] Work Phone: 12-24-2012 tetanus toxoid, reduced diphtheria toxoid, and acellular pertussis vaccine, adsorbed [facility] Work Phone: [facility] 06-29-2011 influenza virus vaccine, unspecified formulation [facility] Work Phone: [facility] 06-10-2009 influenza virus vaccine, unspecified formulation [facility] Work Phone: [facility] Work Phone: 04-28-2006 tetanus and diphther ia toxoids, adsorbed, preservative free, for adult use (2 Lf of tetanus toxoid and 2 Lf of diphtheria toxoid) [facility] Work Phone: [facility] Work Phone: 04-23-1996 measles, mumps and rubella virus vaccine [facility] Work Phone: [facility] Work Phone: 09-07-1979 diphtheria, tetanus toxoids and acellular pertussis vaccine [facility] Work Phone: [facility] Work Phone: 09-07-1979 trivalent poliovirus vaccine, live, oral [facility] Work Phone: [facility] Work Phone: 04-17-1979 measles, mumps and rubella virus vaccine [facility] Work Phone: [facility] Work Phone: 1977 diphtheria, tetanus toxoids and acellular pertussis vaccine [facility] Work Phone: [facility] Work Phone: 1977 trivalent poliovirus vaccine, live, oral [facility] Work Phone: [facility] Work Phone: 1977 diphtheria, tetanus toxoids and acellular pertussis vaccine [facility] Work Phone: [facility] Work Phone: 1977 trivalent poliovirus vaccine, live, oral [facility] Work Phone: [facility] Work Phone: 1977 diphtheria, tetanus toxoids and acellular pertussis vaccine [facility] Work Phone: [facility] Work Phone: 1977 trivalent poliovirus vaccine, live, oral [facility] Work Phone: [facility] Work Phone: Payers Date Payer Category [facility] [id number] 2011 Unknown [employer] PPO OOS [id number] 2011-Present [phone] [id number] [place] [address] PPO [id number] 2011 Unknown [id number] 2011 Unknown [id number] Self-pay [id number] Unknown [id number] Unknown [id number] Unknown [id number] Unknown [id number] Unknown [id number] Unknown [id number] Unknown [id number] Unknown [id number] Social History Date Type Detail Facility Start: 01-06-1999 End: 05-03-2022 Tobacco smoking status NHIS Light tobacco smoker [facility] End: 01-06-2009 History of tobacco use Smoker [facility] Start: 10-20-2020 End: 05-03-2022 Tobacco use and exposure Smokeless tobacco non-user [facility] Start: 11-13-2021 End: 11-06-2023 Alcohol intake Current drinker of alcohol (finding) [facility] Start: 10-16-2020 History SDOH Alcohol Frequency 3 [facility] Start: 10-16-2020 End: 06-29-2021 History SDOH Alcohol Std Drinks 1 [facility] Start: 10-16-2020 History SDOH Social Connections Phone 4 [facility] Start: 10-16-2020 History SDOH Physical Activity DPW 0 [facility] Start: 10-16-2020 End: 06-29-2021 History SDOH Transport Med 2 [facility] Start: 10-16-[address] [facility] Start: 1977 Sex Assigned At Male [facility] Start: 11-23-2021 End: 12-03-2021 Exposure to SARS-CoV-2 (event) Not sure [facility] Start: 01-06-1999 End: 01-06-2009 History of tobacco use Cigarette Smoker [facility] Start: 05-03-2022 Tobacco Comment smoked off and on for 10 years, average of [address] [facility] Start: 08-15-2020 End: 03-06-2023 History of Social function [facility] Work Phone: Start: 08-15-2020 End: 03-06-[address] [facility] Work Phone: Adult Depression Screening Assessment 0 [facility] Work Phone: Start: 10-16-2020 Gender identity Identifies as male gender (finding) [facility] Start: 10-16-2020 Sexual orientation Heterosexual (finding) [facility] Do you belong to any clubs or organizations such as gnosticism groups, unions, fraternal or athletic groups, or school groups? Yes [facility] Are you now , , , , never or living with a partner? [facility] How often to you hav e a drink containing alcohol? 2-[address] [facility] How many standard dr inks containing alcohol do you have on a typical day? [address] [facility] How often do you hav e 6 or more drinks on 1 occasion? Never [facility] How hard is it for y ou to pay for the very basics like food, housing, medical care, and heating Not very hard [facility] Do you feel stress - tense, restless, nervous, or anxious, or unable to sleep at night because your mind is troubled all the time - these days [OSQ] To some extent [facility] (I/We) worried cornelia er (my/our) food would run out before (I/we) got money to buy more. Never true [facility] In the past 12 month s, was there a time when you were not able to pay the mortgage or rent on time? No [facility] Tobacco smoking stat us SCIS Tobacco smoking consumption unknown [facility] Start: 1975 Sex Assigned At Not on file [facility] Start: 12-16-2024 End: 02-24-2025 Tobacco smoking status NHIS Smokes tobacco daily (finding) [facility] Start: 12-21-2024 Sex Male (finding) [facility] Functional Status Date Assessment Result Facility 07-21-2018 Are you deaf, or do you have serious difficulty hearing No 07/21/2018 4:39 PM Jeffrey Richey III, MD [facility] 07-21-2018 Are you blind, or do you have serious difficulty seeing, even when wearing glasses No 07/21/2018 4:39 PM Jeffrey Richey III, MD [facility] 07-21-2018 Do you have serious difficulty walking or climbing stairs No 07/21/2018 4:39 PM Jeffrey Richey III, MD [facility] 07-21-2018 Do you have difficul ty dressing or bathing No 07/21/2018 4:39 PM Jeffrey Richey III, MD [facility] 07-21-2018 Because of a physica l, mental, or emotional condition, do you have difficulty doing errands alone such as visiting a physician's office or shopping No 07/21/2018 4:39 PM Jeffrey Richey III, MD [facility] Mental Status Date Assessment Result Facility 07-21-2018 Because of a physica l, mental, or emotional condition, do you have serious difficulty concentrating, remembering, or making decisions No 07/21/2018 4:39 PM Jeffrey Richey III, MD [facility] Clinical Notes 04-15-2017 to 02-24-2025 Note Date & Type Note Facility 02-24-2025 Evaluation note Diagnosis Onset Date Resolution Elevated liver enzymes acute Ju ne 2024 10:21am Metabolic dysfunction-associated steatohepatitis (MASH) acute February 10:21am Anxiety acute June 16, 2 025 9:24am Fatty liver acute June 16, 2025 9:24am Left lower quadrant abdominal pain noneactive June 16 9:24am Acquired hypothyroidism noneactive O ctober 2024 9:24am Flu vaccine refused noneactive Octob er 2024 9:24am Obesity (BMI 30.0-34.9) noneactive O ctober 2024 9:24am [facility] Work Phone: 1(572) 516-308904-10-2025 Evaluation note* Diagnosis Onset Date Resolution Status Admit Date Anxiety acute December 16 9:08am Fatty liver acute December 16 025 9:08am Acquired hypothyroidism noneactive A pri2024 9:08am Screening for cardiovascular condition noneactive December 16, 2024 9:08am Establishing care with new doctor, encounter for noneactive December 9:08am Obesity (BMI 30.0-34.9) noneactive A pri2024 9:08am Hyperkalemia noneactive December 16, 2024 9:08am [facility] Work Phone: 1(586) 399-402204-10-2025 Evaluation note* Diagnosis Onset Date Resolution Status Admit Date Anxiety acute December 16 9:08am Fatty liver acute December 16, 025 9:08am Acquired hypothyroidism noneactive A 2024 9:08am Screening for cardiovascular condition noneactive December 16, 2024 9:08am Establishing care with new doctor, encounter for noneactive December 9:08am Obesity (BMI 30.0-34.9) noneactive A pri2024 9:08am Hyperkalemia noneactive December 16, 2024 9:08am Elevated liver enzymes acute 2024 9:32am Fatty liver acute January 14, 2025 9:32am Metabolic dysfunction-associated steatohepatitis (MASH) acute January 14, 2025 9:32am [facility] Work Phone: 1(257) 976-533903-20-2025 Telephone encounter Note* Telephone Encounter - Beto Redding LPN - 11/25/2024 11:16 AM EDT Notified and PCP updated on chart. [facility]03-20-2025 Miscellaneous Notes* Telephone Encounter - Beto Redding LPN - 11/25/2024 11:16 AM EDT Notified and PCP updated on chart. * Telephone Encounter - Holley Hussein APRN.CNP - 11/25/2024 8:40 AM EDT Will fill for 30 days only. Outside 1 year window for appt. But has had TSH. * Telephone Encounter - Joanna Luz LPN - 11/25/2024 8:14 AM EDT Patient Lois calling her is transferring care to [place] mid December, was a Mejia Gutierrez patient and only has few Levothyroxine pills left. She is asking if he could have rx sent to [facility] for 30 tablets if possible? Pending rx if wanted. Please advise The patient has been identified by name and date of : Yes Caregiver verified no other encounters exist for this prescription request: Yes Caregiver confirmed with patient/requestor that no other refills are due, in the near future, with this provider at this time: Yes The last office visit in the department: 11/06/2023 Matt Does the patient have a future office visit with this provider/department: No plans to transfer to [place] Requested Prescriptions Pending Prescriptions Disp Refills levothyroxine (LEVOXYL) 100 mcg tablet 30 tablet 0 Sig: Take 1 tablet by mouth once daily. Take on empty stomach. For Thyroid. Joanna Luz LPN November 25, 2024 8:18 AM documented in this encounterSt. [facility]03-[facility]25 Telephone encounter Note * Telephone Encounter - Holley Hussein APRN.CNP - 11/25/2024 8:40 AM EDT Will fill for 30 days only. Outside 1 year window for appt. But has had TSH. [facility]03-20-2025 Telephone encounter Note* Telephone Encounter - Joanna Luz LPN - 11/25/2024 8:14 AM EDT Patient Lois calling her is transferring care to [place] mid December, was a Mejia Gutierrez patient and only has few Levothyroxine pills left. She is asking if he could have rx sent to [facility] for 30 tablets if possible? Pending rx if wanted. Please advise The patient has been identified by name and date of : Yes Caregiver verified no other encounters exist for this prescription request: Yes Caregiver confirmed with patient/requestor that no other refills are due, in the near future, with this provider at this time: Yes The last office visit in the department: 11/06/2023 Matt Does the patient have a future office visit with this provider/department: No plans to transfer to [place] Requested Prescriptions Pending Prescriptions Disp Refills levothyroxine (LEVOXYL) 100 mcg tablet 30 tablet 0 Sig: Take 1 tablet by mouth once daily. Take on empty stomach. For Thyroid. Joanna Luz LPN November 25, 2024 8:[address] [facility]04-11-2024 Miscellaneous Notes* Telephone Encounter - Christin Aguilar MA - 12/18/2023 3:23 PM EDT Pt notified Christin Aguilar MA * Telephone Encounter - Luciana Mckee PA-C - 12/18/2023 3:16 PM EDT Please let patient know that his Fibroscan is showing S3 ( severe fatty liver) and F1 ( mild fibrosis ). Recommend healthy diet, exercise, weight loss to help with fatty liver changes * Telephone Encounter - Nolvia Fletcher - 12/18/2023 3:07 PM EDT Please review 12/15 fibroscan results on your patient. Nolvia Poncho documented in this encounterSt. Elizabeth Hospital02-29-2024 History of Present illness Narrative* Janey Gutierrez PA-C - 11/06/2023 9:00 AM EST 48 year old male with c/o here for routine med follow up Hypothyroidism, acquired (primary encounter diagnosis) Hypothyroidism Current medication: Levothyroxine 100mcg daily AC Taking as directed on an empty stomach? No. Thyroid pain: No. Mass effect: No. Change in energy level/ fatigue? No.A lot better lately. Sleep disturbance ?No. Temperature Intolerance: cold No, hot No. Change in bowel habits? Yes. If yes: Notes having long stringy, no mucus, no blood, questioning need for colonoscopy 08/19/2018. Has hemorrhoids which bleed periodically. Weight changes?No. Change in hair or skin? No. If yes: Other symptoms: TSH Date Value 05/05/2023 1.590 mIU/L 01/01/2023 2.090 mIU/L 10/25/2021 6.690 uU/mL 05/18/2021 9.180 uU/mL ) Fatty liver Elevated liver enzymes 09/11/2023 f/u with gastro Luciana Mckee PA-C Scheduled another fibroscan 12/03/2021 DDI vibration controlled elastography: IQR: 19%;E (kpa): 11.8; CAP: 390 which correspondsto Fibrosis stage F3-F4 and steatosis grade of S3 (severe). 11/13/2021 consult GI Luciana Crockett CNP 05/14/2021 US RUQ: Hepatic steatosis. Contracted gallbladder with possible sludge. Normal spleen. Nonobstructing LEFT nephrolithiasis Generalized anxiety disorder with panic attacks Current medications: Sertraline 50mg daily Doing well, anxiety controlled HISTORIES FAMILY HISTORY Problem Relation Age of Onset Thyroid Mother Headache Father Migraines Allergies Father other (polycythemia vera) Father Headache Sister Diabetes Maternal Grandmother Emphysema Maternal Grandmother Emphysema Maternal Grandfather Heart Maternal Grandfather pacemaker; stents Diabetes Paternal Grandmother Cancer Paternal Grandmother other (Psoriasis) Paternal Grandmother Diabetes Paternal Grandfather Heart Paternal Grandfather HI Asthma Son Colon Cancer No Family History PAST MEDICAL HISTORY Diagnosis Date Allergic rhinitis due to other allergen Generalized anxiety disorder with panic attacks 10/06/2018 PAST SURGICAL HISTORY Procedure Laterality Date ADENOIDECTOMY PRIMARY <AGE 12 1981 Adenoidectomy COLONOSCOPY FLX DX W/COLLJ SPEC WHEN PFRMD 08/19/2018 MALURuby Anderson EGD TRANSORAL BIOPSY SINGLE/MULTIPLE [facility] 2016 removed benign lesion on scalp, deepa REM LESION FACE,EAR,EYE 1.1-2 CM Right 06/05/16 Exc. right lower lip mucocele TONSILLECTOMY PRIMARY/SECONDARY <AGE 14 1981 Tonsillectomy Social History Tobacco Use Smoking status: Light Smoker Years: 10 Types: Cigarettes Last attempt to quit: 01/06/2009 Years since quittin.8 Smokeless tobacco: Never Tobacco comments: smoked off and on for 10 years, average of 3 cigarettes per day Vaping Use Vaping Use: Never used Substance Use Topics Alcohol use: Yes Comment: occasionally Drug use: No ACTIVE PROBLEM LIST Seasonal Allergic Rhinitis Due to Pollen Elevated Blood Pressure Reading Without Diagnosis of Hypertension Generalized Anxiety Disorder With Panic Attacks Shift Work Sleep Disorder Chronic Allergic Rhinitis Fatty Liver Elevated Liver Enzymes Hypothyroidism, Acquired Current Outpatient Medications Medication Sig Dispense Refill levothyroxine (LEVOXYL) 100 mcg tablet Take 1 tablet by mouth once daily. Take on empty stomach. For Thyroid. 30 tablet 2 sertraline (ZOLOFT) 50 mg tablet Take 1 tablet by mouth once daily. 90 tablet 3 EPINEPHrine (AUVI-Q) 0.3 mg/0.3 mL auto-injector Inject 0.3 mL intramuscularly as needed. For allergic reaction.Seek emergent medical care immediately after use.Disp:1 2-packw/assistive technology trainer 1 Each 1 No current facility-administered medications for this visit. Hepatitis B Vaccine(1 of 3 - 3-dose series) Never done Pneumococcal Vaccine(1 of 2 - PCV) Never done HIV Screening Never done Influenza Vaccine(1) due on 05/09/2023 Covid-19 Vaccine( season) due on 05/09/2023 Depression Assessment due on 09/08/2023 EXAM: BP 110/84 Pulse (!) 55 Resp 16 Wt 98 kg (216 lb) SpO2 98% BMI 29.29 kg/m Pleasant well appearing in no acute distress. Alert and oriented all spheres. Normal affect and cognition. Speech normal. No deficits to learning or comprehension. Skin warm, dry, pink to lips and nailbeds. Normal turgor. Respirations regular and unlabored. HEENT: NCAT. No scleral icterus or conjunctival injection. TM's clear. Nose and oropharynx free from injection or lesion. Oral membranes moist and pink. No cervical lymph nodes. Thyroid non-tender, no masses, or enlargement. Carotids pulses 2+/4+ without bruits. No JVD with HOB at 30 degrees. Chest is normal shape. Lungs are clear to all martinez with good air exchange through out. HRRR without murmur or gallop. No lifts, heaves, or rubs. Extrem: no clubbing or cyanosis. Edema: none. Extremities are warm and pink with prompt capillary refill. ASSESSMENT/PLAN: 1. Hypothyroidism, acquired - ICD9: 244.9, ICD10: E03.9 (primary diagnosis) - Instructed patient on importance of taking on an empty stomach either first thing in the morning or at bedtime. - LEVOTHYROXINE 100 MCG TABLET 2. Fatty liver - ICD9: 571.8, ICD10: K76.0 Following with GI, has orders for fibroscan 3. Elevated liver enzymes - ICD9: 790.5, ICD10: R74.8 stable 4. Generalized anxiety disorder with panic attacks - ICD9: 300.02, 300.01, ICD10: F41.1, F41.0 Doing well - SERTRALINE 50 MG TABLET Office Visit on 11/06/23 TSH BLD COMP METABOLIC PANEL CBC + DIFF Janey Gutierrez PA-C documented in this encounterSt. Elizabeth Hospital02-23-2024 Miscellaneous Notes* Telephone Encounter - Luciana Ponce RN - 10/31/2023 3:55 PM EST Patient is almost out of medication. Patient has been identified by name and date of : Spouse phones for refill(s): Requested Prescriptions Pending Prescriptions Disp Refills levothyroxine (LEVOXYL) 100 mcg tablet 30 tablet 2 Sig: Take 1 tablet by mouth once daily. Take on empty stomach. For Thyroid. Date of last office visit in primary care: 05/05/2023 Date of next office visit in primary care: 11/06/2023 Please advise. Thank you. Luciana Ponce RN. documented in this encounterSt. [facility] Hospital01-25-2024 Telephone encounter Note * Telephone Encounter - Lois Sorto MA - 10/02/2023 4:17 PM EST Marissa is [facility] for [facility]13/23 [id number] Miscellaneous Notes* Telephone Encounter - Lois Sorto MA - 10/02/2023 4:17 PM EST Marissa is scheduled for 12/13/23 * Telephone Encounter - Meenu Negrete - 10/02/2023 2:38 PM EST Name of Caller: Marissa Contact Reason for Appointment: Marissa returned call to schedule Added insurance to chart, no answer Teams - please return call to schedule. Office Name: ID Medication Refills need, if any: N/A Medication Name: N/A * Telephone Encounter - Lois Sorto MA - 09/30/2023 4:19 PM EST Left msg on machine 2nd attempt to contact pt to schedule fibroscan. * Telephone Encounter - Lois Sorto MA - 09/11/2023 2:15 PM EST Tried to call Marissa to schedule a fibroscan left a msg on his voicemail to call our office back to schedule. documented in this encounterSCleveland Clinic Medina [id number] Telephone encounter Note* Telephone Encounter - Meenu Negrete - 10/02/2023 2:38 PM EST Name of Caller: Marissa Contact Reason for Appointment: Marissa returned call to schedule Added insurance to chart, no answer Teams - please return call to schedule. Office Name: ID Medication Refills need, if any: N/A Medication Name: N/A [id number] Telephone encounter Note* Telephone Encounter - Lois Sorto MA - 09/30/2023 4:19 PM EST Left msg on machine 2nd attempt to contact pt to schedule fibroscan. [facility] [id number] Miscellaneous Notes* Telephone Encounter - Lois Sorto MA - 09/30/2023 4:19 PM EST Left msg on machine 2nd attempt to contact pt to schedule fibroscan. * Telephone Encounter - Lois Sorto MA - 09/11/2023 2:15 PM EST Tried to call Marissa to schedule a fibroscan left a msg on his voicemail to call our office back to schedule. documented in this encounterSCleveland Clinic Medina [id number] Telephone encounter Note* Telephone Encounter - Lois Sorto MA - 09/11/2023 2:15 PM EST Tried to call Marissa to schedule a fibroscan left a msg on his voicemail to call our office back to schedule. [facility] [id number] Miscellaneous Notes* Telephone Encounter - Violet Lee RN - 08/01/2023 4:21 PM EST Patient has been identified by name and date of : Yes, Provider Mejia CARLSON Date 08/01/23 Time 1621. Spouse phones for refill(s): Requested Prescriptions Pending Prescriptions Disp Refills levothyroxine (LEVOXYL) 100 mcg tablet 30 tablet 2 Sig: Take 1 tablet by mouth once daily. Take on empty stomach. For Thyroid. Date of last office visit in primary care: 05/05/2023 Date of next office visit in primary care: 11/06/2023 Last 2 Encounter Wt Readings: Date: Wt: 05/05/2023 96.6 kg (213 lb) 03/06/2023 97.1 kg (214 lb) Previous labs/tests for medication: Thyroid: TSH Date Value 05/05/2023 1.590 mIU/L 10/25/2021 6.690 uU/mL Please advise. Thank you. Violet Lee RN. documented in this encounterSt. Elizabeth Hospital08-28-2023 History of Present illness Narrative* Janey Gutierrez PA-Marc - 05/05/2023 9:20 AM EDT 47 year old male with c/o here for follow up. Elevated blood pressure reading without diagnosis of hypertension (primary encounter diagnosis) Last 3 Encounter BP Readings: Date: BP: 05/05/2023 118/84 03/06/2023 122/80 11/04/2022 110/60 Hypothyroidism, acquired Current medication: Levothyroxine 100mcg daily AC Taking as directed on an empty stomach? Yes. Thyroid pain: No. Mass effect: No. Change in energy level/ fatigue? Seems to be getting better from last check: A little more tired than usual. Attributes to work stress. Recent derailments. Sleep disturbance ?No. Sleeps well. Temperature Intolerance: cold No, hot No. In females, menstrual cycle issues? N/a, If yes: Change in bowel habits? No. If yes: Constipation? No. If yes: Diarrhea? No. If yes: Weight changes? No. Memory issues: notices he is forgetful. No issues work or home. Diaphoresis: No. Numbness, tingling none Radiological imaging with contrast dyes within the last 3 months? No. History of radiation exposure to head or neck area? No. Change in hair or skin? Skin is oily. If yes: Other symptoms: noneLast 2 Encounter Wt Readings: Last 2 Encounter Wt Readings: Date: Wt: 05/05/2023 96.6 kg (213 lb) 03/06/2023 97.1 kg (214 lb) Last thyroid labs: TSH Date Value 01/01/2023 2.090 mIU/L 11/04/2022 4.250 mIU/L 10/25/2021 6.690 uU/mL 05/18/2021 9.180 uU/mL ) Elevated liver enzymes Fatty liver Data: Component Latest Ref Rng & Units 10/25/2021 11/13/2021 12/04/2021 11/04/2022 Protein, Total 6.3 - 8.0 g/dL 7.3 7.0 Albumin 3.9 - 4.9 g/dL 4.8 4.6 Calcium 8.5 - 10.2 mg/dL 9.9 9.5 Bilirubin, Total 0.2 - 1.3 mg/dL 0.5 0.3 Alkaline Phosphatase 38 - 113 U/L 101 94 AST 14 - 40 U/L 58 (H) 31 Glucose 74 - 99 mg/dL 87 97 BUN 9 - 24 mg/dL 12 17 Creatinine 0.73 - 1.22 mg/dL 0.99 0.98 Sodium 136 - 144 mmol/L 140 138 Potassium 3.7 - 5.1 mmol/L 4.4 4.1 Chloride 97 - 105 mmol/L 105 105 CO2 22 - 30 mmol/L 25 24 Anion Gap 9 - 18 mmol/L 10 9 ALT 10 - 54 U/L 147 (H) 58 (H) eGFR- >60 eGFR-All Other Races . >60 eGFR >=60 mL/min/1.73m 97 Fibrosis Score 0.51 Fibrosis Stage F2 Fibrosis Interpretation SEE NOTE Necroinflam Activity Score 0.78 Necroinflam Activity Grade A3 NECROINFLAMMAT INTERP SEE NOTE Alpha 2 Macroglobulins, Qn 106 - 279 mg/dL 250 Haptoglobin. 43 - 212 mg/dL 88 Apolipoprotein A-1. 94 - 176 mg/dL 117 Bilirubin, Total. 0.2 - 1.2 mg/dL 0.8 GGT 3 - 95 U/L 37 ALT. 9 - 46 U/L 148 (H) Reference ID [id number] Footnote SEE NOTE Smooth Muscle Ab Screen Negative Negative Mitochondrial Ab Panel Negative Negative Ferritin 30.3 - 565.7 ng/mL 244.0 Ceruloplasmin 15 - 30 mg/dL 19 Alpha 1 Antitrypsin 90 - 200 mg/dL 133 12/03/2021 DDI vibration controlled elastography: IQR: 19%;E (kpa): 11.8; CAP: 390 which correspondsto Fibrosis stage F3-F4 and steatosis grade of S3 (severe). 11/13/2021 consult GI Luciana Crockett CNP 05/14/2021 US RUQ: Hepatic steatosis. Contracted gallbladder with possible sludge. Normal spleen. Nonobstructing LEFT nephrolithiasis Shift work sleep disorder Generalized anxiety disorder with panic attacks Current medications: Sertraline 50mg daily Feeling good, sleeping well. Less emotional, doing a lot better. Seasonal allergic rhinitis due to pollen Doing well, no current sx. Notes pain in left neck with turning, Sharp pain left neck with turning right, tender spot/ lump No numbness, tingling, radiating pain. HISTORIES FAMILY HISTORY Problem Relation Age of Onset Thyroid Mother Headache Father Migraines Allergies Father other (polycythemia vera) Father Headache Sister Diabetes Maternal Grandmother Emphysema Maternal Grandmother Emphysema Maternal Grandfather Heart Maternal Grandfather pacemaker; stents Diabetes Paternal Grandmother Cancer Paternal Grandmother other (Psoriasis) Paternal Grandmother Diabetes Paternal Grandfather Heart Paternal Grandfather HI Asthma Son Colon Cancer No Family History PAST MEDICAL HISTORY Diagnosis Date Allergic rhinitis due to other allergen Generalized anxiety disorder with panic attacks 10/06/2018 PAST SURGICAL HISTORY Procedure Laterality Date ADENOIDECTOMY PRIMARY <AGE 12 1981 Adenoidectomy COLONOSCOPY FLX DX W/COLLJ SPEC WHEN PFRMD [facility]/19[facility] TRANSORAL BIOPSY SINGLE/MULTIPLE 08/19/2018 [facility] PAST [facility]GICAL HISTORY OF 2017 removed benign lesion on scalp, deepa REM LESION FACE,EAR,EYE 1.1-2 CM Right 06/05/16 Exc. right lower lip mucocele TONSILLECTOMY PRIMARY/SECONDARY <AGE 14 1981 Tonsillectomy Social History Tobacco Use Smoking status: Light Smoker Years: 10 Types: Cigarettes Last attempt to quit: 01/06/2009 Years since quittin.3 Smokeless tobacco: Never Tobacco comments: smoked off and on for 10 years, average of 3 cigarettes per day Vaping Use Vaping Use: Never used Substance Use Topics Alcohol use: Yes Comment: occasionally Drug use: No ACTIVE PROBLEM LIST Seasonal Allergic Rhinitis Due to Pollen Elevated Blood Pressure Reading Without Diagnosis of Hypertension Generalized Anxiety Disorder With Panic Attacks Shift Work Sleep Disorder Chronic Allergic Rhinitis Fatty Liver Elevated Liver Enzymes Hypothyroidism, Acquired Current Outpatient Medications Medication Sig Dispense Refill levothyroxine (LEVOXYL) 100 mcg tablet Take 1 tablet by mouth once daily. Take on empty stomach. For Thyroid. 30 tablet 2 sertraline (ZOLOFT) 50 mg tablet Take 1 tablet by mouth once daily. 90 tablet 3 EPINEPHrine (AUVI-Q) 0.3 mg/0.3 mL auto-injector Inject 0.3 mL intramuscularly as needed. For allergic reaction.Seek emergent medical care immediately after use.Disp:1 2-packw/assistive technology trainer 1 Each 1 No current facility-administered medications for this visit. DTAP,TDAP,TD(6 - Td or Tdap) due on 12/24/2022 - Deferred today. EXAM: BP 118/84 (BP Site: Left Arm, BP Position: Sitting, BP Cuff Size: Regular Adult) Pulse 60 Resp 16 Wt 96.6 kg (213 lb) BMI 28.89 kg/m Pleasant overweight adult man in no acute distress. Alert and oriented all spheres. Normal affect and cognition. Speech normal. No deficits to learning or comprehension. Skin warm, dry, pink to lips and nailbeds. Normal turgor. Respirations regular and unlabored. HEENT: NCAT. No scleral icterus or conjunctival injection. TM's clear. Nose and oropharynx free from injection or lesion. Oral membranes moist and pink. No cervical lymph nodes. Thyroid non-tender, no masses, or enlargement. Carotids pulses 2+/4+ without bruits. No JVD with HOB at 30 degrees. Neck is supple, pain bilateral over anterior, middle, posterior scalenes, Mild rotation right C4 Chest is normal shape. Lungs are clear to all martinez with good air exchange through out. HRRR without murmur or gallop. No lifts, heaves, or rubs. Extrem: no clubbing or cyanosis. Edema: none. Extremities are warm and pink with prompt capillary refill. OMT with patient informed permission: muscle energy to cervical, myofascial release, HVLA to right C4 with significant improvement. ASSESSMENT/PLAN: 1. Elevated blood pressure reading without diagnosis of hypertension - ICD9: 796.2, ICD10: R03.0 (primary diagnosis) - Encouraged dietary sodium restriction/DASH diet - Recommended regular aerobic exercise. - Recommend home blood pressure monitoring, to bring results in on next visit - Goal of BP <130/80 2. Hypothyroidism, acquired - ICD9: 244.9, ICD10: E03.9 - Instructed patient on importance of taking on an empty stomach either first thing in the morning or at bedtime. Weight increasing - Behavioral intervention - TSH BLD - COMP METABOLIC PANEL 3. Elevated liver enzymes - ICD9: 790.5, ICD10: R74.8 recheck - HEPATIC FUNCTION PNL 4. Fatty liver - ICD9: 571.8, ICD10: K76.0 recheck - HEPATIC FUNCTION PNL - COMP METABOLIC PANEL 5. Shift work sleep disorder - ICD9: 327.36, ICD10: G47.26 Stable, doing well 6. Generalized anxiety disorder with panic attacks - ICD9: 300.02, 300.01, ICD10: F41.1, F41.0 Stable, doing well, continue current medications - CBC + DIFF - COMP METABOLIC PANEL 7. Seasonal allergic rhinitis due to pollen - ICD9: 477.0, ICD10: J30.1 No current issues, 8. Liver fibrosis - ICD9: 571.5, ICD10: K74.00 GI recommends annual fibroscan with elastography - HEPATIC FUNCTION PNL 9. Somatic dysfunction of spine, cervical - ICD9: 739.1, ICD10: M99.01 Push fluid, demonstrated muscle release, streatches F/U prn Janey Gutierrez PA-C Some of this note may have been copied and pasted for the purpose of history context and comparison. documented in this encounterSt. [facility] Hospital08-21-2023 Miscellaneous Notes* Telephone Encounter - Derek Conner LPN - 04/28/2023 9:05 AM EDT Patient phones requesting refills as follows: Requested Prescriptions Pending Prescriptions Disp Refills levothyroxine (LEVOXYL) 100 mcg tablet 30 tablet 2 Sig: Take 1 tablet by mouth once daily. Take on empty stomach. For Thyroid. ALYSON 11/04/22 NOV 05/05/23 Please review and advise. Derek Conner LPN documented in this encounterSt. Elizabeth Hospital07-17-2023 Miscellaneous Notes* Telephone Encounter - Luciana Ponce RN - 03/24/2023 9:42 AM EDT Patient's calls and states that poison shon rash is getting better, however, patient has ran out of cream. asking if provider can send in prescription for cream so that patient can finally get rid of poison shon rash? Please review and advise, Luciana Ponce RN documented in this encounterSt. Elizabeth Hospital07-07-2023 Miscellaneous Notes* Telephone Encounter - Brooke Neil - 03/14/2023 10:18 AM EDT Spoke with patients , Lois and informed. She verbalized understanding and states she will have him use the cream and let us know if it's getting significantly worse. Brooke Neil * Telephone Encounter - Holley Bucio LPN - 03/12/2023 12:49 PM EDT Left message to return call * Telephone Encounter - Alexy Browning MD - 03/12/2023 12:24 PM EDT I would not want to continue continue the prednison a lot longer unless it was suddenly getting significantly worse. If somewhat better it is to be expected. Would use the cream they gave him. * Telephone Encounter - Екатерина Plaza LPN - 03/12/2023 10:55 AM EDT called for pt and he has 1 tablet of Prednisone left for his poison shon and pt is still very itchy. PT has it on his wrist, legs, arms, shoulder and chest. Pt works for the [employer] he will not be able to come in until Friday. He is leaving shortly to go out of town. Екатерина Plaza LPN documented in this encounterSt. Elizabeth Hospital06-29-2023 History of Present illness Narrative* Katy Gallegos PA-C - 03/06/2023 3:01 PM EDT This note was created using [employer]. Subjective Marissa Malone is a 47 year old male. HPI Patient presents with poison shon all over the past 2 weeks. He got some new spots today and so camein for evaluation. He had a blister on his forearm to he was concerned for spider bite. Did not seea spider bite him however had been googling some things. He denies fever or chills. He tried some calamine lotion [id number] and a wash for poison shon that he had about. No other new exposures. Review of Systems Constitutional: Negative. HENT: Negative. Respiratory: Negative. Cardiovascular: Negative. Gastrointestinal: Negative. Skin: Positive for rash. All other systems reviewed and are negative. PAST MEDICAL HISTORY Diagnosis Date Allergic rhinitis due to other allergen Generalized anxiety disorder with panic attacks 10/06/2018 Current Outpatient Medications Medication Sig Dispense Refill levothyroxine (LEVOXYL) 100 mcg tablet Take 1 tablet by mouth once daily. Take on empty stomach. For Thyroid. 30 tablet 2 sertraline (ZOLOFT) 50 mg tablet Take 1 tablet by mouth once daily. 90 tablet 3 EPINEPHrine (AUVI-Q) 0.3 mg/0.3 mL auto-injector Inject 0.3 mL intramuscularly as needed. For allergic reaction.Seek emergent medical care immediately after use.Disp:1 2-packw/assistive technology trainer 1 Each 1 predniSONE (DELTASONE) 10 mg tablet Take 4 tabs daily for 3 days, then 2 tabs daily for 3 days, then 1 tab daily for 3 days with food. 21 tablet 0 triamcinolone acetonide (KENALOG) 0.1 % cream Apply 1 application to affected area three times daily for 7 days. Apply sparingly to area for rash/itching. 80 g 0 No current facility-administered medications for this visit. PAST SURGICAL HISTORY Procedure Laterality Date ADENOIDECTOMY PRIMARY <AGE 14 1981 Adenoidectomy COLONOSCOPY FLX DX W/COLLJ SPEC WHEN [facility]FRMD [facility]ANSOR[facility] BIOPSY SINGLE/MULTIPLE [facility] PAST [facility]GICAL HISTORY OF 2017 removed benign lesion on scalp, deepa REM LESION FACE,EAR,EYE 1.1-2 CM Right 06/05/16 Exc. right lower lip mucocele TONSILLECTOMY PRIMARY/SECONDARY <AGE 14 1981 Tonsillectomy FAMILY HISTORY Problem Relation Age of Onset Thyroid Mother Headache Father Migraines Allergies Father other (polycythemia vera) Father Headache Sister Diabetes Maternal Grandmother Emphysema Maternal Grandmother Emphysema Maternal Grandfather Heart Maternal Grandfather pacemaker; stents Diabetes Paternal Grandmother Cancer Paternal Grandmother other (Psoriasis) Paternal Grandmother Diabetes Paternal Grandfather Heart Paternal Grandfather [place] Asthma Son Colon Cancer No Family History Social History Tobacco Use Smoking status: Light Smoker Years: 10.00 Types: Cigarettes Last attempt to quit: 01/06/2009 Years since quittin.1 Smokeless tobacco: Never Tobacco comments: smoked off and on for 10 years, average of 3 cigarettes per day Vaping Use Vaping Use: Never used Substance Use Topics Alcohol use: Yes Comment: occasionally Drug use: No Objective BP 122/80 Pulse (!) 59 Temp 36.3 C (97.3 F) (Tympanic) Resp 18 Wt 97.1 kg (214 lb) SpO2 98% BMI 29.02 kg/m Physical Exam Vitals reviewed. Constitutional: Appearance: Normal appearance. HENT: Head: Normocephalic and atraumatic. Skin: General: Skin is warm and dry. Findings: Rash present. Comments: Patient has erythematous papules with some blisters on his left forearm diffusely, 1 spoton the right forearm, and bilateral lower legs. A new area on his right chest wall as well. Neurological: Mental Status: He is alert. Assessment and Plan ASSESSMENT/PLAN: 1. Allergic contact dermatitis due to plants, except food - ICD9: 692.6, ICD10: L23.7 - Oral Steriod tx -Prednisone taper - Topical steriod tx with Rx for steriod cream/ointment- see orders - discussed skin care of rash - follow up if symptoms persist or worsen. Katy Gallegos PA-C documented in this encounterSt. [facility]04-[facility]23 Miscellaneous Notes* Telephone Encounter - Ilana Haynes MA - 12/26/2022 10:54 AM EDT ALYSON: 11/04/22 with PCP NOV: 05/05/23-6 Month F/U with PCP Last refill: 11/05/22 With 30 and 2 refills Ilana Haynes MA documented in this encounterSt. [facility]03-01-2023 Miscellaneous Notes* Telephone Encounter - Tamela Isbell MA - 11/06/2022 4:01 PM EST Attempted to contact patient, VM box full. [employer] message sent for patient of below. Tamela Isbell MA * Telephone Encounter - Tamela Isbell MA - 11/05/2022 2:29 PM EST LM for pt to contact office. Tamela Isbell MA * Telephone Encounter - Tamela Isbell MA - 11/05/2022 8:31 AM EST Left message for patient to contact office. Tamela Isbell MA * Telephone Encounter - Janey Gutierrez PA-C - 11/05/2022 6:31 AM EST Please have him increase levothyrxine to 100mcg 1h empty stomach and recheck lab in 8 weeks. Telephone on 11/05/22 TSH BLD T4 FREE/FREE THYROX The following approved medication requests have been transmitted electronically. Requested Prescriptions Signed Prescriptions Disp Refills levothyroxine (LEVOXYL) 100 mcg tablet 30 tablet 2 Sig: Take 1 tablet by mouth once daily. Take on empty stomach. For Thyroid. Authorizing Provider: Janey GUTIERREZ PA-C documented in this encounterSt. [facility] Hospital02-27-2023 Miscellaneous Notes* Telephone Encounter - Sherron Murdock MA - 11/04/2022 11:22 AM EST Patient has been identified by name and date of : Yes Requested Prescriptions Pending Prescriptions Disp Refills sertraline (ZOLOFT) 50 mg tablet 90 tablet 3 Sig: Take 1 tablet by mouth once daily. RX INSTRUCTIONS: Patient aware RX will be sent to pharmacy. No need to notify patient. Sherron Murdock MA Alyson: \04/2022 Nov: 04/2023 Last refill: 06/2022 - patient requested 90 day supply be sent to [facility]. Sherron Murdock MA * Telephone Encounter - Dominga Hayes - 11/04/2022 11:17 AM EST Rerouting * Telephone Encounter - Dominga Hayes - 11/04/2022 11:13 AM EST Patient has been identified by name and date of : Yes Requested Prescriptions Pending Prescriptions Disp Refills sertraline (ZOLOFT) 50 mg tablet 90 tablet 3 Sig: Take 1 tablet by mouth once daily. RX INSTRUCTIONS: Patient asking for 90 days. Patient aware RX will be sent to pharmacy. No need to notify patient. Dominga Hayes documented in this encounterSt. [facility] Hospital02-27-2023 History of Present illness Narrative* Janey Gutierrez PA-C - 11/04/2022 9:20 AM EST 47 year old male with c/o here for follow up Feeling good, just tired. Elevated blood pressure reading without diagnosis of hypertension Last 14 BP Last 14 Encounter BP Readings: Date: BP: 11/04/2022 110/60 05/03/2022 110/78 11/13/2021 124/84 06/29/2021 120/80 05/18/2021 128/78 04/05/2021 123/82 10/20/2020 116/80 09/27/2019 118/82 03/18/2019 129/85 02/18/2019 112/76 01/21/2019 120/78 10/06/2018 101/88 09/24/2018 132/89 08/24/2018 112/88 Hypothyroidism, acquired Hypothyroidism Current medication: Levothyroxine 75mcg daily AC Taking as directed on an empty stomach? Yes. Thyroid pain: No. Mass effect: No. Change in energy level/ fatigue? Yes. A little more tired than usual. Attributes to work stress. Recent derailments. Sleep disturbance ?No. Sleeps well. Temperature Intolerance: cold No, hot No. In females, menstrual cycle issues? N/a, If yes: Change in bowel habits? No. If yes: Constipation? No. If yes: Diarrhea? No. If yes: Weight changes? No. Memory issues: notices he is forgetful. Diaphoresis: No. Numbness, tingling none Radiological imaging with contrast dyes within the last 3 months? No. History of radiation exposure to head or neck area? No. Change in hair or skin? Skin is oily. If yes: Other symptoms: none Last 2 Encounter Wt Readings: Date: Wt: 05/03/2022 97.1 kg (214 lb) 11/13/2021 105.7 kg (233 lb) Last thyroid labs: TSH Date Value 05/03/2022 3.000 mIU/L 12/04/2021 2.090 mIU/L 10/25/2021 6.690 uU/mL 05/18/2021 9.180 uU/mL ) Fatty liver Elevated liver enzymes Shift work sleep disorder Feels doing well, able to adjust. Generalized anxiety disorder with panic attacks Current medications: Sertraline 50mg daily Doing well. Not as emotional as he used to be which is a plus. Chronic allergic rhinitis (primary encounter diagnosis) Doing very good. Stopped shots which has actually improved sx. HISTORIES FAMILY HISTORY Problem Relation Age of Onset Thyroid Mother Headache Father Migraines Allergies Father other (polycythemia vera) Father Headache Sister Diabetes Maternal Grandmother Emphysema Maternal Grandmother Emphysema Maternal Grandfather Heart Maternal Grandfather pacemaker; stents Diabetes Paternal Grandmother Cancer Paternal Grandmother other (Psoriasis) Paternal Grandmother Diabetes Paternal Grandfather Heart Paternal Grandfather [place] Asthma Son Colon Cancer No Family History PAST MEDICAL HISTORY Diagnosis Date Allergic rhinitis due to other allergen Generalized anxiety disorder with panic attacks 10/06/2018 PAST SURGICAL HISTORY Procedure Laterality Date ADENOIDECTOMY PRIMARY <AGE 12 1981 Adenoidectomy COLONOSCOPY FLX DX W/COLLJ SPEC WHEN PFRMD [facility]/19[facility] TRANSORAL BIOPSY SINGLE/MULTIPLE 08[facility]19/[facility] PAST SURGICAL HISTORY OF 2017 removed benign lesion on scalp, deepa REM LESION FACE,EAR,EYE 1.1-2 CM Right 06/05/16 Exc. right lower lip mucocele TONSILLECTOMY PRIMARY/SECONDARY <AGE 14 1982 Tonsillectomy Social History Tobacco Use Smoking status: Light Smoker Years: 10.00 Types: Cigarettes Last attempt to quit: 01/06/2009 Years since quittin.8 Smokeless tobacco: Never Tobacco comments: smoked off and on for 10 years, average of 3 cigarettes per day Vaping Use Vaping Use: Never used Substance Use Topics Alcohol use: Yes Comment: occasionally Drug use: No ACTIVE PROBLEM LIST Seasonal Allergic Rhinitis Due to Pollen Elevated Blood Pressure Reading Without Diagnosis of Hypertension Generalized Anxiety Disorder With Panic Attacks Shift Work Sleep Disorder Chronic Allergic Rhinitis Fatty Liver Elevated Liver Enzymes Hypothyroidism, Acquired Current Outpatient Medications Medication Sig Dispense Refill sertraline (ZOLOFT) 50 mg tablet Take 1 tablet by mouth once daily. 90 tablet 3 levothyroxine (SYNTHROID) 75 mcg tablet Take 1 tablet by mouth once daily. Take on empty stomach. For Thyroid. 90 tablet 1 EPINEPHrine (AUVI-Q) 0.3 mg/0.3 mL auto-injector Inject 0.3 mL intramuscularly as needed. For allergic reaction.Seek emergent medical care immediately after use.Disp:1 2-packw/assistive technology trainer 1 Each 1 No current facility-administered medications for this visit. HEPATITIS B(1 of 3 - 3-dose series) Never done PNEUMOCOCCAL(1 - PCV) Never done HIV SCREENING Never done COVID-19 VACCINE(4 - Booster for Pfizer series) due on 11/08/2021 INFLUENZA(1) due on 05/09/2022 COLORECTAL CANCER SCREENING Never done DEPRESSION ASSESSMENT Never done EXAM: BP 110/60 Pulse 70 Wt 97.5 kg (215 lb) SpO2 98% BMI 29.16 kg/m Pleasant overweight adult man in no acute distress. Alert and oriented all spheres. Normal affect and cognition. Speech normal. No deficits to learning or comprehension. Skin warm, dry, pink to lips and nailbeds. Normal turgor. Respirations regular and unlabored. HEENT: NCAT. No scleral icterus or conjunctival injection. TM's clear. Nose and oropharynx free from injection or lesion. Oral membranes moist and pink. No cervical lymph nodes. Thyroid non-tender, no masses, or enlargement. Carotids pulses 2+/4+ without bruits. No JVD with HOB at 30 degrees. Chest is normal shape. Lungs are clear to all martinez with good air exchange through out. HRRR without murmur or gallop. No lifts, heaves, or rubs. Extrem: no clubbing or cyanosis. Edema: none. Extremities are warm and pink with prompt capillary refill. ASSESSMENT/PLAN: 1. Chronic allergic rhinitis - ICD9: 477.9, ICD10: J30.9 (primary diagnosis) Stable, and doing better 2. Elevated blood pressure reading without diagnosis of hypertension - ICD9: 796.2, ICD10: R03.0 - Encouraged dietary sodium restriction/DASH diet - Recommended regular aerobic exercise. - Recommend home blood pressure monitoring, to bring results in on next visit - Goal of BP <130/80 - CBC 3. Hypothyroidism, acquired - ICD9: 244.9, ICD10: E03.9 - Instructed patient on importance of taking on an empty stomach either first thing in the morning or at bedtime. Stable - Behavioral intervention - TSH BLD - COMP METABOLIC PANEL - CBC - LEVOTHYROXINE 75 MCG TABLET 4. Fatty liver - ICD9: 571.8, ICD10: K76.0 - COMP METABOLIC PANEL 5. Elevated liver enzymes - ICD9: 790.5, ICD10: R74.8 - COMP METABOLIC PANEL 6. Shift work sleep disorder - ICD9: 327.36, ICD10: G47.26 Managing well 7. Generalized anxiety disorder with panic attacks - ICD9: 300.02, 300.01, ICD10: F41.1, F41.0 - TSH BLD - COMP METABOLIC PANEL - CBC Janey Gutierrez PA-C documented in this encounterSt. [facility]07-26-2022 Miscellaneous Notes* Telephone Encounter - Joanna Luz YESSICA - 04/02/2022 1:58 PM EDT Patient calling is out of levothyroxiine, asking for short term rx locally and [facility] Pending rx to file. Please advise Patient has been identified by name and date of : Yes Patient phones for refill(s): Pending Prescriptions Disp Refills LEVOTHYROXINE 75 MCG TABLET 90 tablet 1 Sig: Take 1 tablet by mouth once daily. Take on empty stomach. For Thyroid. KELLY: No LEVOTHYROXINE 75 MCG TABLET 10 tablet 0 Sig: Take 1 tablet by mouth once daily. Take on empty stomach. For Thyroid. KELLY: No Date of last office visit in primary care: 12/27/2021, has appt 04/26/2022 Last 2 Encounter Wt Readings: Date: Wt: 11/13/2021 105.7 kg (233 lb) 10/25/2021 105.2 kg (232 lb) Previous labs/tests for medication: Thyroid: TSH Date Value 12/04/2021 2.090 mIU/L 10/25/2021 6.690 uU/mL Please advise. Thank you. Joanna Luz LPN documented in this encounterSt. [facility]05-04-2022 Miscellaneous Notes* Telephone Encounter - Hetal Park - 01/09/2022 9:42 AM EDT Patient has been identified by name and date of : Yes Pending Prescriptions Disp Refills SERTRALINE 50 MG TABLET 90 tablet 3 Sig: Take 1 tablet by mouth once daily. KELLY: No RX INSTRUCTIONS: running low Patient aware RX escripted to mail away pharmacy. No need to notify patient. Hetal Park documented in this encounterSt. [facility]04-21-2022 History of Present illness Narrative* Janey Gutierrez PA-C - 12/27/2021 9:06 AM EDT [employer] video visit was used for evaluation of this patient. Location of patient: [facility] Patient was offered a virtual/telemedicine appointment in lieu of an office visit due to recommendations to reduce patient exposure to COVID-19. Patient is aware of limitations of performing the visit without a face to face visit in the office setting and agrees. 9:07 AM 46 year old male with c/o here for 6 month follow up Hypothyroidism Current medication: Levothyroxine 75mcg daily Taking as directed on an empty stomach? Yes. Thyroid pain: No. Mass effect: No. Change ins energy level/ fatigue? No. Sleep disturbance ? Sleep well.. Temperature Intolerance: cold No, hot No. In females, menstrual cycle issues? n/a, If yes: Change in bowel habits? No. If yes: Constipation? No. If yes: Diarrhea? No. If yes: Weight changes?No. Memory issues: some short term memory Issues, nothing big. Zoloft helps. Diaphoresis: No. Numbness, tingling no Change in hair or skin? No. If yes: Other symptoms: Last 2 Encounter Wt Readings: Date: Wt: 11/13/2021 105.7 kg (233 lb) 10/25/2021 105.2 kg (232 lb) Last thyroid labs: TSH Date Value 12/04/2021 2.090 mIU/L 10/25/2021 6.690 uU/mL 05/18/2021 9.180 uU/mL ) Generalized anxiety Current medications: Sertraline 50mg daily Stopped it for 3 days and had withdrawal side effects. PHQ-9 12/27/2021 Score 2 PAUL - 7 SCORES 12/27/2021 PAUL-7 Score 5 Elevated liver enzymes Has not yet scheduled elastography Patient states he drinks very rarely, usually with dining out 1 or 2 beers. Feels well, no recent issues with flulike symptoms, bowel issues. Component Latest Ref Rng & Units 06/08/2014 02/19/2019 05/18/2021 10/25/2021 Protein, Total 6.3 - 8.0 g/dL 7.2 7.0 7.3 Albumin 3.9 - 4.9 g/dL 4.8 4.4 4.8 Calcium 8.5 - 10.2 mg/dL 10.0 9.1 9.9 Bilirubin, Total 0.2 - 1.3 mg/dL 0.3 0.6 0.5 Alkaline Phosphatase 38 - 113 U/L 83 106 101 AST 14 - 40 U/L 36 41 (H) 58 (H) Glucose 74 - 99 mg/dL 96 104 (H) 87 BUN 9 - 24 mg/dL 15 15 12 Creatinine 0.73 - 1.22 mg/dL 1.05 1.01 0.99 Sodium 136 - 144 mmol/L 145 143 140 Potassium 3.7 - 5.1 mmol/L 4.6 4.0 4.4 Chloride 97 - 105 mmol/L 107 105 105 CO2 22 - 30 mmol/L 26 23 25 Anion Gap 9 - 18 mmol/L 12 15 10 ALT 10 - 54 U/L 81 (H) 93 (H) 147 (H) eGFR- >60 >60 >60 eGFR-All Other Races . >60 >60 >60 Hep B Core Ab, Total Negative Negative Hep C Antibody IA Negative Negative Hep B Surface Ag Negative Negative Hep B Surface Ab, Qual Negative Negative Component Latest Ref Rng & Units 11/13/2021 Smooth Muscle Ab Screen Negative Negative Mitochondrial Ab Panel Negative Negative Ceruloplasmin 15 - 30 mg/dL 19 Alpha 1 Antitrypsin 90 - 200 mg/dL 133 HISTORIES FAMILY HISTORY Problem Relation Age of Onset Thyroid Mother Headache Father Migraines Allergies Father other (polycythemia vera) Father Headache Sister Diabetes Maternal Grandmother Emphysema Maternal Grandmother Emphysema Maternal Grandfather Heart Maternal Grandfather pacemaker; stents Diabetes Paternal Grandmother Cancer Paternal Grandmother other (Psoriasis) Paternal Grandmother Diabetes Paternal Grandfather Heart Paternal Grandfather [place] Asthma Son Colon Cancer No Family History PAST MEDICAL HISTORY Diagnosis Date Allergic rhinitis due to other allergen Generalized anxiety disorder with panic attacks 10/06/2018 PAST SURGICAL HISTORY Procedure Laterality Date ADENOIDECTOMY PRIMARY <AGE 14 1981 Adenoidectomy COLONOSCOPY FLX DX W/COLLJ SPEC WHEN PFRMD [facility]/19[facility] TRANSORAL BIOPSY SINGLE/MULTIPLE 08/19[facility] PAST SURGICAL HISTORY OF 2017 removed benign lesion on scalp, deepa REM LESION FACE,EAR,EYE 1.1-2 CM Right 06/05/16 Exc. right lower lip mucocele TONSILLECTOMY PRIMARY/SECONDARY <AGE 14 1981 Tonsillectomy Social History Tobacco Use Smoking status: Light Tobacco Smoker Years: 10.00 Last attempt to quit: 01/06/2009 Years since quittin.9 Smokeless tobacco: Never Used Tobacco comment: smoked off and on for 10 years, average of 3 cigarettes per day Vaping Use Vaping Use: Never used Substance Use Topics Alcohol use: Yes Comment: occasionally Drug use: No ACTIVE PROBLEM LIST Seasonal Allergic Rhinitis Due to Pollen Elevated Blood Pressure Reading Without Diagnosis of Hypertension Generalized Anxiety Disorder With Panic Attacks Shift Work Sleep Disorder Chronic Allergic Rhinitis Current Outpatient Medications Medication Sig Dispense Refill levothyroxine (SYNTHROID) 75 mcg tablet Take 1 tablet by mouth once daily. Take on empty stomach. For Thyroid. 90 tablet 1 cetirizine (ZYRTEC) 10 mg tablet Take 10 mg by mouth once daily. EPINEPHrine (AUVI-Q) 0.3 mg/0.3 mL auto-injector Inject 0.3 mL intramuscularly as needed. For allergic reaction.Seek emergent medical care immediately after use.Disp:1 2-packw/assistive technology trainer 1 Each 1 sertraline (ZOLOFT) 50 mg tablet Take 1 tablet by mouth once daily. 90 tablet 3 No current facility-administered medications for this visit. There are no preventive care reminders to display for this patient. EXAM: There were no vitals taken for this visit. Pleasant, well-appearing adult male in his usual demeanor. Alert and oriented in all spheres, no barriers to learning. Mood is euthymic, affect congruent. Moving easily in the video. Appears well-hydrated, lips are pink. No respiratory labor. ASSESSMENT/PLAN: 1. Elevated liver enzymes - ICD9: 790.5, ICD10: R74.8 (primary diagnosis) Repeat labs, reentered lab due to change in system. Reviewed recommendations for low-fat diet, weight loss through carb reduction and exercise. Avoidance of any regular or excessive alcohol - HEPATIC FUNCTION PNL 2. Hypothyroidism, acquired - ICD9: 244.9, ICD10: E03.9 Stable on current medication Patient is compliant with medication, needs to recheck labs due to last adjustment, patient is aware and will get these done. 3. Generalized anxiety disorder with panic attacks - ICD9: 300.02, 300.01, ICD10: F41.1, F41.0 Stable and doing well. Continue current medications, follow-up in 6 months and as needed. 4. Elevated TSH - ICD9: 794.5, ICD10: R79.89 As above 22-minute call Janey Gutierrez PA-C documented in this encounterSt. [facility] Hospital03-28-2022 History of Present illness Narrative* Fadumo Champagne PA-C - 12/03/2021 9:59 AM EDT Patient fasting for 3 hours:yes Any implanted devices:no Possibility of :n/a Fibroscan was performed on December 03, 2021 by Janet Smart LPN and results are interpreted by, Fadumo Champagne PA-C Diagnosis: Elevated LFTs; hepatic steatosis Please refer to get images report for individual readings Number of readings: 10 IQR: 19% E (kpa): 11.8 CAP: 390 Impression The reading was adequate, and corresponds to Fibrosis stage F3-F4 and steatosis grade of S3. Fadumo Champagne PA-C Grade CAP value up to 237 dB/M corresponds to S0 (< 10 % Fat) CAP value between (238 - 258 dB/M) corresponds to S1 (>/= 11 % Fat) CAP value between (259 - 289 dB/M) corresponds to S2 (>/= 33 % Fat) CAP value > 290dB/M corresponds to S3 (>/= 67 % Fat) stage 0 ( S0:< 10 % steatosis) stage 1 (>/= S1: 11%-33% steatosis) stage 2 (>/= S2: 34%-66% steatosis) stage 3 (>/= S3: > 66% steatosis) Int J Clin Exp Med. 2015; 8(67): 67121 88980. documented in this encounterSt. [facility]08-08-2017 History of Past illness Narrative* Problem Noted Date Resolved Date Chronic allergic rhinitis due to fungal spores 0 04/15/2017 04/15/2017 Acute atopic conjunctivitis of both eyes 017 08/04/2018 Mucocele of lower lip 05/20/2016 08/04/2018 documented as of this encounter (statuses as of 12/03/2021) [facility] of [facility] illness Narrative* Problem Noted Date Resolved Date Chronic allergic rhinitis due to fungal spores 0 04/15/2017 04/15/2017 Acute atopic conjunctivitis of both eyes 017 08/04/2018 Mucocele of lower lip 05/20/2016 08/04/2018 documented as of this encounter (statuses as of 12/27/2021) [facility] illness Narrative* Problem Noted Date Resolved Date Chronic allergic rhinitis due to fungal spores 0 04/15/2017 04/15/2017 Acute atopic conjunctivitis of both eyes 017 08/04/2018 Mucocele of lower lip 05/20/2016 08/04/2018 documented as of this encounter (statuses as of 01/09/2022) [address]08-2017 History of Past illness Narrative* Problem Noted Date Resolved Date Chronic allergic rhinitis due to fungal spores 0 04/15/2017 04/15/2017 Acute atopic conjunctivitis of both eyes 017 08/04/2018 Mucocele of lower lip 05/20/2016 08/04/2018 documented as of this encounter (statuses as of 04/02/2022) [address]2017 History of Past illness Narrative* Problem Noted Date Resolved Date Chronic allergic rhinitis due to fungal spores 0 04/15/2017 04/15/2017 Acute atopic conjunctivitis of both eyes 017 08/04/2018 Mucocele of lower lip 05/20/2016 08/04/2018 documented as of this encounter (statuses as of 11/04/2022) [place] [address]-08-2017 History of Past illness Narrative* Problem Noted Date Resolved Date Chronic allergic rhinitis due to fungal spores 0 04/15/2017 04/15/2017 Acute atopic conjunctivitis of both eyes 017 08/04/2018 Mucocele of lower lip 05/20/2016 08/04/2018 documented as of this encounter (statuses as of 11/05/2022) [address]2017 History of Past illness Narrative* Problem Noted Date Resolved Date Chronic allergic rhinitis due to fungal spores 0 04/15/2017 04/15/2017 Acute atopic conjunctivitis of both eyes 017 08/04/2018 Mucocele of lower lip 05/20/2016 08/04/2018 documented as of this encounter (statuses as of 11/07/2022) [address]2017 History of Past illness Narrative* Problem Noted Date Resolved Date Chronic allergic rhinitis due to fungal spores 0 04/15/2017 04/15/2017 Acute atopic conjunctivitis of both eyes 017 08/04/2018 Mucocele of lower lip 05/20/2016 08/04/2018 documented as of this encounter (statuses as of 12/27/2022) [facility] Narrative* Problem Noted Date Resolved Date Chronic allergic rhinitis due to fungal spores 0 04/15/2017 04/15/2017 Acute atopic conjunctivitis of both eyes 017 08/04/2018 Mucocele of lower lip 05/20/2016 08/04/2018 documented as of this encounter (statuses as of 03/07/2023) [facility] Narrative* Problem Noted Date Resolved Date Chronic allergic rhinitis due to fungal spores 0 04/15/2017 04/15/2017 Acute atopic conjunctivitis of both eyes 017 08/04/2018 Mucocele of lower lip 05/20/2016 08/04/2018 documented as of this encounter (statuses as of 03/14/2023) [facility] Narrative* Problem Noted Date Diagnosed Date Resolved Date Chronic allergic rhinitis du e to fungal spores 04/15/2017 04/15/2017 Acute atopic conjunctivitis of both eyes 04/15/2017 08/04/2018 Mucocele of lower lip 05/20/20162017 documented as of this encounter (statuses as of 03/25/2023) [facility]2017 History of Past illness Narrative* Problem Noted Date Diagnosed Date Resolved Date Chronic allergic rhinitis du e to fungal spores 04/15/2017 04/15/2017 Acute atopic conjunctivitis of both eyes 04/15/2017 08/04/2018 Mucocele of lower lip 05/20/20162017 documented as of this encounter (statuses as of 04/29/2023) [facility] History of Past illness Narrative* Problem Noted Date Diagnosed Date Resolved Date Chronic allergic rhinitis du e to fungal spores 04/15/2017 04/15/2017 Acute atopic conjunctivitis of both eyes 04/15/2017 08/04/2018 Mucocele of lower lip 05/20/20162017 documented as of this encounter (statuses as of 05/05/2023) [facility] History of Past illness Narrative* Problem Noted Date Diagnosed Date Resolved Date Chronic allergic rhinitis du e to fungal spores 04/15/2017 04/15/2017 Acute atopic conjunctivitis of both eyes 04/15/2017 08/04/2018 Mucocele of lower lip 05/20/20162017 documented as of this encounter (statuses as of 08/01/2023) [facility] History of Past illness Narrative* Problem Noted Date Diagnosed Date Resolved Date Chronic allergic rhinitis du e to fungal spores 04/15/2017 04/15/2017 Acute atopic conjunctivitis of both eyes 04/15/2017 08/04/2018 Mucocele of lower lip 05/20/20162017 documented as of this encounter (statuses as of 10/31/2023) [facility] History of Past illness Narrative* Problem Noted Date Diagnosed Date Resolved Date Chronic allergic rhinitis du e to fungal spores 04/15/2017 04/15/2017 Acute atopic conjunctivitis of both eyes 04/15/2017 08/04/2018 Mucocele of lower lip 05/20/20162017 documented as of this encounter (statuses as of 11/06/2023) [facility] History of Past illness Narrative* Problem Noted Date Diagnosed Date Resolved Date Chronic allergic rhinitis du e to fungal spores 04/15/2017 04/15/2017 Acute atopic conjunctivitis of both eyes 04/15/2017 08/04/2018 Mucocele of lower lip 05/20/20162017 documented as of this encounter (statuses as of 12/19/2023) [facility] note* Diagnosis Elevated LFTs Other abnormal blood chemistry Hepatic steatosis Other chronic nonalcoholic liver disease [facility] Diagnosis Elevated liver enzymes- Primary Other nonspecific abnormal serum enzyme levels Hypothyroidism, acquired Unspecified hypothyroidism Generalized anxiety disorder with panic attacks Elevated TSH Nonspecific abnormal results of thyroid function study [facility] this [facility]* Diagnosis Generalized anxiety disorder with panic attacks [facility]* Diagnosis Hypothyroidism, acquired Unspecified hypothyroidism [facility] Diagnosis Chronic allergic rhinitis- Primary Allergic rhinitis, cause unspecified Elevated blood pressure reading without diagnosis of hypertension Hypothyroidism, acquired Unspecified hypothyroidism Fatty liver Other chronic nonalcoholic liver disease Elevated liver enzymes Other nonspecific abnormal serum enzyme levels Shift work sleep disorder Circadian rhythm sleep disorder, shift work type Generalized anxiety disorder with panic attacks [facility] Diagnosis Generalized anxiety disorder with panic attacks [facility] Diagnosis Hypothyroidism, acquired- Primary Unspecified hypothyroidism [facility] Diagnosis Hypothyroidism, acquired Unspecified hypothyroidism [facility] Diagnosis Allergic contact dermatitis due to plants, except food- Primary Contact dermatitis and other eczema due to plants (except food) 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 Somatic dysfunction of spine, cervical Nonallopathic lesion of cervical region, not elsewhere classified [facility] this [facility]* Diagnosis Hypothyroidism, acquired Unspecified hypothyroidism [facility] this [facility]* Diagnosis Fatty liver- Primary Other chronic nonalcoholic liver disease documented in this encounter [facility] note* Diagnosis Fatty liver- Primary Other chronic nonalcoholic liver disease documented in this encounter [facility] note* Diagnosis Hypothyroidism, acquired- Primary Unspecified hypothyroidism Fatty liver Other chronic nonalcoholic liver disease Elevated liver enzymes Other nonspecific abnormal serum enzyme levels Generalized anxiety disorder with panic attacks documented in this encounter [facility] note* Diagnosis Hypothyroidism, acquired Unspecified hypothyroidism [facility] (narrative)No reason for referral information availableWCleveland Clinic [facility] Work Phone: Reason for visit Narrative* Outpatient Procedure (Routine) - Closed Specialty Diagnoses / Procedures Referred By Contac t Referred To Contact [facility] Diagnoses Elevated LFTs Hepatic steatosis Procedures DDI VIBRATION CONTROLLED TRANSIENT ELASTOGRAPHY (VCTE) LIVER ELASTOGRAPHY W/O IMAG W/I&R Luciana Crockett PA-C [address] [place] [address] [facility] [address] [place] [id number] Referral ID Status Reason Start Date Expiration Date V isits Requested Visits Authorized [id number] Closed Auto-Generate d Referral 11/13/2021 11/13/[address] [facility] Summary Purpose Family History No Family History Records Found Relationship Condition Age at Onset Recorded Date/T jo-ann father Leukemia Unknown Polycythemia Unknown mother Disorder of thyroid Unknown grandmother Malignant neoplasm Unknown grandfather Cardiac disease Unknown Myocardial infarction Unknown Advance Directives No Advanced Directives Records FoundNo Advanced Directives Records FoundNo Advanced Directives Records Found Chief Complaint and Reason for Visit Chief Complaint Admit Date [facility]. [facility] - PPW SENT December 16, 2024 9:08am Reason for Visit Admit Date Anxiety December 16, 2024 9:0 8am Fatty liver December 16, 2024 9:0 8am Acquired hypothyroidism December 16, 2024 9:08am Screening for cardiovascular condition A pri2024 9:08am Establishing care with new doctorloco nter for December 16, 2024 9:08am Obesity (BMI 30.0-34.9) December 16, 2024 9:08am Hyperkalemia December 16, 2024 9:0 8am Chief Complaint Admit Date CRAYON SAWYER. EST C[facility] - PPW SENT December 16, 2024 9:08am FATTY LIVER December 29, 2024 9:1 8am Fatty liver January 14, 2025 9:32am EORDERS January 14, 2025 10:39a m Reason for Visit Admit Date Anxiety December 16, 2024 9:0 8am Fatty liver December 16, 2024 9:0 8am Acquired hypothyroidism December 16, 2024 9:08am Screening for cardiovascular condition A 2024 9:08am Establishing care with new doctorloco nter for December 16, 2024 9:08am Obesity (BMI 30.0-34.9) December 16, 2024 9:08am Hyperkalemia December 16, 2024 9:0 8am Elevated liver enzymes January 14, 2025 9:3 2am Fatty liver January 14, 2025 9:32am Metabolic dysfunction-associated steatoh epatitis (MASH) January 14, 2025 9:32am Chief Complaint Admit Date CRAYON SAWYER. [facility] C[facility] - PPW SENT December 16, 2024 9:08am FATTY LIVER December 29, 2024 9:1 8am Fatty liver January 14, 2025 9:32am EORDERS January 14, 2025 10:39a m 1 M FU February 24, 2025 10:2 1am Chief Complaint Admit Date 1 M FU February 24, 2025 10:2 1am 6 M FU June 16, 2025 9: 24am Reason for Visit Admit Date Elevated liver enzymes February 24, 2025 1 0:21am Metabolic dysfunction-associated steatoh epatitis (MASH) February 24, 2025 10:21am Anxiety June 16, 2025 9: 24am Fatty liver June 16, 2025 9: 24am Left lower quadrant abdominal pain Octob er 2024 9:24am Acquired hypothyroidism June 16 9:24am Flu vaccine refused June 16, 2025 9: 24am Obesity (BMI 30.0-34.9) June 16 9:24am Additional Source Comments Source Comments (unrecognize d section and content) In the event this informatio n is protected by the Federal Confidentiality of Alcohol and Drug Abuse Patient Records regulations: The Federal rules restrict any use of the information to criminally investigate or prosecute any alcohol or drug abuse patient.[facility] the event this information is protected by the Federal Confidentiality of Alcohol and Drug Abuse Patient Records regulations: The Federal rules restrict any use of the information to criminally investigate or prosecute any alcohol or drug abuse patient.[facility] the event this information is protected by the Federal Confidentiality of Alcohol and Drug Abuse Patient Records regulations: The Federal rules restrict any use of the information to criminally investigate or prosecute any alcohol or drug abuse patient.[facility] the event this information is protected by the Federal Confidentiality of Alcohol and Drug Abuse Patient Records regulations: The Federal rules restrict any use of the information to criminally investigate or prosecute any alcohol or drug abuse patient.[facility] the event this information is protected by the Federal Confidentiality of Alcohol and Drug Abuse Patient Records regulations: The Federal rules restrict any use of the information to criminally investigate or prosecute any alcohol or drug abuse patient.[facility] the event this information is protected by the Federal Confidentiality of Alcohol and Drug Abuse Patient Records regulations: The Federal rules restrict any use of the information to criminally investigate or prosecute any alcohol or drug abuse patient.[facility] the event this information is protected by the Federal Confidentiality of Alcohol and Drug Abuse Patient Records regulations: The Federal rules restrict any use of the information to criminally investigate or prosecute any alcohol or drug abuse patient.[facility]In the event this information is protected by the Federal Confidentiality of Alcohol and Drug Abuse Patient Records regulations: The Federal rules restrict any use of the information to criminally investigate or prosecute any alcohol or drug abuse patient.[facility] the event this information is protected by the Federal Confidentiality of Alcohol and Drug Abuse Patient Records regulations: The Federal rules restrict any use of the information to criminally investigate or prosecute any alcohol or drug abuse patient.[facility] the event this information is protected by the Federal Confidentiality of Alcohol and Drug Abuse Patient Records regulations: The Federal rules restrict any use of the information to criminally investigate or prosecute any alcohol or drug abuse patient.[facility] the event this information is protected by the Federal Confidentiality of Alcohol and Drug Abuse Patient Records regulations: The Federal rules restrict any use of the information to criminally investigate or prosecute any alcohol or drug abuse patient.[facility] the event this information is protected by the Federal Confidentiality of Alcohol and Drug Abuse Patient Records regulations: The Federal rules restrict any use of the information to criminally investigate or prosecute any alcohol or drug abuse patient.[facility] the event this information is protected by the Federal Confidentiality of Alcohol and Drug Abuse Patient Records regulations: The Federal rules restrict any use of the information to criminally investigate or prosecute any alcohol or drug abuse patient.[facility] the event this information is protected by the Federal Confidentiality of Alcohol and Drug Abuse Patient Records regulations: The Federal rules restrict any use of the information to criminally investigate or prosecute any alcohol or drug abuse patient.[facility] the event this information is protected by the Federal Confidentiality of Alcohol and Drug Abuse Patient Records regulations: The Federal rules restrict any use of the information to criminally investigate or prosecute any alcohol or drug abuse patient.[facility]In the event this information is protected by the Federal Confidentiality of Alcohol and Drug Abuse Patient Records regulations: The Federal rules restrict any use of the information to criminally investigate or prosecute any alcohol or drug abuse patient.[facility] the event this information is protected by the Federal Confidentiality of Alcohol and Drug Abuse Patient Records regulations: The Federal rules restrict any use of the information to criminally investigate or prosecute any alcohol or drug abuse patient.[facility] the event this information is protected by the Federal Confidentiality of Alcohol and Drug Abuse Patient Records regulations: The Federal rules restrict any use of the information to criminally investigate or prosecute any alcohol or drug abuse patient.[facility] Care Teams (unrecognized sec tion and content) International Sourcing Manager Relationship Specialty Start Date End Date Janey Gutierrez PA-C [address] [facility] [address] PCP - General Family Practice 05/18/21 International Sourcing Manager Relationship Specialty Start Date End Date Janey Gutierrez PA-C [address] [facility] [address] PCP - General Family Practice 05/18/21 International Sourcing Manager Relationship Specialty Start Date End Date Janey Gutierrez PA-C [address] [facility] [address] PCP - General Family Practice 05/18/21 International Sourcing Manager Relationship Specialty Start Date End Date Janey Gutierrez PA-C [address] [facility] [address] PCP - General Family Practice 05/18/21 International Sourcing Manager Relationship Specialty Start Date End Date Janey Gutierrez PA-C [address] [facility] [address] PCP - General Family Medicine 05/18/21 International Sourcing Manager Relationship Specialty Start Date End Date Janey Gutierrez PA-C [address] [facility] [address] PCP - General Family Medicine 05/18/21 International Sourcing Manager Relationship Specialty Start Date End Date Janey Gutierrez PA-C [address] [facility] [address] PCP - General Family Medicine 05/18/21 International Sourcing Manager Relationship Specialty Start Date End Date Janey Gutierrez PA-C [address] [facility] [address] PCP - General Family Medicine 05/18/21 International Sourcing Manager Relationship Specialty Start Date End Date Janey Gutierrez PA-C [address] [facility] [address] PCP - General Family Medicine 05/18/21 International Sourcing Manager Relationship Specialty Start Date End Date Janey Gutierrez PA-C [address] [place] [address] PCP - General Family Medicine 05/18/21 International Sourcing Manager Relationship Specialty Start Date End Date Janey Gutierrez PA-C [address] [place] [address] PCP - General Family Medicine 05/18/21 International Sourcing Manager Relationship Specialty Start Date End Date Janey Gutierrez PA-C [address] [place] [address] PCP - General Family Medicine 05/18/21 International Sourcing Manager Relationship Specialty Start Date End Date Janey Gutierrez PA-C [address] [place] [address] PCP - General Family Medicine 05/18/21 International Sourcing Manager Relationship Specialty Start Date End Date Janey Gutierrez PA-C [address] [place] [address] PCP - General Family Medicine 05/18/21 International Sourcing Manager Relationship Specialty [place] [address] [place] [id number] PCP - General Internal Medicine 11/25/24 Diana Sanchez APRN.[employer] [address] [place] [id number] [employer] Caregiver Family Medicine 08/13/24 Holley Hussein APRN.[employer] [address] [place] [id number] After School Caregiver Family Medicine 08/13/24 Team Status: Active Member Role Status Dates Dr. Carlita Borges MD Primary Care Provider Active Team Status: Inactive Member Role Status Dates Dr. Carlita Borges MD Attending Provider Active Start: December 16, 2024 End: December 16, 2024 Team Status: Inactive Member Role Status Dates Dr. Carlita Bogres MD Primary Care Provider Active Start: December 16, 2024 End: December 16, 2024 Dr. Carlita Borges MD Attending Provider Active Start: December 16, 2024 End: December 16, 2024 Dr. Carlita Borges MD Referring Provider Active Start: December 16, 2024 End: December 16, 2024 Team Status: Inactive Member Role Status Dates Dr. Carlita Borges MD Primary Care Provider Active Start: December 29, 2024 End: December 29, 2024 Dr. Carlita Borges MD Attending Provider Active Start: December 29, 2024 End: December 29, 2024 Dr. Carlita Borges MD Referring Provider Active Start: December 29, 2024 End: December 29, 2024 Team Status: Inactive Member Role Status Dates Dr. Carlita Borges MD Primary Care Provider Active Start: January 14, 2025 End: January 14, 2025 Dr. Carlita Borges MD Referring Provider Active Start: January 14, 2025 End: January 14, 2025 EDILBERTO Lal Attending Provider Active Start: January 14, 2025 End: January 14, 2025 Team Status: Inactive Member Role Status Dates Dr. Carlita Borges MD Primary Care Provider Active Start: January 14, 2025 End: January 14, 2025 EDILBERTO Lal Attending Provider Active Start: January 14, 2025 End: January 14, 2025 EDILBERTO Lal Referring Provider Active Start: January 14, 2025 End: January 14, 2025 Team Status: Inactive Member Role Status Dates Dr. Carlita Borges MD Primary Care Provider Active Start: January 21, 2025 End: January 21, 2025 EDILBERTO Lal Attending Provider Active Start: January 21, 2025 End: January 21, 2025 EDILBERTO Lal Referring Provider Active Start: January 21, 2025 End: January 21, 2025 Team Status: Inactive Member Role Status Dates Dr. Carlita Borges MD Primary Care Provider Active Start: February 24, 2025 End: February 24, 2025 Dr. Carlita Borges MD Referring Provider Active Start: February 24, 2025 End: February 24, 2025 EDILBERTO Lal Attending Provider Active Start: February 24, 2025 End: February 24, 2025 Team Status: Active Member Role/Relationship Status Dates Dr. Carlita Borges MD Primary care physician Active Team Status: Inactive Member Role/Relationship Status Dates Dr. Carlita Borges MD Primary care physician Active Start: February 24, 2025 End: February 24, 2025 Dr. Carlita Borges MD Referring Provider Active Start: February 24, 2025 End: February 24, 2025 EDILBERTO Lal Attending physician Active Start: February 24, 2025 End: February 24, 2025 Team Status: Inactive Member Role/Relationship Status Dates Dr. Carlita Borges MD Primary care physician Active Start: June 16, 2025 End: June 16, 2025 Dr. Carlita Borges MD Attending physician Active Start: June 16, 2025 End: June 16, 2025 Dr. Carlita Borges MD Referring Provider Active Start: June 16, 2025 End: June 16, 2025 Reason for Visit (unrecogniz ed section and content) Reason Comments Recheck Reason Onset Date Comments Refill Request 01/09/2022 Reason Onset Date Comments Refill Request 04/02/2022 Reason Comments 6 Month Exam Reason Onset Date Comments Refill Request 11/04/2022 Reason Comments Results Reason Onset Date Comments Refill Request 12/26/2022 Reason Comments poison shon Poison shon all over x 1-2 weeks Reason Comments posion shon persisting, itchy Reason Onset Date Comments Refill Request 03/24/2023 Reason Onset Date Comments Refill Request 04/27/2023 Reason Comments F/U 6 Month Reason Onset Date Comments Refill Request 08/01/2023 Reason Onset Date Comments Appointment 09/11/2023 Reason Onset Date Comments Refill Request 10/31/2023 Reason Comments Follow Up 6 month Reason Comments enough levothyroxine rx until his appt (unrecognized sect ion and content) No Status Records FoundNo Status Records FoundNo Status Records Found INFORMATION SOURCE (unrecogn ized section and content) DATE CREATED AUTHOR 12/17/2023 [facility] DATE CREATED AUTHOR AUTHOR'S ORGANIZ ATION 11/27/2024 [facility] DATE CREATED AUTHOR AUTHOR'S ORGANIZ ATION 06/18/2025 [facility] Goals (unrecognized section and content) Goals may be documented in a n alternate sectionGoals may be documented in an alternate sectionGoals may be documented in an alternate sectionGoals may be documented in an alternate sectionGoals may be documented in an alternate section FOR RECORDS PERTAINING TO PATIENTS WHO ARE OR HAVE BEEN ENROLLED IN A CHEMICAL DEPENDENCY/SUBSTANCEABUSE PROGRAM, SOME INFORMATION MAY BE OMITTED. This clinical summary was aggregated from multiple sources. Caution should be exercised in using it in the provision of clinical care. This summary normalizes information from multiple sources, and as a consequence, information in this document may materially change the coding, format and clinical context of patient data. In addition, data may be omitted in some cases. CLINICAL DECISIONS SHOULD BE BASED ON THE PRIMARY CLINICAL RECORDS. [facility]. provides no warranty or guarantee of the accuracy or completeness of information in this document.
== END | disposition home or self-care (01) ==
PROVIDERS: PCP Internal Medicine; Referring Provider Internal Medicine; Visit Provider Internal Medicine
DX: R10.32 Left lower quadrant pain (principal)
CPT/HCPCS: 74178; Q9967